=== PATIENT | male | born 1955 | race Caucasian/White ===

== ENCOUNTER 2024-04-25 13:27 | Outpatient (OUT) | payer MEDICARE, OTHER, SELFPAY ==
[2024-04-25 14:19] LABS: Alanine Aminotransferase 35 U/L (16-63); Albumin Globulin Ratio 1.5; Albumin Level 3.7 g/dL (3.4-5.0); Alkaline Phosphatase 93 U/L (46-116); Anion Gap 11.6; Aspartate Amino Transferase 20 U/L (15-37); BUN Creatinine Ratio 16.3; Bilirubin Total 0.8 mg/dL (0.2-1.0); Calcium 8.7 mg/dL (8.5-10.1); Carbon Dioxide 28.4 mmol/L (21.0-32.0); Chloride 103 mmol/L (98-107); Estimated GFR (African America >60 (>=60); Estimated GFR (Non-African Ame >60 (>=60); Globulin 2.5 g/dL; Glucose 131 mg/dL (74-106); Sodium 139 mmol/L (136-145); Total Protein 6.2 g/dL (6.4-8.2)
== END 2024-04-25 13:28 | disposition home or self-care (01) ==
LOC: LAB 13:33
PROVIDERS: PCP Internal Medicine; Visit Provider Internal Medicine
DX: R79.89 Other specified abnormal findings of blood chemistry (principal)
CPT/HCPCS: 36415; 80053

== ENCOUNTER 2025-01-06 14:21 | Outpatient (OUT) | payer MEDICARE, OTHER, SELFPAY ==
--- NOTE | 2025-01-06 14:31 | XR_ITS ---
The [address] [address] Patient Name: RHIANNON VALDIVIA MRN: [id number] date: 1955 Sex: M Assigned Patient Location: RAD Current Patient Location: [facility] Accession/Order Number: [id number] Exam Date: 01/06/2025 15:12 Report Date: 01/06/2025 15:14 At the request of: KEERTHI RODRIGUEZ Procedure: XR lumbar spine 2-3V LUMBAR SPINE - 2 views COMPARISON: None CLINICAL DATA: Chronic low back pain, without injury. AP and lateral views were obtained. There is osteopenia. No acute fractures or displacement are noted. There is disc space narrowing at L4-5. Small endplate spurs are visualized. There is lower lumbar facet disease. The SI joints are intact and show minor sclerosis. No paraspinal soft tissue abnormalities are present. XR/XR lumbar spine 2-3V IMPRESSION: DEGENERATIVE CHANGES, GREATEST AT L4-5. Impression dictated by: Gladys Hanna M.D. 01/06/2025 3:14 PM Dictation Location: [place] [address] Electronically authenticated by: [id number] Y Date: 01/06/2025 15:14
== END 2025-01-06 14:22 | disposition home or self-care (01) ==
LOC: RAD 14:25
PROVIDERS: PCP Internal Medicine; Visit Provider Internal Medicine
DX: M54.50 Low back pain, unspecified (principal); M51.369 Other intervertebral disc degeneration, lumbar region without mention of lumbar back pain or lower extremity pain
CPT/HCPCS: 72100

== ENCOUNTER 2025-01-23 10:48 | Outpatient (OUT) | payer MEDICARE, OTHER, SELFPAY ==
--- OUTSIDE RECORDS SUMMARY | 2025-01-23 11:02 | XMS_ITS | CCD ---
Author Organization [facility] Care Team Providers Care Molder Setter Name Role Phone AGUSTO Gutierrez Primary Care Provider MD Eduard Ramirez Attending Provider Suresh Cullen DO Unavailable Manfred Gutierrez II Primary Care Provider Suresh Cullen DO Unavailable Manfred Gutierrez II Primary Care Provider Suresh Cullen DO Unavailable Manfred Gutierrez II Primary Care Provider Suresh Cullen DO Unavailable Manfred Gutierrez II Primary Care Provider AGUSTO Gutierrez Primary Care Provider [phone] THOR Carrillo Attending Provider DR MANFRED GUTIERREZ Admitting Unavailable DR MANFRED GUTIERREZ Attending Unavailable DR MANFRED GUTIERREZ Primary Care Unavailable DR MANFRED GUTIERREZ Consulting Unavailable Everton Baker Consulting Unavailable Suresh Cullen DO Unavailable Manfred Gutierrez II Primary Care Provider [phone] Matt LIZ MD, Daniel B Primary Care Provider [phone] AGSUTO Gutierrez Primary Care Provider [phone] THOR Carrillo Attending Provider Matt LIZ MD, Daniel B Primary Care Provider DARLIN Carreon Attending Provider Manfred Gutierrez MD Unavailable Manfred Gutierrez MD Primary Care Provider [phone] Manfred Gutierrez II Primary Care Provider [phone] John Calvo MD Attending Provider UMESH, JOHN K Attending Unavailable CARREON, HARDIK L Referring Unavailable GUTIERREZ IIMANFRED Primary Care Unavailable UMESH, JOHN K Admitting Unavailable UMESH, JOHN K Attending Unavailable GUTIERREZ II, MANFRED B Primary Care Unavailable Manfred Gutierrez II Primary Care Provider [phone] John Calvo MD Attending Provider UMESH, JOHN K Attending Unavailable GUTIERREZ II, MANFRED B Primary Care Unavailable UMESH, JOHN K Attending Unavailable GUTIERREZ II, MANFRED B Primary Care Unavailable Carreon JIG BORE OPERATOR-C, Hardik Attending Provider [phone] Carreon, Hardik Admitting Unavailable Carreon, Hardik Attending Unavailable Matt, Manfred Primary Care Unavailable Umesh, John Admitting Unavailable Umesh, John Attending Unavailable Gutierrez, Manfred Primary Care Unavailable Umesh, John Admitting Unavailable Umesh, John Attending Unavailable Matt Manfred Primary Care Unavailable Carreon, Hardik Admitting Unavailable Carreon, Hardik Attending Unavailable Matt Manfred Primary Care Unavailable CARREON, HARDIK Attending Unavailable GUTIERREZ II, MANFRED B Primary Care Unavailable CARREON, HARDIK Attending Unavailable GUTIERREZ II, MANFRED B Primary Care Unavailable GLADYS TOTH Attending Unavailable AL AREVALO Attending Unavailable AL AREVALO Attending Unavailable MANFRED GUTIERREZ Attending Unavailable MANFRED GUTIERREZ Attending Unavailable AL AREVALO Attending Unavailable PETITTTEODORA Rossi Attending Unavailable PETITTITEODORA Attending Unavailable Kush PLASENCIA Attending Unavailable Kush PLASENCIA Attending Unavailable MATT MANFRED B Referring Unavailable MATT MANFRED B Primary Care Physician [phone] Allergies Allergy Classification Reported Allergen(s) Allergy Type Date of Onset Reaction(s) Facility Cephalosporins (antibiotic) (1 source) Cefaclor Drug Allergy 4 Unknown [facility] (20 sources) Cefaclor; Translations: [CEFACLOR] Drug Allergy 4 Unknown, Eruption of skin (disorder) [facility] (2 sources) Cefaclor; Translations: [Ceclor] Drug Allergy 0 [facility] (1 source) Unable to Assess Drug allergy (disorder) [facility] Rep[facility] Medications Current Medications Medication Drug Class(es) Dates Sig (Normalized) Sig (Original) cyproheptadine hydrochloride 4 mg oral tablet (8 sources) Start: 03-28-2022 End: 12-15-2022 take 1 tablet by mouth every twelve hours as needed cyproheptadine (PERIACTIN) 4 mg tablet Indications: Migraine without aura and without status migrainosus, not intractable , Chronic mixed headache syndrome Take 0.5-1 tablets by mouth every 12 hours as needed (for headache relief). 20 tablet 1 03/28/2022 12/15/2022 Discontinued (Discontinued by another Health Care Provider) Start: 03-28-2022 End: 03-28-2022 take 1 tablet by mouth every eight hours as needed cyproheptadine (PERIACTIN) 4 mg tablet Indications: Migraine without aura and without status migrainosus, not intractable , Chronic mixed headache syndrome Take 0.5-1 tablets by mouth every 8 hours as needed (for headache relief). 30 tablet 1 03/28/2022 03/28/2022 Discontinued Comment on above: Take 0.5-1 tablets b y mouth every 12 hours as needed (for headache relief). Take 0.5-1 tablets b y mouth every 8 hours as needed (for headache relief). diclofenac potassium 50 mg oral tablet (10 sources) Nonsteroidal Anti-inflammatory Drug Start: 01-01-20 24 End: 01-01-20 25 take 1 tablet by mouth in the morning diclofenac (Cataflam) 50 MG tablet Indications: Spondylosis of cervical region without myelopathy or radiculopathy Take 1 tablet (50 mg) by mouth in the morning and 1 tablet (50 mg) before bedtime. 60 tablet 11 01/01/2024 05/01/2024 Discontinued doxepin 3 mg oral tablet (2 sources) Tricyclic Antidepressant Start: 04-21-20 23 End: 10-18-19 24 take 1 tablet by mouth once daily at bedtime Doxepin 3 mg tab Indications: Migraine without aura and without status migrainosus, not intractable , Chronic daily headache Take 1 tablet by mouth daily at bedtime. 30 tablet 3 04/21/2023 04/21/2023 Discontinued Comment on above: Take 1 tablet by kathy th daily at bedtime. doxycycline hyclate 100 mg oral capsule (1 source) Tetracycline-class Drug Start: 01-21-20 take 1 capsule by mouth once daily doxycycline hyclate 100 mg Cap 100 mg = 1 cap(s), Oral, Daily, take one day before procedure and take one day after procedure, # 2 cap(s), Refills(s) 0, Pharmacy: [facility]/pharmacy #[id number], 178, cm, 01/20/25 14:09:00 EDT, Height/Length Dosing, 75, kg, 01/20/25 14:09:00 EDT, Weight Dosing Start Date: 01/20/25 Status: Ordered Quantity: 2.0 Unit: cap(s) Repeat number: 1 1 ml galcanezumab-gnlm 120 mg/ml auto-injector (18 sources) Start: 01-01-20 End: 12-16-19 galcanezumab-gnlm 120 mg/mL subcutaneous pen injector (EMGALITY) Inject 1 Pen subcutaneously once every month. Refrigerate. Do not shake. 3 Pen 1 12/31/2021 12/15/2022 Discontinued (Discontinued by another Health Care Provider) Start: 12-31-2021 End: 12-15-2022 galcanezumab-gnlm 120 mg/mL subcutaneous pen injector (EMGALITY) Inject 2 Pens subcutaneously one time only for 1 dose. For first month only. Refrigerate. Do not shake. 2 Pen 0 12/31/2021 12/15/2022 Discontinued (Discontinued by another Health Care Provider) Comment on above: Inject 1 Pen subcuta neously once every month. Refrigerate. Do not shake. Inject 2 Pens subcut aneously one time only for 1 dose. For first month only. Refrigerate. Do not shake. Ibuprofen (9 sources) Nonsteroidal Anti-inflammatory Drug IBUPROFEN ORAL Take by mouth as needed (take 2-3 tabs po prn for pain). Active IBUPROFEN ORAL T arlette by mouth as needed (take 2-3 tabs po prn for pain). 0 Active iv contrast (will be provided with radiology test) (6 sources) Start: 12-31-2024 End: 01-01-2025 inject 1 dose intravenously once iv contrast (will be provided with radiology test) MRI Brain Inject, intravenously, once for 1 dose.No IV access, insert saline lock prior to beginning of sedation, infusion, injection of imaging exam.Discontinue saline lock post exam. If Pt. has a central line or IVAD, may access for administration according to line specific nursing protocol.Once exam is complete flush line and de-access according to line specific nursing protocol in the MR contrast administration guidelines link 1 each 12/31/2024 01/01/2025 Active Start: 01-02-2024 End: 01-03-2024 iv contrast (will be provide d with radiology test) MRI CSP Inject, intravenously, once for 1 dose. No IV access, insert saline lock prior to the beginning of sedation, infusion, injection of imaging exam. Discontinue saline lock post exam. If Pt. has a central line or IVAD, may access for administration according to line specific nursing protocol. Once exam is complete flush line and de-access according to line specific nursing protocol in the MR contrast administration guidelines link. 1 Each 0 01/02/2024 01/03/2024 Active Start: 01-02-2024 End: 01-03-2024 inject 1 dose intravenously once iv contrast (will be provided with radiology test) MRI Brain Inject, intravenously, once for 1 dose.No IV access, insert saline lock prior to beginning of sedation, infusion, injection of imaging exam.Discontinue saline lock post exam. If Pt. has a central line or IVAD, may access for administration according to line specific nursing protocol.Once exam is complete flush line and de-access according to line specific nursing protocol in the MR contrast administration guidelines link 1 Each 0 01/02/2024 01/03/2024 Active Start: 12-14-2022 End: 12-15-2022 inject 1 dose intravenously once iv contrast (will be provided with radiology test) MRI Brain Inject, intravenously, once for 1 dose.No IV access, insert saline lock prior to beginning of sedation, infusion, injection of imaging exam.Discontinue saline lock post exam. If Pt. has a central line or IVAD, may access for administration according to line specific nursing protocol.Once exam is complete flush line and de-access according to line specific nursing protocol in the MR contrast administration guidelines link 1 Each 0 12/14/2022 12/15/2022 Active Start: 11-24-2021 End: 11-25-2021 inject 1 dose intravenously once iv contrast (will be provided with radiology test) MRI Brain Inject, intravenously, once for 1 dose.No IV access, insert saline lock prior to beginning of sedation, infusion, injection of imaging exam.Discontinue saline lock post exam. If Pt. has a central line or IVAD, may access for administration according to line specific nursing protocol.Once exam is complete flush line and de-access according to line specific nursing protocol in the MR contrast administration guidelines link 1 Each 0 11/24/2021 11/25/2021 Start: 11-24-2021 End: 11-25-2021 inject 1 dose intravenously once iv contrast (will be provided with radiology test) MRI Brain Inject, intravenously, once for 1 dose.No IV access, insert saline lock prior to beginning of sedation, infusion, injection of imaging exam.Discontinue saline lock post exam. If Pt. has a central line or IVAD, may access for administration according to line specific nursing protocol.Once exam is complete flush line and de-access according to line specific nursing protocol in the MR contrast administration guidelines link 1 Each 0 11/24/2021 11/25/2021 Active Comment on above: MRI Brain Inject, in travenously, once for 1 dose.No IV access, insert saline lock prior to beginning of sedation, infusion, injection of imaging exam.Discontinue saline lock post exam. If Pt. has a central line or IVAD, may access for administration according to line specific nursing protocol.Once exam is complete flush line and de-access according to line specific nursing protocol in the MR contrast administration guidelines link 24 hr metoprolol succinate 25 mg extended release oral tablet (20 sources) beta-Adrenergic Brooke Start: 2020 End: 2024 take 1 tablet by mouth once daily in the morning metoprolol succinate XL (Toprol-XL) 25 MG 24 hr tablet Indications: Pure hypercholesterolemia (CMS/HCC) TAKE 1 TABLET BY MOUTH EVERY DAY IN THE MORNING 100 tablet 3 05/02/2024 12/17/2024 Discontinued (Other) Comment on above: Take 25 mg by mouth once daily. MULTIVITAMIN ORAL (20 sources) MULTIVITAMIN ORA L Take by mouth. Active MULTIVITAMIN ORA L Take by mouth. 0 Active Comment on above: Take by mouth. tamsulosin hydrochloride 0.4 mg oral capsule (20 sources) alpha-Adrenergic Brooke Start: 01-20-2025 take 1 capsule by mouth once daily tamsulosin 0.4 mg Cap 0.4 mg = 1 cap(s), Oral, Daily, TAKE 1 CAPSULE BY MOUTH EVERY DAY Start Date: 01/20/25 Status: Ordered Repeat number: 1 Start: 02-15-2021 take 1 capsule by mo [facility] once daily tamsulosin (Flomax) 0.4 MG 24 hr capsule Indications: Benign prostatic hyperplasia with lower urinary tract symptoms, symptom details unspecified TAKE 1 CAPSULE BY MOUTH EVERY DAY 100 capsule 3 10/25/2024 Active Comment on above: Take 0.4 mg by mouth once daily. triamcinolone acetonide 1 mg/ml topical cream (2 sources) Corticosteroid Start: 01-16-2025 triamcinolone (Kenalog) 0.1 % cream Indications: Rash and other nonspecific skin eruption Apply topically 2 (two) times a day as needed for rash 240 g 11 01/16/2025 Active Start: 01-16-2025 triamcinolone (Kenalog) 0.1 % cream Indications: Rash and other nonspecific skin eruption Apply topically 2 (two) times a day as needed for rash 240 g 11 01/16/2025 Active Completed/Discontinued Medications Medication Drug Class(es) Dates Sig (Normalized) Sig (Original) amitriptyline hydrochloride 50 mg oral tablet (2 sources) Tricyclic Antidepressant End: 11-24-2021 take 1 tablet by mouth once daily at bedtime amitriptyline (ELAVIL) 50 mg tablet Take 50 mg by mouth daily at bedtime. 0 11/24/2021 Discontinued (Discontinued by another Health Care Provider) Comment on above: Take 50 mg by mouth daily at bedtime. atorvastatin 40 mg oral tablet (20 sources) HMG-CoA Reductase Inhibitor Start: 01-20-2025 take 1 tablet by mouth once daily atorvastatin 40 mg Tab 40 mg = 1 tab(s), Oral, Daily, TAKE 1 TABLET BY MOUTH EVERY DAY Start Date: 01/20/25 Status: Ordered Repeat number: 1 Start: 03-01-2021 take 1 tablet by kathy once daily atorvastatin (Lipitor) 40 MG tablet Indications: Pure hypercholesterolemia (CMS/HCC) TAKE 1 TABLET BY MOUTH EVERY DAY 100 tablet 3 10/28/2024 Active Comment on above: Take 40 mg by mouth once daily. 1 ml erenumab-aooe 70 mg/ml auto-injector (1 source) Start: inject 1 mL by subcutaneous injection every month erenumab-aooe (AIMOVIG AUTOINJECTOR) 70 mg/mL auto-injector Inject 1 mL subcutaneously once every month. 3 Pen 3 12/23/2021 Active Comment on above: Inject 1 mL subcutan eously once every month. 1.5 ml fremanezumab-vfrm 150 mg/ml auto-injector (1 source) Start: End: inject 1.5 mL by subcutaneous injection every month fremanezumab-vfrm subcutaneus auto-injector 225 mg/1.5 mL (AJOVY) Inject 1.5 mL subcutaneously once every month. Do not shake. 3 Pen 3 12/21/2021 12/23/2021 Discontinued Comment on above: Inject 1.5 mL subcut aneously once every month. Do not shake. gabapentin 300 mg oral capsule (20 sources) Anti-epileptic Agent Start: End: take 1 capsule by mouth once daily in the morning, then take 1 capsule by mouth once, then take 2 capsules by mouth once daily at bedtime gabapentin (NEURONTIN) 300 mg capsule Indications: Migraine without aura and without status migrainosus, not intractable , Chronic mixed headache syndrome Take 1 capsule by mouth every morning AND 1 capsule every afternoon AND 2 capsules daily at bedtime. Do all this for 180 days. 360 capsule 1 11/09/2023 07/09/2024 Discontinued (Course of therapy completed) Start: 10-20-2022 End: 01-18-2023 take 1 capsule by mouth once daily in the morning, then take 1 capsule by mouth once, then take 2 capsules by mouth once daily at bedtime gabapentin (NEURONTIN) 300 mg capsule Indications: Migraine without aura and without status migrainosus, not intractable , Chronic mixed headache syndrome Take 1 capsule by mouth every morning AND 1 capsule every afternoon AND 2 capsules daily at bedtime. Do all this for 90 days. 120 capsule 2 10/20/2022 01/18/2023 Active Start: 04-19-2021 End: 08-24-2022 gabapentin (NEURONTIN) 300 m g capsule Indications: Migraine without aura and without status migrainosus, not intractable , Chronic mixed headache syndrome TAKE 1 CAPSULE BY MOUTH IN THE MORNING, 1 CAPSULE IN THE AFTERNOON AND 2 CAPSULES AT NIGHT 120 capsule 2 05/24/2022 08/24/2022 Active End: 05-01-2024 take 2 capsules by mouth at bedtime gabapentin (Neurontin) 300 MG capsule Take 300 mg by mouth See administration instructions. 1 capsule every morning, 1 capsule every afternoon, and 2 capsules at bedtime 05/01/2024 Discontinued Comment on above: Take 300 mg by mouth once daily. Take 1 capsule by mo uth in the morning and 1 in the afternoon. Take 2 capsules by mouth at night. TAKE 1 CAPSULE BY MO UTH IN THE MORNING, 1 CAPSULE IN THE AFTERNOON AND 2 CAPSULES AT NIGHT Take 1 capsule by mo uth every morning AND 1 capsule every afternoon AND 2 capsules daily at bedtime. Do all this for 90 days. TAKE 1 CAPSULE BY MO UTH EVERY MORNING AND 1 CAPSULE EVERY AFTERNOON AND 2 CAPSULES DAILY AT BEDTIME Take 1 capsule by mo uth every morning AND 1 capsule every afternoon AND 2 capsules daily at bedtime. Do all this for 30 days. Take 1 capsule by mo uth every morning AND 1 capsule every afternoon AND 2 capsules daily at bedtime. Do all this for 180 days. minocycline 100 mg oral capsule (10 sources) Tetracycline-class Drug Start: take 1 capsule by mouth twice daily minocycline 100 mg Cap 100 mg = 1 cap(s), Oral, q12hr, TAKE 1 CAPSULE BY MOUTH TWICE A DAY FOR 14 DAYS Start Date: 01/20/25 Status: Ordered Repeat number: 1 Start: 01-02-2025 take 1 capsule by mo uth twice daily minocycline 100 MG capsule Indications: Bacterial folliculitis Take one pill po bid, 14 days. 28 capsule 01/02/2025 Active predniSONE 10 mg oral tablet (4 sources) Start: 12-17-2024 End: 01-06-2025 take 1 tablet by mouth three times daily, then take 1 tablet by mouth twice daily, then take 1 tablet by mouth once daily predniSONE (Deltasone) 10 MG tablet Indications: Dermatitis , Strain of lumbar region, initial encounter Take 1 tablet (10 mg) by mouth 3 (three) times a day for 3 days, THEN 1 tablet (10 mg) 2 (two) times a day for 3 days, THEN 1 tablet (10 mg) Daily for 3 days. 18 tablet 12/17/2024 01/06/2025 Discontinued (Therapy completed) tiZANidine 4 mg oral tablet (7 sources) Central alpha-2 Adrenergic Agonist Start: 01-06-2025 End: 01-21-2025 take 1 tablet by mouth every six hours for muscle spasms tiZANidine 4 mg Tab 4 mg = 1 tab(s), Oral, q6hr, TAKE 1 TABLET BY MOUTH EVERY 6 HOURS IF NEEDED FOR MUSCLE SPASMS FOR UP TO 15 DAYS Start Date: 01/20/25 Status: Ordered Repeat number: 1 Problems Active Problems Problem Classification Problem Date Documented Da te Episodic/Chronic Allergic reactions (2 sources) Inflammatory dermatosis; Translations: [Dermatitis, unspecified] 12-17-2024 Episodic Calculus of urinary tract (1 source) History of calculus of kidney 01-20-2025 Episodic Disorders of lipid metabolism (20 sources) Pure hypercholesterolemi a; Translations: [Pure hypercholesterolemi a, unspecified] Onset: 02-08-2023 02-08-2023 Chronic Headache; including migraine (20 sources) Migraine; Translations: [Migraine, unspecified, not intractable, without status migrainosus] Onset: 03-28-2024 08-18-2014 Chronic Hyperplasia of prostate (20 sources) Benign prostatic hyperplasia; Translations: [Benign prostatic hyperplasia with lower urinary tract symptoms] Onset: 02-08-2023 02-08-2023 Chronic Neoplasms of unspecified nature or uncertain behavior (20 sources) Astrocytoma of brain; Translations: [Neoplasm of uncertain behavior of brain, unspecified] Onset: 02-08-2023 Chronic Neoplasms of unspecified nature or uncertain behavior (4 sources) Neoplastic disease; Translations: [Neoplasm of unspecified behavior of bone, soft tissue, and skin] 04-18-2024 Episodic Other aftercare (3 sources) Patient encounter status; Translations: [Other group home (current) drug therapy] 04-14-2023 Episodic Other aftercare (1 source) Removal of sutures done; Translations: [Encounter for removal of sutures] 07-02-2024 Episodic Other and unspecified benign neoplasm (4 sources) Melanocytic nevus of trunk; Translations: [Melanocytic nevi of trunk] 04-18-2024 Episodic Other lower respiratory disease (1 source) Snoring; Translations: [Snoring] Episodic Other male genital disorders (1 source) Hydrocele of testis; Translations: [Hydrocele, unspecified] Onset: 01-20-2025 Episodic Other male genital disorders (1 source) Disorder of male genital organ 01-20-2025 Episodic Other nervous system disorders (2 sources) Lesion of ulnar nerve, left upper limb; Translations: [Lesion of ulnar nerve] Onset: 03-28-2024 03-28-2024 Chronic Other nervous system disorders (2 sources) Lesion of ulnar nerve, right upper limb; Translations: [Lesion of ulnar nerve] Onset: 03-28-2024 03-28-2024 Chronic Other nervous system disorders (20 sources) Chronic pain; Translations: [Other chronic pain] Onset: 02-08-2023 02-08-2023 Chronic Other nervous system disorders (3 sources) Lesion of brain; Translations: [Disorder of brain, unspecified] 12-25-2024 Chronic Other nervous system disorders (1 source) Disorder of brain, unspecified; Translations: [Brain lesion] Onset: 12-31-2024 Chronic Other non-epithelial cancer of skin (20 sources) Basal cell carcinoma of upper extremity; Translations: [Basal cell carcinoma of skin of left upper limb, including shoulder] Onset: 02-08-2023 06-19-2024 Episodic Other screening for suspected conditions (not mental disorders or infectious disease) (4 sources) Other specified abnormal findings of blood chemistry; Translations: [Other abnormal blood chemistry] Onset: 01-20-2025 05-01-2024 Episodic Other skin disorders (4 sources) Seborrheic keratosis; Translations: [Other seborrheic keratosis] 04-18-2024 Episodic Other skin disorders (2 sources) Bacterial folliculitis; Translations: [Other specified follicular disorders] 01-02-2025 Episodic Other skin disorders (2 sources) Lentiginosis; Translations: [Other melanin hyperpigmentation] 01-02-2025 Episodic Other skin disorders (2 sources) Eruption; Translations: [Rash and other nonspecific skin eruption] 01-16-2025 Episodic Other upper respiratory infections (20 sources) Chronic sinusitis; Translations: [Chronic sinusitis, unspecified] Onset: 02-08-2023 02-08-2023 Chronic Residual codes; unclassified (1 source) Insomnia; Translations: [Insomnia, unspecified] Episodic Residual codes; unclassified (1 source) Family history of cancer; Translations: [Family history of malignant neoplasm of prostate] Onset: 01-20-2025 Episodic Residual codes; unclassified (1 source) Family history of prostate cancer 01-20-2025 Episodic Spondylosis; intervertebral disc disorders; other back problems (20 sources) Cervical spondylosis without myelopathy; Translations: [Spondylosis without myelopathy or radiculopathy, cervical region] Onset: 02-08-2023 03-28-2024 Chronic Spondylosis; intervertebral disc disorders; other back problems (13 sources) Neck pain; Translations: [Cervicalgia] Onset: 01-10-2024 Episodic Sprains and strains (6 sources) Low back strain; Translations: [Strain of muscle, fascia and tendon of lower back, initial encounter] 12-17-2024 Episodic Unclassified (1 source) NO SHOW Past or Other Problems Problem Classification Problem Date Documented Date Episodic/Chronic Diabetes mellitus without complication (2 sources) Increased glucose level; Translations: [Other abnormal glucose] 05-01-2024 Episodic Headache; including migraine (20 sources) Chronic mixed headache syndrome; Translations: [Other headache syndrome] Onset: 02-08-2023 Episodic Nonspecific chest pain (20 sources) Atypical chest pain; Translations: [Other chest pain] Onset: 08-26-2014 08-26-2014 Episodic Other connective tissue disease (20 sources) Neuralgia of left upper limb; Translations: [Neuralgia and neuritis, unspecified] Onset: 02-08-2023 02-08-2023 Episodic Other diseases of kidney and ureters (20 sources) Disorder of urinary tract; Translations: [Other obstructive and reflux uropathy] Onset: 02-08-2023 02-08-2023 Episodic Other nervous system disorders (20 sources) Ataxia; Translations: [Ataxia, unspecified] Onset: 02-08-2023 02-08-2023 Episodic Other skin disorders (2 sources) Inflamed seborrheic keratosis; Translations: [Inflamed seborrheic keratosis] 04-18-2024 Episodic Other skin disorders (2 sources) Actinic keratosis; Translations: [Actinic keratosis] 04-18-2024 Episodic Syncope (20 sources) Syncope; Translations: [Syncope and collapse] Onset: 08-26-2014 08-26-2014 Episodic Unclassified (1 source) 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 Your Care Team Attending Physician - LUIS ANGEL MÉNDEZ, Kush Vides Primary Care Physician - MANFRED GUTIERREZ MD Referring Physician - MANFRED GUTIERREZ MD This Is Your Medications List doxycycline (doxycycline hyclate 100 mg Cap) Contact prescribing physician if questions or concerns atorvastatin (atorvastatin 40 mg Tab) minocycline (minocycline 100 mg Cap) tamsulosin (tamsulosin 0.4 mg Cap) tizanidine (tiZANidine 4 mg Tab) Procedures Performed Colonoscopy, Eye, Hernia repair, Nose, Tonsillectomy. Discharge Vitals Heart Rate (Peripheral) 72 Respiratory Rate 16 Blood Pressure 129/79 Height 178 cm Height 70 in Weight 75 kg Weight 165.347 lb BMI 23.67 What to do next You Need to Schedule the Following Appointments Follow Up with LUIS ANGEL MÉNDEZ, Kush Vides, URL When: Comments: sched cysto Where: [facility] [address] , [place] [address]- [phone] Medications What How Much When Instructions New doxycycline (doxycycline hyclate 100 mg Cap) 1 Capsules By Mouth Every day take one day before procedure and take one day after procedure Pickup at [facility]/pharmacy #[id number] Unchanged atorvastatin (atorvastatin 40 mg Tab) 1 Tablets By Mouth Every day TAKE 1 TABLET BY MOUTH EVERY DAY Contact prescribing physician if questions or concerns Unchanged minocycline (minocycline 100 mg Cap) 1 Capsules By Mouth Every 12 hours TAKE 1 CAPSULE BY MOUTH TWICE A DAY FOR 14 DAYS Contact prescribing physician if questions or concerns Unchanged tamsulosin (tamsulosin 0.4 mg Cap) 1 Capsules By Mouth Every day TAKE 1 CAPSULE BY MOUTH EVERY DAY Contact prescribing physician if questions or concerns Unchanged tizanidine (tiZANidine 4 mg Tab) 1 Tablets By Mouth Every 6 hours TAKE 1 TABLET BY MOUTH EVERY 6 HOURS IF NEEDED FOR MUSCLE SPASMS FOR UP TO 15 DAYS Contact prescribing physician if questions or concerns Pharmacy Information [facility]/pharmacy #[id number]: [address] [place], [place] [phone] Allergies Ceclor (Rash) Problems Ongoing - Any problem that you are currently receiving treatment for. Basal cell carcinoma Benign prostatic hyperplasia with incomplete bladder emptying BPH with obstruction/lower urinary tract symptoms Elevated PSA Family history of prostate cancer High cholesterol History of kidney stones Hydrocele Patient Survey You may receive a survey via text or e-mail asking about your office visit. Please share your experience with us by completing your survey. We appreciate your feedback and thank you for choosing us for your care. Education Materials Cystoscopy Cystoscopy is a procedure that is used to help diagnose and sometimes treat conditions that affect the lower urinary tract. The lower urinary tract includes the bladder and the urethra. The urethra is the tube that drains urine from the bladder. Cystoscopy is done using a thin, tube-shaped instrument with a light and camera at the end (cystoscope). The cystoscope may be hard or flexible, depending on the goal of the procedure. The cystoscope is inserted through the urethra, into the bladder. Cystoscopy may be recommended if you have: ??? Urinary tract infections that keep coming back. ??? Blood in the urine (hematuria). ??? An inability to control when you urinate (urinary incontinence) or an overactive bladder. ??? Unusual cells found in a urine sample. ??? A blockage in the urethra, such as a urinary stone. ??? Painful urination. ??? An abnormality in the bladder found during an intravenous pyelogram (IVP) or CT scan. Cystoscopy may also be done to remove a sample of tissue to be examined under a microscope (biopsy). Tell a health care provider about: ??? Any allergies you have. ??? All medicines you are taking, including vitamins, herbs, eye drops, creams, and djao-wxx-kcvifqh medicines. ??? Any problems you or family members have had with anesthetic medicines. ??? Any blood disorders you have. ??? Any surgeries you have had. ??? Any medical conditions you have. ??? Whether you are or may be . What are the risks? Generally, this is a safe procedure. However, problems may occur, including: ??? Infection. ??? Bleeding. ??? Allergic reactions to medicines. ??? Damage to other structures or organs. What happens before the procedure? Medicines Ask your health care provider about: ??? Changing or stopping your regular medicines. This is especially important if you are taking diabetes medicines or blood t (more content not included)... Normal [facility] Urology Office/Clinic Noteon 01-20-2025 Urology Office/Clinic Note Urology Office/Clinic Note Chief Complaint New patient BPH with incomplete bladder emptying HPI Staff 69 year old male new patient referred for BPH/incomplete bladder emptying x 3 years PSA 12/30/24: 3.34 IPSS: 19, JENNIFER: 18 Denies abdominal pain/flank pain Denies visible blood and denies dysuria. PVR: 74 ml History of Present Illness Tests reviewed: reviewed UA, PVR, referral records, PSA I have reviewed the previous health record information and history for this patient from external providers. I have reviewed and verified the staff HPI to be accurate for this encounter. Review of Systems PHQ Score Initial Depression Screen Score: 0 SCORE ROS - Provider Constitutional: denies weight loss, denies hot flashes. Eyes: denies eye problems. Gastrointestinal: denies nausea, denies vomiting. Cardiovascular: denies chest pain or angina. Integumentary: no dryness Musculoskeletal: denies musculoskeletal symptoms. ENMT: denies otolaryngeal symptoms. Respiratory: no shortness of breath. Heme/Lymph: denies easy bleeding tendency, denies easy bruising tendency. Psychiatric: no confusion, no anxiety. Genitourinary: See HPI. Physical Exam Vitals & Measurements HR: 72(Peripheral) RR: 16 BP: 129/79 HT: 70 in HT: 178 cm WT: 165.347 lb WT: 75 kg BMI: 23.67 General Appearance: alert, no distress, well nourished, well developed male. Genitourinary: R inguinal hernia. R hydrocele Prostate: normal prostate, estimated weight 35 gms, no hard nodule observed. Assessment/Plan Rhiannon is a 69 yo male new pt referred by Dr. Manfred Gutierrez for BPH with nocturia. Pt here with his today. Pt [place] in [place] and [place]. 1. BPH with obstruction/lower urinary tract symptoms (N40.1: Benign prostatic hyperplasia with lower urinary tract symptoms) IPSS 19. UA today negative for blood and infection. PVR 74 mL. Taking Flomax 0.4mg qd per PCP for a few years. Sxs have worsened in the last 6 mos. Denies hx of UTIs. Reports urge to void ~15min already going. Nocturia 3x. Discussed cystoscopy to evaluate bladder health and prostate obstruction. Advised pt this will help determine candidacy for tx options. -Cont Flomax wo changes -Will schedule cystoscopy. The risks and benefits for cystoscopy have been discussed. The risks include bleeding, infection, and irritation of the bladder and urinary channel, among others. The patient, after being informed of procedural details and after questions have been answered, wishes to proceed. Full informed consent has been obtained. Will order Local anesthesia. 2. Elevated PSA (R97.20: Elevated prostate specific antigen [PSA]) PSA 05/21/18 - 2.36 12/22/21 - 2.64 12/28/22 - 2.74 12/27/23 - 2.99 12/30/24 - 3.34 Fam hx of pros ca in brother, had prostatectomy. KARIN: 35g, benign PSA has been increasing. Asx for prostatitis. Advised pt an elevated PSA could indicate prostate cancer, prostate infection, prostate inflammation without infection, prostate manipulation, or benign prostate enlargement (BPH). Recommended close monitoring of the PSA. -PSA due 06/2025 (before they go to [place]) 3. Family history of prostate cancer (Z80.42: Family history of malignant neoplasm of prostate) Cont screening per above. 4. Hydrocele (N43.3: Hydrocele, unspecified) Found on right per PE today. Recommended imaging to further evaluate. R inguina hernia small. -Schedule scrotal US (pt prefers [facility]). Will review results at time of cysto. Follow-up With When Contact Information LUIS ANGEL MÉNDEZ, Kush Vides, URL [facility] [address], [place] [address]- [phone] Additional Instructions: sched cysto Patient Education Cystoscopy Benign Prostatic Hyperplasia Prostate Cancer Screening I, hPilly Gutierrez, personally scribed for Dr. Plasencia on 01/20/2025 14:35:36. . Documentation recorded by the Philly wagner, accurately reflects the services(s) I performed and decisions made by me. Authenticated by Dr. Plasencia on 01/20/2025 14:39:00. Problem List/Past Medical History Ongoing Basal cell carcinoma Benign prostatic hyperplasia with incomplete bladder emptying BPH with obstruction/lower urinary tract symptoms Elevated PSA Family history of prostate cancer High cholesterol History of kidney stones Hydrocele Historical No qualifying data Procedure/Surgical History Colonoscopy, Eye, Hernia repair, Nose, Tonsillectomy. Medications atorvastatin 40 mg Tab, 40 mg= 1 tab(s), Oral, Daily doxycycline hyclate 100 mg Cap, 100 mg= 1 cap(s), Oral, Daily minocycline 100 mg Cap, 100 mg= 1 cap(s), Oral, q12hr tamsulosin 0.4 mg Cap, 0.4 mg= 1 cap(s), Oral, Daily tiZANidine 4 mg Tab, 4 mg= 1 tab(s), Oral, q6hr Allergies Ceclor (Rash) Social History Alcohol Current, Beer, 1-2 times per week, 01/20/2025 Substance Abuse Never., 01/20/2025 Tobacco Never (less than 100 in lifetime) Tobacco Use:. Never Smokeless T (more content not included)... Normal [facility] Comment on above: Result Comment: Elec tronically Signed By: Kush PLASENCIA MD\.br\Date and Time Signed: 01/20/25 14:39 EDT\.br\Electronically Co-Signed By: Philly Gutierrez\.br\Date and Time Co-Signed: 01/20/25 14:36 EDT No Panel Informationon 01-16 Type of biopsy: punch [facility] XR LUMBAR SPINE 2 OR 3Von The [address] [address] XRay Report Signed Patient: RHIANNON VALDIVIA MR#: [id number] : 1955 Acct:[id number] Age/Sex: 69 / M ADM Date: 01/06/25 Loc: RAD Attending Dr: MANFRED GUTIERREZ Ordering Physician: MANFRED GUTIERREZ Date of Service: 01/06/25 Procedure(s): XR lumbar spine 2-3V Accession Number(s): [id number] cc: MANFRED GUTIERREZ [place] [address] Patient Name: RHIANNON VALDIVIA MRN: [facility]:[id number] date: 1955 Sex: M Assigned Patient Location: RAD Current Patient Location: RAD Accession/Order Number: [id number] Exam Date: 01/06/2025 15:12 Report Date: 01/06/2025 15:14 At the request of: MANFRED GUTIERREZ Procedure: XR lumbar spine 2-3V LUMBAR SPINE - 2 views COMPARISON: None CLINICAL DATA: Chronic low back pain, without injury. AP and lateral views were obtained. There is osteopenia. No acute fractures or displacement are noted. There is disc space narrowing at L4-5. Small endplate spurs are visualized. There is lower lumbar facet disease. The SI joints are intact and show minor sclerosis. No paraspinal soft tissue abnormalities are present. XR/XR lumbar spine 2-3V IMPRESSION: DEGENERATIVE CHANGES, GREATEST AT L4-5. Impression dictated by: Gladys Hanna M.D. 01/06/2025 3:14 PM Dictation Location: [place] [address] Electronically authenticated by: [id number] Date: 01/06/2025 15:14 Dictated By: Gladys Hanna M.D. Signed By: 01/06/25 1517 DD/ 1514 TD/TT: Reclamation Supervisor: [facility] Radiology, Radiologist, MD - 01/06/2025 [place] [address] XRay Report Signed Patient: RHIANNON VALDIVIA MR#: [id number] : 1955 Acct:[id number] Age/Sex: 69 / M ADM Date: 01/06/25 Loc: [facility] Attending Dr: MANFRED GUTIERREZ Ordering Physician: MANFRED GUTIERREZ Date of Service: 01/06/25 Procedure(s): XR lumbar spine 2-3V Accession Number(s): [id number] cc: MANFRED UGTIERREZ [place] [id number] Patient Name: RHIANNON VALDIVIA MRN: [id number] date: 1955 Sex: M Assigned Patient Location: RAD Current Patient Location: [facility] Accession/Order Number: [id number] Exam Date: 01/06/2025 15:12 Report Date: 01/06/2025 15:14 At the request of: MANFRED GUTIERREZ Procedure: XR lumbar spine 2-3V LUMBAR SPINE - 2 views COMPARISON: None CLINICAL DATA: Chronic low back pain, without injury. AP and lateral views were obtained. There is osteopenia. No acute fractures or displacement are noted. There is disc space narrowing at L4-5. Small endplate spurs are visualized. There is lower lumbar facet disease. The SI joints are intact and show minor sclerosis. No paraspinal soft tissue abnormalities are present. XR/XR lumbar spine 2-3V IMPRESSION: DEGENERATIVE CHANGES, GREATEST AT L4-5. Impression dictated by: Gladys Hanna M.D. 01/06/2025 3:14 PM Dictation Location: [place] [address] Electronically authenticated by: [id number] Y Date: 01/06/2025 15:14 Dictated By: Gladys Hanna M.D. Signed By: 01/06/25 1517 DD/ 1514 TD/TT: Reclamation Supervisor: [facility] Radiology Study observation (narrative) [facility] XR LUMBAR SPINE 2 OR 3VOrder ed By: Radiologist Radiology on 01-06-2025 [facility] Work Phone: No Panel Informationon 01-02 Type of biopsy: tangential Informed consent: discussed and consent obtained Informed consent comment: The risks and benefits of the biopsy were discussed. Risks include but are not limited to bleeding, infection, scarring, pain, and nerve damage. An opportunity to ask questions prior to the procedure was permitted and all questions were answered. Patient was prepped and draped in usual sterile fashion: area cleansed with alcohol. Anesthesia: the lesion was anesthetized in a standard fashion Anesthetic: 1% lidocaine w/ epinephrine 1-100,000 buffered w/ 8.4% NaHCO3 Instrument used: DermaBlade Hemostasis achieved with: electrodesiccation Outcome: patient tolerated procedure well Outcome comment: The specimen was placed in a prelabeled formalin container to be sent for pathology Post-procedure details: sterile dressing applied and wound care instructions given Post-procedure details comment: Emphasized need to contact clinic for any signs of infection, uncontrollable bleeding, or complications. Dressing type: bandage Additional details: Photo taken yes Amount of lidocaine used: 0.5 cc [facility] Type of biopsy: tangential Informed consent: discussed and consent obtained Informed consent comment: The risks and benefits of the biopsy were discussed. Risks include but are not limited to bleeding, infection, scarring, pain, and nerve damage. An opportunity to ask questions prior to the procedure was permitted and all questions were answered. Patient was prepped and draped in usual sterile fashion: area cleansed with alcohol. Anesthesia: the lesion was anesthetized in a standard fashion Anesthetic: 1% lidocaine w/ epinephrine 1-100,000 buffered w/ 8.4% NaHCO3 Instrument used: DermaBlade Hemostasis achieved with: electrodesiccation Outcome: patient tolerated procedure well Outcome comment: The specimen was placed in a prelabeled formalin container to be sent for pathology Post-procedure details: sterile dressing applied and wound care instructions given Post-procedure details comment: Emphasized need to contact clinic for any signs of infection, uncontrollable bleeding, or complications. Dressing type: bandage Additional details: Photo taken yes Amount of lidocaine used: 0.5 cc [facility] CBC (H/H, RBC, INDICES, WBC, PLT)on 12-31-2024 Erythrocyte distribution width (RBC) [Ratio] 14.2 % Normal 11.0-15.0 [facility] Comment on above: Performed By: #### 1 507, 01688, 7600, 5363 #### [facility] [address], [address] [place] [phone] Lozenge Maker: Tulio Walker MD Hematocrit (Bld) [Volume fraction] 52.3 % High 38.5-50.0 [facility] Comment on above: Performed By: #### 1 336, 28037, 5700, 5363 #### [facility] [address], [address] [place] [phone] Lozenge Maker: Tuloi Walker MD Hemoglobin (Bld) [Mass/Vol] 16.5 g/dL Normal 13.2-17.1 [facility] Comment on above: Performed By: #### 1 759, 97297, 7600, 5363 #### [facility] [place] [address] Lozenge Maker: Tulio Walker MD MCH (RBC) [Entitic mass] 29.8 pg Normal 27.0-33.0 [facility] Comment on above: Performed By: #### 1 759, 69754, 7600, 5363 #### [facility] [address], [address] [place] [address] Lozenge Maker: Tulio Walker MD MCHC (RBC) [Mass/Vol] 31.5 g/dL Low 32.0-36.[address] [facility] Comment on above: Result Comment: For adults, a slight decrease in the calculated MCHC value (in the range of 30 to 32 g/dL) is most likely not clinically significant; however, it should be interpreted with caution in correlation with other red cell parameters and the patient's clinical condition. Performed By: #### 1 759, 36147, 0, 5363 #### [facility] [place] [address] Lozenge Maker: Tulio Walker MD MCV (RBC) [Entitic vol] 94.6 fL Normal 80.0-100.0 [facility] Comment on above: Performed By: #### 1 759, 40111, 7600, 5363 #### [facility] [place] [address] Lozenge Maker: Tulio Walker MD Platelet mean volume (Bld) [Entitic vol] 11.8 fL Normal 7.5-12.5 [facility] Comment on above: Performed By: #### 1 759, 13025, 7600, 5363 #### [facility] [place] [address] Lozenge Maker: Tulio Walker MD Platelets (Bld) [#/Vol] 176 10*3/uL Normal 140-400 [facility] Comment on above: Performed By: #### 1 759, 64288, 7600, 5363 #### [facility] of [place] [address], [address] [place] [address] Lozenge Maker: Tulio Walker MD RBC ([facility]) [#/Vol] 5.53 10*6/uL Normal 4.20-5.80 [facility] Comment on above: Performed By: #### 1 759, 76621, 7600, 5363 #### [facility] of [place] [address], [address] [place] [address] Lozenge Maker: Tulio Walker MD WBC (d) [#/Vol] 13.2 10*3/uL High 3.8-10.8 [facility] Comment on above: Performed By: #### 1 759, 24143, 7600, 5363 #### [facility] of [address], [address] [place] [address] Lozenge Maker: Tulio Walker MD OVon 12-31-2024 CNOV Office Visit ([facility] ) RHIANNON VALDIVIA ([id number]) 1955 M Date Time Provider Department 12/31/24 8:45 AM HARDIK CARREON [facility] During your visit today, we recorded the following information about you: Pulse Blood pressure Weight 96/minute 124/77 77 kg Hardik Carreon, MANAGER MEAT.TRIAL CONSULTANT 12/31/2024 4:35 PM [facility] BRAIN TUMOR CENTER NEURO-ONCOLOGY OUTPATIENT CLINIC NOTE PURPOSE OF VISIT: Ongoing patient management CHIEF COMPLAINT : Fourth ventricular lesion Subjective HISTORY OF PRESENT ILLNESS: Rhiannon Valdivia is a 69 year old right-handed male who is here for a follow-up visit for fourth ventricular lesion. He is history of chronic daily headaches. Imaging was first done in 2020 due to progressively worsening headaches. Seen in evaluation by Dr. Ramirez who recommended observation given no papilledema or symptoms. Of note, he felt symptoms (headaches) were unrelated. INTERVAL HISTORY : 01/02/24 Presents today with his for follow-up with new MRI brain for review. He was last seen by Sonia Carrillo PA-C 12/14/22. Today he notes continued chronic daily headaches, worse in the morning, improving throughout the day. He notes the pain stems from his neck. He also reports numbness/tingling to bilateral hands/fingers. 12/31/24 Here today with his for follow up and new imaging to review. He reports increased neck and back pain, he tried injections to his neck with no relief. He is scheduled to see headache clinic for further management. SOCIAL HISTORY: Social History Tobacco Use Smoking status: Former Current packs/day: 0.00 Types: Cigarettes Start date: 08/19/1975 Quit date: 08/19/1976 Years since quittin.4 Smokeless tobacco: Never Substance Use Topics Alcohol use: Yes Comment: occassional Drug use: No PAST MEDICAL HISTORY Diagnosis Date Migraines FAMILY HISTORY Problem Relation Age of Onset Cancer Mother skin Cancer Father esophogeal other (grandparent [Other]) Other [place] heart disease Current Outpatient Medications Medication Sig IBUPROFEN ORAL Take by mouth as needed (take 2-3 tabs po prn for pain). MULTIVITAMIN ORAL Take by mouth. tamsulosin (FLOMAX) 0.4 mg Take 0.4 mg by mouth once daily. atorvastatin (LIPITOR) 40 mg tablet Take 40 mg by mouth once daily. No current facility-administered medications for this visit. REVIEW OF SYSTEMS: Neurological : No complaint of headache Denies tinnitus + Decreased hearing, chronic No complaint of diplopia No complaints of blurred vision + Numbness/tingling to bilateral hands/fingertips (positionally) No problem with limb coordination + History of syncope No complaints of seizures No complaints of memory changes or disorientation. General : + BPH + Back and neck pain Objective PHYSICAL EXAMINATION: BP 124/77 Pulse 96 Wt 77 kg (169 lb 12.1 oz) SpO2 96% BMI 24.36 kg/m? General appearance: Well appearing, alert, in no acute distress Skin: + Rash noted to back Oropharynx: Lips, mucosa, and tongue normal, teeth and gums normal, oropharynx normal Extremities: No deformities, edema, skin discoloration, clubbing or cyanosis. NEUROLOGICAL EXAM: Higher integrative functions: Oriented to person, place AND time. Attention Span and Concentration: Good. Language: Good comprehension. Speech clear and coherent Fund of Knowledge: Good. 2nd CN: Full visual ly. 3rd,4th,6th CN: Pupils (=), round, react to light, full extraocular movements. 5th CN: No decrease in facial sensation 7th CN: Facial muscles symmetric and strong. 8th CN: Hears finger rub well bilaterally. 9th CN: Gag reflex not tested 10th CN: Spontaneous palate movement, full and symmetric. 11th CN: Full strength in shoulder shrug. 12th CN: Tongue protrusion full and midline. Sensation: No decrease in sensation in upper or lower limbs to touch. Musculoskeletal: Gait is normal. Motor: 5/5, R=L, UE=LE. Normal muscle tone without atrophy in all limbs. Coordination: Rapid alternating movements fast and smooth all limbs. + Mild/subtle tremor noted to bilateral hands IMAGING STUDIES: MRI BRAIN WO/W IVCON Karnofsky performance status: 80 - Normal activity with effort, some signs or symptoms of disease. 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 - Images reviewed with him and his - Recommend follow up and new imaging in 1 year. - Continue to follow with spine health and headache clinic for back and neck pain. - Reviewed signs and symptoms that would prompt sooner evaluation - He has our contact information and was advised to call if new symptoms, questions or concerns arise prior to next scheduled visit. - All questions were answered. Hardik Carreon APRN.TRIAL CONSULTANT Certified Nurse Practitioner cc: Eduard Ramirez (more content not included)... Normal [facility] METABOLIC PANE Beau 12-31-2024 Albumin [Mass/Vol] 4.2 g/dL Normal 3.6-5.1 [facility] Comment on above: Performed By: #### 1 147, 18391, 3627, 7886 #### [facility] [address], [address] [place] [phone] Lozenge Maker: Tulio Walker MD Albumin/Globulin [Mass ratio] 2.6 {ratio} High 1.0-2.5 [facility] Comment on above: Performed By: #### 1 759, 03885, 7600, 5363 #### [facility] of [place] [address] Lozenge Maker: Tulio Walker MD ALP [Catalytic activity/Vol] 68 U/L Normal 35-144 [facility] Comment on above: Performed By: #### 1 759, 15810, 7600, 5363 #### [facility] of [address], [address] [place] [address] Lozenge Maker: Tulio Walker MD ALT [Catalytic activity/Vol] 24 U/L Normal 9-46 [facility] Comment on above: Performed By: #### 1 759, 95754, 7600, 5363 #### [facility] [place] [address] Lozenge Maker: Tulio Walker MD AST [Catalytic activity/Vol] 19 U/L Normal 10-35 [facility] Comment on above: Performed By: #### 1 759, 19993, 7600, 5363 #### [facility] [place] [address] Lozenge Maker: Tulio Walker MD Bilirubin [Mass/Vol] 0.9 mg/dL Normal 0.2-1.2 [facility] Comment on above: Performed By: #### 1 759, 53839, 7600, 5363 #### [facility] [place] [address] Lozenge Maker: Tulio Walker MD BUN/CREATININE RATIO SEE NOTE: Normal 6-22 [facility] Comment on above: Result Comment: Not Reported: BUN and Creatinine are within reference range. Performed By: #### 1 759, 34907, 7600, 5363 #### [facility] [place] [address] Lozenge Maker: Tulio Walker MD Calcium [Mass/Vol] 9.4 mg/dL Normal 8.6-10.3 [facility] Comment on above: Performed By: #### 1 759, 25243, 7600, 5363 #### [facility] of [address], [address] [place] [address] Lozenge Maker: Tulio Walker MD Chloride [Moles/Vol] 106 mmol/L Normal 98-110 [facility] Comment on above: Performed By: #### 1 759, 40605, 7600, 5363 #### [facility] of [address], [address] [place] [address] Lozenge Maker: Tulio Walker MD CO2 [Moles/Vol] 26 mmol/L Normal 20-32 [facility] Comment on above: Performed By: #### 1 759, 32565, 7600, 5363 #### [facility] [place] [address] Lozenge Maker: Tulio Walker MD Creatinine [Mass/Vol] 0.95 mg/dL Normal 0.70-1.[address] [facility] Comment on above: Performed By: #### 1 759, 79306, 7600, 5363 #### [facility] [place] [address] Lozenge Maker: Tulio Walker MD GFR/1.73 sq M.predicted among non-blacks MDRD (S/P/Bld) [Vol rate/Area] 87 mL/min/{1.73_m2} Normal > OR = 60 [facility] Comment on above: Performed By: #### 1 759, 37188, 7600, 5363 #### [facility] [place] [address] Lozenge Maker: Tulio Walker MD Globulin (S) [Mass/Vol] 1.6 g/dL Low 1.9-3.7 [facility] Comment on above: Performed By: #### 1 759, 40008, 7600, 5363 #### [facility] [place] [address] Lozenge Maker: Tulio Walker MD Glucose [Mass/Vol] 85 mg/dL Normal 65-99 [facility] Comment on above: Result Comment: Fasting reference interval Performed By: #### 1 759, 42048, 7600, 5363 #### [facility] of [address], [address] [place] [address] Lozenge Maker: Tulio Walker MD Potassium [Moles/Vol] 4.3 mmol/L Normal 3.5-5.[address] [facility] Comment on above: Performed By: #### 1 759, 55052, 7600, 5363 #### [facility] of [address], [address] [place] [address] Lozenge Maker: Tulio Walker MD Protein [Mass/Vol] 5.8 g/dL Low 6.1-8.1 [facility] Comment on above: Performed By: #### 1 759, 93837, 7600, 5363 #### [facility] of [address], [address] [place] [address] Lozenge Maker: Tulio Walker MD Sodium [Moles/Vol] 142 mmol/L Normal 135-146 [facility] Comment on above: Performed By: #### 1 759, 54071, 7600, 5363 #### [facility] [place] [address] Lozenge Maker: Tulio Walker MD Urea nitrogen [Mass/Vol] 15 mg/dL Normal 7-25 [facility] Comment on above: Performed By: #### 1 759, 71639, 7600, 5363 #### [facility] [place] [address] Lozenge Maker: Tulio Walker MD LIPID PANEL, [facility] 12-19 Cholesterol [Mass/Vol] 181 mg/dL Normal <200 [facility] Comment on above: Order Comment: FASTI NG:YES FASTING: YES Performed By: #### 1 759, 63430, 7600, 5363 #### [facility] of [address], [address] [place] [address] Lozenge Maker: Tulio Walker MD Cholesterol in HDL [Mass/Vol] 47 mg/dL Normal > OR = 40 [facility] Comment on above: Order Comment: FASTI NG:YES FASTING: YES Performed By: #### 1 759, 01402, 7600, 5363 #### [facility] [address], [address] [place] [address] Lozenge Maker: Tulio Walker MD Cholesterol in LDL [Mass/Vol] 104 mg/dL High [facility] Comment on above: Order Comment: FASTI NG:YES FASTING: YES Result Comment: Refe rence range: <100 Desirable range <100 mg/dL for primary prevention; <70 mg/dL for patients with CHD or diabetic patients with > or = 2 CHD risk factors. LDL-C is now calculated using the Silvia calculation, which is a validated novel method providing better accuracy than the Friedewald equation in the estimation of LDL-C. Monico GREER et al. DUDLEY. 2013;310(19): 3001-0464 (http://education.Sols.Platfora/faq/XVW206) Performed By: #### 1 759, 58555, 7600, 5363 #### [facility] [address], [address] [place] [address] Lozenge Maker: Tulio Walker MD Cholesterol.total/Chol esterol in HDL [Mass ratio] 3.9 {ratio} Normal <5.0 [facility] Comment on above: Order Comment: FASTI NG:YES FASTING: YES Performed By: #### 1 759, 01365, 7600, 5363 #### [facility] [address], [address] [place] [address] Lozenge Maker: Tulio Walker MD NON HDL CHOLESTEROL 134 mg/dL (calc) High <130 [facility] Comment on above: Order Comment: FASTI NG:YES FASTING: YES Result Comment: For patients with diabetes plus 1 major ASCVD risk factor, treating to a non-HDL-C goal of <100 mg/dL (LDL-C of <70 mg/dL) is considered a therapeutic option. Performed By: #### 1 759, 08377, 7600, 5363 #### [facility] [address], [address] [place] [address] Lozenge Maker: Tulio Walker MD Triglyceride [Mass/Vol] 188 mg/dL High <150 [facility] Comment on above: Order Comment: FASTI NG:YES FASTING: YES Performed By: #### 1 759, 57516, 7600, 5363 #### [facility] [address], [address] Lozenge Maker: Tulio Walker MD PSA, TOTALon 12-31-2024 PSA, TOTAL 3.34 ng/mL Normal < OR = 4.00 [facility] Comment on above: Result Comment: The total PSA value from this assay system is standardized against the WHO standard. The test result will be approximately 20% lower when compared to the equimolar-standardized total PSA (Alysa Vance). Comparison of serial PSA results should be interpreted with this fact in mind. This test was performed using the Siemens chemiluminescent method. Values obtained from different assay methods cannot be used interchangeably. PSA levels, regardless of value, should not be interpreted as absolute evidence of the presence or absence of disease. Performed By: #### 1 759, 98904, 7600, 5363 #### [facility] [address] [facility], [address] [place] [address] Lozenge Maker: Tulio Walker MD [facility] RHIANNON VALDIVIA ([id number]) 1955 M Date Time Provider Department 12/25/24 HARDIK CARREON [facility] During your visit today, we recorded the following information about you: Hardik Carreon APRN.[facility] 12/25/2024 11:51 AM Signed I called [facility], , to request MRI brain done 12/24/24. Images to be pushed through. Follow up appointment already scheduled with la 12/31/24. Hardik Carreon, MSN, MANAGER MEAT, TRIAL CONSULTANT Certified Nurse Practitioner Allergies As of Date: 12/25/2024 Noted Allergy Reaction CECLOR (CEFACLOR) 08/18/2014 16 - Unknown Date Reviewed: 10/29/2024 Reviewed by: Christen Bartlett MA - Fully Assessed Reason for Visit: Results [95] Primary Visit Diagnosis:Brain lesion [G93.9] [G93.9] Prescriptions as of 12/25/2024 - IBUPROFEN ORAL Take by mouth as needed (take 2-3 tabs po prn for pain). - MULTIVITAMIN ORAL Take by mouth. - tamsulosin (FLOMAX) 0.4 mg Take 0.4 mg by mouth once daily. - atorvastatin (LIPITOR) 40 mg tablet Take 40 mg by mouth once daily. Problem List As Of Date 12/25/2024 Noted Resolved Migraines [G43.909] Atypical chest pain [R07.89] 08/26/2014 Syncope [R55] 08/26/2014 Encounter Status:Closed by HARDIK CARREON on 12/25/24 Normal [facility] Creatinine (Bld) [Mass/Vol]O rdered By: Hardik Carreon on 12-24-2024 Creatinine [Mass/Vol] Whole blood creati nine measurement 0.6-1.3 [facility] Comment on above: ER/ESD physician is notified/shown all ISTAT results.Critical values may be confirmed by laboratory testing ifdeemed necessary by ER attending doctor. ISTAT XRay CREon 12-24-2024 Creatinine [Mass/Vol] 1.0 mg/dL Normal 0.6-1.3 [facility] Comment on above: Result Comment: ER/E SD physician is notified/shown all ISTAT results. Critical values may be confirmed by laboratory testing if deemed necessary by ER attending doctor. Performed By: #### I SCRE #### [address] ISTAT GFR >60.0 Normal [facility] Comment on above: Result Comment: PERF ORMED BY: [place] [address] PATHOLOGIST INSURANCE CLAIMS ASSISTANT MASSIMO DINERO M.D. Performed By: #### I SCRE #### [address] MR head/brain wo/w mello MR head/brain wo/w con [facility] Main [place] [address] [place] [address] MRI Report Signed Patient: Rhiannon Valdivia MR#: [id number] : 1955 Acct:[id number] Age/Sex: 69 / M ADM Date: 12/24/24 Loc: MR Room: Type: [facility] Attending Dr: Hardik Carreon JIG BORE OPERATOR-C Copies to: Hardik Carreon TRIAL CONSULTANT Ordering Provider: Hardik Carreon CNP Date of Service: 12/24/24 MR/MR head/brain wo/w con: D43.2 MRI BRAIN WITHOUT AND WITH INTRAVENOUS CONTRAST CLINICAL DATA: Subependymoma COMPARISON: 01/08/2024 and 12/18/2023 Multiecho, multiplanar imaging of the brain was performed before and after intravenous administration of 15 mL of ProHance. No restricted diffusion. Ventricles and sulci normal size and configuration for the patient's age. No shift midline structure. Basal cisterns are patent. Stable heterogeneous T2 signal and heterogeneous enhancement at the level of foramen Magendie 1 x 0.8 x 1.2 cm in size. There are no additional foci of abnormal enhancement posterior fossa are also within the brain. Stable GRE signal to the mass likely represent calcifications.. Otherwise no findings of hydrocephalus. No supratentorial or infratentorial white matter signal changes. Evidence of left-sided FESS MR/MR head/brain wo/w con IMPRESSION: Stable mass along the floor the fourth ventricle. No evidence of progression. No evidence of obstructive hydrocephalus. Impression dictated by: Lalito Acuna M.D. 12/24/2024 5:09 PM Dictation Location: [place] [address] Transcribed By: NURA 12/24/241708 Dictated By: Lalito Acuna MD 12/24/241657 Signed By: 12/24/241708 Normal [facility] Magnetic resonance imaging r eportOrdered By: Lalito Acuna on 12-24-2024 Study report [facility] [place] [address] MRI Report Signed Patient: Rhiannon Valdivia MR#: [id number] : 1955 Acct:[id number] Age/Sex: 69 / M ADM Date: 5 Loc: MR Room: Type: [facility] Attending Dr: Hradik Carreon JIG BORE OPERATOR-C Copies to: Hardik Carreon CNP~ Ordering Provider: Hardik Carreon CNP Date of Service: 12/24/24 MR/MR head/brain wo/w con: D43.2 MRI BRAIN WITHOUT AND WITH INTRAVENOUS CONTRAST CLINICAL DATA: Subependymoma COMPARISON: 01/08/2024 and 12/18/2023 Multiecho, multiplanar imaging of the brain was performed before and after intravenous administration of 15 mL of ProHance. No restricted diffusion. Ventricles and sulci normal size and configuration forthe patient's age. No shift midline structure. Basal cisterns are patent. Stable heterogeneous T2 signal and heterogeneous enhancement at the level of foramen Magendie 1 x 0.8 x 1.2 cm in size. There are no additional foci of abnormal enhancement posterior fossa are also within the brain. Stable GRE signal to the mass likely represent calcifications.. Otherwise no findings of hydrocephalus. No supratentorial or infratentorial white matter signal changes. Evidence of left-sided FESS MR/MR head/brain wo/w con IMPRESSION: Stable mass along the floor the fourth ventricle. No evidence of progression. No evidence of obstructive hydrocephalus. Impression dictated by: Lalito Acuna M.D. 12/24/2024 5:09 PM Dictation Location: [place] [address] Transcribed By: [facility] 12/24/241708 Dictated By: Lalito Acuna MD 12/24/241657 Signed By: 12/24/241708 [facility] Work Phone: No Panel InformationOrdered By: Hardik Carreon on 12-24-2024 Bedside Estimated GFR (eGFR) > 60.0 [facility] Nasrin 11-01-2024 CNPN Telephone ([facility]) RHIANNON VALDIVIA ([id number]) 1955 M Date Time Provider Department 11/01/24 SELF NSCAMN During your visit today, we recorded the following information about you: Roe Brady 11/01/2024 10:02 AM Signed Patient has been scheduled and confirmed , Mailed (order to patient ) and Fax order to [facility] @ [phone] Roe Brady November 01, 2024 10:02 AM Allergies As of Date: 11/01/2024 Noted Allergy Reaction CECLOR (CEFACLOR) 08/18/2014 16 - Unknown Date Reviewed: 10/29/2024 Reviewed by: Christen Bartlett MA - Fully Assessed Reason for Visit: Appointment [186] Prescriptions as of 11/01/2024 - IBUPROFEN ORAL Take by mouth as needed (take 2-3 tabs po prn for pain). - MULTIVITAMIN ORAL Take by mouth. - tamsulosin (FLOMAX) 0.4 mg Take 0.4 mg by mouth once daily. - atorvastatin (LIPITOR) 40 mg tablet Take 40 mg by mouth once daily. Problem List As Of Date 11/01/2024 Noted Resolved Migraines [G43.909] Atypical chest pain [R07.89] 08/26/2014 Syncope [R55] 08/26/2014 Encounter Status:Closed by ROE BRADY on 11/01/24 [facility] Samy 10-29-2024 CNOV Office Visit ([facility] ) RHIANNON VALDIVIA ([id number]) 1955 M Date Time Provider Department 10/29/24 10:20 AM JOHN CAVLO [facility] During your visit today, we recorded the following information about you: Pulse Blood pressure Weight Height 91/minute 121/76 76.2 kg 1.778 m John Calvo MD 10/29/2024 12:53 PM Signed Follow-up Visit [facility] October 29, 2024 CC: NECK PAIN HPI: Rhiannon Valdivia is a 68 year old male who initially presented with h/o cluster headaches, subependymoma, 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 Numbnness tingling with elbow flexion, improved when not flexed Pain:5/10; WORST: 9/10; on a scale of 0-10. Patient was Gabapentin, currently on gabapentin. The patient has previously been on the following pain medications -gabapentin. -tried chiropractor basal cell carcinoma removed from shoulder by Irina SHETTY- [facility] Treating Physicians: Hardik Carreon CNP in Neurology 2023. -Neurologist in [place] Prior Spinal Surgery: None. Notes daily headaches every day, Work status: -seen with Bettie Spouse See Follow-up visit from prior encounter dated 07/09/2024 . Since last visit: s/p Diagnostic bilaterally C3 and C4 medial branch block on 08/07/2024 with 50% relief for one week. Did not significantly improve headaches, less intense. Patient did bring pain diary Pain TODAY:4/10, 2/10 in headaches; WORST: 8/10; on a scale of 0-10. Patient is currently on date of last PT 2023 and NSAIDs. The patient has previously been on the following pain medications -Gabapentin weaned off. - PT Giancarlo in [place] 03/2024 to 10/23/2024 (20 session) and doing physician supervised home exercise program for last 2 months- 30% better, headaches and neck less pain in morning. Significant relief for bilateral arm arm and low back pain He continues to deny bowel/bladder incontinence, denies fever, denies night pain, denies unintentional weight loss, denies clumsiness of hands or dropping things, denies clumsiness of feet, tripping or falling. Denies any constitutional or myelopathic symptomatology. No interval change in PMHX, PSHX, Allergies, FamHx or ROS since 07/09/2024. OBJECTIVE: PHYSICAL EXAM Ht 172.7 cm (5' 8 ) Wt 75.5 kg (166 lb 7.2 oz) BMI 25.31 kg/m? GENERAL APPEARANCE: Well appearing, well-hydrated, well nourished and alert SKIN: Head, neck, trunk, and extremities dry, intact and without lesions HEART: Edema: No LUNGS: even and non-labored breathing, normal chest excursion NEURO/PSYCH: speech normal, mental status intact GAIT: normal, normal heel and toe walking, tandem gait normal POSTURE: Posture and spinal curves are normal PALPATION: no palpable masses, spasm, no palpable subluxation or step-off, bilateral trapezius tenderness MUSCULOSKELETAL: Cervical Range of Motion Flexion Full ROM Extension Full ROM with pain RIGHT LEFT Rotation Full ROM Full ROM with pain Lateral Bend Full ROM Full ROM with pain RIGHT LEFT Spurling Test negative negative Negative cervical compression test Manjinder's Exam: Superficial non-anatomic tenderness: No Overreaction: No Pain on simulated maneuvers: No Straight Leg Raise test discrepancy: No Give-way weakness: No Non-dermatomal sensory loss: No Upper Extremity Strength RIGHT LEFT Strength (MMT) Strength (MMT) Shoulder Abduction 5/5 5/5 Biceps 5/5 5/5 Triceps 5/5 5/5 Wrist Extension 5/5 5/5 Finger Abduction 5/5 5/5 Finger Flexion 5/5 5/5 Lower Extremities Strength Toe extension (EHL) 5/5 5/5 Ankle Dorsiflexion 5/5 5/5 Ankle Plantarflexion 5/5 5/5 Knee Flexion 5/5 5/5 Knee Extension 5/5 5/5 Hip Flexion (seated) 5/5 5/5 Upper Body Reflex Exam RIGHT LEFT Reflex Status Reflex Status Biceps 2+ Normal 2+ Normal Triceps 2+ Normal 2+ Normal Brachioradialis 2+ Normal 2+ Normal Friedman's Sign absent absent Lower Body Reflex Exam Right Left Knee 2+ Normal 2+ Normal Ankle 2+ Normal 2+ Normal Medial Hamstring 2+ Normal 2+ Normal Babinski normal normal Soft touch Within Normal Limits LONG TRACT SIGNS: No clonus. Shoulder Exam: Shoulder Range of Motion RIGHT LEFT Flexion Normal Normal Extension Normal Normal Abduction Normal Normal Adduction Normal Normal Internal Rotation Normal Normal External Rotation Normal Normal Shoulder Tests Neer Impingement Sign - Negative Empty Can Test - Negative Cross Over Test - Negative Hawkin's-Florentino Test - Negative Negative Tinel's over bilateral cubital tunnel which reproduce patient's symptoms, negative Tinel's over left carpal tunnel, negative Tinel's over right carpal tunnel FADIR:negative Stinchfield: negative Log-roll Hips: negative Resisted SLR: negative Scour: negative PSIS tenderness: negative Sprague's (modified):negative Thigh thrust: negative Hamstring tightness: negative Prone extension: negative DATA REVIEW: (more content not included)... Normal [facility] HISTORY PHYSICALon HISTORY PHYSICAL HNO ID: [id number] Author: JOHN CALVO MD Service: ? Author Type: Physician Type: H&P Filed: 08/07/2024 07:49 Note Text: PROCEDURAL SEDATION HISTORY AND PHYSICAL EXAM SERVICE DATE: 08/07/2024 SERVICE TIME: 7:49 AM Subjective HPI: This is a 68 year old male who presents with neck pain PAST ANESTHESIA HISTORY: No history of adverse event PAST MEDICAL HISTORY Diagnosis Date Migraines PAST SURGICAL HISTORY Procedure Laterality Date PAST SURGICAL HISTORY OF T AND A PAST SURGICAL HISTORY OF hernia repair PAST SURGICAL HISTORY OF sinus for polyp PAST SURGICAL HISTORY OF eye surgery Prior to Admission medications as of 08/07/24 0742 Medication Sig Last Dose Taking IBUPROFEN ORAL Take by mouth as needed (take 2-3 tabs po prn for pain). 08/06/2024 Yes MULTIVITAMIN ORAL Take by mouth. 08/06/2024 Yes tamsulosin (FLOMAX) 0.4 mg Take 0.4 mg by mouth once daily. 08/06/2024 Yes atorvastatin (LIPITOR) 40 mg tablet Take 40 mg by mouth once daily. 08/06/2024 Yes ALLERGIES Allergen Reactions Ceclor [Cefaclor] Unknown Objective PHYSICAL EXAM: The remainder of the physical exam is noncontributory. AIRWAY: Airway Visualization of Uvula: Yes Mouth opening greater than 2 fingerbreadths: Yes Neck Full Range of Motion: Yes LUNGS: Lungs clear to auscultation CARDIAC: Regular rhythm,Regular rate Assessment/Plan ASA Class: ASA Class: Patient with mild systemic disease Active Problems: * No active hospital problems. * Resolved Problems: * No resolved hospital problems. * Medication and Non-Pharmacologic VTE Prophylaxis/Anticoagul ants VTE Prophylaxis: VTE prophylaxis appropriate Provisional Diagnosis/Treatment Plan: Medial Branch Block Sedation Goal: Moderate SIGNATURE: John Calvo MD PATIENT NAME: Rhiannon Valdivia DATE: August 07, 2024 TIME: 7:49 AM Normal [facility] OPERATIVE NOon 08-07-2024 OPERATIVE NO HNO ID: [id number] Author: JOHN CALVO MD Service: ? Author Type: Physician Type: Operative Report Filed: 08/07/2024 17:38 Note Text: OPERATIVE/PROCEDURE REPORT LOG ID: [id number] Surgery/Procedure Date: 08/07/2024 Surgeon: John Calvo MD Insurance Healthcare Consultant: Florencio Juarez MD Procedure(s):Operation : Diagnostic bilaterally C3 and C4 medial branch block Pre-Op/Pre-Procedure Diagnosis: Cervical spondylosis without myelopathy Post-Op Diagnosis: same Anesthesia: Local 0mg of IV versed was used with 18 min of intraservice monitoring time. Fluoroscopy time: 44 sec Time In: 08:41 am Time out: 08:59 am Estimated Blood Loss: None Specimens: None Drains: None Complications: None INDICATIONS: The patient has been referred by my colleague Hardik Carreon CNPwith concordant subjective, objective, and radiologic findings of Cervical spondylosis, referred for diagnostic and therapeutic bilaterally C3 and C4 Medial branch blockade with failure of prior conservative care with physical therapy and medications alone. At this time, the patient wishes to avoid surgery. This is the patient's 1st injection under my care. PROCEDURE: After obtaining both verbal and written informed consent, the patient was placed in a prone position on the fluoroscopic table in [facility] procedure room, the patient's posterior cervical spine was prepped and draped in usual sterile fashion using iodine. The patient was connected to noninvasive blood pressure, EKG, pulse oximetry monitoring, and monitored by a registered interventional nurse throughout the procedure. Before initiating procedure, all relevant information was verified in a time-out. Four Skin wheal(s) were raised using 1% preservative-free lidocaine near the centroid of articular pillar of the bilaterally C3 and C4 vertebral body which was localized by counting from the dens (C2). Through the skin wheal a 25-gauge, 2.5-inch curved Quincke-tip spinal needle was inserted and advanced under direct fluoroscopic visualization in the AP and lateral planes, until the needle tip arrived until the needles arrived at the relevant positions centroid of articular pillar of the bilaterally C3 and C4 vertebral body. Proper needle placement was confirmed with 1 cc of Omnipaque-180M nonionic contrast confirming contrast near the lateral pillar without any intravascular uptake of contrast seen under live direct fluoroscopic visualization in the AP, and lateral planes. At this point 80mg DepoMedrol and 1 cc of 0.75% preservative- free bupivacaine were infused divided evenly. Adequate hemostasis was obtained at the needle puncture site. The patient's back was cleaned and a sterile dressing was applied. The patient was taken conscious and in stable condition to the recovery room. No complications as a result of this procedure. Post procedure precautions and instructions were reviewed with the patient who verbalized understanding. I/primary surgeon/proceduralist performed the procedure with assistance. Significant Findings: also did TON, done in AP plane . Pre-Op Pain: 4. Post-Op Pain: 0. Care Instructions: Discharge per protocol. Medications: See Epic medication section Appointment: Patient to return 12 weeks to clinic with pain diary. PT Giancarlo in [place] Discharge Condition: Good condition for discharge. Patient discharged home when all discharge criterion met. John Calvo MD Staff Physician [facility] SIGNATURE: John Calvo MD PATIENT NAME: Rhiannon Valdivia DATE: August 07, 2024 TIME: 9:06 AM PAGER/CONTACT #: [facility] 07-30-2024 [facility] Telephone ([facility]) RHIANNON VALDIVIA ([id number]) 1955 M Date Time Provider Department 07/30/24 JOHN CALVO During your visit today, we recorded the following information about you: Teodora Reeder RN 07/30/2024 4:04 PM Signed Phoned patient confirm appointment for Rhiannon Valdivia for spine procedure on 08/07/2024. Informed pt that pre-injection instructions have been sent via [employer]. Pt unable to talk right now. He will review the directions and call back if he has any questions or concerns. Teodora Reeder RN July 30, 2024 4:03 PM Allergies As of Date: 07/30/2024 Noted Allergy Reaction CECLOR (CEFACLOR) 08/18/2014 16 - Unknown Date Reviewed: 07/09/2024 Reviewed by: Onur Crespo MA - Fully Assessed Reason for Visit: Pre-injection instructions [Other] Prescriptions as of 07/30/2024 - IBUPROFEN ORAL Take by mouth as needed (take 2-3 tabs po prn for pain). - MULTIVITAMIN ORAL Take by mouth. - tamsulosin (FLOMAX) 0.4 mg Take 0.4 mg by mouth once daily. - atorvastatin (LIPITOR) 40 mg tablet Take 40 mg by mouth once daily. Problem List As Of Date 07/30/2024 Noted Resolved Migraines [G43.909] Atypical chest pain [R07.89] 08/26/2014 Syncope [R55] 08/26/2014 Encounter Status:Closed by TEODORA REEDER on 07/30/24 [facility] 07-09-2024 [facility] Office Visit ([facility] ) RHIANNON VALDIVIA ([id number]) 1955 M Date Time Provider Department 07/09/24 2:00 PM JOHN CALVO [facility] During your visit today, we recorded the following information about you: Pulse Blood pressure Weight Height 72/minute 126/71 74.7 kg 1.727 m Onur Crespo MA 07/09/2024 2:24 PM Signed 07/08/2024 PROMIS Global Health Physical Health Summary Physical health: Good Everyday physical activity, ability: Mostly Fatigue: Mild Pain level: 4 General health: Good Social activities/roles, ability: Very good Physical Health T-Score 44.9 (Good) Physical Health Percentile 31 PROMIS Global Health Mental Health Summary Quality of life: Very good Mental health (mood,thinking): Very good Social satisfaction: Very good Emotional problems (anxious,depressed): Sometimes Mental Health T-Score 50.8 (Very Good) Mental Health Percentile 53 PHQ-9 Score: 4(Minimal Depression) PHQ-9 Self-Harm: Not at all PROMIS Physical Function T-Score 47(Within Normal Limits) PROMIS Physical Function Percentile 38 PROMIS Pain Interference T-Score 65(Moderate) PROMIS Pain Interference Percentile 7 Percentiles provide an indication of how a patient's score ranks in relation to the [place] general population. > 31st percentile is within normal limits or better *< 31st percentile is at least ? 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 Numbnness tingling with elbow flexion, improved when not flexed Pain TODAY:5/10; WORST: 9/10; on a scale of 0-10. Patient is Gabapentin, currently on gabapentin. The patient has previously been on the following pain medications -gabapentin. -tried chiropractor Has not done PT Treating Physicians: Hardik Carreon CNP in Neurology. -Neurologist in [place] Prior Spinal Surgery: None. Work status: -seen with Catherine Alexandre See Follow-up visit from prior encounter dated 03/28/2024 . Since last visit: Pain TODAY:4/10; WORST: 8/10; on a scale of 0-10. Patient is currently on date of last PT 2023 and NSAIDs. The patient has previously been on the following pain medications -Gabapentin weaned off. - PT Giancarlo in [place] 03/2024 to 06/2024 (10-12 session) and doing physician supervised home exercise program for last 2 months 30% better, headaches and neck less pain in morning -had basal cell carcinoma removed from shoulder by Irina SHETTY- [facility] He continues to deny bowel/bladder incontinence, denies fever, denies night pain, denies unintentional weight loss, denies clumsiness of hands or dropping things, denies clumsiness of feet, tripping or falling. Denies any constitutional or myelopathic symptomatology. No interval change in PMHX, PSHX, Allergies, FamHx or ROS since 03/28/2024. OBJECTIVE: PHYSICAL EXAM Ht 172.7 cm (5' 8 ) Wt 75.5 kg (166 lb 7.2 oz) BMI 25.31 kg/m? GENERAL APPEARANCE: Well appearing, well-hydrated, well nourished and alert SKIN: Head, neck, trunk, and extremities dry, intact and without lesions HEART: Edema: No LUNGS: even and non-labored breathing, normal chest excursion NEURO/PSYCH: speech normal, mental status intact GAIT: normal, normal heel and toe walking, tandem gait normal POSTURE: Posture and spinal curves are normal PALPATION: no palpable masses, spasm, no palpable subluxation or step-off, bilateral trapezius tenderness MUSCULOSKELETAL: Cervical Range of Motion Flexion Full ROM Extension Full ROM RIGHT LEFT Rotation Full ROM Full ROM with pain Lateral Bend Full ROM Full ROM with pain RIGHT LEFT Spurling Test negative negative Negative cervical compression test Manjinder's Exam: Superficial non-anatomic tenderness: No Overreaction: No Pain on simulated maneuvers: No Straight Leg Raise test discrepancy: No Give-way weakness: No Non-dermatomal sensory loss: No Upper Extremity Strength RIGHT LEFT Strength (MMT) Strength (MMT) Shoulder Abduction 5/5 5/5 Biceps 5/5 5/5 Triceps 5/5 5/5 Wrist Extension 5/5 5/5 Finger Abduction 5/5 5/5 Finger Flexion 5/5 5/5 Lower Extremities Strength Toe extension (EHL) 5/5 5/5 Ankle Dorsiflexion 5/5 5/5 Ankle Plantarflexion 5/5 5/5 Knee Flexion 5/5 5/5 Knee Extension 5/5 5/5 Hip Flexion (seated) 5/5 5/5 Upper Body Reflex Exam RIGHT LEFT Reflex Status Reflex Status Biceps 2+ Normal 2+ Normal Triceps 2+ Normal 2+ Normal Brachioradialis 2+ Normal 2+ Normal Friedman's Sign absent absent Lower Body Reflex Exam Right Left Knee 2+ Normal 2+ Normal Ankle 2+ Normal 2 (more content not included)... Normal [facility] Destr of lesionon 07-02-2024 Complexity: simple Destruction method: electrodesiccation and curettage Informed consent: discussed and consent obtained Informed consent comment: The risks of the procedure were discussed, including, but not limited to risks of scarring, darker or docent coordinator pigmentary changes, recurrence, infection, and incomplete removal Timeout: patient name, date of , surgical site, and procedure verified Timeout comment: Patient and provider identified site. Site was marked. Photo was taken and shown to patient, patient verified this is the correct site. Procedure prep: Patient was prepped and draped in usual sterile fashion Prep type: Chlorhexidine Anesthesia: the lesion was anesthetized in a standard fashion Anesthetic: 1% lidocaine w/ epinephrine 1-100,000 buffered w/ 8.4% NaHCO3 Curettage performed in three different directions: Yes Electrodesiccation performed over the curetted area: Yes Curettage cycles: 3 Lesion length (cm): 1 Lesion width (cm): 1 Margin per side (cm): 0 Final wound size (cm): 1 Hemostasis achieved with: electrodesiccation Outcome: patient tolerated procedure well with no complications Post-procedure details: wound care instructions given Post-procedure details comment: Post-procedure instructions were given verbally and in writing. The office will be contacted if the lesion fails to resolve despite treatment, or if a side effect develops such as abnormal crusting, scabbing, reddness, discharge, or tenderness. Additional details: Amount of lidocaine used: 2 cc Previous accession number: [id number] [facility] No Panel Informationon 06-19 Lesion length (cm): 0.6 Lesion width (cm): 0.5 Margin per side (cm): 0.4 Total excision diameter (cm): 1.4 Informed consent: discussed and consent obtained Informed consent comment: Risks and possible complications were discussed as noted on the consent form. The consent form was signed prior to the procedure. Timeout: patient name, date of , surgical site, and procedure verified Timeout comment: Patient and provider identified site. Site was marked and excision was drawn out. Photo was taken and shown to patient, patient verified this is the correct site. Procedure prep: Patient was prepped and draped in usual sterile fashion (The planned incision lines were drawn along relaxed skin tension lines, if possible, to minimize scarring and deformity of surrounding structures.) Prep type: Chlorhexidine Anesthesia: the lesion was anesthetized in a standard fashion Anesthesia comment: The local anesthetic was injected to create a field block at the site of the procedure. Anesthetic: 1% lidocaine w/ epinephrine 1-100,000 buffered w/ 8.4% NaHCO3 Instrument used: #15 blade Instrument used comment: Incisions were made as drawn, and the surrounding tissue was undermined until the skin edges could be approximated without undue tension. Any tissue redundancies were removed. Hemostasis achieved with: electrodesiccation Additional details: Amount of lidocaine used: 7.0 ml Estimated blood loss: 1.0 ml [facility] Complexity: Intermediate Final length (cm): 3.7 Reason for type of repair: allow closure of the large defect Undermining: edges undermined Undermining comment: The surrounding tissue was undermined until the skin edges could be approximated without undue tension. Any tissue redundancies were removed. Subcutaneous layers (deep stitches): Suture size: 3-0 Suture type comment: Biosyn Stitches: Buried horizontal mattress (Closure was performed in a layered fashion with subcutaneous tissue closed first using tension-bearing absorbable sutures to the level of the superficial fascia.) Fine/surface layer approximation (top stitches): Suture size: 4-0 Suture type: Prolene (polypropylene) Stitches: simple running Stitches comment: Epicuticular skin sutures were then placed with minimal tension. Suture removal (days): 14 Outcome: patient tolerated procedure well with no complications Post-procedure details: sterile dressing applied and wound care instructions given Post-procedure details comment: It was emphasized to the patient to contact the office for any signs of infection, uncontrollable bleeding, or complications. Dressing type: bandage [facility] HbA1c (Bld) [Mass fraction]o n 05-01-2024 [facility] Laboratory - Hematology and Cell countson 05-01-2024 HbA1c (Bld) [Mass fraction] 5.3 % [facility] CCF CMP (CMP) (FOR REMOTE FH C USE)on 04-25-2024 Albumin [Mass/Vol] 3.7 g/dL 3.4 - 5.0 g/dL [facility] ALBUMIN GLOBULIN RATIO 1.5 [facility] ALP [Catalytic activity/Vol] 93 U/L 46 - 116 U/L [facility] ALT [Catalytic activity/Vol] 35 U/L 16 - 63 U/L [facility] Anion gap [Moles/Vol] 11.6 mmol/L [facility] AST [Catalytic activity/Vol] 20 U/L 15 - 37 U/L [facility] Bilirubin [Mass/Vol] 0.8 mg/dL 0.2 - 1 .0 mg/dL [facility] Calcium [Mass/Vol] 8.7 mg/dL 8.5 - 10. 1 mg/dL [facility] Chloride [Moles/Vol] 103 mmol/L 98 - 10 7 mmol/L [facility] CO2 [Moles/Vol] 28.4 mmol/L 21.0 - 32.0 mmol/L [facility] Creatinine [Mass/Vol] 1.04 mg/dL 0.70 - 1.30 mg/dL [facility] GFR/1.73 sq M.predicted CKD-EPI (S/P/Bld) [Vol rate/Area] >60 60 - PINF [facility] Globulin (S) [Mass/Vol] 2.5 g/dL [facility] Glucose [Mass/Vol] 131 mg/dL High 74 - 106 mg/dL [facility] Interpretation and review of laboratory results Abnormal [facility] Potassium [Moles/Vol] 4.0 mmol/L 3.5 - 5.1 mmol/L [facility] Protein [Mass/Vol] 6.2 g/dL Low 6.4 - 8.2 g/dL [facility] Sodium [Moles/Vol] 139 mmol/L 136 - 145 mmol/L [facility] TBH EGFR-NON AF CYPRIOT >60 60 - PINF [facility] Urea nitrogen [Mass/Vol] 17.0 mg/dL 7.0 - 18.0 mg/dL [facility] Urea nitrogen/Creatinine [Mass ratio] 16.3 mg/mg [facility] No Panel Informationon 04-18 Type of biopsy: tangential Informed consent: discussed and consent obtained Informed consent comment: The risks and benefits of the biopsy were discussed. Risks include but are not limited to bleeding, infection, scarring, pain, and nerve damage. An opportunity to ask questions prior to the procedure was permitted and all questions were answered. Patient was prepped and draped in usual sterile fashion: area cleansed with alcohol. Anesthesia: the lesion was anesthetized in a standard fashion Anesthetic: 1% lidocaine w/ epinephrine 1-100,000 buffered w/ 8.4% NaHCO3 Instrument used: DermaBlade Hemostasis achieved with: electrodesiccation Outcome: patient tolerated procedure well Outcome comment: The specimen was placed in a prelabeled formalin container to be sent for pathology Post-procedure details: sterile dressing applied and wound care instructions given Post-procedure details comment: Emphasized need to contact clinic for any signs of infection, uncontrollable bleeding, or complications. Dressing type: bandage Additional details: Photo taken yes Amount of lidocaine used: 1.0 cc [facility] Type of biopsy: tangential Informed consent: discussed and consent obtained Informed consent comment: The risks and benefits of the biopsy were discussed. Risks include but are not limited to bleeding, infection, scarring, pain, and nerve damage. An opportunity to ask questions prior to the procedure was permitted and all questions were answered. Patient was prepped and draped in usual sterile fashion: area cleansed with alcohol. Anesthesia: the lesion was anesthetized in a standard fashion Anesthetic: 1% lidocaine w/ epinephrine 1-100,000 buffered w/ 8.4% NaHCO3 Instrument used: DermaBlade Hemostasis achieved with: electrodesiccation Outcome: patient tolerated procedure well Outcome comment: The specimen was placed in a prelabeled formalin container to be sent for pathology Post-procedure details: sterile dressing applied and wound care instructions given Post-procedure details comment: Emphasized need to contact clinic for any signs of infection, uncontrollable bleeding, or complications. Dressing type: bandage Additional details: Photo taken yes [facility]: [facility] RHIANNON VALDIVIA ([id number]) 1955 M Date Time Provider Department 03/28/24 1:40 PM JOHN CALVO During your visit today, we recorded the following information about you: Weight Height 75.5 kg 1.727 m Santos Henning DO 03/29/2024 3:51 PM Signed Spine Care Path Neck Pain - Chronic (> 12 weeks) Initial Exam SUBJECTIVE HISTORY OF PRESENT ILLNESS: Rhiannon Valdivia is a 68 year old year old MALE who presents with a chief complaint of neck pain and is seen in consultation requested by Hardik Carreon APRN for an opinion regarding above. My final recommendations will be communicated back to the requesting physician by way of shared medical record or letter via US mail. Other Issues Addressed at the Visit Today: None. 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 Reports ongoing pain for 3-4 years. Notes pain bilateral sides of neck with radiation into bilateral trapezius. Rates pain as 5/10, worst 8-9/10, best 4/10. Describes pain as constant and sharp. Worsens with rotation and extension. Has been interfering with his sleep Wakes up with CRUMP until he moves and stretches his neck. Mild improvement with ibuprofen. No improvement from chiropractor. Has not done PT Gabapentin 300 mg in the morning and afternoon and 600 mg at night. Reports no improvement. Interested in weaning from it but has had difficult time getting ahold of the prescribing physician. Reports CRUMP are around bilateral eyes and feels like its in the back of his eyes. Reports the pain will alternate between eyes. Improves with heat. 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 Did not receive any medications for the CRUMP from neurology. Has recently started having pain in left armpit and tingling in bilateral hands that presents whenever he has his elbows in flexion and improves when placed in extension. Denies weakness in his extremities. Reports some dizziness whenever getting up from seated position. Is on metoprolol and tamsulosin. Takes tamsulosin in AM. Reports he does not have HTN. Denies balance issues or issues with hand dexterity. Interested in titrating off of gabapentin. PAIN EVALUATION 03/21/2024 1450 03/28/2024 1324 Pain Level: 7 5 Pain Location: Neck Neck Description: Aching;Cutting;Radiati ng;Sharp;Sore;Stabbing ;Stabbing/Not Incision;Stiffness;Tig htness Sore Duration Amount of Time: 24 4 Duration Units: Months Years Frequency: Continuous Continuous Intervention/Comfort measure: Medication;Relaxation; Emotional Support/Reassurance;Ex ercise;Heat;Imagery;Ma ssage;Pillow support;Rocking/holdin g Medication Comments: Worse in morning but have pain all day and headache gabapentin, ibuprofen The patient denies: inability to find a position of comfort, unexplained fever, significant spinal trauma, bowel or bladder dysfunction, gait or balance disturbance, and progressive weakness Litigation: No Workers' Compensation: No Patient Entered Questionnaires YELLOW AND BLUE FLAGS No-Neg Attitude; Back Pain is Disabling No-Avoiding Activity (for Fear of Pain) No-Depression or Anxiety Disorders No-Social Problems No-Substance Use Disorder No-Job Dissatisfaction No-Financial Disincentives Patient Entered Questionnaires 03/21/2024 Spine Questions Pain Location: Neck Pain Duration: 1 to 5 years Pain over last 6 months: Every day or nearly every day in the past 6 months Symptoms from neck/cervical spine: Yes Employment Status: Retired Involved in law suit/legal claim: No 03/21/2024 Spine Red Flags Any type of cancer: Yes Unexplained fever: No Bowel or bladder disfunction: No Unintentional weight loss: No Osteoporosis: No 03/21/2024 Neck Questionnaires Benzel Modified STEVEN Score Incomplete PROMIS Score Percentiles 03/21/2024 Physical Health Physical Function Percentile 38 Sleep Percentile 12 Fatigue Percentile 24* Pain Interference Percentile 14 03/21/2024 PROMIS SOCIAL ROLE SCORE Social Role Satisfaction Percentile 31 03/16/2022 04/17/2023 03/21/2024 PROMIS Global Health Scale Physical Health Percentile 41 31 15 Mental Health Percentile 34 53 34 Percentiles provide an indication of how the patient's score ranks in relation to the general population. Higher percentile rankings indicate better function/quality of life. 50th percentile is the average of the general population and indicates half of respondents had a worse score. Depression Screenin03/16/2022 04/17/2023 03/21/2024 PHQ-9 Score 4 5 3 03/21/2024 04/17/2023 03/16/2022 PHQ-9 Self Harm Question 9 Not at all Not at all Not at all ACTIVE PROBLEM LIST Migraines Atypical Chest Pain Syncope PAST MEDICAL HISTO (more content not included)... [facility] Nasrin 02-09-2024 [facility] Telephone ([facility]) RHIANNON VALDIVIA ([id number]) 1955 M Date Time Provider Department 02/09/24 HARDIK CARREON [facility] During your visit today, we recorded the following information about you: Hardik Carreon APRN.TRIAL CONSULTANT 02/09/2024 1:50 PM Signed Scheduling Request - Established Patient Time Frame: First available/RAVINDRA Orders: N/A Provider: Dr. Calvo/Spine medicine Visit type: In person Diagnosis: spinal stenosis MRI cervical spine completed. Haridk Johnson, MSN, MANAGER MEAT, TRIAL CONSULTANT Certified Nurse Practitioner Allergies As of Date: 02/09/2024 Noted Allergy Reaction CECLOR (CEFACLOR) 08/18/2014 16 - Unknown Date Reviewed: 01/02/2024 Reviewed by: Jude Guerrero LPN - Fully Assessed Reason for Visit: Consult [502] Prescriptions as of 02/09/2024 - diclofenac potassium (CATAFLAM) 50 mg tablet Take 50 mg by mouth. - gabapentin (NEURONTIN) 300 mg capsule Take 1 capsule by mouth every morning AND 1 capsule every afternoon AND 2 capsules daily at bedtime. Do all this for 180 days. - MULTIVITAMIN ORAL Take by mouth. - tamsulosin (FLOMAX) 0.4 mg Take 0.4 mg by mouth once daily. - metoprolol succinate ER (TOPROL XL) 25 mg 24 hr tablet Take 25 mg by mouth once daily. - atorvastatin (LIPITOR) 40 mg tablet Take 40 mg by mouth once daily. Problem List As Of Date 02/09/2024 Noted Resolved Migraines [G43.909] Atypical chest pain [R07.89] 08/26/2014 Syncope [R55] 08/26/2014 Encounter Status:Closed by HARDIK CARREON on 02/09/24 Normal [facility] XR pre/post mri xrayon 01-09 XR pre/post mri xray [facility] Main [address] [address] MRI Report Signed Patient: Rhiannon Valdivia MR#: [id number] : 1955 Acct:[id number] Age/Sex: 68 / M ADM Date: 01/10/24 Loc: Room: Type: [facility] Attending Dr: Hardik Carreon JIG BORE OPERATOR-C Copies to: Hardik Carreon CNP Ordering Provider: Hardik Carreon CNP Date of Service: 01/10/24 MR/MR cervical spine wo/w con: M48.02 ([id number]) XR/XR pre/post mri xray: M48.02 MR cervical spine wo/w con, XR pre/post mri xray 01/10/2024 7:49 AM SIGNS AND SYMPTOMS: Chronic neck pain, headaches, numbness and tingling in hands and arms PROTOCOL: Multiplanar multisequence MR images of the cervical spine were obtained with and without IV contrast. Lateral and bilateral oblique radiographs of the cervical spine. CONTRAST: 15 mL of intravenous ProHance COMPARISON: None. FINDINGS: Radiographs of the cervical spine: There is straightening and mild reversal of the normal cervical lordosis. There is mild/moderate narrowing of the intervertebral discs at C2-C3 and C3-C4. There is severe disc height loss at C4-C5, C5-C6, and C6-C7. There is facet hypertrophy with anterior osteophyte formation and uncovertebral joint spurring bilaterally contributing to neural foraminal stenosis. The prevertebral soft tissues are within normal limits. MRI cervical spine: Disc height loss and alignment is as noted above. There is Modic type I endplate edema at C3-C4 and C4-C5. The cord is normal in signal. No epidural or paraspinous fluid collection is appreciated. The visualized paraspinous soft tissues are within normal limits. The prevertebral soft tissues are within normal limits. There is partial visualization of an enhancing structure within the foramen again the measuring approximately 1.6 x 0.7 cm in greatest dimension on sagittal images. This is unchanged when compared to the previous MRI. No abnormal postcontrast enhancement is noted otherwise. At C2-C3: There is a normal disc, central canal, and neural foramen. At C3-C4: There is a normal disc, central canal, and neural foramen. At C4-C5: There is a broad-based disc bulge with uncovertebral joint spurring degenerative mild bilateral neural foraminal narrowing and mild spinal canal. At C5-C6: There is a left subarticular disc extrusion contributing to moderate left and mild right neural foraminal narrowing without significant spinal canal stenosis. At C6-C7: There is a broad-based disc bulge with facet and negative joint degenerative change contributing to moderate to severe bilateral neural foraminal narrowing and mild spinal canal narrowing. At C7-T1: There is a normal disc, central canal, and neural foramen. MR/MR cervical spine wo/w con IMPRESSION: No fracture or subluxation. No cord compression or cord signal abnormality. There is straightening and mild reversal of the normal cervical lordosis. At C4-C5: There is a broad-based disc bulge with uncovertebral joint spurring degenerative mild bilateral neural foraminal narrowing and mild spinal canal. At C5-C6: There is a left subarticular disc extrusion contributing to moderate left and mild right neural foraminal narrowing without significant spinal canal stenosis. At C6-C7: There is a broad-based disc bulge with facet and negative joint degenerative change contributing to moderate to severe bilateral neural foraminal narrowing and mild spinal canal narrowing. There is partial visualization of an enhancing structure within the foramen again the measuring approximately 1.6 x 0.7 cm in greatest dimension on sagittal images. This is unchanged when compared to the previous MRI. No abnormal postcontrast enhancement is noted otherwise. Impression dictated by: Everton Conway M.D.01/10/2024 1:08 PM Dictation Location: [place] [address] Transcribed By: NURA 01/10/24 1308 Dictated By: Everton Conway II, MD 01/10/24 1258 Signed By: 01/10/24 1308 Normal [facility] CNOVon 01-02-2024 CNOV Office Visit ([facility] ) RHIANNON VALDIVIA ([id number]) 1955 M Date Time Provider Department 01/02/24 8:00 AM HARDIK CARREON [facility] During your visit today, we recorded the following information about you: Pulse Blood pressure Weight 60/minute 107/65 77 kg Hardik Carreon APRN.TRIAL CONSULTANT 01/02/2024 9:22 AM Signed [facility] NEURO-ONCOLOGY OUTPATIENT CLINIC NOTE PURPOSE OF VISIT: Ongoing patient management CHIEF COMPLAINT : Fourth ventricular lesion Subjective HISTORY OF PRESENT ILLNESS: Rhiannon Valdivia is a 68 year old right-handed male who is here for a follow-up visit for fourth ventricular lesion. He is history of chronic daily headaches. Imaging was first done in 2020 due to progressively worsening headaches. Seen in evaluation by Dr. Ramirez who recommended observation given no papilledema or symptoms. Of note, he felt symptoms (headaches) were unrelated. INTERVAL HISTORY : 01/02/24 Presents today with his for follow-up with new MRI brain for review. He was last seen by Sonia Carrillo PA-C 12/14/22. Today he notes continued chronic daily headaches, worse in the morning, improving throughout the day. He notes the pain stems from his neck. He also reports numbness/tingling to bilateral hands/fingers. SOCIAL HISTORY: Social History Tobacco Use Smoking status: Former Types: Cigarettes Start date: 08/19/1975 Quit date: 08/19/1976 Years since quittin.4 Smokeless tobacco: Never Substance Use Topics Alcohol use: Yes Comment: occassional Drug use: No PAST MEDICAL HISTORY Diagnosis Date Migraines FAMILY HISTORY Problem Relation Age of Onset Cancer Mother skin Cancer Father esophogeal other (grandparent [Other]) Other [place] heart disease Current Outpatient Medications Medication Sig diclofenac potassium (CATAFLAM) 50 mg tablet Take 50 mg by mouth. gabapentin (NEURONTIN) 300 mg capsule Take 1 capsule by mouth every morning AND 1 capsule every afternoon AND 2 capsules daily at bedtime. Do all this for 180 days. MULTIVITAMIN ORAL Take by mouth. tamsulosin (FLOMAX) 0.4 mg Take 0.4 mg by mouth once daily. metoprolol succinate ER (TOPROL XL) 25 mg 24 hr tablet Take 25 mg by mouth once daily. atorvastatin (LIPITOR) 40 mg tablet Take 40 mg by mouth once daily. No current facility-administered medications for this visit. REVIEW OF SYSTEMS: Neurological : No complaint of headache + Decreased hearing, chronic No complaint of diplopia No complaints of blurred vision + Numbness/tingling to bilateral hands/fingertips No problem with limb coordination + History of syncope No complaints of seizures No complaints of memory changes or disorientation. General : Constitutional: No recent fever or weight loss. Eyes: No history of glaucoma or cataracts ENMT: No recent ear infection, nasal congestion, mouth sores or sore throat. CV: No chest pain, palpitations or leg swelling Respiratory: No SOB, wheezing or recent cough. Gastrointestinal: No nausea, vomiting, dysphagia or abdominal pain. Genitourinary: No history of hematuria or dysuria; + BPH Musculoskeletal: No complaint of unstable gait or arm/leg weakness Psychiatric: No history of hallucinations, depression, or anxiety Objective PHYSICAL EXAMINATION: BP 107/65 Pulse 60 Wt 77 kg (169 lb 12.1 oz) SpO2 96% BMI 25.32 kg/m? General appearance: Well appearing, alert, in no acute distress Skin: Skin color, texture, turgor normal, no suspicious rashes or lesions Oropharynx: Lips, mucosa, and tongue normal, teeth and gums normal, oropharynx normal Extremities: No deformities, edema, skin discoloration, clubbing or cyanosis. NEUROLOGICAL EXAM: Higher integrative functions: Oriented to person, place AND time. Attention Span and Concentration: Good. Language: Good comprehension. Speech clear and coherent Fund of Knowledge: Good. 2nd CN: Full visual ly. 3rd,4th,6th CN: Pupils (=), round, react to light, full extraocular movements. 5th CN: No decrease in facial sensation 7th CN: Facial muscles symmetric and strong. 8th CN: Hears finger rub well bilaterally. 9th CN: Gag reflex not tested 10th CN: Spontaneous palate movement, full and symmetric. 11th CN: Full strength in shoulder shrug. 12th CN: Tongue protrusion full and midline. Sensation: No decrease in sensation in upper or lower limbs to touch. Musculoskeletal: Gait is normal. Motor: 5/5, R=L, UE=LE. Normal muscle tone without atrophy in all limbs. Coordination: Rapid alternating movements fast and smooth all limbs. + Mild/subtle tremor noted to bilateral hands IMAGING STUDIES: MRI BRAIN WO/W IVCON Karnofsky performance status: 80 - Normal activity with effort, some signs or symptoms of disease. MEDICAL DECISION MAKING Assessment AND Plan 1. Fourth Ventricle Lesion - No images to review today; OSH rep (more content not included)... Normal [facility] Creatinine (Bld) [Mass/Vol]O rdered By: Sonia Carrillo on 12-18-2023 Creatinine [Mass/Vol] 1.0 mg/dL 0.6-1.3 [facility] Comment on above: ER/ESD physician is notified/shown all ISTAT results.Critical values may be confirmed by laboratory testing ifdeemed necessary by ER attending doctor. No Panel InformationOrdered By: Sonai Carrillo on 12-18-2023 Bedside Estimated GFR (eGFR) > 60.0 [facility] XR SINUSES 3 VIEWS OR GREATE Gregorio 12-05-2022 XR SINUSES 3 VIEWS OR GREATER EXAMINATION: XR SINUSES 3 VIEWS OR GREATER HISTORY: Chronic sinusitis COMPARISON: No relevant comparison available. FINDINGS: MAXILLARY: Suspect mild mucosal thickening. No fluid levels. ETHMOID: No appreciable mucosal thickening or fluid level. FRONTAL: Suspect mild mucosal thickening. No fluid levels. SPHENOID: No appreciable mucosal thickening or fluid level. OTHER: Negative. IMPRESSION: 1. No fluid levels to suggest acute sinusitis. 2. Suspect mild chronic sinusitis. Electronically authenticated by: NITHIN ALCAZAR Date: 2022-12-05 05:41 Normal [facility] Creatinine (Bld) [Mass/Vol]O rdered By: Sonia Carrillo on 12-02-2022 Creatinine [Mass/Vol] 1.0 mg/dL 0.6-1.3 [facility] Comment on above: ER/ESD physician is notified/shown all ISTAT results.Critical values may be confirmed by laboratory testing ifdeemed necessary by ER attending doctor. XR CHEST 2 Von 12-01-2022 XR CHEST 2 V EXAM: XR CHEST 2 V HISTORY: Chronic sinusitis COMPARISON: None. TECHNIQUE: PA and lateral views of the chest. FINDINGS: The cardiomediastinal silhouette is normal. No focal consolidation is identified. There is no pneumothorax. No pleural effusion is noted. The osseous structures are intact. IMPRESSION: No acute cardiopulmonary process. Electronically authenticated by: EVERTON BAKER Date: 2022-12-01 10:01 Normal [facility] Comprehensive Metabolic Pane beau 12-22-2021 Albumin [Mass/Vol] 4.8 g/dL Normal 3.6-5.1 [facility] Comment on above: Performed By: #### C KIMBERLY, LIPD #### [facility] [address] [place], [place] [id number] Albumin/Globulin [Mass ratio] 3.2 {ratio} High 1.0-2.5 [facility] Comment on above: Performed By: #### C KIMBERLY, LIPD #### [facility] [address] [place], [place] [id number] ALP [Catalytic activity/Vol] 91 U/L Normal 40-129 [facility] Comment on above: Performed By: #### C KIMBERLY LIPD #### [facility] [address] [place], [place] [id number] ALT [Catalytic activity/Vol] 25 U/L Normal 9-46 [facility] Comment on above: Result Comment: 07/21 Female reference range changed. Performed By: #### C KIMBERLY LIPD #### [facility] [address] [place], [place] [id number] Anion gap [Moles/Vol] 16 mmol/L Normal 12-20 [facility] Comment on above: Result Comment: Effe ctive 08/26/2019 reference range changed. Performed By: #### C KIMBERLY LIPD #### [facility] [address] [place], [place] [id number] AST [Catalytic activity/Vol] 22 U/L Normal 10-40 [facility] Comment on above: Performed By: #### C KIMBERLY LIPD #### [facility] [address] [place], [place] [id number] Bilirubin [Mass/Vol] 1.08 mg/dL Normal 0.30-1.20 [facility] Comment on above: Performed By: #### C KIMBERLY LIPD #### [facility] [address] [place], [place] [id number] BUN/CREA 21 Ratio Normal 6-22 [facility] Comment on above: Performed By: #### C KIMBERLY LIPD #### [facility] [address] [place], [place] [id number] Calcium [Mass/Vol] 9.7 mg/dL Normal 8.6-10.2 [facility] Comment on above: Performed By: #### C MP, LIPD #### [facility] [address] [place], [place] [id number] Chloride [Moles/Vol] 107 mmol/L Normal 98-107 [facility] Comment on above: Performed By: #### C MP, LIPD #### [facility] [address] [place], [place] [id number] CO2 [Moles/Vol] 24 mmol/L Normal 20-31 [facility] Comment on above: Performed By: #### C MP, LIPD #### [facility] [address] [place], [place] [id number] Creatinine [Mass/Vol] 0.8 mg/dL Normal 0.7-1.4 [facility] Comment on above: Performed By: #### C MP, LIPD #### [facility] [address] [place], [place] [id number] eGFRAA 114 mL/min/1.73m2 Normal >60 [facility] Comment on above: Performed By: #### C MP, LIPD #### [facility] [address] [place], [place] [id number] eGFRNAA 94 mL/min/1.73m2 Normal >60 [facility] Comment on above: Performed By: #### C MP, LIPD #### [facility] [address] [place], [place] [id number] Globulin (S) [Mass/Vol] 1.5 g/dL Low 1.9-3.7 [facility] Comment on above: Performed By: #### C MP, LIPD #### [facility] [address] [place], [place] [id number] Glucose [Mass/Vol] 91 mg/dL Normal 65-99 [facility] [place] [facility] Comment on above: Result Comment: For FASTING Glucose --- ADA reference ranges: Normal 65-99 mg/dl Prediabetes 100-125 Diabetes >/= 126 Performed By: #### C MP, LIPD #### [facility] [address] [place], [place] [id number] Potassium [Moles/Vol] 4.5 mmol/L Normal 3.5-5.5 [facility] Comment on above: Performed By: #### C MP, LIPD #### [facility] [address] [place], [place] [id number] Protein [Mass/Vol] 6.3 g/dL Normal 6.1-8.1 [facility] Data Collection Associate Comment on above: Performed By: #### C MP, LIPD #### [facility] [address] [place], [place] [id number] Sodium [Moles/Vol] 142 mmol/L Normal 135-146 [facility] Associate Comment on above: Performed By: #### C MP, LIPD #### [facility] [address] [place], [place] [id number] Urea nitrogen [Mass/Vol] 18 mg/dL Normal 7-25 [facility] Comment on above: Performed By: #### C MP, LIPD #### [facility] [address] [place], [place] [id number] Lipid Panelon 12-22-2021 Cholesterol [Mass/Vol] 155 mg/dL Normal 125-200 [facility] Comment on above: Result Comment: Low risk < 200mg/dL Borderline risk 201-239 mg/dl High risk > or equal to 240 Performed By: #### C MP, LIPD #### [facility] [address] [place], [place] [id number] Cholesterol in HDL [Mass/Vol] 41 mg/dL Normal >40 [facility] Comment on above: Result Comment: High Cardiovascular Risk HDL <40 mg/dL Low Cardiovascular Risk HDL > or equal to 60 mg/dl Performed By: #### C MP, LIPD #### [facility] [address] [place], [place] [id number] Cholesterol in LDL [Mass/Vol] 96 mg/dL Normal [facility] Comment on above: Result Comment: LDL ATP III CLASSIFICATION LDL less than 100 mg/dl Optimal LDL 100-129 mg/dl Near or above optimal LDL 130-159 Borderline high LDL 160-189 High LDL greater than 189 mg/dl Very High Performed By: #### C MP, LIPD #### [facility] [address] [place], [place] [id number] Cholesterol in VLDL [Mass/Vol] 18 mg/dL Normal [facility] Data Collection Associate Comment on above: Performed By: #### C KIMBERLY, LIPD #### [facility] [address] [place], [place] [id number] Cholesterol.total/Chol esterol in HDL [Mass ratio] 4 {ratio} Normal [facility] Comment on above: Performed By: #### C KIMBERLY, LIPD #### [facility] [address] [place], [place] [id number] Triglyceride [Mass/Vol] 89 mg/dL Normal 30-150 [facility] Comment on above: Result Comment: TRIG ATPIII CLASSIFICATIONS TRIG less than 150 mg/dl Normal TRIG 150-199 mg/dl Borderline High TRIG 200-500 mg/dl High TRIG greather than 500 mg/dl Very High Performed By: #### C KIMBERLY, LIPD #### [facility] [address] [place], [place] [id number] Prostatic Specific Antigen, Totalon 12-22-2021 TPSA 2.640 ng/mL Normal <4.000 [facility] Comment on above: Result Comment: PSA Test Method: ECLIA/Sonal e 601 Performed By: #### P SA #### [facility] [address] [place], [place] [id number] Q - CBC DIFF SMEAR REVIEWon 12-22-2021 Erythrocyte distribution width (RBC) [Ratio] 13.3 % Normal 11.0-15.0 [facility] Comment on above: Order Comment: [facility] performed at: [facility], [address] [place] [address], [address] [place] [address], [phone], Casing Tier: Tulio Walker MD [facility] Date/Time: [facility] Results Received Date/Time: [facility] Reported Date/Time: Performed By: #### % [id number], #### [facility] [address] [place] [address] Hematocrit (Bld) [Volume fraction] 48.1 % Normal 38.5-50.0 [facility] Associate Comment on above: Order Comment: [facility] performed at: [facility], [facility], [address] [facility], [address] [place] [address], [phone], Casing Tier: Tulio Walker MD [facility] Date/Time: [facility] Results Received Date/Time: [facility] Reported Date/Time: Performed By: #### % [id number], #### [facility] [address] [place] [address] Hemoglobin (Bld) [Mass/Vol] 16.2 g/dL Normal 13.2-17.1 [facility] Data Collection Associate Comment on above: Order Comment: [facility] performed at: [email or web address], [facility], [address] [place] [address], [address] [place] [address], [address] [place] [address], Casing Tier: Tulio Walker MD [facility] Date/Time: [facility] Results Received Date/Time: [facility] Reported Date/Time: Performed By: #### % [id number], #### [facility] [address] [place] [address] MCH (RBC) [Entitic mass] 29.8 pg Normal 27.0-33.0 [facility] Collection Associate Comment on above: Order Comment: [facility] performed at: [email or web address], [facility], [address] [facility], [address] [place] [address], [address] [place] [address], Casing Tier: Tulio Walker MD [facility] Date/Time: [facility] Results Received Date/Time: [facility] Reported Date/Time: Performed By: #### % 85227, [id number] #### [facility] [address] [place] [address] MCHC (RBC) [Mass/Vol] 33.7 g/dL Normal 32.0-36.0 [facility] Comment on above: Order Comment: [facility] performed at: [email or web address], [facility], [address] [facility], [address] [place] [address], [address] [place] [address], Casing Tier: Tulio Walker MD [facility] Date/Time: [facility] Results Received Date/Time: [facility] Reported Date/Time: Performed By: #### % 36605, #### [facility] [address] [place] [address] MCV (RBC) [Entitic vol] 88.4 fL Normal 80.0-100.0 [facility] Data Collection Associate Comment on above: Order Comment: [facility] performed at: [email or web address], [facility], [address] [place] [address], [address] [place] [address], [phone], Casing Tier: Tulio Walker MD [facility] Date/Time: [facility] Results Received Date/Time: [facility] Reported Date/Time: Performed By: #### % 30752, #### [facility] [address] [place] [address] Platelet mean volume (Bld) [Entitic vol] 12.1 fL Normal 7.5-12.5 [facility] Data Collection Associate Comment on above: Order Comment: [facility] performed at: [facility], [address] [place] [address], [address] [place] [address], [address] [place] [address], Casing Tier: Tulio Walker MD [facility] Date/Time: [facility] Results Received Date/Time: [facility] Reported Date/Time: Performed By: #### % [id number], #### [facility] [address] [place] [address] Platelets (Bld) [#/Vol] 196 10*3/uL Normal 140-400 [facility] Data Collection Associate Comment on above: Order Comment: [facility] performed at: [facility], [address] [place] [address], [address] [place] [address], [phone], Casing Tier: Tulio Walker MD [facility] Date/Time: [facility] Results Received Date/Time: [facility] Reported Date/Time: Performed By: #### % [id number], #### [facility] [address] [place] [address] RBC (Bld) [#/Vol] 5.44 10*6/uL Normal 4.20-5.80 [facility]ist Comment on above: Order Comment: [facility] performed at: [email or web address], [facility], [address] [place] , [address] [place] [address], [address] [place] [address], Casing Tier: Tulio Walker MD [facility] Date/Time: [facility] Results Received Date/Time: [facility] Reported Date/Time: Performed By: #### % [id number], #### [facility] [address] [place] [address] WBC (Bld) [#/Vol] 8.8 10*3/uL Normal 3.8-10.8 [facility] Comment on above: Order Comment: [facility] performed at: [email or web address], [facility], [address] [place] , [address] [place] [address], [address] [place] [address], Casing Tier: Tulio Walker MD [facility] Date/Time: [facility] Results Received Date/Time: [facility] Reported Date/Time: Performed By: #### % [id number], #### [facility] [address] [place] [address] Q - DIFF MANUALon 12-22-2021 ABSOLUTE LYMPHOCYTES 5192 cells/uL High 850-3900 N [facility] Data Collection Associate Comment on above: Order Comment: [facility] performed at: [email or web address], [facility], [address] [place] , [address] [place] [address], [address] [place] [address], Casing Tier: Tulio Walker MD [facility] Date/Time: [facility] Results Received Date/Time: [facility] Reported Date/Time: Performed By: #### % [id number], [id number] #### [facility] [address] [place] [address] BASO% 1.0 % Normal [facility] Data Collection Associate Comment on above: Order Comment: [facility] performed at: [facility], [facility], [address] [place] , [address] [place] [address], [address] [place] [address], Casing Tier: Tulio Walker MD [facility] Date/Time: [facility] Results Received Date/Time: [facility] Reported Date/Time: Performed By: #### % [id number], 49986 #### [facility] [address] [place] [address] BASOABS 88 cells/uL Normal 0-200 [facility] Data Collection Associate Comment on above: Order Comment: [facility] performed at: [facility], [facility], [address] , [address] [place] [address], [address] [place] [address], Casing Tier: Tulio Walker MD [facility] Date/Time: [facility] Results Received Date/Time: [facility] Reported Date/Time: Performed By: #### % 51970, [id number] #### [facility] [address] [place] [address] EOS% 1.0 % Normal [facility] Data Collection Associate Comment on above: Order Comment: [facility] performed at: [facility], [facility], [address] [place] , [address] [place] [address], [address] [place] [address], Casing Tier: Tulio Walker MD [facility] Date/Time: [facility] Results Received Date/Time: [facility] Reported Date/Time: Performed By: #### % 13688, 22923 #### [facility] [address] [place] [address] EOSABS 88 cells/uL Normal 15-500 [facility] Data Collection Associate Comment on above: Order Comment: [facility] performed at: [facility], [facility], [address], [address] [place] [address], [address] [place] [address], Casing Tier: Tulio Walker MD [facility] Date/Time: [facility] Results Received Date/Time: [facility] Reported Date/Time: Performed By: #### % 90100, #### [facility] [address] [place] [address] LYMPH% 59.0 % Normal [facility] Comment on above: Order Comment: [facility] performed at: [email or web address], [facility], [address] [place] , [address] [place] [address], [address] [place] [address], Casing Tier: Tulio Walker MD [facility] Date/Time: [facility] Results Received Date/Time: [facility] Reported Date/Time: Performed By: #### % [id number], #### [facility] [address] [place] [address] MONO% 10.0 % Normal [facility] Specialist Comment on above: Order Comment: [facility] performed at: [email or web address], [facility], [address] , [address] [place] [address], [address] [place] [address], Casing Tier: Tulio Walker MD [facility] Date/Time: [facility] Results Received Date/Time: [facility] Reported Date/Time: Performed By: #### % 74854, [id number] #### [facility] [address] [place] [address] MONOABS 880 cells/uL Normal 200-950 [facility] Data Collection Associate Comment on above: Order Comment: [facility] performed at: [email or web address], [facility], [address] , [address] [place] [address], [address] [place] [address], Casing Tier: Tulio Walker MD [facility] Date/Time: [facility] Results Received Date/Time: [facility] Reported Date/Time: Performed By: #### % 61259, [id number] #### [facility] [address] [place] [address] NEUT# 2552 cells/uL Normal 4736-7615 [facility] Data Collection Associate Comment on above: Order Comment: [facility] performed at: [email or web address], [facility], [address], [address] [place], [place], [address] [place] [address], Casing Tier: Tulio Walker MD [facility] Date/Time: [facility] Results Received Date/Time: [facility] Reported Date/Time: Performed By: #### % [id number], #### [facility] [address] [place] [address] NEUT% 29.0 % Normal [facility] Data Collection Associate Comment on above: Order Comment: [facility] performed at: [employer], [facility], [address], [address] [place], [place], [address] [place] [address], Casing Tier: Tulio Walker MD [facility] Date/Time: [facility] Results Received Date/Time: [facility] Reported Date/Time: Performed By: #### % , #### [facility] [address] [place] [address] Creatinine (Bld) [Mass/Vol]O rdered By: Eduard Ramirez on 11-23-2021 Creatinine [Mass/Vol] 1.0 mg/dL 0.6-1.3 [facility] Comment on above: ER/ESD physician is notified/shown all ISTAT results.Critical values may be confirmed by laboratory testing ifdeemed necessary by ER attending doctor. No Panel InformationOrdered By: Eduard Ramirez on 11-23-2021 POC Estimated GFR > 60 [facility] Comment on above: GFR estimated refere nce range: According to KDOQI guidelines, <60 ml/min/1.73m2 is sufficient to diagnose a patient with chronic kidney disease. POC Estimated GFR Non- Amer > 60 [facility] Vital Signs Date Time Vital Sign Value Performing Clinician Facility 01-06-2025 13:22-0400 Body height 177.8 cm Manfred Gutierrez MD Work Phone: [facility] 01-06-2025 13:22-0400 Body mass index (BMI) [Ratio] 23.53 kg/m2 Manfred Gutierrez MD Work Phone: [facility] 01-06-2025 13:22-0400 Body weight 74.39 kg Manfred Gutierrez MD Work Phone: [facility] 01-06-2025 13:22-0400 Diastolic blood pressure 78 mm[Hg] Manfred Gutierrez MD Work Phone: [facility] 01-06-2025 13:22-0400 Heart rate 88 /min Manfred Gutierrez MD Work Phone: [facility] 01-06-2025 13:22-0400 SaO2% (BldA) [Mass fraction] 96 % Manfred Gutierrez MD Work Phone: [facility] 01-06-2025 13:22-0400 Systolic blood pressure 126 mm[Hg] Manfred Gutierrez MD Work Phone: [facility] 12-31-2024 08:31-0400 Body mass index (BMI) [Ratio] 24.36 kg/m2 Hardik Carreon APRN.TRIAL CONSULTANT Work Phone: [facility] 12-31-2024 08:31-0400 Body weight 77 kg Hardik Carreon MANAGER MEAT.TRIAL CONSULTANT Work Phone: [facility] 12-31-2024 08:31-0400 Diastolic blood pressure 77 mm[Hg] Hardik Carreon MANAGER MEAT.TRIAL CONSULTANT Work Phone: [facility] 12-31-2024 08:31-0400 Heart rate 96 /min Hardik Carreon MANAGER MEAT.TRIAL CONSULTANT Work Phone: [facility] 12-31-2024 08:31-0400 SaO2% (BldA) [Mass fraction] 96 % Hardik Carreon MANAGER MEAT.TRIAL CONSULTANT Work Phone: [facility] 12-31-2024 08:31-0400 Systolic blood pressure 124 mm[Hg] Hardik Carreon MANAGER MEAT.TRIAL CONSULTANT Work Phone: [facility] 12-24-2024 06:59-0400 Body height 177.8 cm Manfred Gutierrez II Work Phone: [facility] 12-24-2024 06:59-0400 Body weight 74.84 kg Manfred Gutierrez II Work Phone: [facility] 12-17-2024 11:36-0400 Body height 177.8 cm Gladys Hemmer PA Work Phone: [facility] 12-17-2024 11:36-0400 Body mass index (BMI) [Ratio] 23.36 kg/m2 Gladys Hemmer PA Work Phone: [facility] 12-17-2024 11:36-0400 Body weight 73.85 kg Gladys Hemmer PA Work Phone: [facility] 12-17-2024 11:36-0400 Diastolic blood pressure 82 mm[Hg] Gladys Hemmer PA Work Phone: [facility] 12-17-2024 11:36-0400 Heart rate 87 /min Gladys Hemmer PA Work Phone: [facility] 12-17-2024 11:36-0400 Respiratory rate 16 /min Gladys Hemmer PA Work Phone: [facility] 12-17-2024 11:36-0400 SaO2% (BldA) [Mass fraction] 95 % Gladys Hemmer PA Work Phone: [facility] 12-17-2024 11:36-0400 Systolic blood pressure 116 mm[Hg] Gladys Hemmer PA Work Phone: [facility] 10-29-2024 10:11-0400 Body height 177.8 cm John Calvo MD Work Phone: [facility] 10-29-2024 10:11-0400 Body mass index (BMI) [Ratio] 24.1 kg/m2 John Calvo MD Work Phone: [facility] 10-29-2024 10:11-0400 Body weight 76.2 kg John Calvo MD Work Phone: [facility] 10-29-2024 10:11-0400 Diastolic blood pressure 76 mm[Hg] John Calvo MD Work Phone: [facility] 10-29-2024 10:11-0400 Heart rate 91 /min John Calvo MD Work Phone: [facility] 10-29-2024 10:11-0400 Systolic blood pressure 121 mm[Hg] John Calvo MD Work Phone: [facility] 07-09-2024 13:33-0500 Body height 172.7 cm John Calvo MD Work Phone: [facility] 07-09-2024 13:33-0500 Body mass index (BMI) [Ratio] 25.04 kg/m2 John Calvo MD Work Phone: [facility] 07-09-2024 13:33-0500 Body weight 74.7 kg John Calvo MD Work Phone: [facility] 07-09-2024 13:33-0500 Diastolic blood pressure 71 mm[Hg] John Calvo MD Work Phone: [facility] 07-09-2024 13:33-0500 Heart rate 72 /min John Calvo MD Work Phone: [facility] 07-09-2024 13:33-0500 SaO2% (BldA) [Mass fraction] 97 % John Calvo MD Work Phone: [facility] 07-09-2024 13:33-0500 Systolic blood pressure 126 mm[Hg] John Calvo MD Work Phone: [facility] 05-01-2024 10:27-0400 Body height 177.8 cm Manfred Gutierrez MD Work Phone: [facility] 05-01-2024 10:27-0400 Body mass index (BMI) [Ratio] 23.68 kg/m2 Manfred Gutierrez MD Work Phone: [facility] 05-01-2024 10:27-0400 Body weight 74.84 kg Manfred Gutierrez MD Work Phone: [facility] 05-01-2024 10:27-0400 Diastolic blood pressure 62 mm[Hg] Manfred Gutierrez MD Work Phone: [facility] 05-01-2024 10:27-0400 Heart rate 78 /min Manfred Gutierrez MD Work Phone: [facility] 05-01-2024 10:27-0400 SaO2% (BldA) [Mass fraction] 96 % Manfred Gutierrez MD Work Phone: [facility] 05-01-2024 10:27-0400 Systolic blood pressure 106 mm[Hg] Manfred Gutierrez MD Work Phone: [facility] 03-28-2024 13:26-0400 Body height 172.7 cm John Calvo MD Work Phone: [facility] 03-28-2024 13:26-0400 Body mass index (BMI) [Ratio] 25.31 kg/m2 John Calvo MD Work Phone: [facility] 03-28-2024 13:26-0400 Body weight 75.5 kg John Calvo MD Work Phone: [facility] 01-10-2024 07:51-0400 Body height 177.8 cm II Manfred Gutierrez Work Phone: [facility] 01-10-2024 07:51-0400 Body weight 76.2 kg II Manfred Gutierrez Work Phone: [facility] 01-02-2024 08:00-0400 Body mass index (BMI) [Ratio] 25.32 kg/m2 Hardik Carreon APRN.TRIAL CONSULTANT Work Phone: [facility] 01-02-2024 08:00-0400 Body weight 77 kg Hardik Carreon APRN.TRIAL CONSULTANT Work Phone: [facility] 01-02-2024 08:00-0400 Diastolic blood pressure 65 mm[Hg] Hardik Carreon MANAGER MEAT.TRIAL CONSULTANT Work Phone: [facility] 01-02-2024 08:00-0400 Heart rate 60 /min Hardik Carreon MANAGER MEAT.TRIAL CONSULTANT Work Phone: [facility] 01-02-2024 08:00-0400 SaO2% (BldA) [Mass fraction] 96 % Hardik Carreon MANAGER MEAT.TRIAL CONSULTANT Work Phone: [facility] 01-02-2024 08:00-0400 Systolic blood pressure 107 mm[Hg] Hardik Carreon MANAGER MEAT.TRIAL CONSULTANT Work Phone: [facility] 12-02-2022 14:31-0400 Body height 177.8 cm II Manfred Gutierrez Work Phone: [facility] 12-02-2022 14:31-0400 Body weight 74.38 kg II Manfred Gutierrez Work Phone: [facility] 11-23-2021 10:25-0400 Body height 177.8 cm II Manfred Gutierrez Work Phone: [facility] 11-23-2021 10:25-0400 Body weight 73.48 kg II Manfred Gutierrez Work Phone: [facility] Encounters Encounter Date Encounter Type Care Provider Facility Start: 02-11-2025 ambulatory Kush PLASENCIA Facili ty:[facility] Start: 01-20-2025 End: 01-20-2025 ambulatory Kush PLASENCIA Facility:[facility] Start: 01-20-2025 End: 01-20-2025 Patient encounter procedure Kush PLASENCIA [facility] Start: 01-16-2025 End: 01-16-2025 Bamboo flowsheet Al Arevalo MANAGER MEAT-TRIAL CONSULTANT Work Phone: [facility] Start: 01-16-2025 End: 01-16-2025 Bamboo flowsheet Al Arevalo MANAGER MEAT-TRIAL CONSULTANT Work Phone: [facility] Start: 01-16-2025 End: 01-16-2025 Patient encounter procedure Al A Felter MANAGER MEAT-TRIAL CONSULTANT Work Phone: [facility] Comment on above: Rash and other nonsp ecific skin eruption Start: 01-16-2025 End: 01-16-2025 ambulatory AL A FELTER Not Available Start: 01-07-2025 ambulatory Kush PLASENCIA Facility :[facility] Start: 01-06-2025 End: 01-06-2025 Bamboo flowsheet Manfred Gutierrez MD Work Phone: [facility] Start: 01-06-2025 End: 01-06-2025 Bamboo flowsheet Manfred Gutierrez MD Work Phone: [facility] Start: 01-06-2025 End: 01-06-2025 Clinisync Result Encounter Manfred Gutierrez MD Work Phone: [facility] Unsolicited Start: 01-06-2025 End: 01-06-2025 Assay of hemosiderin, quant Manfred Gutierrez MD Work Phone: [facility] Start: 01-06-2025 End: 01-06-2025 Patient encounter procedure Manfred Gutierrez MD Work Phone: [facility] Comment on above: Routine general medi jose examination at health care facility (Primary Dx); ACP (advance care planning); Subependymoma (CMS/HCC); Benign prostatic hyperplasia with incomplete bladder emptying; Spondylosis of cervical region without myelopathy or radiculopathy; Pure hypercholesterolemia (CMS/HCC); Strain of lumbar region, initial encounter; Lumbar pain Start: 01-06-2025 End: 01-06-2025 ambulatory MANFRED GUTIERREZ Not Available Start: 01-02-2025 End: 01-02-2025 Bamboo flowsheet Al A Felter MANAGER MEAT-TRIAL CONSULTANT Work Phone: [facility] Start: 01-02-2025 End: 01-02-2025 Bamboo flowsheet Al A Felter MANAGER MEAT-TRIAL CONSULTANT Work Phone: [facility] Start: 01-02-2025 End: 01-02-2025 Office outpatient visit 15 minutes Al Arevalo MANAGER MEAT-TRIAL CONSULTANT Work Phone: [facility] Comment on above: Seborrheic keratosis (Primary Dx); Bacterial folliculitis; Neoplasm of unspecified behavior of bone, soft tissue, and skin; Melanocytic nevus of trunk; Lentigines Start: 01-02-2025 End: 01-02-2025 ambulatory AL AREVALO Not Available Start: 12-31-2024 End: 12-31-2024 Patient encounter procedure Hardik Carreon MANAGER MEAT.TRIAL CONSULTANT Work Phone: Neurosurgery Comment on above: Subependymoma (HCC) (Primary Dx); Brain lesion Start: 12-31-2024 End: 12-31-2024 ambulatory HARDIK CARREON Facility:[facility] Start: 12-25-2024 End: 12-25-2024 Telephone encounter Hardik Carreon MANAGER MEAT.TRIAL CONSULTANT Work Phone: [facility] Comment on above: Results Start: 12-24-2024 End: 12-24-2024 Patient encounter procedure Manfred Gutierrez II Work Phone: [facility] [place] Work Phone: Start: 12-24-2024 End: 12-24-2024 ambulatory Manfred Gutierrez II Work Phone: [facility] Work Phone: Start: 12-17-2024 End: 12-17-2024 Office outpatient visit 15 minutes Gladys OVIEDO Work Phone: [facility] Comment on above: Dermatitis (Primary Dx); Strain of lumbar region, initial encounter; Subependymoma (CMS/HCC) Start: 12-17-2024 End: 12-17-2024 ambulatory GLADYS TOTH Not Available Start: 11-01-2024 End: 11-01-2024 Telephone encounter Self [facility] Comment on above: Appointment Start: 10-29-2024 End: 10-29-2024 Patient encounter procedure John Calvo MD Work Phone: [facility] Comment on above: Cervical spondylosis without myelopathy (Primary Dx) Start: 10-29-2024 End: 10-29-2024 ambulatory JOHN CALVO Facility:[facility] Start: 10-23-2024 End: 10-23-2024 ambulatory Manfred Gutierrez II Work Phone: [facility] Work Phone: Start: 10-23-2024 End: 10-23-2024 Discharged Recurring Manfred Gutierrez II Work Phone: [facility] [facility] Start: 08-07-2024 End: 08-07-2024 ambulatory JOHN CALVO Facility:[facility] Start: 07-30-2024 End: 07-30-2024 Telephone encounter John Calvo MD Work Phone: [facility] [place] Comment on above: Pre-injection instru ctions Start: 07-26-2024 End: 07-26-2024 ambulatory John Calvo MD Work Phone: [facility] Comment on above: Pre-injection instru ctions Start: 07-26-2024 End: 07-26-2024 E-mail encounter from caregiver John Calvo MD Work Phone: [facility] Start: 07-09-2024 End: 07-09-2024 Patient encounter procedure John Calvo MD Work Phone: [facility] Comment on above: Cervical spondylosis without myelopathy (Primary Dx); Cervicogenic headache Cervical spondylosis without myelopathy (Primary Dx) Start: 07-09-2024 End: 07-09-2024 ambulatory JOHN CALVO Facility:[facility] Start: 07-02-2024 End: 07-02-2024 Patient encounter procedure Teodora Melara MD Work Phone: [facility] Comment on above: Basal cell carcinoma (BCC) of skin of right upper extremity including shoulder (Primary Dx); Encounter for removal of sutures Start: 07-02-2024 End: 07-02-2024 ambulatory TEODORA MELARA Not Available Start: 06-19-2024 End: 06-19-2024 Patient encounter procedure Teodora Melara MD Work Phone: [facility] Comment on above: Basal cell carcinoma (BCC) of skin of left upper extremity including shoulder (Primary Dx) Start: 06-19-2024 End: 06-19-2024 ambulatory TEODORA MELARA Not Available Start: 06-18-2024 End: 06-18-2024 ambulatory Manfred Gutierrez II Work Phone: [facility] Work Phone: Start: 06-18-2024 End: 06-18-2024 Discharged Recurring Manfred Matt LIZ Work Phone: [facility] Start: 05-01-2024 End: 07-02-2024 Telephone encounter Manfred Gutierrez MD Work Phone: [facility] Start: 05-01-2024 End: 05-01-2024 Office outpatient visit 15 minutes Manfred Gutierrez MD Work Phone: [facility] Comment on above: LFT elevation (Prima ry Dx); Elevated glucose Start: 05-01-2024 End: 05-01-2024 ambulatory MANFRED GUTIERREZ Not Available Start: 04-25-2024 End: 04-25-2024 Clinisync Result Encounter Manfred Gutierrez MD Work Phone: [facility] Unsolicited Start: 04-25-2024 End: 04-25-2024 Clinisync Result Encounter Manfred Gutierrez MD Work Phone: [facility] Unsolicited Start: 04-18-2024 End: 04-18-2024 Bamboo flowsheet Al A Felter MANAGER MEAT-TRIAL CONSULTANT Work Phone: [facility] Start: 04-18-2024 End: 04-18-2024 Bamboo flowsheet Al A Felter MANAGER MEAT-TRIAL CONSULTANT Work Phone: [facility] Start: 04-18-2024 End: 04-18-2024 Office outpatient visit 15 minutes Al Estes Felter MANAGER MEAT-TRIAL CONSULTANT Work Phone: [facility] Comment on above: Melanocytic nevus of trunk (Primary Dx); Hx of basal cell carcinoma; Inflamed seborrheic keratosis; Actinic keratosis; Seborrheic keratosis; Neoplasm of unspecified behavior of bone, soft tissue, and skin Start: 04-18-2024 End: 04-18-2024 ambulatory AL AREVALO Not Available Start: 03-28-2024 End: 03-28-2024 Patient encounter procedure John Calvo MD Work Phone: [facility] [place] Comment on above: Neck pain (Primary D x); Spinal stenosis in cervical region; Ulnar neuropathy at elbow of left upper extremity; Ulnar neuropathy at elbow of right upper extremity; Cervical spondylosis without myelopathy; Cervicogenic headache; Cluster headache, not intractable, unspecified chronicity pattern Start: 03-28-2024 End: 03-28-2024 ambulatory JOHN CALVO Facility:[facility] Start: 02-09-2024 Telephone encounter Hardik vides APRN.TRIAL CONSULTANT Work Phone: [facility] Comment on above: Consult Start: 02-06-2024 ambulatory Hardik Carreon APRN.TRIAL CONSULTANT Work Phone: Neurosurgery Start: 02-06-2024 Follow-up encounter Hardik vides APRN.TRIAL CONSULTANT Work Phone: Neurosurgery Comment on above: Follow up ? Start: 01-10-2024 End: 01-10-2024 Patient encounter procedure II Manfred Gutierrez Work Phone: [facility] [place] Work Phone: Start: 01-10-2024 End: 01-10-2024 ambulatory II Manfred Gutierrez Work Phone: [facility] Work Phone: Start: 01-02-2024 End: 01-02-2024 ambulatory HARDIK CARREON Facility:[facility] Start: 01-02-2024 End: 01-02-2024 Patient encounter procedure Hardik Carreon APRN.TRIAL CONSULTANT Work Phone: Neurosurgery Comment on above: Subependymoma (HCC) (Primary Dx); Spinal stenosis of cervical region Start: 12-18-2023 End: 12-18-2023 ambulatory II Manfred Gutierrez Work Phone: [facility] Work Phone: Start: 12-18-2023 End: 12-18-2023 Patient encounter procedure II Manfred Gutierrez Work Phone: [facility] [place] Work Phone: Start: 11-09-2023 Refill Ailyn Biddl ecom MANAGER MEAT.TRIAL CONSULTANT Work Phone: Neurology Comment on above: Refill Request Prescription renewal Start: 04-21-2023 End: 04-21-2023 ambulatory Ailyn Biddlecom MANAGER MEAT.TRIAL CONSULTANT Work Phone: Neurology Comment on above: Migraine without aur a and without status migrainosus, not intractable (Primary Dx); Medication management; Chronic mixed headache syndrome; Morning headache; Chronic daily headache; Cervicalgia Start: 04-21-2023 End: 04-21-2023 Telemedicine consultation with patient Ailyn Biddlecom MANAGER MEAT.TRIAL CONSULTANT Work Phone: [facility] Start: 03-10-2023 Refill Ailyn Biddl ecom MANAGER MEAT.TRIAL CONSULTANT Work Phone: Neurology Comment on above: Refill Request Start: 01-21-2023 Refill Ailyn Biddl ecom MANAGER MEAT.TRIAL CONSULTANT Work Phone: Neurology Comment on above: Refill Request Start: 12-14-2022 End: 12-14-2022 ambulatory Sonia OVIEDO-C Work Phone: [facility] Comment on above: Subependymoma (HCC) (Primary Dx) Start: 12-14-2022 End: 12-14-2022 Telemedicine consultation with patient Sonia Carrillo PA-C Work Phone: [facility] Start: 12-02-2022 End: 12-02-2022 ambulatory II Manfred Gutierrez Work Phone: [facility] Work Phone: Start: 12-02-2022 End: 12-02-2022 Patient encounter procedure II Manfred Gutierrez Work Phone: [facility] [place] Work Phone: Start: 12-01-2022 End: 12-02-[address] MANFRED GUTIERREZ Facility: Start: 11-14-2022 Telephone encounter Telesales Manager IMANI [facility] Comment on above: Orders (MRI order ) Start: 09-22-2022 E-mail encounter fro m caregiver [facility] Start: 09-22-2022 Patient encounter procedure [facility] Prov ider [facility] Comment on above: Upcoming Video Visit Appointments Start: 09-17-2022 Refill Ailyn Biddl ecom MANAGER MEAT.TRIAL CONSULTANT Work Phone: Neurology Comment on above: Refill Request Start: 06-14-2022 ambulatory Ailyn Biddl ecom MANAGER MEAT.TRIAL CONSULTANT Work Phone: [facility] Start: 06-14-2022 Follow-up encounter Ailyn Krishnamurthy iddlecom MANAGER MEAT.TRIAL CONSULTANT Work Phone: Neurology Comment on above: Medication follow-up Start: 05-23-2022 Refill Ailyn Biddl ecom MANAGER MEAT.TRIAL CONSULTANT Work Phone: Neurology Comment on above: Refill Request Start: 03-28-2022 End: 03-28-2022 ambulatory Ailyn Biddlecom MANAGER MEAT.TRIAL CONSULTANT Work Phone: Neurology Comment on above: Migraine without aur a and without status migrainosus, not intractable (Primary Dx); Chronic mixed headache syndrome; Cervicalgia; Morning headache; Snoring; Insomnia, unspecified type Start: 03-28-2022 End: 03-28-2022 Telemedicine consultation with patient Ailyn Biddlecom MANAGER MEAT.TRIAL CONSULTANT Work Phone: [facility] Start: 03-23-2022 End: 03-23-2022 ambulatory Ailyn Biddlecom MANAGER MEAT.TRIAL CONSULTANT Work Phone: Neurology Comment on above: NO SHOW (Primary Dx) Start: 03-23-2022 End: 03-23-2022 Telemedicine consultation with patient Ailyn Santana TRIAL CONSULTANT Work Phone: [facility] Start: 01-09-2022 Telephone encounter Jessica grover RN Work Phone: [facility] Comment on above: Insurance Authorizat ion (Emgality 120MG/ML auto-injectors (migraine)) Start: 12-23-2021 Telephone encounter Teodora Mcgraw [facility] Comment on above: Medication Problem ( Ajovy) Start: 11-24-2021 Telephone encounter Eduard lopez MD Work Phone: [facility] Comment on above: Received Outside [facility] Records (Scan report) Start: 11-24-2021 End: 11-24-2021 ambulatory Sonia Gerardo MCRAE Work Phone: [facility] Comment on above: Subependymoma (HCC) (Primary Dx); Intractable episodic cluster headache Subependymoma (HCC) (Primary Dx) Start: 11-24-2021 End: 11-24-2021 Telemedicine consultation with patient Sonia Napierjohnathan MCRAE Work Phone: [facility] Start: 11-23-2021 End: 11-23-2021 Patient encounter procedure II Manfred Gutierrez Work Phone: [facility] [place] Procedures Date Procedure Procedure Detail Performing Clinician Start: 01-16-2025 SKIN / NAIL BIOPSY Zoey Arevalo MANAGER MEAT-TRIAL CONSULTANT Work Phone: Start: 01-06-2025 XR LUMBAR SPINE 2 OR 3V Manfred Gutierrez MD Work Phone: Start: 01-02-2025 End: 01-02-2025 SKIN / NAIL BIOPSY Al Arevalo MANAGER MEAT-TRIAL CONSULTANT Work Phone: Start: 12-24-2024 MRI of head Manfred chisholm II Work Phone: Start: 07-02-2024 DESTRUCTION OF LESION E vaughn Melara MD Work Phone: Start: 06-19-2024 SKIN EXCISION Teodora head MD Work Phone: Start: 06-19-2024 SKIN REPAIR Teodora guardado MD Work Phone: Start: 05-01-2024 Hemoglobin glycosylated a1c Manfred Gutierrez MD Work Phone: Start: 04-25-2024 [facility] CMP (CMP) (FOR [facility] USE) Manfred Gutierrez MD Work Phone: Start: 04-18-2024 End: 04-18-2024 SKIN / NAIL BIOPSY Al Arevalo MANAGER MEAT-TRIAL CONSULTANT Work Phone: Start: 04-18-2024 End: 04-18-2024 CRYOTHERAPY SKIN LESION Al Arevalo MANAGER MEAT-TRIAL CONSULTANT Work Phone: Start: 01-10-2024 MRI of cervical spin e with contrast II Manfred Gutierrez Work Phone: Start: 01-10-2024 XR pre/post mri xray II Manfred Gutierrez Work Phone: Start: 12-27-2023 Lipid 1996 panel - S sarah or Plasma Hardik Carreon MANAGER MEAT.TRIAL CONSULTANT Work Phone: Start: 12-18-2023 MRI of head II Manfred Gutierrez Work Phone: Start: 12-02-2022 MRI of head II Manfred Gutierrez Work Phone: Start: 03-16-2022 Adult depression scr eening assessment Ailyn Santana MANAGER MEAT.TRIAL CONSULTANT Work Phone: Start: 12-18-2021 Adult depression scr eening assessment Teodora Mcgraw [facility] Start: 11-23-2021 MRI of head II Manfred Gutierrez Work Phone: Start: 02-05-2021 Colonoscopy Al duran MANAGER MEAT-TRIAL CONSULTANT Work Phone: Colonoscopy Kush PLASENCIA Hernia repair Kush PLASENCIA Nasal structure (bod y structure) [facility] Comment on above: growth taken out Structure of eye pro per (body structure) Kush PLASENCIA Tonsillectomy Kush PLASENCIA Plan of Treatment Date Care Activity Detail Author Start: 12-31-2033 Urine microalbumin profile DTaP,Tdap,Td Vaccine (2 - Td or Tdap) [facility] Start: 02-05-2031 Screening for malignant neoplasm of colon [facility] Start: 2030 RSV Vaccine (1 - 1-dose 75+ series) RSV Vaccine (1 - 1-dose 75+ series) [facility] Start: 12-26-2028 Lipid panel Lipid Screening [facility] Start: 12-26-2028 Prostate specific antigen measurement Prostate Cancer Screening Discussion [facility] Start: 05-01-2027 Diabetes Screening Diabetes Screening [facility] Start: 07-09-2025 End: 07-09-2025 Patient encounter procedure 07/09/2025 8:30 AM EST Office Visit [facility] [address] [facility] [address] [place] [address] Manfred Gutierrez MD [address] [facility] [address] [place] [address] [facility] Start: 07-07-2025 End: 07-07-2025 Patient encounter procedure 07/07/2025 1:05 PM EST Office Visit [facility] [address] [place] [address] Al Arevalo, MANAGER MEAT-TRIAL CONSULTANT [address] [place] [address] [facility] Start: 05-20-2025 End: 05-20-2025 Patient encounter procedure 05/20/2025 9:00 AM EDT [facility] [address] [place] [address] John Calvo MD [address] [address] Return in about 6 months (around 05/01/2025). [facility] Comment on above: Return in about 6 months (around 05/01/20). Start: 05-06-2025 End: 05-06-2025 Patient encounter procedure 05/06/2025 1:00 PM EDT Office [facility] [address] [place] [address] John Calvo MD [address] [address] Return in about 6 months (around 05/01/2025)rescheduled from 05/20 [facility] Comment on above: Return in about 6 months (around 05/01/20)rescheduled from 05/20 Start: 04-21-2025 Influenza vaccination Influenza Vaccine (Season Ended) [facility] Start: 04-17-2025 End: 04-17-2025 Patient encounter procedure 04/17/2025 9:10 AM EDT Office Visit [facility] [address] [place] [phone] Al Arevalo APRN-DIOGENES [address] [place] [address] [facility] Start: 02-19-2025 End: 02-19-2025 Patient encounter procedure 02/19/2025 1:15 PM EDT Office Visit [facility] [address] [place] [phone] Teodora Melara MD [address] [place] [address] [facility] Start: 02-05-2025 End: 02-05-2025 Patient encounter procedure 02/05/2025 10:30 AM EDT Office Visit [facility] [address] [place] [address] Teodora Melara MD [address] [place] [address] [facility] Start: 02-03-2025 End: 02-03-2025 Patient encounter procedure 02/03/2025 9:00 AM EDT Office Visit Neurology [address] [place] [address] [place] [address] [place] [address] Cluster headache, not intractable, unspecified chronicity pattern [G44.009] Neurology Comment on above: Cluster headache, not intractable, unspe cified chronicity pattern [G44.009] Start: 01-24-2025 End: 01-24-2025 Patient encounter procedure 01/24/2025 12:45 PM EDT Office Visit [facility] [address] [place] [phone] Teodora [place] MD [address] [place] [address] [facility] Start: 01-16-2025 End: 01-16-2025 Patient encounter procedure [facility] Comment on above: Arrived Start: 01-06-2025 End: 01-06-2026 XR Lumbar spine 2 or 3 Views XR lumbar spine 2 or 3 views Imaging Routine Lumbar pain Expected: 01/06/2025, Expires: 01/06/2026 [facility] Work Phone: Comment on above: Expected: 01/06/2025, Expires: Start: 01-06-2025 End: 01-06-2025 Patient encounter procedure [facility] Comment on above: Arrived Start: 01-02-2025 End: 01-02-2025 Patient encounter procedure [facility] Comment on above: Arrived Start: 01-02-2025 End: 01-02-2025 Patient encounter procedure 01/02/2025 8:30 AM EDT Office Visit [facility] [address] [facility] [address] [place] [address] Manfred Gutierrez MD [address] [facility] [address] [place] [address] [facility] Start: 12-31-2024 End: 12-31-2024 Patient encounter procedure [facility] Comment on above: Time frame: November 2024 Start: 10-29-2024 End: 10-29-2024 Patient encounter procedure 10/29/2024 10:20 AM EDT [facility] [address] [place] [id number] John Calvo MD [address] [place] [address] follow up in about 4 mos [facility] Comment on above: follow up in about 4 mos Start: 08-21-2024 Advance Directive Discussion Advance Directive Discussion [facility] Start: 08-07-2024 End: 08-07-2024 Admission to same day surgery center 08/07/2024 9:05 AM EST - 08/07/2024 9:30 AM [facility] [address] [address] John Calvo MD [address] [place] [address] BLOCK MEDIAL BRANCH CERVICAL WITH C-ARM [facility] Comment on above: BLOCK MEDIAL BRANCH CERVICAL WITH C-ARM BILAT Start: 08-07-2024 End: 08-07-2024 Njx dx/ther agt pvrt facet jt crv/thrc 1 level BLOCK MEDIAL BRANCH CERVICAL WITH C-ARM BILAT Cervical spondylosis without myelopathy 08/07/2024 9:05 AM EST [facility] Start: 08-07-2024 End: 08-07-2024 Njx dx/ther agt pvrt facet jt crv/thrc 2nd level BLOCK MEDIAL BRANCH CERVIAL EACH ADDITIONAL VERTEBRA 2 BILAT W/IMAGE GUIDANCE FLUORO OR CT Cervical spondylosis without myelopathy 08/07/2024 9:05 AM EST [facility] Start: 08-07-2024 Subsequent hospital visit by [facility] Comment on above: Cervical spondylosis without myelopathy [M47.812] Start: 07-09-2024 End: 07-09-2024 Patient encounter procedure 07/09/2024 2:00 PM EST Office [facility] [address] [place] [address] John Calvo MD [address] [place] [address] 4 month follow up [facility] Comment on above: 4 month follow up Start: 07-02-2024 End: 07-02-2024 Patient encounter procedure 07/02/2024 2:00 PM EST Procedure Visit [facility] [address] [place] [phone] Teodora Mel[place] MD [address] [place] [address] [facility] Start: 06-19-2024 End: 06-19-2024 Patient encounter procedure 06/19/2024 10:30 AM EDT Office Visit [facility] [address] [place] [phone] Teodora [place] MD [address] [place] [address] [facility] Start: 05-01-2024 End: 05-01-2024 Patient encounter procedure 05/01/2024 10:30 AM EDT Office Visit [facility] [address] [facility] [address] [place] [phone] Manfred Gutierrez MD [address] [place] [address] [facility] Start: 04-21-2024 Covid-19 Vaccine () Covid-19 Vaccine () [facility] Start: 04-21-2024 Influenza vaccination Influenza Vaccine (#1) [facility] Start: 04-18-2024 End: 04-18-2024 Patient encounter procedure 04/18/2024 10:10 AM EDT Office Visit [facility] [address] [place] [phone] Al Arevalo APRN-TRIAL CONSULTANT [address] [place] [address] Arrived [facility] Comment on above: Arrived Start: 03-28-2024 End: 03-28-2024 Patient encounter procedure 03/28/2024 1:40 PM EDT Office Visit [facility] [address] [place] [phone] John Calvo MD [address] [address] Neck pain [M54.2] [facility] Comment on above: Neck pain [M54.2] Start: 02-26-2024 Shingrix Vaccine (2 of 2) Shingrix Vaccine (2 of 2) [facility] Start: 02-13-2024 End: 02-13-2024 Patient encounter procedure 02/13/2024 8:00 AM EDT Office Visit Neurosurgery [address] [place] [address] Hardik Carreon APRN.TRIAL CONSULTANT [address] [place] [address] Review MRI Neurosurgery Comment on above: Review MRI Start: 08-21-2023 Advance Directive Discussion Advance Directive Discussion [facility] Start: 08-21-2023 Behavioral Health Screening Behavioral Health Screening [facility] Start: 08-21-2023 Depression Assessment Depression Assessment [facility] Start: 04-21-2023 Covid-19 Vaccine ( season) Covid-19 Vaccine ( season) [facility] Start: 04-21-2023 Influenza vaccination [facility] Start: 03-16-2023 Adult depression screening assessment DEPRESSION SCREENING [facility] Start: 12-18-2022 Adult depression screening assessment DEPRESSION SCREENING [facility] Start: 08-21-2022 ADVANCE DIRECTIVE DISCUSSION ADVANCE DIRECTIVE DISCUSSION [facility] Start: 08-21-2022 DEPRESSION ASSESSMENT DEPRESSION ASSESSMENT [facility] Start: 04-21-2022 Influenza vaccination [facility] Start: 08-21-2021 ADVANCE DIRECTIVE DISCUSSION ADVANCE DIRECTIVE DISCUSSION [facility] Start: 08-21-2021 DEPRESSION ASSESSMENT DEPRESSION ASSESSMENT [facility] Start: 05-18-2021 COVID-19 VACCINE (3 - Booster for Pfizer series) COVID-19 VACCINE (3 - Booster for Pfizer series) [facility] Start: 02-10-2021 COVID-19 VACCINE (3 - Booster for Pfizer series) COVID-19 VACCINE (3 - Booster for Pfizer series) [facility] Start: 02-10-2021 COVID-19 VACCINE (3 - Pfizer series) COVID-19 VACCINE (3 - Pfizer series) [facility] Start: 2020 PNEUMOCOCCAL: 65+ (1 - PCV) PNEUMOCOCCAL: 65+ (1 - PCV) [facility] Start: 2020 PNEUMOVAX AGE 65 AND OVER WITH 5YR LOOKBACK (#1) PNEUMOVAX AGE 65 AND OVER WITH 5YR LOOKBACK (#1) [facility] Start: 2015 RSV Vaccine (1 - 1-dose 60+ series) RSV Vaccine (1 - 1-dose 60+ series) [facility] Start: 2010 PROSTATE CANCER SCREENING DISCUSSION PROSTATE CANCER SCREENING DISCUSSION [facility] Start: 2010 Prostate specific antigen measurement Prostate Cancer Screening Discussion [facility] Start: 2005 SHINGRIX VACCINE (1 of 2) SHINGRIX VACCINE (1 of 2) [facility] Start: 2000 COLOGUARD (FIT-DNA) COLOGUARD (FIT-DNA) [facility] Start: 2000 Colonoscopy COLONOSCOPY [facility] Start: 2000 COLORECTAL CANCER SCREENING COLORECTAL CANCER SCREENING [facility] Start: [address] COLONOGRAPHY [facility] Start: 2000 DIABETES SCREEN DIABETES SCREEN [facility] Start: 2000 Diabetes Screening Diabetes Screening [facility] Start: 2000 FECAL OCCULT BLOOD FECAL OCCULT BLOOD [facility] Start: 2000 Screening for malignant neoplasm of colon [facility] Start: 2000 SIGMOIDOSCOPY SIGMOIDOSCOPY [facility] Start: 1990 Lipid panel Lipid Screening [facility] Start: 1990 LIPID SCREEN LIPID SCREEN [facility] Start: 1974 Urine microalbumin profile [facility] Start: 1973 Anxiety Screening Anxiety Screening [facility] Start: 1973 Depression Screening Depression Screening [facility] Start: 1973 HEPATITIS C SCREENING HEPATITIS C SCREENING [facility] Start: 1973 Hepatitis C screening Hepatitis C Screening [facility] Start: 1967 Adult depression screening assessment DEPRESSION SCREENING [facility] Start: 1955 ABDOMINAL AORTIC ANEURYSM SCREENING ABDOMINAL AORTIC ANEURYSM SCREENING [facility] Start: 1955 Abdominal aortic aneurysm screening Abdominal Aortic Aneurysm Screening [facility] Start: 1955 Screening for malignant neoplasm of colon [facility] [employer] Dermatopathology exam Dermatopat hology exam Pathology and Cytology Timed Basal cell carcinoma (BCC) of skin of left upper extremity including shoulder Release Upon Ordering for 1 Occurrences starting 06/19/2024 [employer] Work Phone: Comment on above: Release Upon Ordering for 1 Occurrences starting 06/19/2024 Dermatopathology exam Dermatopat hology exam Pathology and Cytology Timed Neoplasm of unspecified behavior of bone, soft tissue, and skin Release Upon Ordering for 1 Occurrences starting 04/18/2024 [employer] Phone: Comment on above: Release Upon Ordering for 1 Occurrences starting 04/18/2024 Dermatopathology exam Dermatopat hology exam Pathology and Cytology Timed Neoplasm of unspecified behavior of bone, soft tissue, and skin Release Upon Ordering for 1 Occurrences starting 01/02/2025 [employer] Work Phone: Comment on above: Release Upon Ordering for 1 Occurrences starting 01/02/2025 Dermatopathology exam Dermatopat hology exam Pathology and Cytology Timed Rash and other nonspecific skin eruption Release Upon Ordering for 1 Occurrences starting 01/16/2025 [employer] Work Phone: Comment on above: Release Upon Ordering for 1 Occurrences starting 01/16/2025 End: 01-31-2025 MR Brain WO and W contrast IV MRI BRAIN WO/W IVCON Radiology Routine Subependymoma (HCC) 1 Occurrences starting 01/02/2024 until 01/31/2025 [facility] Comment on above: 1 Occurrences starting 01/02/2024 until 01/31/2025 End: 01-30-2026 MR Brain WO and W contrast IV MRI BRAIN WO/W IVCON Radiology Routine Subependymoma (HCC) Brain lesion 1 Occurrences starting 12/31/2024 until 01/30/2026 [facility] Work Phone: Comment on above: 1 Occurrences starting 12/31/2024 until 01/30/2026 End: 01-31-2025 MR Cervical spine WO and W contrast IV MRI CERVICAL SPINE WO/W IVCON Radiology Routine Spinal stenosis of cervical region 1 Occurrences starting 01/02/2024 until 01/31/2025 [facility] Work Phone: Comment on above: 1 Occurrences starting 01/02/2024 until 01/31/2025 End: 12-24-2022 Mri brain brain stem w/o w/contrast material MRI BRAIN WO/W IVCON Radiology Routine Subependymoma (HCC) 1 Occurrences starting 11/24/2021 until 12/24/2022 [facility] Work Phone: Comment on above: 1 Occurrences starting 11/24/2021 until 12/24/2022 End: 01-13-2024 Mri brain brain stem w/o w/contrast material MRI BRAIN WO/W IVCON Radiology Routine Subependymoma (HCC) 1 Occurrences starting 12/14/2022 until 01/13/2024 [facility] Work Phone: Comment on above: 1 Occurrences starting 12/14/2022 until 01/13/2024 Njx dx/ther agt pvrt facet jt crv/thrc 1 level BLOCK MEDIAL BRANCH CERVICAL WITH C-ARM BILAT Cervical spondylosis without myelopathy [facility] Njx dx/ther agt pvrt facet jt crv/thrc 2nd level BLOCK MEDIAL BRANCH CERVIAL EACH ADDITIONAL VERTEBRA 2 BILAT W/IMAGE GUIDANCE FLUORO OR CT Cervical spondylosis without myelopathy [facility] SPINE INTERVENTION PROCEDURE SPINE INTERVENTION PROCEDURE Procedures Routine Cervical spondylosis without myelopathy Ordered: 07/09/2024 [facility] Work Phone: Comment on above: Ordered: 07/09/20[facility] Immunizations Immunization Date Immunization Notes Care Provider Sherlyn gilman 03-07-2024 zoster vaccine recombinant Manfred Gutierrez MD Work Phone: [facility] 01-01-2024 tetanus toxoid, redu sunny diphtheria toxoid, and acellular pertussis vaccine, adsorbed Manfred Gutierrez MD Work Phone: [facility] 01-01-2024 zoster vaccine recombinant Manfred Gutierrez MD Work Phone: [facility] 05-13-2023 Influenza, Seasonal, Quadrivalent, Adjuvanted Al Arevalo MANAGER MEAT-TRIAL CONSULTANT Work Phone: [facility] 05-13-2023 influenza virus vacc ine, unspecified formulation John Calvo MD Work Phone: [facility] 12-21-2021 Pneumococcal Conjuga te PCV 20 Al Arevalo MANAGER MEAT-TRIAL CONSULTANT Work Phone: [facility] Payers Date Payer Category Payer Self-pay [id number] 2020 Medicare MEDICARE MEDICAR E A AND B [id number] 2020-Present [phone] [address] [address] [place] [address] Medicare [id number] 2020 Medicare [id number] 2020 Private Health Insurance [id number] 2020 Unknown MMO MMO MEDICARE SUPPLEMENT [id number] 2020-Present [phone] [address] [place] [address] Indemnity [id number] 2013 Unknown [id number]. [id number] 1959 Medicare [id number] 1959 Unknown [id number] 1955 Unknown [id number] 2.16.840.1.546115.3.579.2. 593 1955 Unknown [id number] 2.16.840.1.563668.3.579.2. 1259 1955 Unknown [id number] 2.16.840.1.510338.3.579.2. 1259 1955 Unknown [id number] 2.16.840.1.141337.3.579.2. 1259 1955 Unknown [id number] 2.16.840.1.060067.3.579.2. 1259 1955 Unknown [id number] 2.16.840.1.519203.3.579.2. 1259 1955 Unknown [id number] 2.16.840.1.115111.3.579.2. 1259 1955 Unknown [id number] 2.16.840.1.891665.3.579.2. 1259 1955 Unknown [id number] 2.16.840.1.485622.3.579.2. 1259 1955 Unknown [id number] 2.16.840.1.134395.3.579.2. 727 1955 Unknown [id number] 2.16.840.1.575171.3.579.2. 727 Unknown [id number] 2.16.840.1.690849.3.579.2. 531 Unknown [id number] 2..840.1.516483.3.579.2. 531 Unknown [id number] 2.16.840.1.702540.3.579.2. 531 Unknown [id number] [id number]. 531 Social History Date Type Detail Facility [facility] Work Phone: Start: 1955 Sex Assigned At Male [facility] Start: 08-19-2014 End: 07-09-2024 Tobacco smoking status NHIS Ex-smoker [facility] Start: 08-19-1975 End: 08-19-1976 History of tobacco use Current smoker [facility] Start: 08-19-1975 End: 08-19-1976 History of tobacco use Cigarette Smoker [facility] Start: 08-19-2014 End: 04-18-2023 Tobacco use and exposure Smokeless tobacco non-user [facility] Start: 05-07-2021 End: 01-16-2025 Alcohol intake Current drinker of alcohol (finding) [facility] Start: 08-19-2014 History SDOH Alcohol Comment occassional [facility] Start: 1955 Sex Assigned At Not on file [facility] Start: 11-14-2021 End: 11-25-2021 Exposure to SARS-CoV-2 (event) Unable to assess [facility] Work Phone: Start: 03-28-2022 End: 01-06-2025 History of Social function [facility] Start: 03-28-2022 End: 01-06-2025 Tobacco use panel [facility] Adult Depression Screening Assessment 1 [facility] Start: 12-18-2021 Sexual orientation Heterosexual (finding) [facility] Start: 04-18-2023 End: 01-20-2025 Tobacco smoking status NHIS Never smoked tobacco [facility] Start: 04-11-2023 Alcohol Comment monthly or less [facility] Tobacco smoking stat [facility] Unknown if ever smoked [facility] Work Phone: Start: 07-10-2024 End: 12-25-2024 Sex Male (finding) [facility] Sexual Orientation [facility] Functional Status Date Assessment Result Facility 01-06-2025 Patient Health Quest ionnaire 2 item (PHQ-2) [Reported] [facility] 12-17-2024 Patient Health Quest ionnaire 2 item (PHQ-2) [Reported] [facility] 08-26-2014 Are you deaf, or do you have serious difficulty hearing No 08/26/2014 7:00 AM Jessica Rock LPN [facility] 08-26-2014 Are you blind, or do you have serious difficulty seeing, even when wearing glasses No 08/26/2014 7:00 AM Jessica Rock LPN [facility] 08-26-2014 Do you have serious difficulty walking or climbing stairs No 08/26/2014 7:00 AM Jessica Rock LPN [facility] 08-26-2014 Do you have difficul ty dressing or bathing No 08/26/2014 7:00 AM Jessica Rock LPN [facility] 08-26-2014 Because of a physica l, mental, or emotional condition, do you have difficulty doing errands alone such as visiting a physician's office or shopping No 08/26/2014 7:00 AM Jessica Rock LPN [facility] Mental Status Date Assessment Result Facility 08-26-2014 Because of a physica l, mental, or emotional condition, do you have serious difficulty concentrating, remembering, or making decisions No 08/26/2014 7:00 AM Jessica Rock LPN [facility] Clinical Notes 11-24-2021 to 01-20-2025 [facility] - 01/16/2025 10:10 AM Lesley Gutierrez MD - 01/06/2025 1:30 PM [facility] - 01/02/2025 9:50 AM Hardik Bhatti APRN.CNP - 12/31/2024 8:31 AM EDT Note Date & Type Note Facility 01-20-2025 Hospital Discharge instructions Patient Education 01/20/2025 14:26:48 Cystoscopy Cystoscopy Cystoscopy is a procedure that is used to help diagnose and sometimes treat conditions that affect the lower urinary tract. The lower urinary tract includes the bladder and the urethra. The urethra is the tube that drains urine from the bladder. Cystoscopy is done using a thin, tube-shaped instrument with a light and camera at the end (cystoscope). The cystoscope may be hard or flexible, depending on the goal of the procedure. The cystoscope is inserted through the urethra, into the bladder. Cystoscopy may be recommended if you have: Urinary tract infections that keep coming back. Blood in the urine (hematuria). An inability to control when you urinate (urinary incontinence) or an overactive bladder. Unusual cells found in a urine sample. A blockage in the urethra, such as a urinary stone. Painful urination. An abnormality in the bladder found during an intravenous pyelogram (IVP) or CT scan. Cystoscopy may also be done to remove a sample of tissue to be examined under a microscope (biopsy). Tell a health care provider about: Any allergies you have. All medicines you are taking, including vitamins, herbs, eye drops, creams, and maqp-whj-bxafosn medicines. Any problems you or family members have had with anesthetic medicines. Any blood disorders you have. Any surgeries you have had. Any medical conditions you have. Whether you are or may be . What are the risks? Generally, this is a safe procedure. However, problems may occur, including: Infection. Bleeding. Allergic reactions to medicines. Damage to other structures or organs. What happens before the procedure? Medicines Ask your health care provider about: Changing or stopping your regular medicines. This is especially important if you are taking diabetes medicines or blood thinners. Taking medicines such as aspirin and ibuprofen. These medicines can thin your blood. Do not take these medicines unless your health care provider tells you to take them. Taking fzfh-run-gjijcpv medicines, vitamins, herbs, and supplements. Tests You may have an exam or testing, such as: X-rays of the bladder, urethra, or kidneys. CT scan of the abdomen or pelvis. Urine tests to check for signs of infection. General instructions Follow instructions from your health care provider about eating or drinking restrictions. Ask your health care provider what steps will be taken to help prevent infection. These steps may include: ?Washing skin with a germ-killing soap. ?Taking antibiotic medicine. Plan to have a responsible adult take you home from the hospital or clinic. What happens during the procedure? You will be given one or more of the following: ?A medicine to help you relax (sedative). ?A medicine to numb the area (local anesthetic). The area around the opening of your urethra will be cleaned. The cystoscope will be passed through your urethra into your bladder. Germ-free (sterile) fluid will flow through the cystoscope to fill your bladder. The fluid will stretch your bladder so that your health care provider can clearly examine your bladder parson. Your doctor will look at the urethra and bladder. Your doctor may take a biopsy or remove stones. The cystoscope will be removed, and your bladder will be emptied. The procedure may vary among health care providers and hospitals. What can I expect after the procedure? After the procedure, it is common to have: Some soreness or pain in your abdomen and urethra. Urinary symptoms. These include: ?Mild pain or burning when you urinate. Pain should stop within a few minutes after you urinate. This may last for up to 1 week. ?A small amount of blood in your urine for several days. ?Feeling like you need to urinate but producing only a small amount of urine. Follow these instructions at home: Medicines Take qret-cjw-nmzxymk and prescription medicines only as told by your health care provider. If you were prescribed an antibiotic medicine, take it as told by your health care provider. Do not stop taking the antibiotic even if you start to feel better. General instructions Return to your normal activities as told by your health care provider. Ask your health care provider what activities are safe for you. If you were given a sedative during the procedure, it can affect you for several hours. Do not drive or operate machinery until your health care provider says that it is safe. Watch for any blood in your urine. If the amount of blood in your urine increases, call your health care provider. Follow instructions from your health care provider about eating or drinking restrictions. If a tissue sample was removed for testing (biopsy) during your procedure, it is up to you to get your test results. Ask your health care provider, or the department that is doing the test, when your results will be ready. Drink enough fluid to keep your urine pale yellow. Keep all follow-up visits. This is important. Contact a health care provider if: You have pain that gets worse or does not get better with medicine, especially pain when you urinate. You have trouble urinating. You have more blood in your urine. Get help right away if: You have blood clots in your urine. You have abdominal pain. You have a fever or chills. You are unable to urinate. Summary Cystoscopy is a procedure that is used to help diagnose and sometimes treat conditions that affect the lower urinary tract. Cystoscopy is done using a thin, tube-shaped instrument with a light and camera at the end. After the procedure, it is common to have some soreness or pain in your abdomen and urethra. Watch for any blood in your urine. If the amount of blood in your urine increases, call your health care provider. If you were prescribed an antibiotic medicine, take it as told by your health care provider. Do not stop taking the antibiotic even if you start to feel better. This information is not intended to replace advice given to you by your health care provider. Make sure you discuss any questions you have with your health care provider. Document Revised: 04/20/2022 Document Reviewed: 03/19/2021 [employer] Patient Education 2023 [place]. 01/20/2025 14:26:44 Benign Prostatic Hyperplasia Benign Prostatic Hyperplasia Benign prostatic hyperplasia (BPH) is an enlarged prostate gland that is caused by the normal aging process. The prostate may get bigger as a man gets older. The condition is not caused by cancer. The prostate is a walnut-sized gland that is involved in the production of semen. It is located in front of the rectum and below the bladder. The bladder stores urine. The urethra carries stored urine out of the body. An enlarged prostate can press on the urethra. This can make it harder to pass urine. The buildup of urine in the bladder can cause infection. Back pressure and infection may progress to bladder damage and kidney (renal) failure. What are the causes? This condition is part of the normal aging process. However, not all men develop problems from this condition. If the prostate enlarges away from the urethra, urine flow will not be blocked. If it enlarges toward the urethra and compresses it, there will be problems passing urine. What increases the risk? This condition is more likely to develop in men older than 50 years. What are the signs or symptoms? Symptoms of this condition include: Getting up often during the night to urinate. Needing to urinate frequently during the day. Difficulty starting urine flow. Decrease in size and strength of your urine stream. Leaking (dribbling) after urinating. Inability to pass urine. This needs immediate treatment. Inability to completely empty your bladder. Pain when you pass urine. This is more common if there is also an infection. Urinary tract infection (UTI). How is this diagnosed? This condition is diagnosed based on your medical history, a physical exam, and your symptoms. Tests will also be done, such as: A post-void bladder scan. This measures any amount of urine that may remain in your bladder after you finish urinating. A digital rectal exam. In a rectal exam, your health care provider checks your prostate by putting a lubricated, gloved finger into your rectum to feel the back of your prostate gland. This exam detects the size of your gland and any abnormal lumps or growths. An exam of your urine (urinalysis). A prostate specific antigen (PSA) screening. This is a blood test used to screen for prostate cancer. An ultrasound. This test uses sound waves to electronically produce a picture of your prostate gland. Your health care provider may refer you to a specialist in kidney and prostate diseases (urologist). How is this treated? Once symptoms begin, your health care provider will monitor your condition (active surveillance or watchful waiting). Treatment for this condition will depend on the severity of your condition. Treatment may include: Observation and yearly exams. This may be the only treatment needed if your condition and symptoms are mild. Medicines to relieve your symptoms, including: ?Medicines to shrink the prostate. ?Medicines to relax the muscle of the prostate. Surgery in severe cases. Surgery may include: ?Prostatectomy. In this procedure, the prostate tissue is removed completely through an open incision or with a laparoscope or robotics. ?Transurethral resection of the prostate (TURP). In this procedure, a tool is inserted through the opening at the tip of the penis (urethra). It is used to cut away tissue of the inner core of the prostate. The pieces are removed through the same opening of the penis. This removes the blockage. ?Transurethral incision (TUIP). In this procedure, small cuts are made in the prostate. This lessens the prostate's pressure on the urethra. ?Transurethral microwave thermotherapy (TUMT). This procedure uses microwaves to create heat. The heat destroys and removes a small amount of prostate tissue. ?Transurethral needle ablation (TUNA). This procedure uses radio frequencies to destroy and remove a small amount of prostate tissue. ?Interstitial laser coagulation (ILC). This procedure uses a laser to destroy and remove a small amount of prostate tissue. ?Transurethral electrovaporization (TUVP). This procedure uses electrodes to destroy and remove a small amount of prostate tissue. ?Prostatic urethral lift. This procedure inserts an implant to push the lobes of the prostate away from the urethra. Follow these instructions at home: Take [id number] and prescription medicines only as told by your health care provider. Monitor your symptoms for any changes. Contact your health care provider with any changes. Avoid drinking large amounts of liquid before going to bed or out in public. Avoid or reduce how much caffeine or alcohol you drink. Give yourself time when you urinate. Keep all follow-up visits. This is important. Contact a health care provider if: You have unexplained back pain. Your symptoms do not get better with treatment. You develop side effects from the medicine you are taking. Your urine becomes very dark or has a bad smell. Your lower abdomen becomes distended and you have trouble passing urine. Get help right away if: You have a fever or chills. You suddenly cannot urinate. You feel light-headed or very dizzy, or you faint. There are large amounts of blood or clots in your urine. Your urinary problems become hard to manage. You develop moderate to severe low back or flank pain. The flank is the side of your body between the ribs and the hip. These symptoms may be an emergency. Get help right away. Call 911. Do not wait to see if the symptoms will go away. Do not drive yourself to the hospital. Summary Benign prostatic hyperplasia (BPH) is an enlarged prostate that is caused by the normal aging process. It is not caused by cancer. An enlarged prostate can press on the urethra. This can make it hard to pass urine. This condition is more likely to develop in men older than 50 years. Get help right away if you suddenly cannot urinate. This information is not intended to replace advice given to you by your health care provider. Make sure you discuss any questions you have with your health care provider. Document Revised: 02/23/2022 Document Reviewed: 02/23/2022 [employer] Patient Education 2023 [place]. 01/20/2025 14:26:42 Prostate Cancer Screening Prostate Cancer Screening Prostate cancer screening is testing that is done to check for the presence of prostate cancer in men. The prostate gland is a walnut-sized gland that is located below the bladder and in front of the rectum in males. The function of the prostate is to add fluid to semen during ejaculation. Prostate cancer is one of the most common types of cancer in men. Who should have prostate cancer screening? Screening recommendations vary based on age and other risk factors, as well as between the professional organizations who make the recommendations. In general, screening is recommended if: You are age 50 to 70 and have an average risk for prostate cancer. You should talk with your health care provider about your need for screening and how often screening should be done. Because most prostate cancers are slow growing and will not cause , screening in this age group is generally reserved for men who have a 10- to 15-year life expectancy. You are younger than age 50, and you have these risk factors: ?Having a father, brother, or uncle who has been diagnosed with prostate cancer. The risk is higher if your family member's cancer occurred at an early age or if you have multiple family members with prostate cancer at an early age. ?Being a male who is Black or is of [place] or sub-Saharan descent. In general, screening is not recommended if: You are younger than age 40. You are between the ages of 40 and 49 and you have no risk factors. You are 70 years of age or older. At this age, the risks that screening can cause are greater than the benefits that it may provide. If you are at high risk for prostate cancer, your health care provider may recommend that you have screenings more often or that you start screening at a younger age. How is screening for prostate cancer done? The recommended prostate cancer screening test is a blood test called the prostate-specific antigen (PSA) test. PSA is a protein that is made in the prostate. As you age, your prostate naturally produces more PSA. Abnormally high PSA levels may be caused by: Prostate cancer. An enlarged prostate that is not caused by cancer (benign prostatic hyperplasia, or BPH). This condition is very common in older men. A prostate gland infection (prostatitis) or urinary tract infection. Certain medicines such as male hormones (like testosterone) or other medicines that raise testosterone levels. A rectal exam may be done as part of prostate cancer screening to help provide information about the size of your prostate gland. When a rectal exam is performed, it should be done after the PSA level is drawn to avoid any effect on the results. Depending on the PSA results, you may need more tests, such as: A physical exam to check the size of your prostate gland, if not done as part of screening. Blood and imaging tests. A procedure to remove tissue samples from your prostate gland for testing (biopsy). This is the only way to know for certain if you have prostate cancer. What are the benefits of prostate cancer screening? Screening can help to identify cancer at an early stage, before symptoms start and when the cancer can be treated more easily. There is a small chance that screening may lower your risk of dying from prostate cancer. The chance is small because prostate cancer is a slow-growing cancer, and most men with prostate cancer from a different cause. What are the risks of prostate cancer screening? The main risk of prostate cancer screening is diagnosing and treating prostate cancer that would never have caused any symptoms or problems. This is called overdiagnosisand overtreatment. PSA screening cannot tell you if your PSA is high due to cancer or a different cause. A prostate biopsy is the only procedure to diagnose prostate cancer. Even the results of a biopsy may not tell you if your cancer needs to be treated. Slow-growing prostate cancer may not need any treatment other than monitoring, so diagnosing and treating it may cause unnecessary stress or other side effects. Questions to ask your health care provider When should I start prostate cancer screening? What is my risk for prostate cancer? How often do I need screening? What type of screening tests do I need? How do I get my test results? What do my results mean? Do I need treatment? Where to find more information The [place] [employer]: www.cancer.org [place] [employer]: www.auanet.org Contact a health care provider if: You have difficulty urinating. You have pain when you urinate or ejaculate. You have blood in your urine or semen. You have pain in your back or in the area of your prostate. Summary Prostate cancer is a common type of cancer in men. The prostate gland is located below the bladder and in front of the rectum. This gland adds fluid to semen during ejaculation. Prostate cancer screening may identify cancer at an early stage, when the cancer can be treated more easily and is less likely to have spread to other areas of the body. The prostate-specific antigen (PSA) test is the recommended screening test for prostate cancer, but it has associated risks. Discuss the risks and benefits of prostate cancer screening with your health care provider. If you are age 70 or older, the risks that screening can cause are greater than the benefits that it may provide. This information is not intended to replace advice given to you by your health care provider. Make sure you discuss any questions you have with your health care provider. Document Revised: 01/31/2022 Document Reviewed: 01/31/2022 [employer] Patient Education 2023 [place]. Follow Up Care 01/07/2025 09:56:15 With:LUIS ANGEL MÉNDEZ, Kush Vides, URL Address: [facility] [address] , [place] [id number]- [phone] When: Unknown Comments:sched cysto [facility] 01-20-2025 Note Patient Education Oncology Prostate Cancer Screening Prostate cancer screening is testing that is done to check for the presence of prostate cancer in men. The prostate gland is a walnut-sized gland that is located below the bladder and in front of the rectum in males. The function of the prostate is to add fluid to semen during ejaculation. Prostate cancer is one of the most common types of cancer in men. Who should have prostate cancer screening? Screening recommendations vary based on age and other risk factors, as well as between the professional organizations who make the recommendations. In general, screening is recommended if: ??? You are age 50 to 70 and have an average risk for prostate cancer. You should talk with your health care provider about your need for screening and how often screening should be done. Because most prostate cancers are slow growing and will not cause , screening in this age group is generally reserved for men who have a 10- to 15-year life expectancy. ??? You are younger than age 50, and you have these risk factors: ? Having a father, brother, or uncle who has been diagnosed with prostate cancer. The risk is higher if your family member's cancer occurred at an early age or if you have multiple family members with prostate cancer at an early age. ? Being a male who is Black or is of [place] or sub-Saharan descent. In general, screening is not recommended if: ??? You are younger than age 40. ??? You are between the ages of 40 and 49 and you have no risk factors. ??? You are 70 years of age or older. At this age, the risks that screening can cause are greater than the benefits that it may provide. If you are at high risk for prostate cancer, your health care provider may recommend that you have screenings more often or that you start screening at a younger age. How is screening for prostate cancer done? The recommended prostate cancer screening test is a blood test called the prostate-specific antigen (PSA) test. PSA is a protein that is made in the prostate. As you age, your prostate naturally produces more PSA. Abnormally high PSA levels may be caused by: ??? Prostate cancer. ??? An enlarged prostate that is not caused by cancer (benign prostatic hyperplasia, or BPH). This condition is very common in older men. ??? A prostate gland infection (prostatitis) or urinary tract infection. ??? Certain medicines such as male hormones (like testosterone) or other medicines that raise testosterone levels. A rectal exam may be done as part of prostate cancer screening to help provide information about the size of your prostate gland. When a rectal exam is performed, it should be done after the PSA level is drawn to avoid any effect on the results. Depending on the PSA results, you may need more tests, such as: ??? A physical exam to check the size of your prostate gland, if not done as part of screening. ??? Blood and imaging tests. ??? A procedure to remove tissue samples from your prostate gland for testing (biopsy). This is the only way to know for certain if you have prostate cancer. What are the benefits of prostate cancer screening? Screening can help to identify cancer at an early stage, before symptoms start and when the cancer can be treated more easily. ??? There is a small chance that screening may lower your risk of dying from prostate cancer. The chance is small because prostate cancer is a slow-growing cancer, and most men with prostate cancer from a different cause. What are the risks of prostate cancer screening? The main risk of prostate cancer screening is diagnosing and treating prostate cancer that would never have caused any symptoms or problems. This is called overdiagnosisand overtreatment. PSA screening cannot tell you if your PSA is high due to cancer or a different cause. A prostate biopsy is the only procedure to diagnose prostate cancer. Even the results of a biopsy may not tell you if your cancer needs to be treated. Slow-growing prostate cancer may not need any treatment other than monitoring, so diagnosing and treating it may cause unnecessary stress or other side effects. Questions to ask your health care provider ??? When should I start prostate cancer screening? What is my risk for prostate cancer? How often do I need screening? What type of screening tests do I need? How do I get my test results? What do my results mean? Do I need treatment? Where to find more information ??? The [place] [employer]: www.cancer.org ??? [place] [employer]: www.auanet.org Contact a health care provider if: ??? You have difficulty urinating. ??? You have pain when you urinate or ejaculate. ??? You have blood in your urine or semen. ??? You have pain in your back or in the area of your prostate. Summary ??? Prostate cancer is a common type of cancer in men. The prostate gland (more content not included)... [facility] 01-16-2025 History of Present illness Narrative Images from the original note were not included. Follow up Diagnosis: Folliculitis Location: Back Last visit: 2 weeks ago Symptoms: less itchy Status: little better, not completely clear Current treatment: Minocycline 100 mg bid x 14 days All pertinent medical history, medications, and allergies were reviewed. General Exam: alert, oriented to person, place, and time, normal affect, well appearing Accompanied by spouse A focused exam completed based on patient reported problems, see below: Skin Exam 1. RASH AND OTHER NONSPECIFIC SKIN ERUPTION Left Lower Back [place] patches and plaques Biopsy today, see procedure note. Start TAC cream bid when flared, hold when clear on itchy areas and irritated areas from bandaids. Lesion biopsy - Left Lower Back Type of biopsy: punch Specimen A - Dermatopathology exam Differential Diagnosis: [place] disease vs. Atopic dermatitis vs. Drug eruption vs. other Check Margins: No Related Medications triamcinolone (Kenalog) 0.1 % cream Apply topically 2 (two) times a day as needed for rash Next Visit: 10 days s/r documented in this encounter [facility] 01-06-2025 History of Present illness Narrative Images from the original note were not included. HPI Results Additional comments: Lab results Last edited by Jayde Lee LPN on 01/06/2025 1:22 PM. Subjective : Chief Complaint: Rhiannon Valdivia is an 69 y.o. male here for an annual wellness visit. I have reviewed and reconciled the history and medication list with the patient today. Current Outpatient Medications Medication Sig Dispense Refill atorvastatin (Lipitor) 40 MG tablet TAKE 1 TABLET BY MOUTH EVERY DAY 100 tablet 3 minocycline 100 MG capsule Take one pill po bid, 14 days. 28 capsule 0 tamsulosin (Flomax) 0.4 MG 24 hr capsule TAKE 1 CAPSULE BY MOUTH EVERY DAY 100 capsule 3 tiZANidine (Zanaflex) 4 MG tablet Take 1 tablet (4 mg) by mouth every 6 (six) hours if needed for muscle spasms for up to 15 days 30 tablet 1 No current facility-administered medications for this visit. Review of Systems List of current healthcare providers: Patient Care Team: Manfred Gutierrez MD as PCP - General (Internal Medicine) Medicare Annual Visit Over the past 2 weeks, how often have you been bothered by any of the following problems? Little interest or pleasure in doing things: Not at all Feeling down, depressed, or hopeless: Not at all Patient Health Questionnaire-2 Score: 0 Bravo Fall Risk History of Falling, Immediate or Within 3 Months: No Secondary Diagnosis: No Ambulatory Aid: Walks without aid/bedrest/nurse assist Health Risk Assessment Form Do you need help eating, bathing, using the toilet, dressing, or getting around your home?: No Can you prepare your own meals?: Yes Can you do your own housework without help?: Yes Can you shop for groceries or clothes without help?: Yes Do you exercise for about 20 minutes 3 or more days a week?: Yes How confident are you that you can control and manage most of your health problems?: Very confident Can you mange your money, credit cards and accounts, pay bills and taxes?: Yes Cognitive Screening Three Word Registration: Apple, Watch, Paty Clock Drawing: Normal Clock - 2 Three Word Recall: All 3 words correct - 3 Total Score (0-5 Points): 5 Pain Assessment Pain Score: 5 - Moderate pain Advance Care Planning Do you have a living will?: No Do you have a medical power of corporate associate attorney?: No Objective : BP 126/78 Pulse 88 Ht 5' 10 Wt 164 lb SpO2 96% BMI 23.53 kg/m No results found. Physical Exam Constitutional: General: He is not in acute distress. Appearance: He is normal weight. He is not ill-appearing. HENT: Head: Normocephalic. Cardiovascular: Rate and Rhythm: Normal rate and regular rhythm. Heart sounds: Normal heart sounds. No murmur heard. Pulmonary: Effort: Pulmonary effort is normal. Breath sounds: Normal breath sounds. Musculoskeletal: General: No swelling. Lumbar back: Spasms and tenderness present. No deformity. Normal range of motion. Right lower leg: No edema. Left lower leg: No edema. Neurological: Mental Status: He is alert. Psychiatric: Mood and Affect: Mood normal. Thought Content: Thought content normal. Judgment: Judgment normal. Telephone on 12/17/2024 Component Date Value Ref Range Status PSA, TOTAL 12/30/2024 3.34 < OR = 4.00 ng/mL Final Comment: The total PSA value from this assay system is standardized against the WHO standard. The test result will be approximately 20% lower when compared to the equimolar-standardized total PSA (Alysa Vance). Comparison of serial PSA results should be interpreted with this fact in mind. This test was performed using the Siemens chemiluminescent method. Values obtained from different assay methods cannot be used interchangeably. PSA levels, regardless of value, should not be interpreted as absolute evidence of the presence or absence of disease. CHOLESTEROL, TOTAL 12/30/2024 181 <200 mg/dL Final HDL CHOLESTEROL 12/30/2024 47 > OR = 40 mg/dL Final TRIGLYCERIDES 12/30/2024 188 (H) <150 mg/dL Final LDL-CHOLESTEROL 12/30/2024 104 (H) mg/dL (calc) Final Comment: Reference range: <100 Desirable range <100 mg/dL for primary prevention; <70 mg/dL for patients with CHD or diabetic patients with > or = 2 CHD risk factors. LDL-C is now calculated using the Silvia calculation, which is a validated novel method providing better accuracy than the Friedewald equation in the estimation of LDL-C. Monico GREER et al. DUDLEY. 2013;310(19): 6926-6616 (http://education.[employer]/faq/UTW726) CHOL/HDLC RATIO 12/30/2024 3.9 <5.0 (calc) Final NON HDL CHOLESTEROL 12/30/2024 134 (H) <130 mg/dL (calc) Final Comment: For patients with diabetes plus 1 major ASCVD risk factor, treating to a non-HDL-C goal of <100 mg/dL (LDL-C of <70 mg/dL) is considered a therapeutic option. WHITE BLOOD CELL COUNT 12/30/2024 13.2 (H) 3.8 - 10.8 Thousand/uL Final RED BLOOD CELL COUNT 12/30/2024 5.53 4.20 - 5.80 Million/uL Final HEMOGLOBIN 12/30/2024 16.5 13.2 - 17.1 g/dL Final HEMATOCRIT 12/30/2024 52.3 (H) 38.5 - 50.0 % Final MCV 12/30/2024 94.6 80.0 - 100.0 fL Final MCH 12/30/2024 29.8 27.0 - 33.0 pg Final MCHC 12/30/2024 31.5 (L) 32.0 - 36.0 g/dL Final Comment: For adults, a slight decrease in the calculated MCHC value (in the range of 30 to 32 g/dL) is most likely not clinically significant; however, it should be interpreted with caution in correlation with other red cell parameters and the patient's clinical condition. RDW 12/30/2024 14.2 11.0 - 15.0 % Final PLATELET COUNT 12/30/2024 176 140 - 400 Thousand/uL Final MPV 12/30/2024 11.8 7.5 - 12.5 fL Final Glucose 12/30/2024 85 65 - 99 mg/dL Final Comment: Fasting reference interval BUN 12/30/2024 15 7 - 25 mg/dL Final Creatinine 12/30/2024 0.95 0.70 - 1.35 mg/dL Final EGFR 12/30/2024 87 > OR = 60 mL/min/1.73m2 Final BUN/CREATININE RATIO 12/30/2024 SEE NOTE: 6 - 22 (calc) Final Comment: Not Reported: BUN and Creatinine are within reference range. Sodium 12/30/2024 142 135 - 146 mmol/L Final Potassium, Bld 12/30/2024 4.3 3.5 - 5.3 mmol/L Final Chloride 12/30/2024 106 98 - 110 mmol/L Final Carbon Dioxide 12/30/2024 26 20 - 32 mmol/L Final Calcium 12/30/2024 9.4 8.6 - 10.3 mg/dL Final PROTEIN, TOTAL 12/30/2024 5.8 (L) 6.1 - 8.1 g/dL Final ALBUMIN 12/30/2024 4.2 3.6 - 5.1 g/dL Final GLOBULIN 12/30/2024 1.6 (L) 1.9 - 3.7 g/dL (calc) Final ALBUMIN/GLOBULIN RATIO 12/30/2024 2.6 (H) 1.0 - 2.5 (calc) Final BILIRUBIN, TOTAL 12/30/2024 0.9 0.2 - 1.2 mg/dL Final ALKALINE PHOSPHATASE 12/30/2024 68 35 - 144 U/L Final AST 12/30/2024 19 10 - 35 U/L Final ALT 12/30/2024 24 9 - 46 U/L Final Assessment/Plan : The following health maintenance schedule was reviewed with the patient and provided in printed form in the after visit summary: Health Maintenance Topic Date Due Influenza Vaccine (Season Ended) 2025 Colorectal Cancer Screening 02/05/2031 Pneumococcal Vaccine: 65+ Years Completed Advance Care Planning Assessment/Plan Orders Placed This Encounter Procedures XR lumbar spine 2 or 3 views Standing Status: Future Expected Date: 01/06/2025 Expiration Date: 01/06/2026 Reason for exam:: see dx Ambulatory referral to Physical Therapy Patient requests Abraham Luna Standing Status: Future Expected Date: 01/06/2025 Expiration Date: 07/09/2025 Referral Priority: Routine Referral Type: Rehabilitation - Outpatient Referral Reason: Specialty Services Required Referral Location: [facility] [place] Central Scheduling Requested Specialty: Physical Therapy Number of Visits Requested: 1 Ambulatory referral to Urology Standing Status: Future Expected Date: 01/06/2025 Expiration Date: 07/09/2025 Referral Priority: Routine Referral Type: Consultation Referral Reason: Specialty Services Required Referred to Provider: Alonso Kan MD Requested Specialty: Urology Number of Visits Requested: 1 Electronically signed by Manfred Gutierrez MD on January 06, 2025 documented in this encounter [facility] 01-02-2025 History of Present illness Narrative Images from the original note were not included. Skin Check Location: Patient requests a skin examination from the waist up Dermatologic history: history of Actinic Keratosis, history of Basal Cell Carcinoma Last visit: 6 months ago Established patient Rash Location: back Duration: 1 month Quality: itchy, lennon Modifying Factors: denies coming in contact with poison sammi Associated symptoms: red, itchy Treatments tried: prednisone taper x 9 days, HC otc, lotions All pertinent medical history, medications, and allergies were reviewed. General Exam: alert, oriented to person, place, and time, normal affect, well appearing Unaccompanied A complete skin exam was offered, pt declined. Areas not examined despite medical recommendation: From the waist down Scalp, Examined Head, Face Examined Neck Examined Chest Examined Back Examined Abdomen Examined Right arm Examined Left arm Examined Hands Examined Digits,nails: Examined Lymphatics: Not examined Skin Exam 1. SEBORRHEIC KERATOSIS Head - Anterior (Face) Stuck on verrucous, variably pigmented papules and plaques. Patient was counseled regarding these benign growths. Removal is normally not necessary, but they may be removed if they are symptomatic or for cosmetic reasons. 2. BACTERIAL FOLLICULITIS Torso - Posterior (Back) Follicularly-based erythematous papules and pustules. Discussed that folliculitis is a common condition in which the hair follicles become infected and can be symptomatic. Start minocycline 100 mg bid x 14 days. Related Medications minocycline 100 MG capsule Take one pill po bid, 14 days. 3. NEOPLASM OF UNSPECIFIED BEHAVIOR OF BONE, SOFT TISSUE, AND SKIN (2) Mid Back [place] scaly plaque Lesion biopsy Type of biopsy: tangential Informed consent: discussed and consent obtained Informed consent comment: The risks and benefits of the biopsy were discussed. Risks include but are not limited to bleeding, infection, scarring, pain, and nerve damage. An opportunity to ask questions prior to the procedure was permitted and all questions were answered. Patient was prepped and draped in usual sterile fashion: area cleansed with alcohol. Anesthesia: the lesion was anesthetized in a standard fashion Anesthetic: 1% lidocaine w/ epinephrine 1-100,000 buffered w/ 8.4% NaHCO3 Instrument used: DermaBlade Hemostasis achieved with: electrodesiccation Outcome: patient tolerated procedure well Outcome comment: The specimen was placed in a prelabeled formalin container to be sent for pathology Post-procedure details: sterile dressing applied and wound care instructions given Post-procedure details comment: Emphasized need to contact clinic for any signs of infection, uncontrollable bleeding, or complications. Dressing type: bandage Additional details: Photo taken yes Amount of lidocaine used: 0.5 cc Specimen A - Dermatopathology exam Differential Diagnosis: BCC Check Margins: No Size of lesion: 2.0 x 0.5 cm Left Upper Back [place] scaly plaque Lesion biopsy Type of biopsy: tangential Informed consent: discussed and consent obtained Informed consent comment: The risks and benefits of the biopsy were discussed. Risks include but are not limited to bleeding, infection, scarring, pain, and nerve damage. An opportunity to ask questions prior to the procedure was permitted and all questions were answered. Patient was prepped and draped in usual sterile fashion: area cleansed with alcohol. Anesthesia: the lesion was anesthetized in a standard fashion Anesthetic: 1% lidocaine w/ epinephrine 1-100,000 buffered w/ 8.4% NaHCO3 Instrument used: DermaBlade Hemostasis achieved with: electrodesiccation Outcome: patient tolerated procedure well Outcome comment: The specimen was placed in a prelabeled formalin container to be sent for pathology Post-procedure details: sterile dressing applied and wound care instructions given Post-procedure details comment: Emphasized need to contact clinic for any signs of infection, uncontrollable bleeding, or complications. Dressing type: bandage Additional details: Photo taken yes Amount of lidocaine used: 0.5 cc Specimen B - Dermatopathology exam Differential Diagnosis: BCC Check Margins: No Size of lesion: 1.2 x 1.1 cm 4. MELANOCYTIC NEVUS OF TRUNK Trunk Scattered benign appearing, regular brown to light brown melanocytic papules and macules with similar morphology Counseled regarding these benign growths. Rarely, a nevus can develop into malignant melanoma, so any changing nevi should be promptly re-evaluated. 5. LENTIGINES (3) Arms, Head - Anterior (Face), Trunk Scattered baca macules in sun-exposed areas. The patient was informed that lentigines are benign pigmented lesions that occur on sun-exposed and sun-damaged skin. No treatment is necessary. Recommended regular use of broad spectrum sunscreen SPF 30 or higher Next Visit: 2 weeks (rash) 1 year FBSE documented in this encounter [facility] 12-31-2024 Note HNO ID: [id number] Author: HARDIK CARREON APRN.CNP Service: ? Author Type: Nurse Practitioner Type: Progress Notes Filed: 12/31/2024 16:35 Note Text: [facility] BRAIN TUMOR CENTER NEURO-ONCOLOGY OUTPATIENT CLINIC NOTE PURPOSE OF VISIT: Ongoing patient management CHIEF COMPLAINT : Fourth ventricular lesion Subjective HISTORY OF PRESENT ILLNESS: Rhiannon Valdivia is a 69 year old right-handed male who is here for a follow-up visit for fourth ventricular lesion. He is history of chronic daily headaches. Imaging was first done in 2020 due to progressively worsening headaches. Seen in evaluation by Dr. Ramirez who recommended observation given no papilledema or symptoms. Of note, he felt symptoms (headaches) were unrelated. INTERVAL HISTORY : 01/02/24 Presents today with his for follow-up with new MRI brain for review. He was last seen by Sonia Carrillo PA-C 12/14/22. Today he notes continued chronic daily headaches, worse in the morning, improving throughout the day. He notes the pain stems from his neck. He also reports numbness/tingling to bilateral hands/fingers. 12/31/24 Here today with his for follow up and new imaging to review. He reports increased neck and back pain, he tried injections to his neck with no relief. He is scheduled to see headache clinic for further management. SOCIAL HISTORY: Social History Tobacco Use Smoking status: Former Current packs/day: 0.00 Types: Cigarettes Start date: 08/19/1975 Quit date: 08/19/1976 Years since quittin.4 Smokeless tobacco: Never Substance Use Topics Alcohol use: Yes Comment: occassional Drug use: No PAST MEDICAL HISTORY Diagnosis Date Migraines FAMILY HISTORY Problem Relation Age of Onset Cancer Mother skin Cancer Father esophogeal other (grandparent [Other]) Other [place] heart disease Current Outpatient Medications Medication Sig IBUPROFEN ORAL Take by mouth as needed (take 2-3 tabs po prn for pain). MULTIVITAMIN ORAL Take by mouth. tamsulosin (FLOMAX) 0.4 mg Take 0.4 mg by mouth once daily. atorvastatin (LIPITOR) 40 mg tablet Take 40 mg by mouth once daily. No current facility-administered medications for this visit. REVIEW OF SYSTEMS: Neurological : No complaint of headache Denies tinnitus + Decreased hearing, chronic No complaint of diplopia No complaints of blurred vision + Numbness/tingling to bilateral hands/fingertips (positionally) No problem with limb coordination + History of syncope No complaints of seizures No complaints of memory changes or disorientation. General : + BPH + Back and neck pain Objective PHYSICAL EXAMINATION: BP 124/77 Pulse 96 Wt 77 kg (169 lb 12.1 oz) SpO2 96% BMI 24.36 kg/m? General appearance: Well appearing, alert, in no acute distress Skin: + Rash noted to back Oropharynx: Lips, mucosa, and tongue normal, teeth and gums normal, oropharynx normal Extremities: No deformities, edema, skin discoloration, clubbing or cyanosis. NEUROLOGICAL EXAM: Higher integrative functions: Oriented to person, place AND time. Attention Span and Concentration: Good. Language: Good comprehension. Speech clear and coherent Fund of Knowledge: Good. 2nd CN: Full visual ly. 3rd,4th,6th CN: Pupils (=), round, react to light, full extraocular movements. 5th CN: No decrease in facial sensation 7th CN: Facial muscles symmetric and strong. 8th CN: Hears finger rub well bilaterally. 9th CN: Gag reflex not tested 10th CN: Spontaneous palate movement, full and symmetric. 11th CN: Full strength in shoulder shrug. 12th CN: Tongue protrusion full and midline. Sensation: No decrease in sensation in upper or lower limbs to touch. Musculoskeletal: Gait is normal. Motor: 5/5, R=L, UE=LE. Normal muscle tone without atrophy in all limbs. Coordination: Rapid alternating movements fast and smooth all limbs. + Mild/subtle tremor noted to bilateral hands IMAGING STUDIES: MRI BRAIN WO/W IVCON Karnofsky performance status: 80 - Normal activity with effort, some signs or symptoms of disease. 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 - Images reviewed with him and his - Recommend follow up and new imaging in 1 year. - Continue to follow with spine health and headache clinic for back and neck pain. - Reviewed signs and symptoms that would prompt sooner evaluation - He has our contact information and was advised to call if new symptoms, questions or concerns arise prior to next scheduled visit. - All questions were answered. Hardik Carreon APRN.TRIAL CONSULTANT Certified Nurse Practitioner cc: Eduard Ramirez MD - [facility] 12-31-2024 History of Present illness Narrative Images from the original note were not included. Neurological [place] [facility]RAIN TUMOR CENTER NEURO-ONCOLOGY OUTPATIENT CLINIC NOTE PURPOSE OF VISIT: Ongoing patient management CHIEF COMPLAINT : Fourth ventricular lesion Subjective HISTORY OF PRESENT ILLNESS: Rhiannon Valdivia is a 69 year old right-handed male who is here for a follow-up visit for fourth ventricular lesion. He is history of chronic daily headaches. Imaging was first done in 2020 due to progressively worsening headaches. Seen in evaluation by Dr. Ramirez who recommended observation given no papilledema or symptoms. Of note, he felt symptoms (headaches) were unrelated. INTERVAL HISTORY : 01/02/24 Presents today with his for follow-up with new MRI brain for review. He was last seen by Sonia Carrillo PA-C 12/14/22. Today he notes continued chronic daily headaches, worse in the morning, improving throughout the day. He notes the pain stems from his neck. He also reports numbness/tingling to bilateral hands/fingers. 12/31/24 Here today with his for follow up and new imaging to review. He reports increased neck and back pain, he tried injections to his neck with no relief. He is scheduled to see headache clinic for further management. SOCIAL HISTORY: Social History Tobacco Use Smoking status: Former Current packs/day: 0.00 Types: Cigarettes Start date: 08/19/1975 Quit date: 08/19/1976 Years since quittin.4 Smokeless tobacco: Never Substance Use Topics Alcohol use: Yes Comment: occassional Drug use: No PAST MEDICAL HISTORY Diagnosis Date Migraines FAMILY HISTORY Problem Relation Age of Onset Cancer Mother skin Cancer Father esophogeal other (grandparent [Other]) Other [place] heart disease Current Outpatient Medications Medication Sig IBUPROFEN ORAL Take by mouth as needed (take 2-3 tabs po prn for pain). MULTIVITAMIN ORAL Take by mouth. tamsulosin (FLOMAX) 0.4 mg Take 0.4 mg by mouth once daily. atorvastatin (LIPITOR) 40 mg tablet Take 40 mg by mouth once daily. No current facility-administered medications for this visit. REVIEW OF SYSTEMS: Neurological : No complaint of headache Denies tinnitus + Decreased hearing, chronic No complaint of diplopia No complaints of blurred vision + Numbness/tingling to bilateral hands/fingertips (positionally) No problem with limb coordination + History of syncope No complaints of seizures No complaints of memory changes or disorientation. General : + BPH + Back and neck pain Objective PHYSICAL EXAMINATION: BP 124/77 Pulse 96 Wt 77 kg (169 lb 12.1 oz) SpO2 96% BMI 24.36 kg/m General appearance: Well appearing, alert, in no acute distress Skin: + Rash noted to back Oropharynx: Lips, mucosa, and tongue normal, teeth and gums normal, oropharynx normal Extremities: No deformities, edema, skin discoloration, clubbing or cyanosis. NEUROLOGICAL EXAM: Higher integrative functions: Oriented to person, place & time. Attention Span and Concentration: Good. Language: Good comprehension. Speech clear and coherent Fund of Knowledge: Good. 2nd CN: Full visual ly. 3rd,4th,6th CN: Pupils (=), round, react to light, full extraocular movements. 5th CN: No decrease in facial sensation 7th CN: Facial muscles symmetric and strong. 8th CN: Hears finger rub well bilaterally. 9th CN: Gag reflex not tested 10th CN: Spontaneous palate movement, full and symmetric. 11th CN: Full strength in shoulder shrug. 12th CN: Tongue protrusion full and midline. Sensation: No decrease in sensation in upper or lower limbs to touch. Musculoskeletal: Gait is normal. Motor: 5/5, R=L, UE=LE. Normal muscle tone without atrophy in all limbs. Coordination: Rapid alternating movements fast and smooth all limbs. + Mild/subtle tremor noted to bilateral hands IMAGING STUDIES: MRI BRAIN WO/W IVCON Karnofsky performance status: 80 - Normal activity with effort, some signs or symptoms of disease. 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 - Images reviewed with him and his - Recommend follow up and new imaging in 1 year. - Continue to follow with spine health and headache clinic for back and neck pain. - Reviewed signs and symptoms that would prompt sooner evaluation - He has our contact information and was advised to call if new symptoms, questions or concerns arise prior to next scheduled visit. - All questions were answered. Hardik Carreon APRN.TRIAL CONSULTANT Certified Nurse Practitioner cc: Eduard Ramirez MD - Epic documented in this encounter [facility] 12-25-2024 Telephone encounter Note I called [facility], , to request MRI brain done 12/24/24. Images to be pushed through. Follow up appointment already scheduled with la 12/31/24. Hardik Carreon MSN, MANAGER MEAT, TRIAL CONSULTANT Certified Nurse Practitioner [facility] 12-25-2024 Miscellaneous Notes I called [facility], , to request MRI brain done 12/24/24. Images to be pushed through. Follow up appointment already scheduled with la 12/31/24. Hardik Carreon, MSN, MANAGER MEAT, TRIAL CONSULTANT Certified Nurse Practitioner documented in this encounter [facility] 12-17-2024 History of Present illness Narrative Images from the original note were not included. HPI Rash Additional comments: He has had the rash for about 1 month, it is all over his back and is spreading to his neck and chest. It is red and it itches and lennon a little. He has tried Hydrocortisone cream and Clobetasol cream on it and it is not helping. He does have an appt with Derm 01/02 for yearly skin check. Initially it did get better, but after using a heating pad it started to flare back up again. Started flaring up again about 2 weeks ago. Last edited by PREET Real on 12/17/2024 11:46 AM. Subjective Patient ID: Rhiannon Valdivia is a 69 y.o. male who presents for back pain. Rhiannon is present today for evaluation of back pain. Admits low back pain for years, but worse over the last 2 weeks and does not remember hurting it. The pain goes all the way across his lower back. Describes pain as piercing. Rates pain 6/10. If he is sitting it does not hurt too bad but if he is moving around or trying to get up from sitting position. He has tried heat and that helps while the heat is on it, Ibuprofen, tylenol extra strength. 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 Denies any new soaps, detergents, clothing, foods etc. Is seeing a specialist for his neck. Will be seeing a headache clinic. Will be getting an MRI of his brain soon. Current Outpatient Medications on File Prior to Visit Medication Sig Dispense Refill atorvastatin (Lipitor) 40 MG tablet TAKE 1 TABLET BY MOUTH EVERY DAY 100 tablet 3 tamsulosin (Flomax) 0.4 MG 24 hr capsule TAKE 1 CAPSULE BY MOUTH EVERY DAY 100 capsule 3 [DISCONTINUED] metoprolol succinate XL (Toprol-XL) 25 MG 24 hr tablet TAKE 1 TABLET BY MOUTH EVERY DAY IN THE MORNING (Patient not taking: Reported on 06/19/2024) 100 tablet 3 No current facility-administered medications on file prior to visit. I have reviewed and reconciled the history and medication list with the patient today. Allergies Allergen Reactions Cefaclor Other Reaction(s): Unknown Social History Tobacco Use Smoking status: Never Smokeless tobacco: Never Vaping Use Vaping status: Never Used Substance Use Topics Alcohol use: Yes Comment: monthly or less Family History Problem Relation Name Age of Onset Cancer Father Mental illness Paternal Grandmother Past Medical History: Diagnosis Date Basal cell carcinoma BCC (basal cell carcinoma), back Colon polyp 2020 tubular adenoma Headache Hyperlipidemia (CMS/HCC) Past Surgical History: Procedure Laterality Date COLONOSCOPY 01/2009 Dr Alcazar COLONOSCOPY W/ POLYPECTOMY 01/2021 [facility] HERNIA REPAIR OTHER SURGICAL HISTORY growth removed from nose TONSILLECTOMY Visit Vitals BP 116/82 Pulse 87 Resp 16 Ht 5' 10 Wt 162 lb 12.8 oz SpO2 95% BMI 23.36 kg/m Smoking Status Never BSA 1.91 m Review of Systems Constitutional: Negative for chills, fatigue and fever. Respiratory: Negative for cough, shortness of breath and wheezing. Cardiovascular: Negative for chest pain, palpitations and leg swelling. Gastrointestinal: Negative for abdominal pain, constipation, diarrhea, nausea and vomiting. Musculoskeletal: Positive for back pain, myalgias and neck pain. Skin: Positive for rash. Neurological: Positive for headaches. Objective Physical Exam Constitutional: General: He is not in acute distress. Appearance: Normal appearance. HENT: Head: Normocephalic and atraumatic. Eyes: General: No scleral icterus. Cardiovascular: Rate and Rhythm: Normal rate and regular rhythm. Heart sounds: No murmur heard. Pulmonary: Effort: Pulmonary effort is normal. No respiratory distress. Breath sounds: Normal breath sounds. No wheezing, rhonchi or rales. Musculoskeletal: General: No swelling. Lumbar back: Spasms (Left) present. No tenderness or bony tenderness. Decreased range of motion. Positive right straight leg raise test and positive left straight leg raise test. Comments: SLR positive for back pain only bilat. Pain going from seated to standing position. Pain with any ROM. Skin: General: Skin is warm and dry. Findings: Erythema and rash present. Rash is papular. Comments: Diffuse erythematous papules, varying mildly in size across entire back, and scattered across lateral torso and chest wall. Papules extend up back of neck. Pruritic. See photo. Neurological: General: No focal deficit present. Mental Status: He is alert and oriented to person, place, and time. Sensory: Sensation is intact. Psychiatric: Mood and Affect: Mood normal. Behavior: Behavior normal. Assessment/Plan Diagnoses and all orders for this visit: Dermatitis - predniSONE (Deltasone) 10 MG tablet; Take 1 tablet (10 mg) by mouth 3 (three) times a day for 3 days, THEN 1 tablet (10 mg) 2 (two) times a day for 3 days, THEN 1 tablet (10 mg) Daily for 3 days. Can continue with steroid creams or quality moisturizer as needed for symptomatic relief. Follow up with Dermatology as scheduled. Strain of lumbar region, initial encounter - predniSONE (Deltasone) 10 MG tablet; Take 1 tablet (10 mg) by mouth 3 (three) times a day for 3 days, THEN 1 tablet (10 mg) 2 (two) times a day for 3 days, THEN 1 tablet (10 mg) Daily for 3 days. Start the above medications as directed. Advised of potential side effects of the steroid. Patient is to take the steroid with food. Do not take any NSAIDs while on Prednisone, Tylenol ok prn. Encouraged gentle stretches. Advised patient that if symptoms do not improve imaging may be required for further evaluation, PT referral may also be appropriate. 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 Correspondence from that specialist and any available testing were reviewed during today's visit. Follow up for Appointment As Scheduled. documented in this encounter [facility] 11-01-2024 Telephone encounter Note Images from the original note were not included. Patient has been scheduled and confirmed , Mailed (order to patient ) and Fax order to [facility] @ [phone] [facility] November 01, 2024 10:02 AM [facility] 11-01-2024 Miscellaneous Notes Images from the original note were not included. Patient has been scheduled and confirmed , Mailed (order to patient ) and Fax order to [facility] @ [phone] [facility] November 01, 2024 10:02 AM documented [facility] this [facility] [facility] 10-29-2024 Instructions John Calvo MD - 10/29/2024 11:[address] Alex documented in this encounter [facility] 10-29-2024 Note HNO ID: [id number] Author: JOHN CALVO MD Service: ? Author Type: Physician Type: Progress Notes Filed: 10/29/2024 12:53 Note Text: [facility] Visit [facility] October 29, 2024 CC: NECK PAIN HPI: Rhiannon Valdivia is a 68 year old male who initially presented with h/o cluster headaches, subependymoma, 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 Numbnness tingling with elbow flexion, improved when not flexed Pain:5/10; WORST: 9/10; on a scale of 0-10. Patient was Gabapentin, currently on gabapentin. The patient has previously been on the following pain medications -gabapentin. -tried chiropractor basal cell carcinoma removed from shoulder by Irina SHETTY- [facility] Treating Physicians: Hardik Carreon CNP in Neurology 2023. -Neurologist in [place] Prior Spinal Surgery: None. Notes daily headaches every day, Work status: -seen with Bettie, Spouse See Follow-up visit from prior encounter dated 07/09/2024 . Since last visit: s/p Diagnostic bilaterally C3 and C4 medial branch block on 08/07/2024 with 50% relief for one week. Did not significantly improve headaches, less intense. Patient did bring pain diary Pain TODAY:4/10, 2/10 in headaches; WORST: 8/10; on a scale of 0-10. Patient is currently on date of last PT 2023 and NSAIDs. The patient has previously been on the following pain medications -Gabapentin weaned off. - PT [facility] in [place] 03/2024 to 10/23/2024 (20 session) and doing physician supervised home exercise program for last 2 months- 30% better, headaches and neck less pain in morning. Significant relief for bilateral arm arm and low back pain He continues to deny bowel/bladder incontinence, denies fever, denies night pain, denies unintentional weight loss, denies clumsiness of hands or dropping things, denies clumsiness of feet, tripping or falling. Denies any constitutional or myelopathic symptomatology. No interval change in PMHX, PSHX, Allergies, FamHx or ROS since 07/09/2024. OBJECTIVE: PHYSICAL EXAM Ht 172.7 cm (5' 8 ) Wt 75.5 kg (166 lb 7.2 oz) BMI 25.31 kg/m? GENERAL APPEARANCE: Well appearing, well-hydrated, well nourished and alert SKIN: Head, neck, trunk, and extremities dry, intact and without lesions HEART: Edema: No LUNGS: even and non-labored breathing, normal chest excursion NEURO/PSYCH: speech normal, mental status intact GAIT: normal, normal heel and toe walking, tandem gait normal POSTURE: Posture and spinal curves are normal PALPATION: no palpable masses, spasm, no palpable subluxation or step-off, bilateral trapezius tenderness MUSCULOSKELETAL: Cervical Range of Motion Flexion Full ROM Extension Full ROM with pain RIGHT LEFT Rotation Full ROM Full ROM with pain Lateral Bend Full ROM Full ROM with pain RIGHT LEFT Spurling Test negative negative Negative cervical compression test Manjinder's Exam: Superficial non-anatomic tenderness: No Overreaction: No Pain on simulated maneuvers: No Straight Leg Raise test discrepancy: No Give-way weakness: No Non-dermatomal sensory loss: No Upper Extremity Strength RIGHT LEFT Strength (MMT) Strength (MMT) Shoulder Abduction 5/5 5/5 Biceps 5/5 5/5 Triceps 5/5 5/5 Wrist Extension 5/5 5/5 Finger Abduction 5/5 5/5 Finger Flexion 5/5 5/5 Lower Extremities Strength Toe extension (EHL) 5/5 5/5 Ankle Dorsiflexion 5/5 5/5 Ankle Plantarflexion 5/5 5/5 Knee Flexion 5/5 5/5 Knee Extension 5/5 5/5 Hip Flexion (seated) 5/5 5/5 Upper Body Reflex Exam RIGHT LEFT Reflex Status Reflex Status Biceps 2+ Normal 2+ Normal Triceps 2+ Normal 2+ Normal Brachioradialis 2+ Normal 2+ Normal Friedman's Sign absent absent Lower Body Reflex Exam Right Left Knee 2+ Normal 2+ Normal Ankle 2+ Normal 2+ Normal Medial Hamstring 2+ Normal 2+ Normal Babinski normal normal Soft touch Within Normal Limits LONG TRACT SIGNS: No clonus. Shoulder Exam: Shoulder Range of Motion RIGHT LEFT Flexion Normal Normal Extension Normal Normal Abduction Normal Normal Adduction Normal Normal Internal Rotation Normal Normal External Rotation Normal Normal Shoulder Tests Neer Impingement Sign - Negative Empty Can Test - Negative Cross Over Test - Negative Hawkin's-Florentino Test - Negative Negative Tinel's over bilateral cubital tunnel which reproduce patient's symptoms, negative Tinel's over left carpal tunnel, negative Tinel's over right carpal tunnel FADIR:negative Stinchfield: negative Log-roll Hips: negative Resisted SLR: negative Scour: negative PSIS tenderness: negative Sprague's (modified):negative Thigh thrust: negative Hamstring tightness: negative Prone extension: negative DATA REVIEW: PDMP website checked and validated. All prescriptions have been APPROPRIATELY filled. No suspicious activity was identified. October 29, 2024 by John Calvo MD Personally Reviewed MRI cervical spine on 01/10/2024 iwht left C4-5 facet arthropathy lack of (more content not included)... [facility] 10-29-2024 History of Present illness Narrative [facility] October 29, 2024 CC: NECK PAIN HPI: Rhiannon Valdivia is a 68 year old male who initially presented with h/o cluster headaches, subependymoma, 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 Numbnness tingling with elbow flexion, improved when not flexed Pain:5/10; WORST: 9/10; on a scale of 0-10. Patient was Gabapentin, currently on gabapentin. The patient has previously been on the following pain medications -gabapentin. -tried chiropractor basal cell carcinoma removed from shoulder by Irina SHETTY- [facility] Treating Physicians: Hardik Carreon CNP in Neurology 2023. -Neurologist in [place] Prior Spinal Surgery: None. Notes daily headaches every day, Work status: -seen with Catherine Alexandre See Follow-up visit from prior encounter dated 07/09/2024 . Since last visit: s/p Diagnostic bilaterally C3 and C4 medial branch block on 08/07/2024 with 50% relief for one week. Did not significantly improve headaches, less intense. Patient did bring pain diary Pain TODAY:4/10, 2/10 in headaches; WORST: 8/10; on a scale of 0-10. Patient is currently on date of last PT 2023 and NSAIDs. The patient has previously been on the following pain medications -Gabapentin weaned off. - PT [facility] in [place] 03/2024 to 10/23/2024 (20 session) and doing physician supervised home exercise program for last 2 months- 30% better, headaches and neck less pain in morning. Significant relief for bilateral arm arm and low back pain He continues to deny bowel/bladder incontinence, denies fever, denies night pain, denies unintentional weight loss, denies clumsiness of hands or dropping things, denies clumsiness of feet, tripping or falling. Denies any constitutional or myelopathic symptomatology. No interval change in PMHX, PSHX, Allergies, FamHx or ROS since 07/09/2024. OBJECTIVE: PHYSICAL EXAM Ht 172.7 cm (5' 8 ) Wt 75.5 kg (166 lb 7.2 oz) BMI 25.31 kg/m GENERAL APPEARANCE: Well appearing, well-hydrated, well nourished and alert SKIN: Head, neck, trunk, and extremities dry, intact and without lesions HEART: Edema: No LUNGS: even and non-labored breathing, normal chest excursion NEURO/PSYCH: speech normal, mental status intact GAIT: normal, normal heel and toe walking, tandem gait normal POSTURE: Posture and spinal curves are normal PALPATION: no palpable masses, spasm, no palpable subluxation or step-off, bilateral trapezius tenderness MUSCULOSKELETAL: Cervical Range of Motion Flexion Full ROM Extension Full ROM with pain RIGHT LEFT Rotation Full ROM Full ROM with pain Lateral Bend Full ROM Full ROM with pain RIGHT LEFT Spurling Test negative negative Negative cervical compression test Manjinder's Exam: Superficial non-anatomic tenderness: No Overreaction: No Pain on simulated maneuvers: No Straight Leg Raise test discrepancy: No Give-way weakness: No Non-dermatomal sensory loss: No Upper Extremity Strength RIGHT LEFT Strength (MMT) Strength (MMT) Shoulder Abduction 5/5 5/5 Biceps 5/5 5/5 Triceps 5/5 5/5 Wrist Extension 5/5 5/5 Finger Abduction 5/5 5/5 Finger Flexion 5/5 5/5 Lower Extremities Strength Toe extension (EHL) 5/5 5/5 Ankle Dorsiflexion 5/5 5/5 Ankle Plantarflexion 5/5 5/5 Knee Flexion 5/5 5/5 Knee Extension 5/5 5/5 Hip Flexion (seated) 5/5 5/5 Upper Body Reflex Exam RIGHT LEFT Reflex Status Reflex Status Biceps 2+ Normal 2+ Normal Triceps 2+ Normal 2+ Normal Brachioradialis 2+ Normal 2+ Normal Friedman's Sign absent absent Lower Body Reflex Exam Right Left Knee 2+ Normal 2+ Normal Ankle 2+ Normal 2+ Normal Medial Hamstring 2+ Normal 2+ Normal Babinski normal normal Soft touch Within Normal Limits LONG TRACT SIGNS: No clonus. Shoulder Exam: Shoulder Range of Motion RIGHT LEFT Flexion Normal Normal Extension Normal Normal Abduction Normal Normal Adduction Normal Normal Internal Rotation Normal Normal External Rotation Normal Normal Shoulder Tests Neer Impingement Sign - Negative Empty Can Test - Negative Cross Over Test - Negative Hawkin's-Florentino Test - Negative Negative Tinel's over bilateral cubital tunnel which reproduce patient's symptoms, negative Tinel's over left carpal tunnel, negative Tinel's over right carpal tunnel FADIR:negative Stinchfield: negative Log-roll Hips: negative Resisted SLR: negative Scour: negative PSIS tenderness: negative Sprague's (modified):negative Thigh thrust: negative Hamstring tightness: negative Prone extension: negative DATA REVIEW: [facility] website checked and validated. All prescriptions have been APPROPRIATELY filled. No suspicious activity was identified. October 29, 2024 by John Calvo MD Personally Reviewed MRI cervical spine on 01/10/2024 iwht left C4-5 facet arthropathy lack of lordosis Personally Reviewed Plain films cervical on 01/10/2024 with lack of lordosis MRI brain 12/18/2023, 12/02/2022, 11/23/2021, 02/18/2021 The above imaging studies were personally reviewed with the patient. DIAGNOSIS: No diagnosis found. ASSESSMENT: Rhiannon Valdivia is a 68 year old male with history of subependymoma with neck pain, less likely cervicogenic headaches based on lack of benefit from cervical MBB Normal cervical ROM PLAN: 1) Imaging Studies: none 2) Therapy/Rehabilitation: Continue home exercise program PT Giancarlo in [place] 3) Pharmacological Management: continue current regimen- 4) Spine/Surgical Interventions: hold on repeat Bilateral C3, C4 Medial Branch Block, possible TON 5) Follow -up: 4-5 month(s) at [place] 6) Future treatment considerations: CT cervical spine. Cervical [place] MISAEL 7) Neurology Headache- Dr Isai Calvo MD Staff Physician [facility] Medical Decision Making: Problems: Moderate: 2+ stable chronic illnesses Data: Unique source(s) for external note(s) reviewed: 2 Unique test result(s) reviewed: 2 Independent interpretation of test from other physician/QHCP Discussed management or test w/ external physician/QHCP/source Risk: Moderate: Drug management and Moderate risk from testing/treatment Medical Decision Making Level: 4 - Moderate Imaging Ordered: None 07/08/2024 PROMIS Global Health Physical Health Summary Physical health: Good Everyday physical activity, ability: Mostly Fatigue: Mild Pain level: 4 General health: Good Social activities/roles, ability: Very good Physical Health T-Score 44.9 (Good) Physical Health Percentile 31 PROMIS Global Health Mental Health Summary Quality of life: Very good Mental health (mood,thinking): Very good Social satisfaction: Very good Emotional problems (anxious,depressed): Sometimes Mental Health T-Score 50.8 (Very Good) Mental Health Percentile 53 PHQ-9 Score: 4(Minimal Depression) PHQ-9 Self-Harm: Not at all PROMIS Physical Function T-Score 47(Within Normal Limits) PROMIS Physical Function Percentile 38 PROMIS Pain Interference T-Score 65(Moderate) PROMIS Pain Interference Percentile 7 Percentiles provide an indication of how a patient's score ranks in relation to the [place] general population. > 31st percentile is within normal limits or better *< 31st percentile is at least SD worse than population, which may be clinically relevant < 16th percentile is at least 1 SD worse than population and warrants attention Medical Indications: Facet joint interventions are considered medically reasonable and necessary for the diagnosis and treatment of chronic pain in this patient because they meet ALL of the following criteria: (all MUST be present) Moderate to severe chronic neck or low back pain, predominantly axial, that causes functional deficit measured on a pain OR a disability scale Pain has been present for > 3 months with documented failure to respond to noninvasive conservative treatments (as tolerated) Absence of untreated radiculopathy or neurogenic claudication (except if caused by synovial cyst) There is no non-facet pathology by clinical assessment or radiology study that could explain the source of pain such as fracture, tumor, infection, or deformity Disability Assessment: A disability scale was completed by the patient at baseline. Scale used: PROMIS Profile Date completed: 07/08/2024 Scanned into Epic: Yes Intervention: This is the first diagnostic facet joint procedure and: The primary purpose is to confirm a clinical suspicion of facet syndrome. The intent is that if this is successful, radiofrequency ablation procedure would be the primary treatment goal at the diagnosed levels. There have been no more than 4 diagnostic joint sessions per rolling 12 months per spinal region. documented in this encounter [facility] 07-30-2024 Telephone encounter Note Phoned patient confirm appointment for Rhiannon Valdivia for spine procedure on 08/07/2024. Informed pt that pre-injection instructions have been sent via [employer]. Pt unable to talk right now. He will review the directions and call back if he has any questions or concerns. Teodora Reeder RN July 30, 2024 4:03 PM [facility] 07-30-2024 Miscellaneous Notes Phoned patient confirm appointment for Rhiannon Valdivia for spine procedure on 08/07/2024. Informed pt that pre-injection instructions have been sent via [employer]. Pt unable to talk right now. He will review the directions and call back if he has any questions or concerns. Teodora Reeder RN July 30, 2024 4:03 PM documented in this encounter [facility] 07-26-2024 Telephone encounter Note Pre-injection instruction for BLOCK MEDIAL BRANCH CERVICAL WITH C-ARM BILAT on 08/07/2024 at [facility] with Dr Calvo sent to pt via [employer]. Pt instructed to call the office at [phone] with any questions or concerns. Teodora Reeder RN July 26, 2024 9:28 AM [facility] 07-26-2024 Miscellaneous Notes Pre-injection instruction for BLOCK MEDIAL BRANCH CERVICAL WITH C-ARM BILAT on 08/07/2024 at [facility] with Dr Calvo sent to pt via [employer]. Pt instructed to call the office at [phone] with any questions or concerns. Teodora Reeder RN July 26, 2024 9:28 AM documented in this encounter [facility] 07-09-2024 Instructions John Calvo MD - 07/09/2024 2:02 PM EST Images from the original note were not included. documented in this encounter [facility] 07-09-2024 Note HNO ID: [id number] Author: JOHN CALVO MD Service: ? 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 Numbnness tingling with elbow flexion, improved when not flexed Pain TODAY:5/10; WORST: 9/10; on a scale of 0-10. Patient is Gabapentin, currently on gabapentin. The patient has previously been on the following pain medications -gabapentin. -tried chiropractor Has not done PT Treating Physicians: Hardik Carreon CNP in Neurology. -Neurologist in [place] Prior Spinal Surgery: None. Work status: -seen with Catherine Alexandre See Follow-up visit from prior encounter dated 03/28/2024 . Since last visit: Pain TODAY:4/10; WORST: 8/10; on a scale of 0-10. Patient is currently on date of last PT 2023 and NSAIDs. The patient has previously been on the following pain medications -Gabapentin weaned off. - PT [facility] in [place] 03/2024 to 06/2024 (10-12 session) and doing physician supervised home exercise program for last 2 months 30% better, headaches and neck less pain in morning -had basal cell carcinoma removed from shoulder by Irina SHETTY- [facility] He continues to deny bowel/bladder incontinence, denies fever, denies night pain, denies unintentional weight loss, denies clumsiness of hands or dropping things, denies clumsiness of feet, tripping or falling. Denies any constitutional or myelopathic symptomatology. No interval change in PMHX, PSHX, Allergies, FamHx or ROS since 03/28/2024. OBJECTIVE: PHYSICAL EXAM Ht 172.7 cm (5' 8 ) Wt 75.5 kg (166 lb 7.2 oz) BMI 25.31 kg/m? GENERAL APPEARANCE: Well appearing, well-hydrated, well nourished and alert SKIN: Head, neck, trunk, and extremities dry, intact and without lesions HEART: Edema: No LUNGS: even and non-labored breathing, normal chest excursion NEURO/PSYCH: speech normal, mental status intact GAIT: normal, normal heel and toe walking, tandem gait normal POSTURE: Posture and spinal curves are normal PALPATION: no palpable masses, spasm, no palpable subluxation or step-off, bilateral trapezius tenderness MUSCULOSKELETAL: Cervical Range of Motion Flexion Full ROM Extension Full ROM RIGHT LEFT Rotation Full ROM Full ROM with pain Lateral Bend Full ROM Full ROM with pain RIGHT LEFT Spurling Test negative negative Negative cervical compression test Manjinder's Exam: Superficial non-anatomic tenderness: No Overreaction: No Pain on simulated maneuvers: No Straight Leg Raise test discrepancy: No Give-way weakness: No Non-dermatomal sensory loss: No Upper Extremity Strength RIGHT LEFT Strength (MMT) Strength (MMT) Shoulder Abduction 5/5 5/5 Biceps 5/5 5/5 Triceps 5/5 5/5 Wrist Extension 5/5 5/5 Finger Abduction 5/5 5/5 Finger Flexion 5/5 5/5 Lower Extremities Strength Toe extension (EHL) 5/5 5/5 Ankle Dorsiflexion 5/5 5/5 Ankle Plantarflexion 5/5 5/5 Knee Flexion 5/5 5/5 Knee Extension 5/5 5/5 Hip Flexion (seated) 5/5 5/5 Upper Body Reflex Exam RIGHT LEFT Reflex Status Reflex Status Biceps 2+ Normal 2+ Normal Triceps 2+ Normal 2+ Normal Brachioradialis 2+ Normal 2+ Normal Friedman's Sign absent absent Lower Body Reflex Exam Right Left Knee 2+ Normal 2+ Normal Ankle 2+ Normal 2+ Normal Medial Hamstring 2+ Normal 2+ Normal Babinski normal normal Soft touch Within Normal Limits LONG TRACT SIGNS: No clonus. Shoulder Exam: Shoulder Range of Motion RIGHT LEFT Flexion Normal Normal Extension Normal Normal Abduction Normal Normal Adduction Normal Normal Internal Rotation Normal Normal External Rotation Normal Normal Shoulder Tests Neer Impingement Sign - Negative Empty Can Test - Negative Cross Over Test - Negative Hawkin's-Florentino Test - Negative Negative Tinel's over bilateral cubital tunnel which reproduce patient's symptoms, negative Tinel's over left carpal tunnel, negative Tinel's over right carpal tunnel FADIR:negative Stinchfield: negative Log-roll Hips: negative Resisted SLR: negative Scour: negative PSIS tenderness: negative Sprague's (modified):negative Thigh thrust: negative Hamstring tightness: negative Prone extension: negative DATA REVIEW: [facility] website checked and validated. All prescriptions have been APPROPRIATELY filled. No suspicious activity was identified. 03/28/2024 by John Calvo MD Personally Reviewed MRI cervical spine on 01/10/2024 iwht left C4-5 facet arthropathy lack of lordosis Personally Reviewed Plain films cervical on 01/10/2024 with lack of lordosis MRI brain 12/18/2023, 12/02/2022, 11/23/2021, 02/18/2021 The above imaging studies were personally reviewed with the patient. DIAGNOSIS: M47.812 Cervical spondylosis without myelopathy (primary (more content not included)... 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 Numbnness tingling with elbow flexion, improved when not flexed Pain TODAY:5/10; WORST: 9/10; on a scale of 0-10. Patient is Gabapentin, currently on gabapentin. The patient has previously been on the following pain medications -gabapentin. -tried chiropractor Has not done PT Treating Physicians: Hardik Carreon TRIAL CONSULTANT in Neurology. -Neurologist in [place] Prior Spinal Surgery: None. Work status: -seen with Catherine Alexandre See Follow-up visit from prior encounter dated 03/28/2024 . Since last visit: Pain TODAY:4/10; WORST: 8/10; on a scale of 0-10. Patient is currently on date of last PT 2023 and NSAIDs. The patient has previously been on the following pain medications -Gabapentin weaned off. - PT [facility] in [place] 03/2024 to 06/2024 (10-12 session) and doing physician supervised home exercise program for last 2 months 30% better, headaches and neck less pain in morning -had basal cell carcinoma removed from shoulder by Irina TRIAL CONSULTANT- [facility] He continues to deny bowel/bladder incontinence, denies fever, denies night pain, denies unintentional weight loss, denies clumsiness of hands or dropping things, denies clumsiness of feet, tripping or falling. Denies any constitutional or myelopathic symptomatology. No interval change in PMHX, PSHX, Allergies, FamHx or ROS since 03/28/2024. OBJECTIVE: PHYSICAL EXAM Ht 172.7 cm (5' 8 ) Wt 75.5 kg (166 lb 7.2 oz) BMI 25.31 kg/m GENERAL APPEARANCE: Well appearing, well-hydrated, well nourished and alert SKIN: Head, neck, trunk, and extremities dry, intact and without lesions HEART: Edema: No LUNGS: even and non-labored breathing, normal chest excursion NEURO/PSYCH: speech normal, mental status intact GAIT: normal, normal heel and toe walking, tandem gait normal POSTURE: Posture and spinal curves are normal PALPATION: no palpable masses, spasm, no palpable subluxation or step-off, bilateral trapezius tenderness MUSCULOSKELETAL: Cervical Range of Motion Flexion Full ROM Extension Full ROM RIGHT LEFT Rotation Full ROM Full ROM with pain Lateral Bend Full ROM Full ROM with pain RIGHT LEFT Spurling Test negative negative Negative cervical compression test Manjinder's Exam: Superficial non-anatomic tenderness: No Overreaction: No Pain on simulated maneuvers: No Straight Leg Raise test discrepancy: No Give-way weakness: No Non-dermatomal sensory loss: No Upper Extremity Strength RIGHT LEFT Strength (MMT) Strength (MMT) Shoulder Abduction 5/5 5/5 Biceps 5/5 5/5 Triceps 5/5 5/5 Wrist Extension 5/5 5/5 Finger Abduction 5/5 5/5 Finger Flexion 5/5 5/5 Lower Extremities Strength Toe extension (EHL) 5/5 5/5 Ankle Dorsiflexion 5/5 5/5 Ankle Plantarflexion 5/5 5/5 Knee Flexion 5/5 5/5 Knee Extension 5/5 5/5 Hip Flexion (seated) 5/5 5/5 Upper Body Reflex Exam RIGHT LEFT Reflex Status Reflex Status Biceps 2+ Normal 2+ Normal Triceps 2+ Normal 2+ Normal Brachioradialis 2+ Normal 2+ Normal Friedman's Sign absent absent Lower Body Reflex Exam Right Left Knee 2+ Normal 2+ Normal Ankle 2+ Normal 2+ Normal Medial Hamstring 2+ Normal 2+ Normal Babinski normal normal Soft touch Within Normal Limits LONG TRACT SIGNS: No clonus. Shoulder Exam: Shoulder Range of Motion RIGHT LEFT Flexion Normal Normal Extension Normal Normal Abduction Normal Normal Adduction Normal Normal Internal Rotation Normal Normal External Rotation Normal Normal Shoulder Tests Neer Impingement Sign - Negative Empty Can Test - Negative Cross Over Test - Negative Hawkin's-Florentino Test - Negative Negative Tinel's over bilateral cubital tunnel which reproduce patient's symptoms, negative Tinel's over left carpal tunnel, negative Tinel's over right carpal tunnel FADIR:negative Stinchfield: negative Log-roll Hips: negative Resisted SLR: negative Scour: negative PSIS tenderness: negative Sprague's (modified):negative Thigh thrust: negative Hamstring tightness: negative Prone extension: negative DATA REVIEW: PDMP website checked and validated. All prescriptions have been APPROPRIATELY filled. No suspicious activity was identified. 03/28/2024 by John Calvo MD Personally Reviewed MRI cervical spine on 01/10/2024 iwht left C4-5 facet arthropathy lack of lordosis Personally Reviewed Plain films cervical on 01/10/2024 with lack of lordosis MRI brain 12/18/2023, 12/02/2022, 11/23/2021, 02/18/2021 The above imaging studies were personally reviewed with the patient. DIAGNOSIS: M47.812 Cervical spondylosis without myelopathy (primary encounter diagnosis) G44.86 Cervicogenic headache ASSESSMENT: Rhiannon Valdivia is a 68 year old male with history of subependymoma with neck pain, possible cervicogenic headaches PLAN: 1) Imaging Studies: none 2) Therapy/Rehabilitation: Continue home exercise program PT [facility] in [place] 3) Pharmacological Management: none 4) Spine/Surgical Interventions: consented for Bilateral C3, C4 Medial Branch Block, possible TON 5) Follow -up: 3-4 month(s) at [facility] 6) Future treatment considerations: 7) Neurology Headache- Dr Isai Calvo MD Staff Physician [facility] Imaging Ordered: None Medical Decision Making: Problems: Moderate: 2+ stable chronic illnesses Data: Unique source(s) for external note(s) reviewed: 2 Unique test result(s) reviewed: 2 Independent interpretation of test from other physician/QHCP Discussed management or test w/ external physician/QHCP/source Risk: Moderate: Drug management and Moderate risk from testing/treatment Medical Decision Making Level: 4 - Moderate Imaging Ordered: None 07/08/2024 PROMIS Global Health Physical Health Summary Physical health: Good Everyday physical activity, ability: Mostly Fatigue: Mild Pain level: 4 General health: Good Social activities/roles, ability: Very good Physical Health T-Score 44.9 (Good) Physical Health Percentile 31 PROMIS Global Health Mental Health Summary Quality of life: Very good Mental health (mood,thinking): Very good Social satisfaction: Very good Emotional problems (anxious,depressed): Sometimes Mental Health T-Score 50.8 (Very Good) Mental Health Percentile 53 PHQ-9 Score: 4(Minimal Depression) PHQ-9 Self-Harm: Not at all PROMIS Physical Function T-Score 47(Within Normal Limits) PROMIS Physical Function Percentile 38 PROMIS Pain Interference T-Score 65(Moderate) PROMIS Pain Interference Percentile 7 Percentiles provide an indication of how a patient's score ranks in relation to the [place] general population. > 31st percentile is within normal limits or better *< 31st percentile is at least SD worse than population, which may be clinically relevant < 16th percentile is at least 1 SD worse than population and warrants attention 07/08/2024 PROMIS Global Health Physical Health Summary Physical health: Good Everyday physical activity, ability: Mostly Fatigue: Mild Pain level: 4 General health: Good Social activities/roles, ability: Very good Physical Health T-Score 44.9 (Good) Physical Health Percentile 31 PROMIS Global Health Mental Health Summary Quality of life: Very good Mental health (mood,thinking): Very good Social satisfaction: Very good Emotional problems (anxious,depressed): Sometimes Mental Health T-Score 50.8 (Very Good) Mental Health Percentile 53 PHQ-9 Score: 4(Minimal Depression) PHQ-9 Self-Harm: Not at all PROMIS Physical Function T-Score 47(Within Normal Limits) PROMIS Physical Function Percentile 38 PROMIS Pain Interference T-Score 65(Moderate) PROMIS Pain Interference Percentile 7 Percentiles provide an indication of how a patient's score ranks in relation to the [place] general population. > 31st percentile is within normal limits or better *< 31st percentile is at least SD worse than population, which may be clinically relevant < 16th percentile is at least 1 SD worse than population and warrants attention documented in this encounter [facility] 07-09-2024 Note HNO ID: [id number] Author: ONUR CRESPO MA Service: ? Author Type: [employer] Dean Type: Progress Notes Filed: 07/09/2024 14:24 Note Text: 07/08/2024 PROMIS Global Health Physical Health Summary Physical health: Good Everyday physical activity, ability: Mostly Fatigue: Mild Pain level: 4 General health: Good Social activities/roles, ability: Very good Physical Health T-Score 44.9 (Good) Physical Health Percentile 31 PROMIS Global Health Mental Health Summary Quality of life: Very good Mental health (mood,thinking): Very good Social satisfaction: Very good Emotional problems (anxious,depressed): Sometimes Mental Health T-Score 50.8 (Very Good) Mental Health Percentile 53 PHQ-9 Score: 4(Minimal Depression) PHQ-9 Self-Harm: Not at all PROMIS Physical Function T-Score 47(Within Normal Limits) PROMIS Physical Function Percentile 38 PROMIS Pain Interference T-Score 65(Moderate) PROMIS Pain Interference Percentile 7 Percentiles provide an indication of how a patient's score ranks in relation to the [place] general population. > 31st percentile is within normal limits or better *< 31st percentile is at least ? SD worse than population, which may be clinically relevant < 16th percentile is at least 1 SD worse than population and warrants attention [facility] 07-02-2024 History of Present illness Narrative Images from the original note were not included. Suture Removal Patient here for suture removal: No complaints of redness, drainage or swelling at site, compliant with wound care. Location: Left posterior upper arm Procedure Performed: Excision Date of Procedure: 06/19/2024 Medications: none Follow up Diagnosis: Basal Cell Carcinoma Location: right shoulder posterior Last visit: 3 months ago Symptoms: red Procedure performed: Shave biopsy Date of procedure: 04/18/2024 Current treatment: Here for ED&C All pertinent medical history, medications, and allergies were reviewed. General Exam: alert, oriented to person, place, and time, normal affect, well appearing Unaccompanied A focused exam completed based on patient reported problems, see below: 1. Basal cell carcinoma (BCC) of skin of right upper extremity including shoulder Right Shoulder - Posterior [place] macule at biopsy site Destr of lesion Complexity: simple Destruction method: electrodesiccation and curettage Informed consent: discussed and consent obtained Informed consent comment: The risks of the procedure were discussed, including, but not limited to risks of scarring, darker or docent coordinator pigmentary changes, recurrence, infection, and incomplete removal Timeout: patient name, date of , surgical site, and procedure verified Timeout comment: Patient and provider identified site. Site was marked. Photo was taken and shown to patient, patient verified this is the correct site. Procedure prep: Patient was prepped and draped in usual sterile fashion Prep type: Chlorhexidine Anesthesia: the lesion was anesthetized in a standard fashion Anesthetic: 1% lidocaine w/ epinephrine 1-100,000 buffered w/ 8.4% NaHCO3 Curettage performed in three different directions: Yes Electrodesiccation performed over the curetted area: Yes Curettage cycles: 3 Lesion length (cm): 1 Lesion width (cm): 1 Margin per side (cm): 0 Final wound size (cm): 1 Hemostasis achieved with: electrodesiccation Outcome: patient tolerated procedure well with no complications Post-procedure details: wound care instructions given Post-procedure details comment: Post-procedure instructions were given verbally and in writing. The office will be contacted if the lesion fails to resolve despite treatment, or if a side effect develops such as abnormal crusting, scabbing, reddness, discharge, or tenderness. Additional details: Amount of lidocaine used: 2 cc Previous accession number: [id number] Emphasized to return to clinic for any signs of recurrence prior to next visit. 2. Encounter for removal of sutures Left Upper Arm - Posterior Sutures are intact, Skin edges are well-approximated, Mild erythema along incision line, No drainage or edema noted Suture removal today, see procedure note: Suture Removal Procedure: Sutures were removed without difficulty. Tincture of Benzoin was applied around site in preparation of steri-strips. Steri-strips were applied Post-Procedure instructions: Instructed to discontinue wound care., Instructed to keep steri strips on for at least 5-7 days., Pathology results discussed. Next Visit: 6 months skin check documented in this encounter [facility] 07-02-2024 Telephone encounter Note No notes for encounter [facility] Work Phone: 07-02-2024 Miscellaneous Notes No notes for encounter documented in this encounter [facility] 06-19-2024 History of Present illness Narrative Images from the original note were not included. Subjective Rhiannon Valdivia is a 68 y.o. male who presents for the following: Excision. Location: left posterior upper arm Date of biopsy: 04/18/2024 Diagnosis: Nodular basal cell carcinoma Pre-Op Checklist: History of pacemaker/defibrillator: No History of joint replacement in the past 2 years: No History of HIV/Hepatitis B/Hepatitis C: No Latex allergy: No Is the patient currently on a blood thinner? No. All pertinent medical history, medications, and allergies were reviewed. Surgical assistants: Mindy Gross CMA and Leon Kelley LPN Objective Well appearing patient in no apparent distress; mood and affect are within normal limits. 1. Basal cell carcinoma (BCC) of skin of left upper extremity including shoulder Left posterior upper arm [place] macule at biopsy site Skin excision Lesion length (cm): 0.6 Lesion width (cm): 0.5 Margin per side (cm): 0.4 Total excision diameter (cm): 1.4 Informed consent: discussed and consent obtained Informed consent comment: Risks and possible complications were discussed as noted on the consent form. The consent form was signed prior to the procedure. Timeout: patient name, date of , surgical site, and procedure verified Timeout comment: Patient and provider identified site. Site was marked and excision was drawn out. Photo was taken and shown to patient, patient verified this is the correct site. Procedure prep: Patient was prepped and draped in usual sterile fashion (The planned incision lines were drawn along relaxed skin tension lines, if possible, to minimize scarring and deformity of surrounding structures.) Prep type: Chlorhexidine Anesthesia: the lesion was anesthetized in a standard fashion Anesthesia comment: The local anesthetic was injected to create a field block at the site of the procedure. Anesthetic: 1% lidocaine w/ epinephrine 1-100,000 buffered w/ 8.4% NaHCO3 Instrument used: #15 blade Instrument used comment: Incisions were made as drawn, and the surrounding tissue was undermined until the skin edges could be approximated without undue tension. Any tissue redundancies were removed. Hemostasis achieved with: electrodesiccation Additional details: Amount of lidocaine used: 7.0 ml Estimated blood loss: 1.0 ml Skin repair Complexity: Intermediate Final length (cm): 3.7 Reason for type of repair: allow closure of the large defect Undermining: edges undermined Undermining comment: The surrounding tissue was undermined until the skin edges could be approximated without undue tension. Any tissue redundancies were removed. Subcutaneous layers (deep stitches): Suture size: 3-0 Suture type comment: Biosyn Stitches: Buried horizontal mattress (Closure was performed in a layered fashion with subcutaneous tissue closed first using tension-bearing absorbable sutures to the level of the superficial fascia.) Fine/surface layer approximation (top stitches): Suture size: 4-0 Suture type: Prolene (polypropylene) Stitches: simple running Stitches comment: Epicuticular skin sutures were then placed with minimal tension. Suture removal (days): 14 Outcome: patient tolerated procedure well with no complications Post-procedure details: sterile dressing applied and wound care instructions given Post-procedure details comment: It was emphasized to the patient to contact the office for any signs of infection, uncontrollable bleeding, or complications. Dressing type: bandage Specimen A - Dermatopathology exam Diagnosis: BCC Check Margins: Yes Previous accession number: [id number] Excision completed today, see procedure note. Return to clinic prior to next scheduled visit for any signs or symptoms of recurrence, reviewed the signs and symptoms. Follow up: 14 days for s/r documented in this encounter [facility] 05-01-2024 History of Present illness Narrative Images from the original note were not included. HPI Follow-up Additional comments: Per telephone call advised to stop metoprolol due to low b/p Results Additional comments: lab Last edited by Jayde Lee LPN on 05/01/2024 10:27 AM. Subjective Patient ID: Rhiannon Valdivia is a 68 y.o. male who presents for Follow-up (Per telephone call advised to stop metoprolol due to low b/p ) and Results (lab). Pt stopped metoprolol as directed has continued to monitor b/p at home and brought readings Pt states since stopping metoprolol he has not felt lightheaded and dizzy like he had been Completed labs as ordered to recheck LFT Current Outpatient Medications on File Prior to Visit Medication Sig Dispense Refill atorvastatin (Lipitor) 40 MG tablet Take 1 tablet (40 mg) by mouth Daily 100 tablet 2 tamsulosin (Flomax) 0.4 MG 24 hr capsule TAKE 1 CAPSULE BY MOUTH EVERY DAY 100 capsule 3 [DISCONTINUED] diclofenac (Cataflam) 50 MG tablet Take 1 tablet (50 mg) by mouth in the morning and 1 tablet (50 mg) before bedtime. 60 tablet 11 [DISCONTINUED] gabapentin (Neurontin) 300 MG capsule Take 300 mg by mouth See administration instructions. 1 capsule every morning, 1 capsule every afternoon, and 2 capsules at bedtime No current facility-administered medications on file prior to visit. I have reviewed and reconciled the history and medication list with the patient today. Allergies Allergen Reactions Cefaclor Other Reaction(s): Unknown Social History Tobacco Use Smoking status: Never Smokeless tobacco: Never Substance Use Topics Alcohol use: Yes Comment: monthly or less Family History Problem Relation Name Age of Onset Cancer Father Mental illness Paternal Grandmother Past Medical History: Diagnosis Date Basal cell carcinoma BCC (basal cell carcinoma), back Colon polyp 2020 tubular adenoma Headache Hyperlipidemia (CMS/HCC) Past Surgical History: Procedure Laterality Date COLONOSCOPY 01/2009 Dr Alcazar COLONOSCOPY W/ POLYPECTOMY 01/2021 [facility] HERNIA REPAIR OTHER SURGICAL HISTORY growth removed from nose TONSILLECTOMY Visit Vitals BP 106/62 Pulse 78 Ht 5' 10 Wt 165 lb SpO2 96% BMI 23.68 kg/m Smoking Status Never BSA 1.92 m Review of Systems Objective Physical Exam Cardiovascular: Rate and Rhythm: Normal rate and regular rhythm. Office Visit on 05/01/2024 Component Date Value Ref Range Status HEMOGLOBIN A1C 05/01/2024 5.3 Final Clinisync Result Encounter on 04/25/2024 Component Date Value Ref Range Status SODIUM 04/25/2024 139 136 - 145 mmol/L Final POTASSIUM 04/25/2024 4.0 3.5 - 5.1 mmol/L Final CHLORIDE 04/25/2024 103 98 - 107 mmol/L Final CARBON DIOXIDE 04/25/2024 28.4 21.0 - 32.0 mmol/L Final ANION GAP 04/25/2024 11.6 Final GLUCOSE 04/25/2024 131 (H) 74 - 106 mg/dL Final BLOOD UREA NITROGEN 04/25/2024 17.0 7.0 - 18.0 mg/dL Final CREATININE 04/25/2024 1.04 0.70 - 1.30 mg/dL Final [facility] EGFR-AF CYPRIOT 04/25/2024 >60 >=60 Final [facility] EGFR-NON AF CYPRIOT 04/25/2024 >60 >=60 Final BUN CREATININE RATIO 04/25/2024 16.3 Final CALCIUM 04/25/2024 8.7 8.5 - 10.1 mg/dL Final BILIRUBIN TOTAL 04/25/2024 0.8 0.2 - 1.0 mg/dL Final ASPARTATE AMINO TRANSFERASE 04/25/2024 20 15 - 37 U/L Final ALANINE AMINOTRANSFERASE 04/25/2024 35 16 - 63 U/L Final ALKALINE PHOSPHATASE 04/25/2024 93 46 - 116 U/L Final TOTAL PROTEIN 04/25/2024 6.2 (L) 6.4 - 8.2 g/dL Final ALBUMIN LEVEL 04/25/2024 3.7 3.4 - 5.0 g/dL Final GLOBULIN 04/25/2024 2.5 g/dL Final ALBUMIN GLOBULIN RATIO 04/25/2024 1.5 Final Office Visit on 04/18/2024 Component Date Value Ref Range Status SPECIMEN TYPE 04/18/2024 SPECIMEN: RIGHT SHOULDER- POSTERIOR Final ICD10 Code 04/18/2024 C44.611 Final PROTOCOL 04/18/2024 F - FLAT Final Final Diagnosis 04/18/2024 Final Value:SUPERFICIAL MULTICENTRIC BASAL CELL CARCINOMA (SEE COMMENT). COMMENT: The tumor is transected at an edge. Microscopic Description 04/18/2024 Microscopic examination performed. Final SPECIMEN TYPE 04/18/2024 SPECIMEN: LEFT POSTERIOR UPPER ARM Final ICD10 Code 04/18/2024 C44.611 Final PROTOCOL 04/18/2024 F - FLAT Final Final Diagnosis 04/18/2024 Final Value:NODULAR BASAL CELL CARCINOMA (SEE COMMENT). COMMENT: The tumor is transected across the base. Microscopic Description 04/18/2024 Microscopic examination performed. Final CPT 04/18/2024 [id number] Final Assessment/Plan Diagnoses and all orders for this visit: LFT elevation - resolved. Elevated glucose - On recent CMP. It was non-fasting. We did check an A1C it was near normal at 5.2%. Follow up in about 6 months (around 10/29/2024) for Wellness. documented in this encounter [facility] 04-18-2024 History of Present illness Narrative Images from the original note were not included. Skin Check Location: Patient requests a skin examination from the waist up Dermatologic history: history of Actinic Keratosis, history of Basal Cell Carcinoma Last visit: 1 year ago Established patient of DARLIN Felder Lesions: Location: left cheek Duration: months Quality: painful Modifying factors: aggravated by picking, shaving Associated symptoms: rough Treatments: none All pertinent medical history, medications, and allergies were reviewed. General Exam: alert , oriented to person, place, and time , normal affect, well appearing Unaccompanied A complete skin exam was offered, pt declined. Areas not examined despite medical recommendation: From the waist down Scalp, Examined Head, Face Examined Neck Examined Chest Examined Back Examined Abdomen Examined Right arm Examined Left arm Examined Hands Examined Digits,nails: Examined Lymphatics: 1. Melanocytic nevus of trunk Trunk Scattered benign appearing, regular brown to light brown melanocytic papules and macules with similar morphology Counseled regarding these benign growths. Rarely, a nevus can develop into malignant melanoma, so any changing nevi should be promptly re-evaluated. 2. Hx of basal cell carcinoma 3. Inflamed seborrheic keratosis Left Zygomatic Area Inflamed seborrheic keratoses: pink and brown stuck on verrucous scaly papule with surrounding erythema and bloody crust. The patient was informed that symptomatic seborrheic keratoses are benign growths that become inflamed, itchy, tender, traumatized, caught on clothing, or bleed. Symptomatic lesions can be treated with cryotherapy or curretage. Thicker lesions treated with cryotherapy may require more than one treatment. The patient was instructed to notify the office if abnormal redness or tenderness develops at the treatment site. Cryotherapy today, see procedure note. Diagnosis: Inflamed seborrheic keratosis Indication: Inflamed Consent: Verbal consent was obtained and risks were discussed, including, but not limited to risks of scarring, darker or docent coordinator pigmentary changes, recurrence, incomplete removal and infection. Method: Liquid nitrogen was used to treat the lesion(s) with two 5-10 second freeze-thaw cycles Number of lesions treated: 1 Post-procedure instructions: Instructions were given orally and in writing. The office will be contacted if the lesion fails to resolve despite treatment, or if a side effect develops such as abnormal crusting, scabbing, redness or tenderness Cryotherapy, skin lesion - Left Zygomatic Area 4. Actinic keratosis (8) Dorsum of Nose, Left Forehead (3), Left Hinduism, Right Buccal Cheek, Right Forehead, Right Parotid Area Erythematous scaly papules Patient was counseled regarding these sun-induced growths that can develop into squamous cell carcinoma if left untreated. Discussed treatment with cryotherapy. It was emphasized that any treated lesions that fail to resolve should be re-evaluated. Cryotherapy performed today; see procedure note Diagnosis: Actinic keratosis Indication: Precancerous Location: see skin exam Consent: Verbal consent was obtained and risks were discussed, including, but not limited to risks of scarring, darker or docent coordinator pigmentary changes, recurrence, incomplete removal and infection. Method: Liquid nitrogen was used to treat the lesion(s) with two 5-10 second freeze-thaw cycles. Number of lesions treated: 8 Post-procedure instructions: Instructions were given orally and in writing. The office will be contacted if the lesion fails to resolve despite treatment, or if a side effect develops such as abnormal crusting, scabbing, redness or tenderness Cryotherapy, skin lesion - Dorsum of Nose, Left Forehead (3), Left Hinduism, Right Buccal Cheek, Right Forehead, Right Parotid Area 5. Seborrheic keratosis Head - Anterior (Face) Stuck on verrucous, variably pigmented papules and plaques. Patient was counseled regarding these benign growths. Removal is normally not necessary, but they may be removed if they are symptomatic or for cosmetic reasons. 6. Neoplasm of unspecified behavior of bone, soft tissue, and skin (2) Right Shoulder - Posterior Erythematous patch Lesion biopsy Type of biopsy: tangential Informed consent: discussed and consent obtained Informed consent comment: The risks and benefits of the biopsy were discussed. Risks include but are not limited to bleeding, infection, scarring, pain, and nerve damage. An opportunity to ask questions prior to the procedure was permitted and all questions were answered. Patient was prepped and draped in usual sterile fashion: area cleansed with alcohol. Anesthesia: the lesion was anesthetized in a standard fashion Anesthetic: 1% lidocaine w/ epinephrine 1-100,000 buffered w/ 8.4% NaHCO3 Instrument used: DermaBlade Hemostasis achieved with: electrodesiccation Outcome: patient tolerated procedure well Outcome comment: The specimen was placed in a prelabeled formalin container to be sent for pathology Post-procedure details: sterile dressing applied and wound care instructions given Post-procedure details comment: Emphasized need to contact clinic for any signs of infection, uncontrollable bleeding, or complications. Dressing type: bandage Additional details: Photo taken yes Amount of lidocaine used: 1.0 cc Specimen A - Dermatopathology exam Differential Diagnosis: BCC Check Margins: No Size of lesion: 1.0 x 1.0 cm left posterior upper arm [place] pearly papule Lesion biopsy Type of biopsy: tangential Informed consent: discussed and consent obtained Informed consent comment: The risks and benefits of the biopsy were discussed. Risks include but are not limited to bleeding, infection, scarring, pain, and nerve damage. An opportunity to ask questions prior to the procedure was permitted and all questions were answered. Patient was prepped and draped in usual sterile fashion: area cleansed with alcohol. Anesthesia: the lesion was anesthetized in a standard fashion Anesthetic: 1% lidocaine w/ epinephrine 1-100,000 buffered w/ 8.4% NaHCO3 Instrument used: DermaBlade Hemostasis achieved with: electrodesiccation Outcome: patient tolerated procedure well Outcome comment: The specimen was placed in a prelabeled formalin container to be sent for pathology Post-procedure details: sterile dressing applied and wound care instructions given Post-procedure details comment: Emphasized need to contact clinic for any signs of infection, uncontrollable bleeding, or complications. Dressing type: bandage Additional details: Photo taken yes Amount of lidocaine used: 1.0 cc Specimen B - Dermatopathology exam Differential Diagnosis: BCC Check Margins: No Size of lesion: 0.6 x 0.5 cm Next Visit: 1 year documented in this encounter [facility] 03-28-2024 Instructions John Calvo MD - 03/28/2024 2:48 PM EDT Images from the original note were not included. documented in this encounter [facility] 03-28-2024 Note HNO ID: [id number] Author: JOHN CALVO MD Service: ? 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 Numbnness tingling with elbow flexion, improved when not flexed Pain TODAY:5/10; WORST: 9/10; on a scale of 0-10. Patient is Gabapentin, currently on gabapentin. The patient has previously been on the following pain medications -gabapentin. -tried chiropractor Has not done PT Treating Physicians: Hardik Carreon TRIAL CONSULTANT in Neurology. -Neurologist in [place] Prior Spinal Surgery: None. Work status: -seen with Catherine Alexandre DATA REVIEW: PDMP website checked and validated. All prescriptions have been APPROPRIATELY filled. No suspicious activity was identified. 03/28/2024 by John Calvo MD Personally Reviewed MRI cervical on 01/10/2024 iwht left C4-5 facet arthropathy lack of lordosis Personally Reviewed Plain films cervical on 01/10/2024 with lack of lordosis MRI brain 12/18/2023, 12/02/2022, 11/23/2021, 02/18/2021 The above imaging studies were personally reviewed with the patient. DIAGNOSIS: M54.2 Neck pain M48.02 Spinal stenosis in cervical region ASSESSMENT: Rhiannon Valdivia is a 68 year old male with history of subependymoma with neck pain, possible cervicogenic headaches PLAN: 1) Imaging Studies: none 2) Therapy/Rehabilitation: Trial of PT Giancarlo in [place] 3) Pharmacological Management: OK to do Gabapentin weaning per reverse titration scale 4) Spine/Surgical Interventions: consider Bilateral LC3, C4 Medial Branch Block, possible TON 5) Follow -up: 3-4 month(s) at [place] 6) Future treatment considerations: 7) Neurology Headache- Dr Alex Teaching Statement I have interviewed and examined the patient and confirm the pertinent findings. I have discussed the case with Medical Spine Fellow, Santos Henning DO, and agree with the findings and plan as documented. John Calvo MD Staff Physician [facility] The patient was seen at the request of Dr. Hardik Carreon for consultation regarding problem and diagnosis delineated above. Additionally, the findings AND recommendations will be communicated back to the referring physician via US Postal Service and/or shared electronic medical record when possible. CC: Hardik Carreon Imaging Ordered: None Medical Decision Making: Problems: Moderate: 2+ stable chronic illnesses Data: Unique source(s) for external note(s) reviewed: 2 Unique test result(s) reviewed: 2 Independent interpretation of test from other physician/QHCP Discussed management or test w/ external physician/QHCP/source Risk: Moderate: Drug management and Moderate risk from testing/treatment Medical Decision Making Level: 4 - Moderate [facility] 03-28-2024 History of Present illness Narrative Outpatient Consult Hardik Carreon [address] [facility] [id number] Today's Date: 03/28/2024 CC: NECK PAIN and BILATERAL Equal ARM PAIN HPI: Rhiannon Vadlivia is a 68 year old male who presents with h/o cluster headaches, subependymoma, pain in the cervical spine. Numbnness tingling with elbow flexion, improved when not flexed Pain TODAY:5/10; WORST: 9/10; on a scale of 0-10. Patient is Gabapentin, currently on gabapentin. The patient has previously been on the following pain medications -gabapentin. -tried chiropractor Has not done PT Treating Physicians: Hardik Carreon TRIAL CONSULTANT in Neurology. -Neurologist in [place] Prior Spinal Surgery: None. Work status: -seen with Bettie, Spouse DATA REVIEW: [facility] website checked and validated. All prescriptions have been APPROPRIATELY filled. No suspicious activity was identified. 03/28/2024 by John Calvo MD Personally Reviewed MRI cervical on 01/10/2024 iwht left C4-5 facet arthropathy lack of lordosis Personally Reviewed Plain films cervical on 01/10/2024 with lack of lordosis MRI brain 12/18/2023, 12/02/2022, 11/23/2021, 02/18/2021 The above imaging studies were personally reviewed with the patient. DIAGNOSIS: M54.2 Neck pain M48.02 Spinal stenosis in cervical region ASSESSMENT: Rhiannon Valdivia is a 68 year old male with history of subependymoma with neck pain, possible cervicogenic headaches PLAN: 1) Imaging Studies: none 2) Therapy/Rehabilitation: Trial of PT Giancarlo in [place] 3) Pharmacological Management: OK to do Gabapentin weaning per reverse titration scale 4) Spine/Surgical Interventions: consider Bilateral LC3, C4 Medial Branch Block, possible TON 5) Follow -up: 3-4 month(s) at [place] 6) Future treatment considerations: 7) Neurology Headache- Dr Alex Teaching Statement I have interviewed and examined the patient and confirm the pertinent findings. I have discussed the case with Medical Spine Fellow, Santos Henning DO, and agree with the findings and plan as documented. John Calvo MD Staff Physician [facility] The patient was seen at the request of Dr. Hardik Carreon for consultation regarding problem and diagnosis delineated above. Additionally, the findings & recommendations will be communicated back to the referring physician via [place] Postal Service and/or shared electronic medical record when possible. CC: Hardik Carreon Imaging Ordered: None Medical Decision Making: Problems: Moderate: 2+ stable chronic illnesses Data: Unique source(s) for external note(s) reviewed: 2 Unique test result(s) reviewed: 2 Independent interpretation of test from other physician/QHCP Discussed management or test w/ external physician/QHCP/source Risk: Moderate: Drug management and Moderate risk from testing/treatment Medical Decision Making Level: 4 - Moderate Images from the original note were not included. Spine Care Path Neck Pain - Chronic (> 12 weeks) Initial Exam SUBJECTIVE HISTORY OF PRESENT ILLNESS: Rhiannon Valdivia is a 68 year old year old MALE who presents with a chief complaint of neck pain and is seen in consultation requested by Hardik Carreon APRN for an opinion regarding above. My final recommendations will be communicated back to the requesting physician by way of shared medical record or letter via [place] mail. Other Issues Addressed at the Visit Today: None. 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 Reports ongoing pain for 3-4 years. Notes pain bilateral sides of neck with radiation into bilateral trapezius. Rates pain as 5/10, worst 8-9/10, best 4/10. Describes pain as constant and sharp. Worsens with rotation and extension. Has been interfering with his sleep Wakes up with CRUMP until he moves and stretches his neck. Mild improvement with ibuprofen. No improvement from chiropractor. Has not done PT Gabapentin 300 mg in the morning and afternoon and 600 mg at night. Reports no improvement. Interested in weaning from it but has had difficult time getting ahold of the prescribing physician. Reports CRUMP are around bilateral eyes and feels like its in the back of his eyes. Reports the pain will alternate between eyes. Improves with heat. 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 Did not receive any medications for the CRUMP from neurology. Has recently started having pain in left armpit and tingling in bilateral hands that presents whenever he has his elbows in flexion and improves when placed in extension. Denies weakness in his extremities. Reports some dizziness whenever getting up from seated position. Is on metoprolol and tamsulosin. Takes tamsulosin in AM. Reports he does not have HTN. Denies balance issues or issues with hand dexterity. Interested in titrating off of gabapentin. PAIN EVALUATION 03/21/2024 1450 03/28/2024 1324 Pain Level: 7 5 Pain Location: Neck Neck Description: Aching;Cutting;Radiating;Sharp;So re;Stabbing;Stabbing/Not Incision;Stiffness;Tightness Sore Duration Amount of Time: 24 4 Duration Units: Months Years Frequency: Continuous Continuous Intervention/Comfort measure: Medication;Relaxation;Emotional Support/Reassurance;Exercise;Heat ;Imagery;Massage;Pillow support;Rocking/holding Medication Comments: Worse in morning but have pain all day and headache gabapentin, ibuprofen The patient denies: inability to find a position of comfort, unexplained fever, significant spinal trauma, bowel or bladder dysfunction, gait or balance disturbance, and progressive weakness Litigation: No Workers' Compensation: No Patient Entered Questionnaires YELLOW & BLUE FLAGS No-Neg Attitude; Back Pain is Disabling No-Avoiding Activity (for Fear of Pain) No-Depression or Anxiety Disorders No-Social Problems No-Substance Use Disorder No-Job Dissatisfaction No-Financial Disincentives Patient Entered Questionnaires 03/21/2024 Spine Questions Pain Location: Neck Pain Duration: 1 to 5 years Pain over last 6 months: Every day or nearly every day in the past 6 months Symptoms from neck/cervical spine: Yes Employment Status: Retired Involved in law suit/legal claim: No 03/21/2024 Spine Red Flags Any type of cancer: Yes Unexplained fever: No Bowel or bladder disfunction: No Unintentional weight loss: No Osteoporosis: No 03/21/2024 Neck Questionnaires Benzel Modified STEVEN Score Incomplete PROMIS Score Percentiles 03/21/2024 Physical Health Physical Function Percentile 38 Sleep Percentile 12 Fatigue Percentile 24* Pain Interference Percentile 14 03/21/2024 PROMIS SOCIAL ROLE SCORE Social Role Satisfaction Percentile 31 03/16/2022 04/17/2023 03/21/2024 PROMIS Global Health Scale Physical Health Percentile 41 31 15 Mental Health Percentile 34 53 34 Percentiles provide an indication of how the patient's score ranks in relation to the general population. Higher percentile rankings indicate better function/quality of life. 50th percentile is the average of the general population and indicates half of respondents had a worse score. Depression Screenin03/16/2022 04/17/2023 03/21/2024 PHQ-9 Score 4 5 3 03/21/2024 04/17/2023 03/16/2022 PHQ-9 Self Harm Question 9 Not at all Not at all Not at all ACTIVE PROBLEM LIST Migraines Atypical Chest Pain Syncope PAST MEDICAL HISTORY No date: Migraines PAST SURGICAL HISTORY No date: PAST SURGICAL HISTORY OF Comment: T & A No date: PAST SURGICAL HISTORY OF Comment: hernia repair No date: PAST SURGICAL HISTORY OF Comment: sinus for polyp No date: PAST SURGICAL HISTORY OF Comment: eye surgery Social History Tobacco Use Smoking status: Former Types: Cigarettes Start date: 08/19/1975 Quit date: 08/19/1976 Years since quittin.6 Smokeless tobacco: Never Substance Use Topics Alcohol use: Yes Comment: occassional Drug use: No FAMILY HISTORY Problem Relation Age of Onset Cancer Mother skin Cancer Father esophogeal other (grandparent [Other]) Other [place] heart disease ALLERGIES Allergen Reactions Ceclor [Cefaclor] Unknown IBUPROFEN ORAL Take by mouth as needed (take 2-3 tabs po prn for pain). gabapentin (NEURONTIN) 300 mg capsule Take 1 capsule by mouth every morning AND 1 capsule every afternoon AND 2 capsules daily at bedtime. Do all this for 180 days. MULTIVITAMIN ORAL Take by mouth. tamsulosin (FLOMAX) 0.4 mg Take 0.4 mg by mouth once daily. metoprolol succinate ER (TOPROL XL) 25 mg 24 hr tablet Take 25 mg by mouth once daily. atorvastatin (LIPITOR) 40 mg tablet Take 40 mg by mouth once daily. REVIEW OF SYSTEMS: PAIN ASSESSMENT: See HPI. GENERAL: Denies fever, chills malaise and weight loss. HEENT: No recent change in vision or hearing. CARDIOVASCULAR: Denies chest pain, history of A-fib, valvular disease, or pacemaker/ICD. RESPIRATORY: Denies SOB, sputum production, and hemoptysis. GI: Denies GI ulcers, inflammatory disease, or liver disease. : Denies change in frequency or urgency, kidney disease, and burning with urination. MUSCULOSKELETAL: See HPI Negative for joint pain or swelling, back pain or muscle pain. SKIN: Denies rash or itching. PSYCHOLOGICAL: Denies uncontrolled depression or anxiety. NEURO: Denies CVA, seizures, headaches. ENDOCRINE: Denies diabetes, thyroid disease. HEMATOLOGY/LYMPHOLOGY: Denies cancer, bleeding or clotting disorders, anemia,and DVT's. ALLERGIC/IMMUNOLOGICAL: Denies risks for infection, or recent MRSA infections. OBJECTIVE: PHYSICAL EXAM Ht 172.7 cm (5' 8 ) Wt 75.5 kg (166 lb 7.2 oz) BMI 25.31 kg/m GENERAL APPEARANCE: Well appearing, well-hydrated, well nourished and alert SKIN: Head, neck, trunk, and extremities dry, intact and without lesions HEART: Edema: No LUNGS: even and non-labored breathing, normal chest excursion NEURO/PSYCH: speech normal, mental status intact GAIT: normal, normal heel and toe walking, tandem gait normal POSTURE: Posture and spinal curves are normal PALPATION: no palpable masses, spasm, no palpable subluxation or step-off, bilateral trapezius tenderness MUSCULOSKELETAL: Cervical Range of Motion Flexion Restricted Extension Restricted RIGHT LEFT Rotation Restricted Restricted Lateral Bend Restricted Restricted RIGHT LEFT Spurling Test negative negative Negative cervical compression test Majninder's Exam: Superficial non-anatomic tenderness: No Overreaction: No Pain on simulated maneuvers: No Straight Leg Raise test discrepancy: No Give-way weakness: No Non-dermatomal sensory loss: No Upper Extremity Strength RIGHT LEFT Strength (MMT) Strength (MMT) Shoulder Abduction 5/5 5/5 Biceps 5/5 5/5 Triceps 5/5 5/5 Wrist Extension 5/5 5/5 Finger Abduction 5/5 5/5 Finger Flexion 5/5 5/5 Lower Extremities Strength Toe extension (EHL) 5/5 5/5 Ankle Dorsiflexion 5/5 5/5 Ankle Plantarflexion 5/5 5/5 Knee Flexion 5/5 5/5 Knee Extension 5/5 5/5 Hip Flexion (seated) 5/5 5/5 Upper Body Reflex Exam RIGHT LEFT Reflex Status Reflex Status Biceps 2+ Normal 2+ Normal Triceps 2+ Normal 2+ Normal Brachioradialis 2+ Normal 2+ Normal Friedman's Sign absent absent Lower Body Reflex Exam Right Left Knee 2+ Normal 2+ Normal Ankle 2+ Normal 2+ Normal Medial Hamstring 2+ Normal 2+ Normal Babinski normal normal Soft touch Within Normal Limits LONG TRACT SIGNS: No clonus. Shoulder Exam: Shoulder Range of Motion RIGHT LEFT Flexion Normal Normal Extension Normal Normal Abduction Normal Normal Adduction Normal Normal Internal Rotation Normal Normal External Rotation Normal Normal Shoulder Tests Neer Impingement Sign - Negative Empty Can Test - Negative Cross Over Test - Negative Hawkin's-Florentino Test - Negative Positive Tinel's over bilateral cubital tunnel which reproduce patient's symptoms, mildly positive Tinel's over left carpal tunnel, negative Tinel's over right carpal tunnel Data Review: Images independently reviewed with the patient 01/10/2024 MRI CERVICAL SPINE broad-based disc bulge C4-C5 with mild bilateral neuroforaminal narrowing and mild spinal stenosis. At C5-C6 there is a left subarticular disc extrusion causing moderate left and mild right neuroforaminal narrowing without spinal canal stenosis. At C6-7 there is broad-based disc bulge with facet negative joint degenerative change causing moderate to severe bilateral neuroforaminal narrowing and mild spinal stenosis. 01/10/2024 X-RAY CERVICAL SPINE diffuse degenerative disc disease seen within the cervical spine most prominent most prominent at C4-C5, C5-C6, and C6-C7. 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 Calvo, who agrees with plan. Please see attestation for complete plan. Santos Henning DO PGY-5 Interventional Spine and Musculoskeletal Medicine Fellow Physical Medicine and Rehabilitation documented in this encounter [facility] 03-28-2024 Note HNO ID: [id number] Author: SANTOS HENNING DO Service: ? Author Type: Resident Type: Progress Notes Filed: 03/29/2024 15:51 Note Text: Spine Care Path Neck Pain - Chronic (> 12 weeks) Initial Exam SUBJECTIVE HISTORY OF PRESENT ILLNESS: Rhiannon Valdivia is a 68 year old year old MALE who presents with a chief complaint of neck pain and is seen in consultation requested by Hardik Carreon APRN for an opinion regarding above. My final recommendations will be communicated back to the requesting physician by way of shared medical record or letter via [place] mail. Other Issues Addressed at the Visit Today: None. 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 Reports ongoing pain for 3-4 years. Notes pain bilateral sides of neck with radiation into bilateral trapezius. Rates pain as 5/10, worst 8-9/10, best 4/10. Describes pain as constant and sharp. Worsens with rotation and extension. Has been interfering with his sleep Wakes up with CRUMP until he moves and stretches his neck. Mild improvement with ibuprofen. No improvement from chiropractor. Has not done PT Gabapentin 300 mg in the morning and afternoon and 600 mg at night. Reports no improvement. Interested in weaning from it but has had difficult time getting ahold of the prescribing physician. Reports CRUMP are around bilateral eyes and feels like its in the back of his eyes. Reports the pain will alternate between eyes. Improves with heat. 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 Did not receive any medications for the CRUMP from neurology. Has recently started having pain in left armpit and tingling in bilateral hands that presents whenever he has his elbows in flexion and improves when placed in extension. Denies weakness in his extremities. Reports some dizziness whenever getting up from seated position. Is on metoprolol and tamsulosin. Takes tamsulosin in AM. Reports he does not have HTN. Denies balance issues or issues with hand dexterity. Interested in titrating off of gabapentin. PAIN EVALUATION 03/21/2024 1450 03/28/2024 1324 Pain Level: 7 5 Pain Location: Neck Neck Description: Aching;Cutting;Radiating;Sharp;So re;Stabbing;Stabbing/Not Incision;Stiffness;Tightness Sore Duration Amount of Time: 24 4 Duration Units: Months Years Frequency: Continuous Continuous Intervention/Comfort measure: Medication;Relaxation;Emotional Support/Reassurance;Exercise;Heat ;Imagery;Massage;Pillow support;Rocking/holding Medication Comments: Worse in morning but have pain all day and headache gabapentin, ibuprofen The patient denies: inability to find a position of comfort, unexplained fever, significant spinal trauma, bowel or bladder dysfunction, gait or balance disturbance, and progressive weakness Litigation: No Workers' Compensation: No Patient Entered Questionnaires YELLOW AND BLUE FLAGS No-Neg Attitude; Back Pain is Disabling No-Avoiding Activity (for Fear of Pain) No-Depression or Anxiety Disorders No-Social Problems No-Substance Use Disorder No-Job Dissatisfaction No-Financial Disincentives Patient Entered Questionnaires 03/21/2024 Spine Questions Pain Location: Neck Pain Duration: 1 to 5 years Pain over last 6 months: Every day or nearly every day in the past 6 months Symptoms from neck/cervical spine: Yes Employment Status: Retired Involved in law suit/legal claim: No 03/21/2024 Spine Red Flags Any type of cancer: Yes Unexplained fever: No Bowel or bladder disfunction: No Unintentional weight loss: No Osteoporosis: No 03/21/2024 Neck Questionnaires Benzel Modified STEVEN Score Incomplete PROMIS Score Percentiles 03/21/2024 Physical Health Physical Function Percentile 38 Sleep Percentile 12 Fatigue Percentile 24* Pain Interference Percentile 14 03/21/2024 PROMIS SOCIAL ROLE SCORE Social Role Satisfaction Percentile 31 03/16/2022 04/17/2023 03/21/2024 PROMIS Global Health Scale Physical Health Percentile 41 31 15 Mental Health Percentile 34 53 34 Percentiles provide an indication of how the patient's score ranks in relation to the general population. Higher percentile rankings indicate better function/quality of life. 50th percentile is the average of the general population and indicates half of respondents had a worse score. Depression Screenin03/16/2022 04/17/2023 03/21/2024 PHQ-9 Score 4 5 3 03/21/2024 04/17/2023 03/16/2022 PHQ-9 Self Harm Question 9 Not at all Not at all Not at all ACTIVE PROBLEM LIST Migraines Atypical Chest Pain Syncope PAST MEDICAL HISTORY No date: Migraines PAST SURGICAL HISTORY No date: PAST SURGICAL HISTORY OF Comment: T AND A No date: PAST SURGICAL HISTORY OF Comment: hernia repair No date: PAST SURGICAL HISTORY OF Comment: sinus f (more content not included)... [facility] 02-09-2024 Telephone encounter Note Scheduling Request - Established Patient Time Frame: First available/RAVINDRA Orders: N/A Provider: Dr. Calvo/Spine medicine Visit type: In person Diagnosis: spinal stenosis MRI cervical spine completed. Hardik Johnson MSN, MANAGER MEAT, TRIAL CONSULTANT Certified Nurse Practitioner [facility] Work Phone: 02-09-2024 Miscellaneous Notes Scheduling Request - Established Patient Time Frame: First available/RAVINDRA Orders: N/A Provider: Dr. Calvo/Spine medicine Visit type: In person Diagnosis: spinal stenosis MRI cervical spine completed. Hardik Johnson MSN, MANAGER MEAT, TRIAL CONSULTANT Certified Nurse Practitioner documented in this encounter [facility] 02-08-2024 Telephone encounter Note I called and spoke with Mr Valdivia. I reviewed MRI cervical spine images and report. I spoke with a colleague in medical spine who recommended the patient be seen by Dr. Calvo. Referral placed, and all questions addressed at this time. Hardik Carreon MSN, MANAGER MEAT, TRIAL CONSULTANT Certified Nurse Practitioner [facility] 02-08-2024 Miscellaneous Notes I called and spoke with Mr Valdivia. I reviewed MRI cervical spine images and report. I spoke with a colleague in medical spine who recommended the patient be seen by Dr. Calvo. Referral placed, and all questions addressed at this time. GRACIE Wheat, MANAGER MEAT, TRIAL CONSULTANT Certified Nurse Practitioner documented in this encounter [facility] 01-02-2024 Instructions Hardik Carreon APRN.CNP - 01/02/2024 8:32 AM EDT GRACIE Wheat, MANAGER MEAT, TRIAL CONSULTANT Certified Nurse Practitioner [phone] documented in this encounter [facility] 01-02-2024 Note HNO ID: [id number] Author: HARDIK CARREON APRN.CNP Service: ? Author Type: Nurse Practitioner Type: Progress Notes Filed: 01/02/2024 09:22 Note Text: [facility] BRAIN TUMOR CENTER NEURO-ONCOLOGY OUTPATIENT CLINIC NOTE PURPOSE OF VISIT: Ongoing patient management CHIEF COMPLAINT : Fourth ventricular lesion Subjective HISTORY OF PRESENT ILLNESS: Rhiannon Valdivia is a 68 year old right-handed male who is here for a follow-up visit for fourth ventricular lesion. He is history of chronic daily headaches. Imaging was first done in 2020 due to progressively worsening headaches. Seen in evaluation by Dr. Ramirez who recommended observation given no papilledema or symptoms. Of note, he felt symptoms (headaches) were unrelated. INTERVAL HISTORY : 01/02/24 Presents today with his for follow-up with new MRI brain for review. He was last seen by Sonia Carrillo PA-C 12/14/22. Today he notes continued chronic daily headaches, worse in the morning, improving throughout the day. He notes the pain stems from his neck. He also reports numbness/tingling to bilateral hands/fingers. SOCIAL HISTORY: Social History Tobacco Use Smoking status: Former Types: Cigarettes Start date: 08/19/1975 Quit date: 08/19/1976 Years since quittin.4 Smokeless tobacco: Never Substance Use Topics Alcohol use: Yes Comment: occassional Drug use: No PAST MEDICAL HISTORY Diagnosis Date Migraines FAMILY HISTORY Problem Relation Age of Onset Cancer Mother skin Cancer Father esophogeal other (grandparent [Other]) Other [place] heart disease Current Outpatient Medications Medication Sig diclofenac potassium (CATAFLAM) 50 mg tablet Take 50 mg by mouth. gabapentin (NEURONTIN) 300 mg capsule Take 1 capsule by mouth every morning AND 1 capsule every afternoon AND 2 capsules daily at bedtime. Do all this for 180 days. MULTIVITAMIN ORAL Take by mouth. tamsulosin (FLOMAX) 0.4 mg Take 0.4 mg by mouth once daily. metoprolol succinate ER (TOPROL XL) 25 mg 24 hr tablet Take 25 mg by mouth once daily. atorvastatin (LIPITOR) 40 mg tablet Take 40 mg by mouth once daily. No current facility-administered medications for this visit. REVIEW OF SYSTEMS: Neurological : No complaint of headache + Decreased hearing, chronic No complaint of diplopia No complaints of blurred vision + Numbness/tingling to bilateral hands/fingertips No problem with limb coordination + History of syncope No complaints of seizures No complaints of memory changes or disorientation. General : Constitutional: No recent fever or weight loss. Eyes: No history of glaucoma or cataracts ENMT: No recent ear infection, nasal congestion, mouth sores or sore throat. CV: No chest pain, palpitations or leg swelling Respiratory: No SOB, wheezing or recent cough. Gastrointestinal: No nausea, vomiting, dysphagia or abdominal pain. Genitourinary: No history of hematuria or dysuria; + BPH Musculoskeletal: No complaint of unstable gait or arm/leg weakness Psychiatric: No history of hallucinations, depression, or anxiety Objective PHYSICAL EXAMINATION: BP 107/65 Pulse 60 Wt 77 kg (169 lb 12.1 oz) SpO2 96% BMI 25.32 kg/m? General appearance: Well appearing, alert, in no acute distress Skin: Skin color, texture, turgor normal, no suspicious rashes or lesions Oropharynx: Lips, mucosa, and tongue normal, teeth and gums normal, oropharynx normal Extremities: No deformities, edema, skin discoloration, clubbing or cyanosis. NEUROLOGICAL EXAM: Higher integrative functions: Oriented to person, place AND time. Attention Span and Concentration: Good. Language: Good comprehension. Speech clear and coherent Fund of Knowledge: Good. 2nd CN: Full visual ly. 3rd,4th,6th CN: Pupils (=), round, react to light, full extraocular movements. 5th CN: No decrease in facial sensation 7th CN: Facial muscles symmetric and strong. 8th CN: Hears finger rub well bilaterally. 9th CN: Gag reflex not tested 10th CN: Spontaneous palate movement, full and symmetric. 11th CN: Full strength in shoulder shrug. 12th CN: Tongue protrusion full and midline. Sensation: No decrease in sensation in upper or lower limbs to touch. Musculoskeletal: Gait is normal. Motor: 5/5, R=L, UE=LE. Normal muscle tone without atrophy in all limbs. Coordination: Rapid alternating movements fast and smooth all limbs. + Mild/subtle tremor noted to bilateral hands IMAGING STUDIES: MRI BRAIN WO/W IVCON Karnofsky performance status: 80 - Normal activity with effort, some signs or symptoms of disease. MEDICAL DECISION MAKING Assessment AND Plan 1. Fourth Ventricle Lesion - No images to review today; OSH report notes stable exam. We will have [employer] ([phone]) send us a disc with images to review for stability - Recommend follow up appointment and new MRI brain in 1 year pending stability; orders faxed to [employer] sched (more content not included)... [facility] 01-02-2024 History of Present illness Narrative Images from the original note were not included. [facility] NOTE PURPOSE OF VISIT: Ongoing patient management CHIEF COMPLAINT : Fourth ventricular lesion Subjective HISTORY OF PRESENT ILLNESS: Rhiannon Valdivia is a 68 year old right-handed male who is here for a follow-up visit for fourth ventricular lesion. He is history of chronic daily headaches. Imaging was first done in 2020 due to progressively worsening headaches. Seen in evaluation by Dr. Ramirez who recommended observation given no papilledema or symptoms. Of note, he felt symptoms (headaches) were unrelated. INTERVAL HISTORY : 01/02/24 Presents today with his for follow-up with new MRI brain for review. He was last seen by Sonia Carrillo PA-C 12/14/22. Today he notes continued chronic daily headaches, worse in the morning, improving throughout the day. He notes the pain stems from his neck. He also reports numbness/tingling to bilateral hands/fingers. SOCIAL HISTORY: Social History Tobacco Use Smoking status: Former Types: Cigarettes Start date: 08/19/1975 Quit date: 08/19/1976 Years since quittin.4 Smokeless tobacco: Never Substance Use Topics Alcohol use: Yes Comment: occassional Drug use: No PAST MEDICAL HISTORY Diagnosis Date Migraines FAMILY HISTORY Problem Relation Age of Onset Cancer Mother skin Cancer Father esophogeal other (grandparent [Other]) Other [place] heart disease Current Outpatient Medications Medication Sig diclofenac potassium (CATAFLAM) 50 mg tablet Take 50 mg by mouth. gabapentin (NEURONTIN) 300 mg capsule Take 1 capsule by mouth every morning AND 1 capsule every afternoon AND 2 capsules daily at bedtime. Do all this for 180 days. MULTIVITAMIN ORAL Take by mouth. tamsulosin (FLOMAX) 0.4 mg Take 0.4 mg by mouth once daily. metoprolol succinate ER (TOPROL XL) 25 mg 24 hr tablet Take 25 mg by mouth once daily. atorvastatin (LIPITOR) 40 mg tablet Take 40 mg by mouth once daily. No current facility-administered medications for this visit. REVIEW OF SYSTEMS: Neurological : No complaint of headache + Decreased hearing, chronic No complaint of diplopia No complaints of blurred vision + Numbness/tingling to bilateral hands/fingertips No problem with limb coordination + History of syncope No complaints of seizures No complaints of memory changes or disorientation. General : Constitutional: No recent fever or weight loss. Eyes: No history of glaucoma or cataracts ENMT: No recent ear infection, nasal congestion, mouth sores or sore throat. CV: No chest pain, palpitations or leg swelling Respiratory: No SOB, wheezing or recent cough. Gastrointestinal: No nausea, vomiting, dysphagia or abdominal pain. Genitourinary: No history of hematuria or dysuria; + BPH Musculoskeletal: No complaint of unstable gait or arm/leg weakness Psychiatric: No history of hallucinations, depression, or anxiety Objective PHYSICAL EXAMINATION: BP 107/65 Pulse 60 Wt 77 kg (169 lb 12.1 oz) SpO2 96% BMI 25.32 kg/m General appearance: Well appearing, alert, in no acute distress Skin: Skin color, texture, turgor normal, no suspicious rashes or lesions Oropharynx: Lips, mucosa, and tongue normal, teeth and gums normal, oropharynx normal Extremities: No deformities, edema, skin discoloration, clubbing or cyanosis. NEUROLOGICAL EXAM: Higher integrative functions: Oriented to person, place & time. Attention Span and Concentration: Good. Language: Good comprehension. Speech clear and coherent Fund of Knowledge: Good. 2nd CN: Full visual ly. 3rd,4th,6th CN: Pupils (=), round, react to light, full extraocular movements. 5th CN: No decrease in facial sensation 7th CN: Facial muscles symmetric and strong. 8th CN: Hears finger rub well bilaterally. 9th CN: Gag reflex not tested 10th CN: Spontaneous palate movement, full and symmetric. 11th CN: Full strength in shoulder shrug. 12th CN: Tongue protrusion full and midline. Sensation: No decrease in sensation in upper or lower limbs to touch. Musculoskeletal: Gait is normal. Motor: 5/5, R=L, UE=LE. Normal muscle tone without atrophy in all limbs. Coordination: Rapid alternating movements fast and smooth all limbs. + Mild/subtle tremor noted to bilateral hands IMAGING STUDIES: MRI BRAIN WO/W IVCON Karnofsky performance status: 80 - Normal activity with effort, some signs or symptoms of disease. MEDICAL DECISION MAKING Assessment & Plan 1. Fourth Ventricle Lesion - No images to review today; OSH report notes stable exam. We will have [facility] ([phone]) send us a disc with images to review for stability - Recommend follow up appointment and new MRI brain in 1 year pending stability; orders faxed to [facility] [phone] - Reviewed signs and symptoms that would prompt sooner evaluation - He has our contact information and was advised to call if new symptoms, questions or concerns arise prior to next scheduled visit. - All questions were answered. 2. Neck/Head pain with new numbness/tingling to BUE - MRI cervical spine orders placed. Discussed possibility of completing PT or following up with headache clinic for further medication options pending results. Hardik Carreon APRN.TRIAL CONSULTANT Certified Nurse Practitioner cc: Eduard Ramirez MD - [facility] documented in this encounter [facility] 11-09-2023 Miscellaneous Notes I spoke with the office of [facility]. Mr. Valdivia's previous provider has left the [facility] and they apologized that they missed the message regarding the request for the refill on Gabapentin. They will send it to the provider who is taking over his care and will get it refilled for the patient. This information was relayed to Mr. Valdivia and Mr. Valdivia is in agreement with this plan. I reminded Mr. Valdivia that he has a virtual appointment with Hardik Carreon NP in December and moving forward she could take care of some of the refills for him. I gave Mr. Valdiiva the phone number to the scheduling office of the [facility] so that he could call to determine if the new provider wanted to see him sooner than his previous provider. Mr. Valdivia had no further questions or concerns at this time and thanked me for getting his refill taken care of. documented in this encounter [facility] 11-09-2023 Miscellaneous Notes Physician: Torrie Call from other provider office requesting refill. Please E-Scribe Last OV: 04/21/2023 with Torrie Future OV: Not Scheduled. Requested Prescriptions Pending Prescriptions Disp Refills gabapentin (NEURONTIN) 300 mg capsule 360 capsule 1 Sig: Take 1 capsule by mouth every morning AND 1 capsule every afternoon AND 2 capsules daily at bedtime. Do all this for 180 days. [facility]acy Name: [facility] documented in this encounter [facility] 04-21-2023 Instructions Ailyn Santana APRN.TRIAL CONSULTANT - 04/21/2023 8:31 AM EDT PLAN: Continue working on lifestyle factors that can impact headaches/migraines: getting 7-9 hours restful sleep every night, staying hydrated with water, limiting caffeine to 200 mg/day, exercise (walking is great exercise), reducing stress levels, eating a healthy/balanced diet, etc. Prevention: Continue Gabapentin Start doxepin. If tolerating well and no difference in CRUMP, then call or message and we can increase it in about 2-3 weeks Rescue: Ibuprofen as needed. Limit pain meds and triptans to no more than 2 days per week to avoid medication overuse headache. This includes limiting OTC pain meds such as tylenol, ibuprofen, Excedrin, aleve, etc. Doxepin Doxepin is a tricyclic antidepressant (TCA) medication which is useful for pain management because it can: increase the production of endogenous endorphin, your own natural pain relieving hormone. block the re-uptake of serotonin, the neurotransmitter (chemical) necessary for descending or inhibitory pain pathways (the stop hurting pathways), thereby allowing enhanced pain relief. have opiate effects. are sedating and make it possible to get a restful night's sleep. aid in management of the depression which often accompanies chronic pain. Side effects include excessive sleepiness, dry mouth, constipation, weight gain. documented in this encounter [facility] 04-21-2023 History of Present illness Narrative Images from the original note were not included. [facility] - Follow up Virtual Visit Zoom- in [place] Rhiannon Valdivia was identified by name and and consented to the video evaluation and its limitations. Based on this evaluation it may be necessary for them to schedule a follow up evaluation with me or other neurologists for formal physical examination and, if necessary, other studies. I have communicated my name and active licensure. The patient's identity and physical location were verified at the time of this visit. Either the patient or their legal claims service representative has been informed of the risks and benefits of -- and alternatives to -- treatment through a remote evaluation and consents to proceed with the evaluation remotely. Accompanied by: Self, Spouse Primary Problem List: ACTIVE PROBLEM LIST Migraines Atypical Chest Pain Syncope Chief Complaint: headaches Impression and Plan from last visit: 03/28/22 w/ me IMPRESSION: Rhiannon Valdivia is a 66 year old year old male, with a history of migraines, kidney stones, syncope. His neurological examination is essentially normal at this visit. Mr. Valdivia still has an almost daily headache. He was unable to start emgality due to the high copay. We discussed options for prevention including doxepin (to help with sleep and CRUMP) vs. Increasing gabapentin. Since he has responded well to the gabapentin, he would like to increase gabapentin. He will also trial periactin prn for CRUMP he believes are related to allergies/sinuses. Diagnosis: Chronic mixed headache syndrome (primary encounter diagnosis) Migraine without aura and without status migrainosus, not intractable Cervicalgia Morning headache Snoring Red Flags: none PLAN: Limit pain meds and triptans to no more than 2 days per week to avoid medication overuse headache. This includes limiting OTC pain meds such as tylenol, ibuprofen, Excedrin, aleve, etc. Increase gabapentin every two weeks to 300 mg in morning and 300 mg in afternoon and 600 mg at night (1,200 mg daily) See AVS for instructions. Start periactin as needed for headaches that you believe are related to sinuses/allergies. See Sleep medicine to discuss difficulty falling asleep, morning headaches, and snoring and to rule out sleep apnea (DIANA). Future considerations: doxepin, PT for neck pain, GONBs, emgality- talk to financial resource team; vyepti Interval Headache History: Rhiannon Valdivia is a 67 year old year old male, with a history of migraines, kidney stones, syncope, following up today virtually for headache. Since the last visit, the patient states that his headaches have not changed. Still have daily CRUMP upon awakening, once I'm up and moving and have my cup of coffee it goes away after about an hour. Has not noticed any improvement in CRUMP since increasing the gabapentin. Preventative: gabapentin 300/300/600 mg; metoprolol 25 mg Abortive: ibuprofen Medication SEs: none Medications effective? somewhat # of doses of abortive medications per month: 1 day per week or less History of MT/CAD/Stroke: No Concerns today: f/u Headache 1 Onset: 1972 Location: bilateral, retro-orbital, frontal and temporal (R and/or L sided) Quality/Description: constant. Associated Symptoms: Photophobia: yes Phonophobia: yes Nausea: no Other symptoms: neck pain Worse with activity: yes Number of migraine headache days/month: 30 Migraine Severity: 7/10 upon awakening; 3/10 after morning coffee. Number of NON-migraine headache days/month: 0 Total Number of headache days/month: 30 Number of headache free days/month: 0 Triggers: alcohol and sleep- too little Relieving factors: meds, caffeine Most common time of day for headache to begin: upon awakening Prodrome: none Aura: none Days missed from work or school in the last month: 0 days Headache status since the last visit: same Prior Therapies Duration of Use Dose Reason for Discontinuation Anti-Convulsant Gabapentin (Neurontin) Topiramate (Topamax, Trokendi XL, Qudexy) nerver tried- contraindicated d/t kidney stones Anti-Depressant and Antipsychotic Amitriptyline (Elavil) helped, then lost efficacy Anti-Migraine Sumatriptan (Imitrex, Sumavel) wakes up with CRUMP, so cannot take at onset Blood Pressure Metoprolol (Lopressor,Toprol XL) Over the Counter Medications Ibuprofen (Advil, Motrin) PAST MEDICAL HISTORY Diagnosis Date Migraines PAST SURGICAL HISTORY Procedure Laterality Date PAST SURGICAL HISTORY OF T & A PAST SURGICAL HISTORY OF hernia repair PAST SURGICAL HISTORY OF sinus for polyp PAST SURGICAL HISTORY OF eye surgery ALLERGIES Allergen Reactions Ceclor [Cefaclor] Unknown Current Medications: gabapentin (NEURONTIN) 300 mg capsule Take 1 capsule by mouth every morning AND 1 capsule every afternoon AND 2 capsules daily at bedtime. Do all this for 30 days. MULTIVITAMIN ORAL Take by mouth. tamsulosin (FLOMAX) 0.4 mg Take 0.4 mg by mouth once daily. metoprolol succinate ER (TOPROL XL) 25 mg 24 hr tablet Take 25 mg by mouth once daily. atorvastatin (LIPITOR) 40 mg tablet Take 40 mg by mouth once daily. I have reviewed the Roger Status Assessment responses and discussed these with the patient: yes Ailyn Santana APRN.TRIAL CONSULTANT HEADACHE SCORES: Headache Questions 03/16/2022 03/26/2022 04/17/2023 ID Migraine Screener: - - - ER visits in the last year: - - - ER visits since last office visit: 0 - 0 Hospital stays in the last year: - - - Hospital stays since last office visit 0 - 0 Limited ADLs in the last month: - 10 0 Days missed from work or school in the last month: - 0 0 Days headache pain free in the last month: 10 - 0 Days per month with ALL of the following symptoms - decreased productivity, light sensitivity and nausea: - 0 0 Initial improvement of headache after botox injection at last visit: - Not applicable, I did not have a botox injection at my last visit - PRN medication usage in the last month: - 12 3 Patient impression of improvement since last visit: No change No change - HIT-6 12/18/2021 03/16/2022 HIT-6 59 (Substantial impact) 62 (Severe impact) DEANNE - 2/7 SCORES 12/18/2021 12/18/2021 03/16/2022 DEANNE-2 Score 2 2 2 Migraine Specific QOL - Higher scores indicate better HRQL 12/18/2021 03/16/2022 Role Function-Restrictive Transformed Score (range: 0-100) 60 74.29 Role Function-Preventive Transformed Score (range: 0-100) 65 80 Emotional Function Transformed Score (range: 0-100) 53.33 66.67 PHQ-9 12/18/2021 12/18/2021 03/16/2022 Score 3 3 4 MRI Head/Brain - Last 2 Impressions No resulted procedures found. MRA Head and/or Neck - Last 2 Impressions No resulted procedures found. Labs to Review: Yes, stable CMP CE 12/28/22 New Health Issues: No Review of Systems: Review of system: unchanged from the previous visit (sleep patterns, mood, energy, appetite, stress, exercising). Physical Examination: Vital Signs: No vital signs taken due to virtual visit. General: well appearing, in no acute distress, alert Pain Behaviors: rubbing affected body part Neurological: Mental Status: Alert and oriented to person, place and time. Affect is normal and appropriate. Speech is spontaneous and fluent without dysarthria, normal in rate, volume and articulation, and clear, coherent, and relevant. Short and exterminator memory, cognition and general fund of knowledge are good. Attention span and concentration are good. HEENT: Head is normocephalic and features were symmetric. Musculoskeletal: Patient able to sit upright for visit. Cranial Nerves: III, IV, -EOMI: full. VII-face is symmetric without evidence of weakness. VIII-hearing intact. Physical exam limited due to virtual visit. IMPRESSION: Rhiannon Valdivia is a 67 year old year old male, with a history of migraines, kidney stones, syncope. His neurological examination is essentially normal at this visit. Mr. Valdivia's headaches are about the same. He is interested in trying something different for prevention. He responded well to amitriptyline but it lost efficacy over time. We discussed doxepin vs. Emgality. He previously considered emgality but the cost was prohibitive. ICHD-3 Diagnosis: Chronic Migraine Headache (CM) Red Flags: none PLAN: Continue working on lifestyle factors that can impact headaches/migraines: getting 7-9 hours restful sleep every night, staying hydrated with water, limiting caffeine to 200 mg/day, exercise (walking is great exercise), reducing stress levels, eating a healthy/balanced diet, etc. Prevention: Continue Gabapentin Start doxepin. If tolerating well and no difference in CRUMP, then call or message and we can increase it in about 2-3 weeks Rescue: Ibuprofen as needed. Limit pain meds and triptans to no more than 2 days per week to avoid medication overuse headache. This includes limiting OTC pain meds such as tylenol, ibuprofen, Excedrin, aleve, etc. Future Considerations: PT, emgality, GONB Patient verbalized understanding and agreed to the treatment plan. Many labs have been done looking for underlying reasons of headache and are not necessary at this time. HEADACHE MANAGEMENT: (You are the primary guardian of your health and headache. Keep track of all medications: This includes the reason for use, side effects and benefits.) MEDICATION TREATMENT: Medications to Start Taking gabapentin (NEURONTIN) 300 mg capsule Take 1 capsule by mouth every morning AND 1 capsule every afternoon AND 2 capsules daily at bedtime. Do all this for 180 days. Doxepin 3 mg tab Take 1 tablet by mouth daily at bedtime. Discussed testing. Written educational materials given. Headache education was done. Discussed triggers and lifestyle modification including increased oral hydration, decreased caffeine, exercise and stress management. Discussed treatment options including preventive and acute medications, natural supplements, and infusion therapy. Discussed medication overuse headache and to limit use of acute treatments to no more than 2 days/week or 10 days/month. Discussed medication side effects, adverse reactions and drug interactions. Written educational materials and patient instructions provided. Prior Authorization: none RESEARCH: None at this time Follow-up: 6 months, PRN Level of service: Est level 5 (40-54 min). Time spent 40 min on the day of service, which included preparing to see the patient, [id number] patient care, completing clinical documentation, obtaining and/or reviewing separately obtained history, performing a medically appropriate examination, counseling and educating the patient/family/caregiver, and ordering medications, tests, or procedures. Ailyn Santana APRN.CNP Headache Section [facility] April 21, 2023 documented in this encounter [facility] 03-13-2023 Miscellaneous Notes The following approved medication requests have been transmitted electronically. Requested Prescriptions Signed Prescriptions Disp Refills gabapentin (NEURONTIN) 300 mg capsule 120 capsule 0 Sig: Take 1 capsule by mouth every morning AND 1 capsule every afternoon AND 2 capsules daily at bedtime. Do all this for 30 days. Authorizing Provider: AILYN SANTANA APRN.CNP Appt needed for additional refills. Ailyn Santana APRN.CNP Physician: Torrie Call from pharmacy requesting refill. Please E-Scribe Last office visit 03/28/22 with Torrie virtual Next office visit None Scheduled NA Requested Prescriptions Pending Prescriptions Disp Refills gabapentin (NEURONTIN) 300 mg capsule 120 capsule 1 [facility] Name: [facility] documented in this encounter [facility] 01-23-2023 Miscellaneous Notes PDMP website checked and validated. All prescriptions have been APPROPRIATELY filled. No suspicious activity was identified. 01/23/2023 by Anna Izquierdo APRN.CNP The following approved medication requests have been transmitted electronically. Requested Prescriptions Signed Prescriptions Disp Refills gabapentin (NEURONTIN) 300 mg capsule 120 capsule 1 Sig: TAKE 1 CAPSULE BY MOUTH EVERY MORNING AND 1 CAPSULE EVERY AFTERNOON AND 2 CAPSULES DAILY AT BEDTIME Authorizing Provider: ANNA IZQUIERDO APRN.CNP Physician: Torrie Call from pharmacy requesting refill. Please E-Scribe Last office visit 03/28/22 with [employer] virtual Next office visit None Scheduled NA Requested Prescriptions Pending Prescriptions Disp Refills gabapentin (NEURONTIN) 300 mg capsule [Pharmacy Med Name: GABAPENTIN 300 MG CAPSULE] 120 capsule 1 Sig: TAKE 1 CAPSULE BY MOUTH EVERY MORNING AND 1 CAPSULE EVERY AFTERNOON AND 2 CAPSULES DAILY AT BEDTIME Pharmacy Name: [facility]l documented in this encounter [facility] 12-14-2022 History of Present illness Narrative Images from the original note were not included. [facility] [place] [facility] NEURO-ONCOLOGY VIRTUAL VISIT NOTE (via [employer]) I have communicated my name and active licensure. The patient's identity and physical location were verified at the time of this visit. Either the patient or their legal claims service representative has been informed of the risks and benefits of -- and alternatives to -- treatment through a remote evaluation and consents to proceed with the evaluation remotely. VIRTUAL VISIT PROGRESS NOTE This is a virtual visit using Alternative video platform. It required patient-provider interaction for the medical decision making as documented below. Portions of this note are carried forward from note 11/24/21. This note is appropriately updated. 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 Headaches - continued under the care of headache clinic - Patient has our contact information and was advised to call if new symptoms, questions or concerns arise prior to next scheduled visit. - All questions were answered. I spent more than 30 minutes [id number]-[id number] with the patient and over half the time was devoted to counseling and/or coordination of care. Sonia Carrillo PA-C cc: Dr. 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 He completed opthalmology exam that was negative for papilledema. The patient completed MRI for headache workup. He has had headache for years that have slowly become worse and are not positional. He completed papilledema evaluation which was negative. Interval History: 11/24/21 The patient presents today with MRI completed locally. He reports daily bifrontal headaches for years. He also reports neck pain and completed x-ray showing DDD. He rates the pain a 6/10 and denies any other associated symptoms. He rarely takes Ibuprofen because he reports that it does not help. He is taking Gabapentin. He denies any other Neurological symptoms. 12/14/22 The patient presents today with MRI completed locally. He started under the care of headache clinic but was last seen in March 2022. He reports improved headaches. He reports he wakes up with a headache about 4 days per week. He is taking Gabapentin. He reports the headaches improve later in the day. He denies any other Neurological symptoms including lethary, gait imbalance, or blurry vision. SOCIAL HISTORY: Social History Tobacco Use Smoking status: Former Types: Cigarettes Start date: 08/19/1975 Quit date: 08/19/1976 Years since quittin.3 Smokeless tobacco: Never Substance Use Topics Alcohol use: Yes Comment: occassional Drug use: No PAST MEDICAL HISTORY Diagnosis Date Migraines FAMILY HISTORY Problem Relation Age of Onset Cancer Mother skin Cancer Father esophogeal other (grandparent [Other]) Other MT heart disease Current Outpatient Medications Medication Sig gabapentin (NEURONTIN) 300 mg capsule Take 1 capsule by mouth every morning AND 1 capsule every afternoon AND 2 capsules daily at bedtime. Do all this for 90 days. MULTIVITAMIN ORAL Take by mouth. cyproheptadine (PERIACTIN) 4 mg tablet Take 0.5-1 tablets by mouth every 12 hours as needed (for headache relief). galcanezumab-gnlm 120 mg/mL subcutaneous pen injector (EMGALITY) Inject 1 Pen subcutaneously once every month. Refrigerate. Do not shake. galcanezumab-gnlm 120 mg/mL subcutaneous pen injector (EMGALITY) Inject 2 Pens subcutaneously one time only for 1 dose. For first month only. Refrigerate. Do not shake. tamsulosin (FLOMAX) 0.4 mg Take 0.4 mg by mouth once daily. metoprolol succinate ER (TOPROL XL) 25 mg 24 hr tablet Take 25 mg by mouth once daily. atorvastatin (LIPITOR) 40 mg tablet Take 40 mg by mouth once daily. No current facility-administered medications for this visit. REVIEW OF SYSTEMS : Neurological : + headaches No complaint of tinnitus No complaint of decreased hearing No complaint of diplopia No complaints of blurred vision. No complaint of arm/leg numbness No problem with limb coordination No complaint of syncope No complaints of seizures. No complaints of memory changes or disorientation. General : Constitutional: No recent fever or weight loss. Eyes: No history of glaucoma or cataracts ENMT: No recent ear infection, nasal congestion, mouth sores or sore throat. CV: No history of chest pain, palpitations or leg swelling + HLD Respiratory: No history of SOB, wheezing or recent cough. Gastrointestinal: No history of nausea, vomiting, dysphagia or abdominal pain. Genitourinary: No history of hematuria or dysuria. +kidney stones. +BPH Musculoskeletal: No complaint of , unstable gait or arm/leg weakness + cervical DDD Psychiatric: No history of hallucinations, depression, or anxiety Objective VIDEO EXAM : ( If completed, performed via video enable technology) Virtual Physical Exam: Patient is in no acute distress. Mental status: Clear Speech: Fluent. NEUROLOGICAL EXAM: Higher integrative functions: Oriented to person, place & time. Attention Span and Concentration: Good. Language: Good comprehension. Fund of Knowledge: Good. 3rd,4th,6th CN:full extraocular movements. 5th CN: No decrease in facial sensation 7th CN: Facial muscles symmetric and strong. 12th CN: Tongue protrusion full and midline. .Coordination: Rapid alternating movements fast and smooth all limbs. No dysmetria No shuffling gait IMAGING STUDIES: MRI Brain WO/W IVCON 12/02/22 KPS SCORE: 90 documented in this encounter [facility] 11-14-2022 Miscellaneous Notes Images from the original note were not included. MRI order faxed to [facility] [phone], confirmation received. Thank you, Allison documented in this encounter [facility] 10-24-2022 Miscellaneous Notes Good Morning Mr. Valdivia, I spke w 1 off the secretaries again today. Once she get confirmation she'll give me back a call. I will call you personally , that way you can call and get the MRI scheduled. thanks, Sylvia documented in this encounter [facility] 09-19-2022 Miscellaneous Notes Pt needs an [place] pharmacy for gabapentin refills. Also, f/u appt needed. Please contact pt for [place] pharmacy and resend refill request and help him schedule f/u appt. The following approved medication requests have been transmitted electronically. Requested Prescriptions Refused Prescriptions Disp Refills gabapentin (NEURONTIN) 300 mg capsule [Pharmacy Med Name: GABAPENTIN 300 MG CAPSULE] 120 capsule 0 Sig: TAKE 1 CAPSULE BY MOUTH IN THE MORNING, 1 CAPSULE IN THE AFTERNOON, AND 2 CAPSULES AT NIGHT Refused By: AILYN SANTANA Reason for Refusal: A Refill not appropriate Ailyn Santana APRN.TRIAL CONSULTANT Physician: Torrie Call from pharmacy requesting refill. Please E-Scribe Last office visit 03/28/22 with Torrie virtual Next office visit None Scheduled NA Requested Prescriptions Pending Prescriptions Disp Refills gabapentin (NEURONTIN) 300 mg capsule [Pharmacy Med Name: GABAPENTIN 300 MG CAPSULE] 120 capsule 1 Sig: TAKE 1 CAPSULE BY MOUTH IN THE MORNING, 1 CAPSULE IN THE AFTERNOON, AND 2 CAPSULES AT NIGHT Pharmacy Name: YVONNE Morel documented in this encounter [facility] 06-15-2022 Miscellaneous Notes Patient last seen on 03/28/2022. documented in this encounter [facility] 05-24-2022 Miscellaneous Notes The following approved medication requests have been transmitted electronically. Requested Prescriptions Signed Prescriptions Disp Refills gabapentin (NEURONTIN) 300 mg capsule 120 capsule 2 Sig: TAKE 1 CAPSULE BY MOUTH IN THE MORNING, 1 CAPSULE IN THE AFTERNOON AND 2 CAPSULES AT NIGHT Authorizing Provider: AILYN SANTANA APRN.TRIAL CONSULTANT Physician: Torrie Call from patient requesting refill. Please E-Scribe Last office visit 03/28/2022 with Torrie virtual Next office visit not scheduled. Requested Prescriptions Pending Prescriptions Disp Refills gabapentin (NEURONTIN) 300 mg capsule [Pharmacy Med Name: GABAPENTIN 300 MG CAPSULE] 120 capsule 1 Sig: TAKE 1 CAPSULE BY MOUTH IN THE MORNING, 1 CAPSULE IN THE AFTERNOON AND 2 CAPSULES AT NIGHT Pharmacy Name: YVONNE Cui documented in this encounter [facility] 03-28-2022 History of Present illness Narrative Headache Center - Follow up Virtual Visit During this COVID-19 pandemic, patient's headache clinic evaluation was scheduled as a virtual visit using the following platform Zoom Rhiannon Valdivia was identified by name and and consented to the video evaluation and its limitations. Based on this evaluation it may be necessary for them to schedule a follow up evaluation with me or other neurologists for formal physical examination and, if necessary, other studies. Accompanied by: Spouse Primary Problem List: ACTIVE PROBLEM LIST Migraines Atypical Chest Pain Syncope Chief Complaint: headache Impression and Plan from last visit: Dr. Molina 12/21/21 IMPRESSION: Rhiannon Valdivia is a 66 year old year old male, with a history of chronic migraine, often upon wakening. ICHD-3 Diagnosis: Chronic Migraine Headache (CM) PLAN: Mateo Galindo was denied by insurance, so he was started on emgality Interval Headache History: Rhiannon Valdivia is a 66 year old year old male, with a history of migraines, kidney stones, syncope, following up today virtually for migraine. Since the last visit, the patient states that his headaches have not changed. He was unable to start emgality b/c the copay was hundreds of dollars with medicare. Preventative: metoprolol (outside) 25 mg, gabapentin 300 mg (outside) Abortive: advil sinus Denies SEs of gabapentin Medications effective? sometimes # of doses of abortive medications per month: 10-12 days per month History of MT/CAD/Stroke: No Concerns today: never started emgality d/t cost Headache 1 Onset: 1972 Location: bilateral, retro-orbital, frontal and temporal (R and/or L sided) Quality/Description: throbbing Associated Symptoms: Photophobia: yes Phonophobia: yes Nausea: no Other symptoms: dizziness and neck pain (imbalance at times) Worse with activity: yes Number of migraine headache days/month: 10 Migraine headache severity: 6 (6/10 when he wakes up then a 4/10 after a cup of coffee)/10 Number of NON-migraine headache days/month: 20 Non-migraine headache severity: 5 Number of headache free days/month: 0 Duration of headaches with treatment: 4 hours Current abortive treatment: Advil sinus Triggers: alcohol and sleep- too little Relieving factors: caffeine Most common time of day for headache to begin: upon awakening Prodrome: none Aura: none Days missed from work or school in the last month: 0 days Headache status since the last visit: same Lifestyle: Sleep: sometimes has a hard time falling asleep- normally gets about 6 hours sleep; snores sometimes Diet: varied, balanced Exercise: walking daily Retired from factory work Prior Therapies Duration of Use Dose Reason for Discontinuation Anti-Convulsant Gabapentin (Neurontin) Topiramate (Topamax, Trokendi XL, Qudexy) nerver tried- contraindicated d/t kidney stones Anti-Depressant and Antipsychotic Amitriptyline (Elavil) helped, then lost efficacy Anti-Migraine Sumatriptan (Imitrex, Sumavel) wakes up with CRUMP, so cannot take at onset Blood Pressure Metoprolol (Lopressor,Toprol XL) Over the Counter Medications Ibuprofen (Advil, Motrin) PAST MEDICAL HISTORY Diagnosis Date Migraines PAST SURGICAL HISTORY Procedure Laterality Date PAST SURGICAL HISTORY OF T & A PAST SURGICAL HISTORY OF hernia repair PAST SURGICAL HISTORY OF sinus for polyp PAST SURGICAL HISTORY OF eye surgery ALLERGIES Allergen Reactions Ceclor [Cefaclor] Unknown Current Medications: galcanezumab-gnlm 120 mg/mL subcutaneous pen injector (EMGALITY) Inject 1 Pen subcutaneously once every month. Refrigerate. Do not shake. galcanezumab-gnlm 120 mg/mL subcutaneous pen injector (EMGALITY) Inject 2 Pens subcutaneously one time only for 1 dose. For first month only. Refrigerate. Do not shake. tamsulosin (FLOMAX) 0.4 mg Take 0.4 mg by mouth once daily. metoprolol succinate ER (TOPROL XL) 25 mg 24 hr tablet Take 25 mg by mouth once daily. gabapentin (NEURONTIN) 300 mg capsule Take 300 mg by mouth once daily. atorvastatin (LIPITOR) 40 mg tablet Take 40 mg by mouth once daily. I have reviewed the Roger Status Assessment responses and discussed these with the patient: yes Ailyn Santana APRN.TRIAL CONSULTANT HEADACHE SCORES: Headache Questions 12/18/2021 03/16/2022 ID Migraine Screener: 2 (Positive) - ER visits in the last year: 0 - ER visits since last office visit: - 0 Hospital stays in the last year: 0 - Hospital stays since last office visit - 0 Limited ADLs in the last month: 0 - Days missed from work or school in the last month: 0 - Days headache pain free in the last month: 5 10 Days per month with ALL of the following symptoms - decreased productivity, light sensitivity and nausea: 0 - PRN medication usage in the last month: 0 - Patient impression of improvement since last visit: - No change HIT-6 12/18/2021 03/16/2022 HIT-6 59 (Substantial impact) 62 (Severe impact) DEANNE - 2/7 SCORES 12/18/2021 12/18/2021 03/16/2022 DEANNE-2 Score 2 2 2 Migraine Specific QOL - Higher scores indicate better HRQL 12/18/2021 03/16/2022 Role Function-Restrictive Transformed Score (range: 0-100) 60 74.29 Role Function-Preventive Transformed Score (range: 0-100) 65 80 Emotional Function Transformed Score (range: 0-100) 53.33 66.67 PHQ-9 12/18/2021 12/18/2021 03/16/2022 Score 3 3 4 Labs to Review: Yes, stable CMP & CBC in care everywhere December 2021 New Health Issues: No Review of Systems: See HPI Physical Examination: Vital Signs: No vital signs taken due to virtual visit. General: well appearing, in no acute distress, alert Pain Behaviors: no pain behaviors observed Neurological: Mental Status: Alert and oriented to person, place and time. Affect is normal and appropriate. Speech is spontaneous and fluent without dysarthria, normal in rate, volume and articulation, and clear, coherent, and relevant. Short and exterminator memory, cognition and general fund of knowledge are good. Attention span and concentration are good. HEENT: Head is normocephalic and features were symmetric. Musculoskeletal: Patient able to sit up right in chair for entirety of visit. Cranial Nerves: III, IV, -EOMI: full. VII-face is symmetric without evidence of weakness. VIII-hearing intact. Physical exam limited due to virtual visit. IMPRESSION: Rhiannon Valdivia is a 66 year old year old male, with a history of migraines, kidney stones, syncope. His neurological examination is essentially normal at this visit. Mr. Valdivia still has an almost daily headache. He was unable to start emgality due to the high copay. We discussed options for prevention including doxepin (to help with sleep and CRUMP) vs. Increasing gabapentin. Since he has responded well to the gabapentin, he would like to increase gabapentin. He will also trial periactin prn for CRUMP he believes are related to allergies/sinuses. Diagnosis: Chronic mixed headache syndrome (primary encounter diagnosis) Migraine without aura and without status migrainosus, not intractable Cervicalgia Morning headache Snoring Red Flags: none PLAN: Limit pain meds and triptans to no more than 2 days per week to avoid medication overuse headache. This includes limiting OTC pain meds such as tylenol, ibuprofen, Excedrin, aleve, etc. Increase gabapentin every two weeks to 300 mg in morning and 300 mg in afternoon and 600 mg at night (1,200 mg daily) See AVS for instructions. Start periactin as needed for headaches that you believe are related to sinuses/allergies. See Sleep medicine to discuss difficulty falling asleep, morning headaches, and snoring and to rule out sleep apnea (DIANA). Future considerations: doxepin, PT for neck pain, GONBs, emgality- talk to financial resource team; kameron Patient verbalized understanding and agreed to the treatment plan. HEADACHE MANAGEMENT: (You are the primary guardian of your health and headache. Keep track of all medications: This includes the reason for use, side effects and benefits.) MEDICATION TREATMENT: Medications to Start Taking gabapentin (NEURONTIN) 300 mg capsule Take 1 capsule by mouth in the morning and 1 in the afternoon. Take 2 capsules by mouth at night. cyproheptadine (PERIACTIN) 4 mg tablet Take 0.5-1 tablets by mouth every 12 hours as needed (for headache relief). Written educational materials given. Headache education was done. Discussed triggers and lifestyle modification including increased oral hydration, decreased caffeine, exercise and stress management. Discussed treatment options including preventive and acute medications, natural supplements, and infusion therapy. Discussed medication overuse headache and to limit use of acute treatments to no more than 2 days/week or 10 days/month. Discussed medication side effects, adverse reactions and drug interactions. Written educational materials and patient instructions provided. RESEARCH: None at this time Follow-up: 2 months Level of Service: Virtual Visit 45 minutes Ailyn Santana APRN.DIOGENES Headache Section [facility] March 28, 2022 documented in this encounter [facility] 03-28-2022 Instructions Ailyn Santana APRN.DIOGENES - 03/28/2022 10:00 AM EDT It was nice to meet you today and a pleasure to care for you! PLAN: Limit pain meds and triptans to no more than 2 days per week to avoid medication overuse headache. This includes limiting OTC pain meds such as tylenol, ibuprofen, Excedrin, aleve, etc. Increase gabapentin to 300 mg in morning and 300 mg afternoon and 600 mg at night. See below for instructions. Start periactin as needed for headaches that you believe are related to sinuses/allergies. Take a half to 1 tab as needed to help with headaches. See Sleep medicine to discuss difficulty falling asleep, morning headaches, and snoring and to rule out sleep apnea (DIANA). Referral placed. You have been prescribed Periactin (Cyproheptadine) to help break with your headaches. Side effects may include: dry mouth, drowsiness, nausea, dizziness, fatigue. Hydrate and drink plenty of water while taking this medication. If this medication causes too many side effects for you, please let me know and we can discuss a different option. Neurontin (Gabapentin) Neurontin (Gabapentin) is an anti-seizure medication which is also useful for the management of headache or migraine, chronic pain, nerve irritation, certain types of dizziness and restless leg syndrome. Side effects include fatigue, drowsiness, blurred vision, tremor, and stomach upset.. Due to possible drowsiness or dizziness, use caution when operating machinery, driving, or engaging in activities, which require alertness. Take Neurontin at least 2 (two) hours after taking any antacids as these interfere with the absorption of medication by the body. Limit your alcohol intake while taking this medication. Neurontin should not be stopped abruptly. Gabapentin 300 mg: Increase dose every 14 days Week 1-2: Two capsules at night only Week 3-4: One capsule in morning and two capsules at night Week 5-6: One capsule in the morning, one capsule at midday and two capsules at night for a total of 1,200 mg per day. Remain at this dose until our follow up appointment. Stop increasing the dose whenever you feel it relieves symptoms. Please advise, it may take 3 to 6 weeks to show benefit for your pain. Avoiding Medication Overuse Headache (Rebound Headache): Based on current research, the medications listed below and their frequency of use may convert an episodic headache (particularly migraine) into a chronic daily headache (any headache occurring 15 or more days per month for at least 4 hours per day): ---> Over the counter medications, NSAIDS and combination analgesics: -If taken more than 2 days per week, or more than 10 days per month these can lead to rebound headache. -These include medications such as Acetaminophen (Tylenol), Naproxen (Aleve), Ibuprofen (Advil, Motrin), Acetaminophen/Caffeine (Excedrin), Indocin (Indomethacin), Acetaminophen/Dichloralphenazone/ Isometheptene (Midrin), Aspirin (ok to continue if taking for medical reasons), cold remedies and sleep-promoting agents, among others. ---> Triptans: -If taken more than 2 days per week, or more than 10 days per month these can lead to rebound headache. -These include Sumatriptan (Imitrex), Sumatriptan/Naproxen (Treximet), Rizatriptan (Maxalt), Almotriptan (Axert), Zolmitriptan (Zomig), Eletriptan (Relpax), Naratriptan (Amerge), Frovatriptan (Frova). ---> Opiates/Opioids (Narcotics): -If taken 8 days or more per month these can lead to rebound headache. Some research suggests that even infrequent use of these medications makes migraine specific medications such as triptans and NSAIDs less effective. -These include any narcotics such as Acetaminophen/Hydrocodone (Vicodin), Acetaminophen/Oxycodone (Percocet), Acetaminophen/Propoxyhene (Darvocet), Acetaminophen/Codeine (Tylenol #3, #4), Tramadol (Ultram), Acetaminophen/Tramadol (Ultracet), Oxycodone (OxyContin), Hydromorphone (Dilaudid), Fentanyl, Butorphanol (Stadol), Morphine or any form of a Morphine derivative. ---> Butalbital containing medications: -If taken 5 or more days per month these can lead to rebound headache. These are the worst offenders. -These include Acetaminophen/Butalbital/Caffeine (Fioricet, Esgic) Acetaminophen/Butalbital/Caffeine /Codeine (Fioricet with Codeine), Aspirin/Butalbital/Caffeine (Fiorinal), Aspirin/Butalbital/Caffeine/Codei ne (Fiorinal with Codeine). Limit use of acute treatments (including opioids, butalbital, triptans, and wuzd-ivz-hlwgexf medications such as tylenol, ibuprofen, naproxen, excedrin, etc.) to no more than 2 days per week or less than 10 days per month to prevent medication overuse headache (rebound headache). Using these medications more than 9 days per month can worsen headaches and cause a rebound headache. Limit use of all acute treatments combined to less than 10 days per month. General Headache Education and Headache Prevention Strategies: 1. Maintain a headache diary; learn to identify and avoid triggers. Common triggers include: Emotional triggers: Emotional/Upset family or friends Emotional/Upset occupation Business reversal/success Anticipation anxiety Crisis-serious Post-crisis periodNew job/position Physical triggers: Vacation Day Weekend Strenuous Exercise High Altitude Location New Move Menstrual Day Physical Illness Oversleep/Not enough sleep Weather changes Light: Photophobia or light sesnitivity treatment involves a balance between desensitization and reduction in overly strong input. Use dark polarized glasses outside, but not inside. Avoid bright or fluorescent light, but do not dim environment to the point that going into a normally lit room hurts. Consider FL-41 tint lenses, which reduce the most irritating wavelengths without blocking too much light. These can be obtained at [employer] or ebooxter.com Foods: see list below. 2. Limit use of acute treatments (dmnm-qxd-jjtydle medications, triptans, etc.) to no more than 2 days per week or 10 days per month to prevent medication overuse headache (rebound headache). 3. Follow a regular schedule (including weekends and holidays): Don't skip meals. Eat a balanced diet. 8 hours of sleep nightly. Minimize stress. Exercise 30 minutes per day. Walking is great exercise. Being overweight is associated with a 5 times increased risk of chronic migraine. Keep well hydrated and drink 6-8 glasses of water per day. 4. Initiate non-pharmacologic measures at the earliest onset of your headache. Rest and quiet environment. Relax and reduce stress. Ccoupze8Lelqi is a free zain that can instruct you on some simple relaxtion and breathing techniques. Http://[employer] is a free website that provides teaching videos on relaxation. Also, there are many apps that can be downloaded for mindful relaxation. An zain called YOGA NIDRA will help walk you through mindfulness. Cold compresses. 5. Don't wait!! Take the maximum allowable dosage of prescribed medication at the first sign of migraine. 6. Compliance: Take prescribed medication regularly as directed and at the first sign of a migraine. 7. Communicate: Call your physician when problems arise, especially if your headaches change, increase in frequency/severity, or become associated with neurological symptoms (weakness, numbness, slurred speech, etc.). 8. Headache/pain management therapies: Consider various complementary methods, including medication, behavioral therapy, psychological counselling, biofeedback, massage therapy, acupuncture, dry needling, and other modalities. Such measures may reduce the need for medications. Counseling for pain management, where patients learn to function and ignore/minimize their pain, seems to work very well. 9. Recommend changing family's attention and focus away from patient's headaches. Instead, emphasize daily activities. If first question of day is 'How are your headaches/Do you have a headache today?', then patient will constantly think about headaches, thus making them worse. Goal is to re-direct attention away from headaches, toward daily activities and other distractions. 10. Helpful Websites: www.AmericanHeadacheSociety.org www.migrainetrust.org www.headaches.org www.migraine.org.uk www.achenet.org 11. HEADACHE EXPECTATIONS: There are many types of headaches, and only a rare few in which complete relief can be expected. In general, there is no cure for headache, especially migraine based headaches. There is nothing available that completely prevents headaches from occurring, breaking through, or having periodic flare-ups and fluctuations. Regardless of what you are using on a daily basis for prevention, episodic headaches should still be expected, and periods where frequency may escalate and fluctuate are unavoidable. There is no quick fix for most headaches. Furthermore, the longer you have had high frequency headaches (such as chronic daily headache), the longer it will likely take to expect any improvement. In fact, some people will never improve, regardless of how many medications or other treatments we try. Our treatment strategy is to evaluate for possible causes of your headache, although testing is usually always normal, even in cases of daily continuous headaches for years. Most types of headache such as migraine are electrical brain disorders (similar to how epilepsy is an electrical brain disorders). Therefore, there is no testing that will reveal this dysfunctional electrical circuitry such on MRI, or other testing. We try to find a medication that may help lessen the frequency and/or severity of your headaches. The goal is not to completely stop them from happening, although if that happens, great! Different people respond to different medications, and some people just don't respond to anything, so it's usually a matter of trying different options. We can not predict if or when exactly you will respond to a treatment that we provide. Preventive headache medications take 4-6 weeks to start working, and 2-3 months to see full effect, assuming you reach an effective dose. Therefore, calling or messaging frequently because you have a headache flare prior to the 3 month everton is unlikely to change anything, and unfortunately there is nothing available that will expedite this, so please try to avoid this. Our recommendation will generally be to give it adequate time first. If you are unable to wait it out for medications to work, we can also try IV infusions for some temporary relief. In general, the best that preventive medications or other treatments (including Botox) are able to offer in migraine management (variable in other headache types) is a 50% improvement in frequency and/or severity of headache. That is our goal, and any additional benefit is considered a bonus. Some people do significantly better than this, others do not get close to this. Therefore, if your headaches are not improving by at least 3 months on your preventive strategy, contact us and we can discuss further adjustments. Keep in mind that complete headache cure is not a realistic expectation. Our Team: The nursing staff, and medical assistants are a major part of YOUR TREATMENT TEAM and will be handling your phone calls and inquiries, if any. Unless explicitly told otherwise at the time of your office visit, your study results and ensuing treatment plans will be released via [employer] and discussed during your follow-up appointment. Follow-up appointments are primarily provided by the Nurse Practitioners and Physician s Assistants in order to provide timely, accessible care. [employer]: Please ask the schedulers to give you an activation code. The main way of communication is by [employer] rather than phone lines, so if you have not signed up, please do so. [employer] is also the way that you can review your labs and testing. We are not able to contact everyone to tell them results are normal. If you do not hear back from us regarding testing you have had, it should be considered normal or within normal range. If you have any questions about the results, you are free to message us. [employer] is meant for simple questions regarding medications, possible side effects, or other simple straight forward questions in limited sentences, rather than multiple paragraphs of discussion. [employer] is not meant for, or efficient for these complex questions, extensive questions, extensive medication adjustments, complex new symptoms or concerns. These issues beyond simple questions require a follow up visit with myself, one of our physician assistants, nurse practitioners, or a Virtual Visit via computer or smart phone, as detailed further down. Please contact [employer] if you are having issues with [employer] or logging in to your virtual visit appointment. You can reach them at [phone] Refills: Please pay attention to when your refills will need to be renewed. Due to the volume of phone calls daily, this could potentially take a few days, although we certainly try to honor your refill requests as soon as we can. You should call at least 1 week in advance of needing a refill to ensure you do not run out of medication. Keep in mind that refill requests on Fridays may not be filled until the following week. The Headache and Facial Pain Section does not complete disability or any other insurance-related forms/documention. We will complete FMLA forms. All of the office notes, study results, and other pertinent documentation generated as part of your evaluation will be available to you and to your Primary Care Physician (PCP). Use of this material to complete such forms will be at the discretion of your PCP/referring physician. HEADACHE DIET: Foods and beverages which may trigger migraine Note that only 20% of headache patients are food sensitive. You will know if you are food sensitive if you get a headache consistently 20 minutes to 2 hours after eating a certain food. Only cut out a food if it causes headaches, otherwise you might remove foods you enjoy! What matters most for diet is to eat a well balanced healthy diet full of vegetables and low fat protein, and to not miss meals. Chocolate, other sweets ALL cheeses except cottage and cream cheese Dairy products, yogurt, sour cream, ice cream Liver Meat extracts (Bovril, Marmite, meat tenderizers) Meats or fish which have undergone aging, fermenting, pickling or smoking. These include: Hotdogs,salami,Lox,sausage, mortadellas,smoked salmon, pepperoni, Pickled oconnell Pods of broad denny (Greenlandic beans, Gabonese pea pods, Bahraini (steffanie) beans, aguilera and navy beans Ripe avocado, ripe banana Yeast extracts or active yeast preparations such as Hay's or Ok's (commercial bakes goods are permitted) Tomato based foods, pizza (lasagna, etc.) MSG (monosodium glutamate) is disguised as many things; look for these common aliases: Monopotassium glutamate Autolysed yeast Hydrolysed protein Sodium caseinate flavorings all natural preservatives Nutrasweet Avoid all other foods that convincingly provoke headaches. documented in this encounter [facility] 03-23-2022 History of Present illness Narrative NO SHOW Primary Problem List: ACTIVE PROBLEM LIST Migraines Atypical Chest Pain Syncope Impression and Plan from last visit: Dr. Molina 12/21/21 IMPRESSION: Rhiannon Valdivia is a 66 year old year old male, with a history of chronic migraine, often upon wakening. ICHD-3 Diagnosis: Chronic Migraine Headache (CM) PLAN: Mateo Galindo was denied by insurance, so he was started on emgality Interval Headache History: Rhiannon Valdivia is a 66 year old year old male, with a history of migraines, syncope, following up today virtually for Preventative: emgality, metoprolol (outside) 25 mg, gabapentin 300 mg (outside) Abortive: Considerations: aimovig, topamax, labs Prior Therapies Duration of Use Dose Reason for Discontinuation Anti-Convulsant Gabapentin (Neurontin) Anti-Depressant and Antipsychotic Amitriptyline (Elavil) Anti-Migraine Sumatriptan (Imitrex, Sumavel) Blood Pressure Metoprolol (Lopressor,Toprol XL) PAST MEDICAL HISTORY Diagnosis Date Migraines PAST SURGICAL HISTORY Procedure Laterality Date PAST SURGICAL HISTORY OF T & A PAST SURGICAL HISTORY OF hernia repair PAST SURGICAL HISTORY OF sinus for polyp PAST SURGICAL HISTORY OF eye surgery ALLERGIES Allergen Reactions Ceclor [Cefaclor] Unknown Current Medications: galcanezumab-gnlm 120 mg/mL subcutaneous pen injector (EMGALITY) Inject 1 Pen subcutaneously once every month. Refrigerate. Do not shake. galcanezumab-gnlm 120 mg/mL subcutaneous pen injector (EMGALITY) Inject 2 Pens subcutaneously one time only for 1 dose. For first month only. Refrigerate. Do not shake. tamsulosin (FLOMAX) 0.4 mg Take 0.4 mg by mouth once daily. metoprolol succinate ER (TOPROL XL) 25 mg 24 hr tablet Take 25 mg by mouth once daily. gabapentin (NEURONTIN) 300 mg capsule Take 300 mg by mouth once daily. atorvastatin (LIPITOR) 40 mg tablet Take 40 mg by mouth once daily. HEADACHE SCORES: Headache Questions 12/18/2021 03/16/2022 ID Migraine Screener: 2 (Positive) - ER visits in the last year: 0 - ER visits since last office visit: - 0 Hospital stays in the last year: 0 - Hospital stays since last office visit - 0 Limited ADLs in the last month: 0 - Days missed from work or school in the last month: 0 - Days headache pain free in the last month: 5 10 Days per month with ALL of the following symptoms - decreased productivity, light sensitivity and nausea: 0 - PRN medication usage in the last month: 0 - Patient impression of improvement since last visit: - No change HIT-6 12/18/2021 03/16/2022 HIT-6 59 (Substantial impact) 62 (Severe impact) DEANNE - 2/7 SCORES 12/18/2021 12/18/2021 03/16/2022 DEANNE-2 Score 2 2 2 Migraine Specific QOL - Higher scores indicate better HRQL 12/18/2021 03/16/2022 Role Function-Restrictive Transformed Score (range: 0-100) 60 74.29 Role Function-Preventive Transformed Score (range: 0-100) 65 80 Emotional Function Transformed Score (range: 0-100) 53.33 66.67 PHQ-9 12/18/2021 12/18/2021 03/16/2022 Score 3 3 4 Labs to review: NO Answers for HPI/ROS submitted by the patient on 03/16/2022 How many days have you been completely free of headache pain in the last month? : 10 documented in this encounter [facility] 01-10-2022 Miscellaneous Notes Ambulatory Pharmacy Prior Authorization Note Provider Intervention Required?: No- Pharmacy completed on your behalf. Drug: Emgality 120MG/ML auto-injectors (migraine) Cover My Meds Salazar: [id number] Determination: Approved Prior Authorization/Case #: [id number] Prior Authorization Expiration: 04/09/22 Time to PA Submission in CMM: 15 min Time to PA Determination in CMM: Same day Additional Information: PLEASE NOTE: Pt will need follow up office visit to review/document efficacy and tolerability of treatment before prior auth expiration. Please ensure a future follow up appt is scheduled with your patient. This will ensure no interruption in patient's ability to obtain medication refills. Prescriptions will now be processed through [facility] for determination of next steps. For questions relating to this submission, please contact [facility] [phone] [facility] received prescription(s) for Emgality 120MG/ML auto-injectors (migraine) . Benefits investigation was conducted, indicating that a prior authorization is required. PA was initiated and pending review through [employer]. All pertinent clinical information was submitted to insurance. CMM Salazar: [id number] Ordering Provider: MD Erasmo Calderon Alisha, RN [facility] P: , F: documented in this encounter [facility] 12-23-2021 Miscellaneous Notes Prescription for Ajovy is not covered by patient's insurance and rejects as a non-formulary product. Patient's insurance prefers Aimovig or Emgality. Can [facility] receive a new E-Script for a preferred insurance product, if appropriate? Thank you! Teodora Mcgraw sriram [facility] [phone] documented in this encounter [facility] 11-24-2021 History of Present illness Narrative Images from the original note were not included. [facility] NEURO-ONCOLOGY VIRTUAL VISIT NOTE (via [employer]) This is a virtual visit using HIPAA compliant video platform. It required patient-provider interaction for the medical decision making as documented below. PURPOSE OF VISIT: Consultation requested by Dr. Ramirez for an opinion regarding subependymoma and my final recommendations will be communicated to the referring physician by way of shared medical record or letter to requesting physician via US mail. 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 Headaches - Referral to headache clinic - Patient has our contact information and was advised to call if new symptoms, questions or concerns arise prior to next scheduled visit. - All questions were answered. I spent more than 30 minutes [id number] with the patient and over half the time was devoted to counseling and/or coordination of care. Sonia Carrillo PA-C cc: Dr. 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 He completed opthalmology exam that was negative for papilledema. The patient completed MRI for headache workup. He has had headache for years that have slowly become worse and are not positional. He completed papilledema evaluation which was negative. Interval History: 11/24/21 The patient presents today with MRI completed locally. He reports daily bifrontal headaches for years. He also reports neck pain and completed x-ray showing DDD. He rates the pain a 6/10 and denies any other associated symptoms. He rarely takes Ibuprofen because he reports that it does not help. He is taking Gabapentin. He denies any other Neurological symptoms. SOCIAL HISTORY: Social History Tobacco Use Smoking status: Former Smoker Types: Cigarettes Start date: 08/19/1975 Quit date: 08/19/1976 Years since quittin.2 Smokeless tobacco: Never Used Substance Use Topics Alcohol use: Yes Comment: occassional Drug use: No PAST MEDICAL HISTORY Diagnosis Date Migraines FAMILY HISTORY Problem Relation Age of Onset Cancer Mother skin Cancer Father esophogeal other (grandparent [Other]) Unknown MT heart disease Current Outpatient Medications Medication Sig tamsulosin (FLOMAX) 0.4 mg Take 0.4 mg by mouth once daily. metoprolol succinate ER (TOPROL XL) 25 mg 24 hr tablet Take 25 mg by mouth once daily. gabapentin (NEURONTIN) 300 mg capsule Take 300 mg by mouth once daily. atorvastatin (LIPITOR) 40 mg tablet Take 40 mg by mouth once daily. amitriptyline (ELAVIL) 50 mg tablet Take 50 mg by mouth daily at bedtime. (Patient not taking: Reported on 05/07/2021 ) No current facility-administered medications for this visit. REVIEW OF SYSTEMS : Neurological : + headaches No complaint of tinnitus No complaint of decreased hearing No complaint of diplopia No complaints of blurred vision. No complaint of arm/leg numbness No problem with limb coordination No complaint of syncope No complaints of seizures. No complaints of memory changes or disorientation. General : Constitutional: No recent fever or weight loss. Eyes: No history of glaucoma or cataracts ENMT: No recent ear infection, nasal congestion, mouth sores or sore throat. CV: No history of chest pain, palpitations or leg swelling + HLD Respiratory: No history of SOB, wheezing or recent cough. Gastrointestinal: No history of nausea, vomiting, dysphagia or abdominal pain. Genitourinary: No history of hematuria or dysuria. +kidney stones. +BPH Musculoskeletal: No complaint of , unstable gait or arm/leg weakness + cervical DDD Psychiatric: No history of hallucinations, depression, or anxiety Objective VIDEO EXAM : ( If completed, performed via video enable technology) Virtual Physical Exam: Patient is in no acute distress. Mental status: Clear Speech: Fluent. NEUROLOGICAL EXAM: Higher integrative functions: Oriented to person, place & time. Attention Span and Concentration: Good. Language: Good comprehension. Fund of Knowledge: Good. 3rd,4th,6th CN:full extraocular movements. 5th CN: No decrease in facial sensation 7th CN: Facial muscles symmetric and strong. 8th CN: Hears finger rub well bilaterally. 12th CN: Tongue protrusion full and midline. .Coordination: Rapid alternating movements fast and smooth all limbs. No dysmetria IMAGING STUDIES: MRI Brain WO/W IVCON 11/23/21 KPS SCORE: 90 documented in this encounter [facility] 11-24-2021 History of Present illness Narrative Appointment rescheduled to later in the day since images were not available in Epic. 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 Episodic cluster 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 [facility] Diagnosis NO SHOW- Primary [facility] Diagnosis Migraine without aura and without status migrainosus, not intractable- Primary Migraine without aura, without mention of intractable migraine without mention of status migrainosus Chronic mixed headache syndrome Other headache syndromes Cervicalgia Morning headache Headache Snoring Other dyspnea and respiratory abnormality Insomnia, unspecified type [facility] Diagnosis Migraine without aura and without status migrainosus, not intractable Migraine without aura, without mention of intractable migraine without mention of status migrainosus Chronic mixed headache syndrome Other headache syndromes [facility] Diagnosis Migraine without aura and without status migrainosus, not intractable Migraine without aura, without mention of intractable migraine without mention of status migrainosus Chronic mixed headache syndrome Other headache syndromes [facility] 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 [facility] Diagnosis Migraine without aura and without status migrainosus, not intractable Migraine without aura, without mention of intractable migraine without mention of status migrainosus Chronic mixed headache syndrome Other headache syndromes [facility] Diagnosis Migraine without aura and without status migrainosus, not intractable Migraine without aura, without mention of intractable migraine without mention of status migrainosus Chronic mixed headache syndrome Other headache syndromes [facility] Diagnosis Migraine without aura and without status migrainosus, not intractable- Primary Migraine without aura, without mention of intractable migraine without mention of status migrainosus Medication management Encounter for long-term (current) use of other medications Chronic mixed headache syndrome Other headache syndromes Morning headache Headache Chronic daily headache Headache Cervicalgia [facility] Migraine without aura and without status migrainosus, not intractable Migraine without aura, without mention of intractable migraine without mention of status migrainosus Chronic mixed headache syndrome Other headache syndromes [facility] 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 Spinal stenosis of cervical region Spinal stenosis in cervical region [facility] Neck pain- Primary Cervicalgia Spinal stenosis in cervical region [facility] Diagnosis Neck pain- Primary Cervicalgia Spinal stenosis in cervical region 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 at elbow of right upper extremity Cervical spondylosis without myelopathy Cervicogenic headache Headache Cluster headache, not intractable, unspecified chronicity pattern [facility] Diagnosis Basal cell carcinoma (BCC) of skin of left upper extremity including shoulder- Primary documented in this encounter [facility]* Diagnosis Cervical spondylosis without myelopathy- Primary Cervicogenic headache Headache [facility] Cervical spondylosis without myelopathy- [facility] Basal cell carcinoma (BCC) of skin of right upper extremity including shoulder- Primary Encounter for removal of sutures documented in this encounter [facility]* Diagnosis Melanocytic nevus of trunk- Primary Benign neoplasm of skin of trunk, except scrotum Hx of basal cell carcinoma Personal history of other malignant neoplasm of skin Inflamed seborrheic keratosis Actinic keratosis Seborrheic keratosis Neoplasm of unspecified behavior of bone, soft tissue, and skin documented in this encounter [facility] HealthcareEvaluation note* Diagnosis LFT elevation- Primary Elevated glucose Other abnormal glucose documented in this encounter [facility]* Diagnosis Cervical spondylosis without myelopathy- Primary [facility] Diagnosis Dermatitis- Primary Contact dermatitis and other eczema, due to unspecified cause Strain of lumbar region, initial encounter Subependymoma (CMS/HCC) Neoplasm of uncertain behavior of brain and spinal cord documented in this encounter [facility]* Diagnosis Brain lesion [G93.9]- Primary Other conditions of brain [facility] 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 Brain lesion Other conditions of brain [facility] Diagnosis Seborrheic keratosis- Primary Bacterial folliculitis Other specified disease of hair and hair follicles Neoplasm of unspecified behavior of bone, soft tissue, and skin Melanocytic nevus of trunk Benign neoplasm of skin of trunk, except scrotum Lentigines documented in this encounter [facility]* Diagnosis Routine general medical examination at health care facility- Primary Routine general medical examination at a health care facility ACP (advance care planning) Other specified counseling Subependymoma (CMS/HCC) Neoplasm of uncertain behavior of brain and spinal cord Benign prostatic hyperplasia with incomplete bladder emptying Spondylosis of cervical region without myelopathy or radiculopathy Pure hypercholesterolemia (CMS/HCC) Pure hypercholesterolemia Strain of lumbar region, initial encounter Lumbar pain Lumbago documented in this encounter [facility] Healthcare[facility]* Diagnosis Rash and other nonspecific skin eruption [facility] N[facility] No data available for this section [facility] progress note No data available for this section [facility] Chief Complaint and Reason for Visit Chief Complaint d32.9 Chief Complaint d43.2 Chief Complaint d43.2 m48.02 Chief Complaint Admit Date B/V, neck pain June 18, 2024 8 :30am Chief Complaint Admit Date Bobby only; Giancarlo, Neck & back October 5t h2024 2:00pm Chief Complaint Admit Date Bobby only; Giancarlo, Neck & back October 5t h2024 2:00pm d43.2 December 24, 2024 10:11a m Advance Directives Advance Directive Response Recorded Date/ Time Advance Directives No February 15 4:12pm Advance Directive Response Recorded Date/ Time Advance Directives No February 15 3:12pm Reason for Referral Specialty Diagnoses / Procedures Referred By Jasen vergara Referred To Contact Diagnoses Intractable episodic cluster headache Procedures CONSULT TO HEADACHE CLINIC OFFICE/OUTPATIENT [facility] MDM 60-74 MINUTES Sonia Carrillo PA-C [address] [place] [address] Referral ID Status Reason Start Date Expiration Date Visits Requested Visits Authorized [id number] Pending Review PCP Requested Referral 11/24/2021 11/24/2022 1 1 Specialty Diagnoses / Procedures Referred By Contac t Referred To Contact MR IMAGING Diagnoses Subependymoma (HCC) Procedures MRI BRAIN WO/W IVCON MRI BRAIN BRAIN STEM W/O W/CONTRAST MATERIAL Sonia Carrillo PA-C [address] [place] [address] Mr Imaging Referral ID Status Reason Start Date Expiration Date Visits Requested Visits Authorized [id number] Pending Review Auto-Generat ed Referral 11/24/2021 12/24/2022 1 1 Specialty Diagnoses / Procedures Referred By Contac t Referred To Contact Diagnoses Cervicalgia Migraine without aura and without status migrainosus, not intractable Chronic mixed headache syndrome Procedures PROVIDER ORDERED FOLLOW UP OFFICE/OUTPATIENT [facility] 60-74 MINUTES Ailyn Santana APRN.TRIAL CONSULTANT [address] [place] [address] Referral ID Status Reason Start Date Expiration Date Visits Requested Visits Authorized [id number] Pending Review PCP Requested Referral 05/28/2022 03/28/2023 1 1 Specialty Diagnoses / Procedures Referred By Contac t Referred To Contact Diagnoses Morning headache Snoring Insomnia, unspecified type Procedures CONSULT TO SLEEP MEDICINE - ADULT OFFICE/OUTPATIENT [facility] 60-74 MINUTES Ailyn Santana APRN.TRIAL CONSULTANT [address] [place] [address] Referral ID Status Reason Start Date Expiration Date Visits Requested Visits Authorized [id number] Pending Review PCP Requested Referral 03/28/2022 03/28/2023 1 1 Referral ID Status Reason Start Date Expiration Date Visits Requested Visits Authorized [id number] Pending Review Auto-Generat ed Referral 12/14/2022 01/13/2024 1 1 Specialty Diagnoses / Procedures Referred By Contac t Referred To Contact Diagnoses Migraine without aura and without status migrainosus, not intractable Morning headache Chronic daily headache Cervicalgia Procedures PROVIDER ORDERED FOLLOW UP OFFICE/OUTPATIENT [facility] 60-74 MINUTES Ailyn Santana APRN.TRIAL CONSULTANT [address] [place] [id number] Referral ID Status Reason Start Date Expiration Date Visits Requested Visits Authorized [id number] Pending Review PCP Requested Referral 10/20/2023 04/20/2024 1 1 Specialty Diagnoses / Procedures Referred By Contac t Referred To Contact MR IMAGING Diagnoses Subependymoma (HCC) Procedures MRI BRAIN WO/W IVCON MRI BRAIN BRAIN STEM W/O W/CONTRAST MATERIAL Hardik Carreon APRN.TRIAL CONSULTANT [address] [place] [phone] [facility] [place] [address] Referral ID Status Reason Start Date Expiration Date Visits Requested Visits Authorized [id number] Pending Review Auto-Generat ed Referral 01/02/2024 01/31/2025 1 1 Specialty Diagnoses / Procedures Referred By Contac t Referred To Contact MR IMAGING Diagnoses Spinal stenosis of cervical region Procedures MRI CERVICAL SPINE WO/W IVCON MRI SPINAL CANAL CERVICAL W/O & W/CONTR MATRL Hardik Carreon APRN.TRIAL CONSULTANT [address] [place] [address] [facility] [place] [address] Referral ID Status Reason Start Date Expiration Date Visits Requested Visits Authorized [id number] Pending Review Auto-Generat ed Referral 01/02/2024 01/31/2025 1 1 Specialty Diagnoses / Procedures Referred By Contac t Referred To Contact [facility] Diagnoses Neck pain Spinal stenosis in cervical region Procedures CONSULT TO [facility] OFFICE/OUTPATIENT [facility] 60 MINUTES Hardik Carreon APRN.TRIAL CONSULTANT [address] [place] [phone] Referral ID Status Reason Start Date Expiration Date Visits Requested Visits Authorized [id number] Authorized PCP Requested Referral 02/08/2024 02/07/2025 1 1 Specialty Diagnoses / Procedures Referred By Contac t Referred To Contact Diagnoses Cluster headache, not intractable, unspecified chronicity pattern Procedures CONSULT TO HEADACHE CLINIC OFFICE/OUTPATIENT [facility] MDM 60 MINUTES John Calvo MD [address] [address] Referral ID Status Reason Start Date Expiration Date Visits Requested Visits Authorized [id number] Authorized PCP Requested Referral 03/28/2024 03/28/2025 1 1 Specialty Diagnoses / Procedures Referred By Contac t Referred To Contact [facility] Diagnoses Cervical spondylosis without myelopathy Cervicogenic headache Procedures CONSULT TO PHYSICAL THERAPY PHYSICAL THERAPY EVALUATION HIGH COMPLEX 45 MINS John Calvo MD [address] [address] [facility] [address] [place] [address] Referral ID Status Reason Start Date Expiration Date Visits Requested Visits Authorized [id number] Authorized PCP Requested Referral Auto-Generate d Referral 03/28/2024 03/28/2025 99 99 Summary Purpose Family History No Family History Records FoundNo Family History Records FoundNo Family History Records FoundNo Family History Records FoundNo Family History Records FoundNo Family History Records FoundNo Family History Records FoundNo Family History Records FoundNo Family History Records Found No data available for this section Additional Source Comments Care Teams (unrecognized sec tion and content) Personnel Name: MANFRED GUTIERREZ MD Address: [address] [place] [address] Telecom: Team Status: Active Member Role Status Dates Manfred Gutierrez II MD Primary Care Provider Active Team Status: Inactive Member Role Status Dates Manfred Gutierrez II MD Primary Care Provider Active Sonia Carrillo PA-C Attending Provider Active Team Status: Inactive Member Role Status Dates Manfred Gutierrez II MD Primary Care Provider Active Eduard Ramirez MD Attending Provider Active Molder Setter Relationship Specialty Start Date End Date Manfred Gutierrez II [address] [place] [address] PCP - General Internal Medicine 05/07/21 Suresh Cullen, DO [address] [place] [phone] Referring Neurology 03/31/21 Molder Setter Relationship Specialty Start Date End Date Manfred Gutierrez II [address] [place] [address] PCP - General Internal Medicine 05/07/21 Suresh Cullen, DO [address] [place] [address] Referring Neurology 03/31/21 Molder Setter Relationship Specialty Start Date End Date Manfred Gutierrez II [address] [place] [address] PCP - General Internal Medicine 05/07/21 Suresh Cullen, DO [address] [place] [address] Referring Neurology 03/31/21 Molder Setter Relationship Specialty Start Date End Date Manfred Gutierrez II [address] [place] [address] PCP - General Internal Medicine 05/07/21 Suresh Cullen, DO [address] [place] [address] Referring Neurology 03/31/21 Molder Setter Relationship Specialty Start Date End Date Manfred Gutierrez II [address] [place] [address] PCP - General Internal Medicine 05/07/21 Suresh Cullen, DO [address] [place] [address] Referring Neurology 03/31/21 Molder Setter Relationship Specialty Start Date End Date aMnfred Gutierrez II [address] [place] [address] PCP - General Internal Medicine 05/07/21 Suresh Cullen, DO [address] [place] [address] Referring Neurology 03/31/21 Molder Setter Relationship Specialty Start Date End Date Manfred Gutierrez II [address] [place] [address] PCP - General Internal Medicine 05/07/21 Suresh Cullen, DO [address] [place] [address] Referring Neurology 03/31/21 Molder Setter Relationship Specialty Start Date End Date Manfred Gutierrez II [address] [place] [address] PCP - General Internal Medicine 05/07/21 Suresh Cullen, DO [address] [place] [address] Referring Neurology 03/31/21 Molder Setter Relationship Specialty Start Date End Date Manfred Gutierrez II [address] [place] [address] PCP - General Internal Medicine 05/07/21 Sruesh Cullen, DO [address] [place] [address] Referring Neurology 03/31/21 Molder Setter Relationship Specialty Start Date End Date Manfred Gutierrez II [address] [place] [address] PCP - General Internal Medicine 05/07/21 Suresh Cullen, DO [address] [place] [address] Referring Neurology 03/31/21 Molder Setter Relationship Specialty Start Date End Date Manfred Gutierrez II, MD [address] [place] [address] PCP - General Internal Medicine 05/07/21 Suresh Cullen DO [address] [phone] Referring Neurology 03/31/21 Molder Setter Relationship Specialty Start Date End Date Manfred Gutierrez II, MD [address] [place] [address] PCP - General Internal Medicine 05/07/21 Suresh Cullen DO [address] [address] Referring Neurology 03/31/21 Molder Setter Relationship Specialty Start Date End Date Manfred Gutierrez II, MD [address] [facility] [address] [place], [place] [id number] PCP - General Internal Medicine 05/07/21 Suresh Cullen DO [address] [address] Referring Neurology 03/31/21 Team Status: Inactive Member Role Status Dates Manfred Gutierrez II MD Primary Care Provider Active Start: December 18, 2023 End: December 18, 2023 Sonia Carrillo PA-C Attending Provider Active Start: December 18, 2023 End: December 18, 2023 Molder Setter Relationship Specialty Start Date End Date Manfred Gutierrez II, MD [address] [facility] [address] [place] [address] PCP - General Internal Medicine 05/07/21 Suresh Cullen DO [address] [address] Referring Neurology 03/31/21 Team Status: Inactive Member Role Status Dates Manfred Gutierrez II MD Primary Care Provider Active Start: January 10, 2024 End: January 10, 2024 JULITA WheatC Attending Provider Active Sta rt: January 10, 2024 End: January 10, 2024 Molder Setter Relationship Specialty Start Date End Date Manfred Gutierrez II, MD [address] [place] [address] PCP - General Internal Medicine 05/07/21 Suresh Cullen DO [address] [place] [address] Referring Neurology 03/31/21 Molder Setter Relationship Specialty Start Date End Date Manfred Gutierrez II, MD [address] [facility] [address] [place] [address] PCP - General Internal Medicine 05/07/21 Suresh Cullen DO [address] [place] [phone] Referring Neurology 03/31/21 Molder Setter Relationship Specialty Start Date End Date Manfred Gutierrez MD [address] [place] [address] PCP - ACO Reach 01/12/23 Manfred Gutierrez MD [address] [place] [address] PCP - General Internal Medicine 12/27/22 Molder Setter Relationship Specialty Start Date End Date Manfred Gutierrez II, MD [address] [place] [address] PCP - General Internal Medicine 05/07/21 Suresh Cullen DO [address] [place] [phone] Referring Neurology 03/31/21 Molder Setter Relationship Specialty Start Date End Date Manfred Gutierrez II, MD [address] [place] [address] PCP - General Internal Medicine 05/07/21 Suresh Cullen DO [address] [place] [phone] Referring Neurology 03/31/21 Team Status: Inactive Member Role Status Dates Manfred Gutierrez II MD Primary Care Provider Active Start: June 18, 2024 End: June 18, 2024 John Calvo MD Attending Provider Active Start: June 18, 2024 End: June 18, 2024 Molder Setter Relationship Specialty Start Date End Date Manfred Gutierrez MD [address] [facility] [address] [place] [address] PCP - ACO Reach 01/12/23 Manfred Gutierrez MD [address] [place] [address] PCP - General Internal Medicine 12/27/22 Molder Setter Relationship Specialty Start Date End Date Manfred Gutierrez MD [address] [place] [address] PCP - ACO Reach 01/12/23 Manfred Gutierrez MD [address] [place] [address] PCP - General Internal Medicine 12/27/22 Molder Setter Relationship Specialty Start Date End Date Manfred Gutierrez II, MD [address] [place] [address] PCP - General Internal Medicine 05/07/21 Suresh Cullen DO [address] [place] [address] Referring Neurology 03/31/21 Molder Setter Relationship Specialty Start Date End Date Manfred Gutierrez MD [address] [place] [address] PCP - ACO Reach 01/12/23 Manfred Gutierrez MD [address] [place] [address] PCP - General Internal Medicine 12/27/22 Molder Setter Relationship Specialty Start Date End Date Manfred Gutierrez MD [address] [place] [address] PCP - ACO Reach 01/12/23 Manfred Gutierrez MD [address] [place] [address] PCP - General Internal Medicine 12/27/22 Molder Setter Relationship Specialty Start Date End Date Manfred Gutierrez MD [address] [place] [address] PCP - ACO Reach 01/12/23 Manfred Gutierrez MD [address] [place] [address] PCP - General Internal Medicine 12/27/22 Molder Setter Relationship Specialty Start Date End Date Manfred Gutierrez MD [address] [place] [address] PCP - ACO Reach 01/12/23 Manfred Gutierrez MD [address] [place] [address] PCP - General Internal Medicine 12/27/22 Molder Setter Relationship Specialty Start Date End Date Manfred Gutierrez II, MD [address] [place] [address] PCP - General Internal Medicine 05/07/21 Suresh Cullen DO [address] [place] [phone] Referring Neurology 03/31/21 Team Status: Inactive Member Role Status Dates Manfred Gutierrez II MD Primary Care Provider Active Start: October 23, 2024 End: October 23, 2024 John Calvo MD Attending Provider Active Start: October 23, 2024 End: October 23, 2024 Molder Setter Relationship Specialty Start Date End Date Manfred Gutierrez MD [address] [facility] [address] [place] [address] PCP - General Internal Medicine 12/27/22 Team Status: Inactive Member Role Status Dates Manfred Gutierrez II MD Primary Care Provider Active Start: December 24, 2024 End: December 24, 2024 DARLIN Wheat Attending Provider Active Sta rt: December 24, 2024 End: December 24, 2024 Molder Setter Relationship Specialty Start Date End Date Manfred Gutierrez II, MD [address] [facility] [address] [place] [address] PCP - General Internal Medicine 05/07/21 Suresh Cullen DO [address] [place] [phone] Referring Neurology 03/31/21 Molder Setter Relationship Specialty Start Date End Date Manfred Gutierrez II, MD [address] [place] [address] PCP - General Internal Medicine 05/07/21 Suresh Cullen DO [address] [place] [address] Referring Neurology 03/31/21 Molder Setter Relationship Specialty Start Date End Date Manfred Gutierrez MD [address] [place] [address] PCP - General Internal Medicine 12/27/22 Molder Setter Relationship Specialty Start Date End Date Manfred Gutierrez MD [address] [place] [address] PCP - General Internal Medicine 12/27/22 Molder Setter Relationship Specialty Start Date End Date Manfred Gutierrez MD [address] [place] [address] PCP - General Internal Medicine 12/27/22 Molder Setter Relationship Specialty Start Date End Date Manfred Gutierrez MD [address] [place] [address] PCP - General Internal Medicine 12/27/22 Molder Setter Relationship Specialty Start Date End Date Manfred Gutierrez MD [address] [place] [address] PCP - General Internal Medicine 12/27/22 Molder Setter Relationship Specialty Start Date End Date Manfred Gutierrez MD [address] [place] [address] PCP - General Internal Medicine 12/27/22 Molder Setter Relationship Specialty Start Date End Date Manfred Gutierrez MD [address] [facility] [address] [place] [address] PCP - General Internal Medicine 12/27/22 Goals (unrecognized section and content) Goals may be documented in a n alternate sectionGoals may be documented in an alternate sectionGoals may be documented in an alternate sectionGoals may be documented in an alternate sectionGoals may be documented in an alternate sectionGoals may be documented in an alternate sectionGoals may be documented in an alternate section No data available for this section Source Comments (unrecognize d section and content) In the event this informatio n is protected by the Federal Confidentiality of Alcohol and Drug Abuse Patient Records regulations: The Federal rules restrict any use of the information to criminally investigate or prosecute any alcohol or drug abuse patient.[facility] the event this information is protected by the Federal Confidentiality of Alcohol and Drug Abuse Patient Records regulations: The Federal rules restrict any use of the information to criminally investigate or prosecute any alcohol or drug abuse patient.[facility] the event this information is protected by the Federal Confidentiality of Alcohol and Drug Abuse Patient Records regulations: The Federal rules restrict any use of the information to criminally investigate or prosecute any alcohol or drug abuse patient.[facility] the event this information is protected by the Federal Confidentiality of Alcohol and Drug Abuse Patient Records regulations: The Federal rules restrict any use of the information to criminally investigate or prosecute any alcohol or drug abuse patient.[facility] the event this information is protected by the Federal Confidentiality of Alcohol and Drug Abuse Patient Records regulations: The Federal rules restrict any use of the information to criminally investigate or prosecute any alcohol or drug abuse patient.[facility] the event this information is protected by the Federal Confidentiality of Alcohol and Drug Abuse Patient Records regulations: The Federal rules restrict any use of the information to criminally investigate or prosecute any alcohol or drug abuse patient.[facility] the event this information is protected by the Federal Confidentiality of Alcohol and Drug Abuse Patient Records regulations: The Federal rules restrict any use of the information to criminally investigate or prosecute any alcohol or drug abuse patient.[facility] the event this information is protected by the Federal Confidentiality of Alcohol and Drug Abuse Patient Records regulations: The Federal rules restrict any use of the information to criminally investigate or prosecute any alcohol or drug abuse patient.[facility] the event this information is protected by the Federal Confidentiality of Alcohol and Drug Abuse Patient Records regulations: The Federal rules restrict any use of the information to criminally investigate or prosecute any alcohol or drug abuse patient.[facility] the event this information is protected by the Federal Confidentiality of Alcohol and Drug Abuse Patient Records regulations: The Federal rules restrict any use of the information to criminally investigate or prosecute any alcohol or drug abuse patient.[facility] the event this information is protected by the Federal Confidentiality of Alcohol and Drug Abuse Patient Records regulations: The Federal rules restrict any use of the information to criminally investigate or prosecute any alcohol or drug abuse patient.[facility] the event this information is protected by the Federal Confidentiality of Alcohol and Drug Abuse Patient Records regulations: The Federal rules restrict any use of the information to criminally investigate or prosecute any alcohol or drug abuse patient.[facility] the event this information is protected by the Federal Confidentiality of Alcohol and Drug Abuse Patient Records regulations: The Federal rules restrict any use of the information to criminally investigate or prosecute any alcohol or drug abuse patient.[facility] Hospital[facility] the event this information is protected by the Federal Confidentiality of Alcohol and Drug Abuse Patient Records regulations: The Federal rules restrict any use of the information to criminally investigate or prosecute any alcohol or drug abuse patient.[facility] HospitalIn the event this information is protected by the Federal Confidentiality of Alcohol and Drug Abuse Patient Records regulations: The Federal rules restrict any use of the information to criminally investigate or prosecute any alcohol or drug abuse patient.[facility] HospitalIn the event this information is protected by the Federal Confidentiality of Alcohol and Drug Abuse Patient Records regulations: The Federal rules restrict any use of the information to criminally investigate or prosecute any alcohol or drug abuse patient.[facility] HospitalIn the event this information is protected by the Federal Confidentiality of Alcohol and Drug Abuse Patient Records regulations: The Federal rules restrict any use of the information to criminally investigate or prosecute any alcohol or drug abuse patient.[facility] HospitalIn the event this information is protected by the Federal Confidentiality of Alcohol and Drug Abuse Patient Records regulations: The Federal rules restrict any use of the information to criminally investigate or prosecute any alcohol or drug abuse patient.[facility] HospitalIn the event this information is protected by the Federal Confidentiality of Alcohol and Drug Abuse Patient Records regulations: The Federal rules restrict any use of the information to criminally investigate or prosecute any alcohol or drug abuse patient.[facility] HospitalIn the event this information is protected by the Federal Confidentiality of Alcohol and Drug Abuse Patient Records regulations: The Federal rules restrict any use of the information to criminally investigate or prosecute any alcohol or drug abuse patient.[facility] HospitalIn the event this information is protected by the Federal Confidentiality of Alcohol and Drug Abuse Patient Records regulations: The Federal rules restrict any use of the information to criminally investigate or prosecute any alcohol or drug abuse patient.[facility] HospitalIn the event this information is protected by the Federal Confidentiality of Alcohol and Drug Abuse Patient Records regulations: The Federal rules restrict any use of the information to criminally investigate or prosecute any alcohol or drug abuse patient.[facility] HospitalIn the event this information is protected by the Federal Confidentiality of Alcohol and Drug Abuse Patient Records regulations: The Federal rules restrict any use of the information to criminally investigate or prosecute any alcohol or drug abuse patient.[facility] HospitalIn the event this information is protected by the Federal Confidentiality of Alcohol and Drug Abuse Patient Records regulations: The Federal rules restrict any use of the information to criminally investigate or prosecute any alcohol or drug abuse patient.[facility] HospitalIn the event this information is protected by the Federal Confidentiality of Alcohol and Drug Abuse Patient Records regulations: The Federal rules restrict any use of the information to criminally investigate or prosecute any alcohol or drug abuse patient.[facility] HospitalIn the event this information is protected by the Federal Confidentiality of Alcohol and Drug Abuse Patient Records regulations: The Federal rules restrict any use of the information to criminally investigate or prosecute any alcohol or drug abuse patient.[facility] HospitalIn the event this information is protected by the Federal Confidentiality of Alcohol and Drug Abuse Patient Records regulations: The Federal rules restrict any use of the information to criminally investigate or prosecute any alcohol or drug abuse patient.[facility] HospitalIn the event this information is protected by the Federal Confidentiality of Alcohol and Drug Abuse Patient Records regulations: The Federal rules restrict any use of the information to criminally investigate or prosecute any alcohol or drug abuse patient.[facility] HospitalIn the event this information is protected by the Federal Confidentiality of Alcohol and Drug Abuse Patient Records regulations: The Federal rules restrict any use of the information to criminally investigate or prosecute any alcohol or drug abuse patient.[facility] HospitalIn the event this information is protected by the Federal Confidentiality of Alcohol and Drug Abuse Patient Records regulations: The Federal rules restrict any use of the information to criminally investigate or prosecute any alcohol or drug abuse patient.[facility] Reason for Visit (unrecogniz ed section and content) Reason Comments Received Outside Medical Records Scan re port Reason Comments Established Patient Reason Comments Consult Reason Comments Medication Problem Ajovy Reason Comments Insurance Authorization Emgality 120MG/M L auto-injectors (migraine) Reason Comments No Show Specialty Diagnoses / Procedures Referred By Contac t Referred To Contact Diagnoses Chronic migraine without aura, with intractable migraine, so stated, with status migrainosus Procedures PROVIDER ORDERED FOLLOW UP OFFICE/OUTPATIENT [facility] 60-74 MINUTES Irineo Molina MD [address] [place] [id number] Referral ID Status Reason Start Date Expiration Date Visits Requested Visits Authorized [id number] Pending Review PCP Requested Referral 03/23/2022 12/21/2022 1 1 Reason Comments Migraine Specialty Diagnoses / Procedures Referred By Contac t Referred To Contact Diagnoses Chronic migraine without aura, with intractable migraine, so stated, with status migrainosus Procedures PROVIDER ORDERED FOLLOW UP OFFICE/OUTPATIENT [facility] 60-74 MINUTES Irineo Molina MD [address] [place] [id number] Reason Comments Refill Request Reason Comments Orders MRI order Reason Comments Established Patient Reason Onset Date Comments Refill Request 03/10/2023 Reason Comments Migraine Reason Onset Date Comments Refill Request 11/09/2023 Reason Comments New Patient Neck pain , spinal s tenosis cervical Specialty Diagnoses / Procedures Referred By Contac t Referred To Contact [facility] [place] Diagnoses Neck pain Spinal stenosis in cervical region Procedures CONSULT TO [facility] OFFICE/OUTPATIENT [facility] MDM 60 MINUTES Hardik Carreon, MAARJIT.TRIAL CONSULTANT [address] [place] [address] Referral ID Status Reason Start Date Expiration Date V isits Requested Visits Authorized [id number] Closed PCP Requested Referral 02/08/2024 02/07/2025 1 1 Reason Comments Excision Reason Comments Follow Up Neck pain Reason Comments Pre-injection instructions Reason Comments Skin Check Reason Comments Follow-up Per telephone call a dvised to stop metoprolol due to low b/p Results lab Reason Comments Appointment Reason Comments Rash He has had the rash for about 1 month, it is all over his back and is spreading to his neck and chest. It is red and it itches and lennon a little. He has tried Hydrocortisone cream and Clobetasol cream on it and it is not helping. He does have an appt with Derm 01/02 for yearly skin check. Initially it did get better, but after using a heating pad it started to flare back up again. Started flaring up again about 2 weeks ago. Reason Comments Results Reason Comments Established Patient Subependymoma Reason Comments Medicare Annual Wellness Visit Subsequen t Results Lab results Reason Comments Follow-up (unrecognized sect ion and content) No Status Records FoundNo Status Records FoundNo Status Records FoundNo Status Records FoundNo Status Records FoundNo Status Records FoundNo Status Records FoundNo Status Records FoundNo Status Records Found INFORMATION SOURCE (unrecogn ized section and content) DATE CREATED AUTHOR 12/23/[address] [facility] dical Specialist DATE CREATED AUTHOR AUTHOR'S ORGANIZ ATION 12/05/2022 [facility] DATE CREATED AUTHOR AUTHOR'S ORGANIZ ATION 08/10/2024 [facility] DATE CREATED AUTHOR AUTHOR'S ORGANIZ ATION 10/31/2024 [facility] DATE CREATED AUTHOR AUTHOR'S ORGANIZ ATION 12/29/2024 [facility] DATE CREATED AUTHOR AUTHOR'S ORGANIZ ATION 01/01/2025 [facility] DATE CREATED AUTHOR AUTHOR'S ORGANIZ ATION 01/01/2025 [facility] DATE CREATED AUTHOR AUTHOR'S ORGANIZ ATION 01/18/[address] [facility] dical Specialists EPIC DATE CREATED AUTHOR AUTHOR'S ORGANIZ ATION 01/21/2025 [facility] FOR RECORDS PERTAINING TO PATIENTS WHO ARE OR HAVE BEEN ENROLLED IN A CHEMICAL DEPENDENCY/SUBSTANCEABUSE PROGRAM, SOME INFORMATION MAY BE OMITTED. This clinical summary was aggregated from multiple sources. Caution should be exercised in using it in the provision of clinical care. This summary normalizes information from multiple sources, and as a consequence, information in this document may materially change the coding, format and clinical context of patient data. In addition, data may be omitted in some cases. CLINICAL DECISIONS SHOULD BE BASED ON THE PRIMARY CLINICAL RECORDS. [facility] [employer] ([place]) [facility]. provides no warranty or guarantee of the accuracy or completeness of information in this document.
--- NOTE | 2025-01-23 11:05 | US_ITS ---
The [address] [address] Patient Name: RHIANNON VALDIVIA MRN: [id number] date: 1955 Sex: M Assigned Patient Location: [place] Current Patient Location: [place] Accession/Order Number: [id number] Exam Date: 01/23/2025 12:05 Report Date: 01/23/2025 12:11 At the request of: SAMUEL PLASENCIA MD Procedure: US scrotum SCROTAL ULTRASOUND WITH DUPLEX IMAGING CLINICAL DATA: Right scrotal enlargement for years. COMPARISON: None The right testis measures 3.9 x 2.5 x 2.6 cm. The left testis measures 4.1 x 2 0.4 to 2.4 cm. There is a small right testicular cyst measuring 4 x 3 x 3 mm . A echogenic nodule is seen along the capsule at the inferior pole of the left testis that may be a scrotal kalpana. No solid intratesticular testicular masses are identified. There is documentation of bilateral duplex and color Doppler testicular blood flow. The right epididymis is unremarkable. The left epididymis is mildly heterogeneous and there is a small cyst measuring 3 mm in size. There is a large right hydrocele (80 mL) and a tiny hydrocele on the left. There are prominent vessels adjacent to the left testis with slight increase in blood flow with Valsalva that may be varicocele. US/US scrotum IMPRESSION: NO SUSPICIOUS INTRATESTICULAR MASS OR EVIDENCE OF TORSION. RIGHT TESTICULAR AND LEFT EPIDIDYMAL CYSTS. LARGE RIGHT AND TINY LEFT HYDROCELES. POSSIBLE LEFT VARICOCELE. Impression dictated by: Gladys Hanna M.D. 01/23/2025 12:11 PM Dictation Location: [place] [address] Electronically authenticated by: [id number] Y Date: 01/23/2025 12:11
== END 2025-01-23 10:49 | disposition home or self-care (01) ==
LOC: US 10:49
PROVIDERS: PCP Internal Medicine; Visit Provider Urology
DX: N43.3 Hydrocele, unspecified (principal); R97.20 Elevated prostate specific antigen [PSA]; Z80.42 Family history of malignant neoplasm of prostate; N44.2 Benign cyst of testis; N50.3 Cyst of epididymis
CPT/HCPCS: 76870

== ENCOUNTER 2025-06-16 12:55 | Outpatient (OUT) | payer MEDICARE, OTHER, SELFPAY ==
--- OUTSIDE RECORDS SUMMARY | 2025-06-16 13:00 | XMS_ITS | Clinical Summary ---
Author Organization [facility] Address [address] [place] [address] Care Team Providers Care Counter Clerk Name Role Phone Suresh Cullen DO Unavailable [phone] Matt LIZ MD, Manfred Krishnamurthy Primary Care Provider [phone] Allergies Active AllergyReactionsCriticalityNoted ZkmdClsmyzelRgkljxazJbmuwdu35/29/2014 Medications MedicationSigDispense QuantityRefillsLast FilledStart DateEnd DateStatus tamsulosin (FLOMAX) 0.4 mg Take 0.4 mg by mouth once daily.1Active atorvastatin (LIPITOR) 40 mg tablet Take 40 mg by mouth once daily.1Active MULTIVITAMIN ORAL Take by mouth.Active IBUPROFEN ORAL Take by mouth as needed (take 2-3 tabs po prn for pain).Active tiZANidine (ZANAFLEX) 4 mg tablet Take 4 mg by mouth every 6 hours as needed.5Active multivit-min/folic acid/lutein (CENTRUM SILVER PO) Take by mouth.Active erenumab-aooe 140 mg/mL subcutaneous auto-injector (AIMOVIG) Inject 1 mL subcutaneously once every month. 1 mL 5Active Active Problems ProblemNoted DateDiagnosed DateAtypical chest pain08/26/20143385Lwsfldl68/06/2015 Migraines Encounters DateTypeDepartmentCare OzatZgdurcxzkal63/16/2025 1:00 PM EDTOffice Visit Spine Center [address] [place] [address] Leonardo Calvo MD Cervical spondylosis without myelopathy (Primary Dx); Cervicogenic oyaeqzfr07/16/2025 10:30 AM EDTOffice Visit Neurology [address] [place] [address] Simran Yen MD Chronic daily headache (Primary Dx); Migraine with aura and without status migrainosus, not intractable; Uctdtnedqrr40/13/2025Travelfrom Last 3 Months Family History Medical HistoryRelationCommentsCancerFatheresophogealCancerMotherskingrandparent [Other]OtherMI heart diseaseRelationStatusCommentsBrotherAliveFatherDeceased MotherAliveOtherSisterAlive Social History Tobacco UseTypesPacks/DayYears UsedDateSmoking Tobacco: FormerCigarettes 08/19/1975 - 08/19/1976Smokeless Tobacco: Never Tobacco Cessation:Counseling Given: Not Answered Alcohol UseStandard Drinks/WeekCommentsYes0 (1 standard drink = 0.6 oz pure alcohol)occassionalPHQ-2AnswerDate RecordedPHQ-2 xgyfj3905Area Deprivation IndexAnswerDate RecordedNational Score (1-100), lower number is lower xjzk606403/28/2024State Score (1-10), lower number is lower ugaq107 Data from: https://www.neighborhoodatlas.medicine.[facility].edu/. Last address used for jec[address]gecolqi[address]03/28/2024Sex and Gender InformationValueDate RecordedSex Assigned at PbldsLetj79/30/2022 8:06 PM EDTLegal KhtVeul45/29/2014 8:13 AM ESTGender IdentityNot on fileSexual ApukehdrgffBenqrhkn60/30/2022 8:06 PM EDT Last Filed Vital Signs Vital SignReadingTime TakenCommentsBlood Kaqrbrjx702/8805/06/2025 12:39 PM EDT Auhow238105/06/2025 12:39 PM XJGLqwogjxlaht22.7 ??C (98.1 ??F)08/07/2024 9:08 AM ESTRespiratory Pvmj301410/08/2023 9:08 AM ESTOxygen Wmrebxsott51%05/06/2025 12:39 PM EDTInhaled Oxygen Concentration--Tyuuem07.5 kg (162 lb)05/06/2025 12:39 PM DNAPzovxm995.8 cm (5' 10 )05/06/2025 12:39 PM EDTBody Mass Index23.24005/06/2025 12:39 PM EDT Plan of Treatment DateTypeDepartmentCare Team (Latest Contact Info)Ndlgxdggzzj08/07/2026 10:30 AM EDTOffice Visit Neurology [address] [place] [address] [place] [address] [place] [address] FOLLOW UP11/25/2025 1:00 PM EDTOffice Visit Spine Center [address] [place] [address] Leonardo Calvo MD [address] [place] [address] FOLLOW UPHealth MaintenanceDue DateLast DoneCommentsAbdominal Aortic Aneurysm Hztrdrtvm1955nxiety Wkoocledd12/24/1973Depression Niehbdbyb07/24/1973 Hepatitis C Tzzysqbxq20/24/1973CT Fcsiqokomygi48/24/2000Cologuard (FIT-DNA) 08/13/20009938Oihasilqzar82/24/2000Colorectal Cancer Gdbgbmqcb85/24/2000Fecal Occult Blood08/13/20002423Fpwgppjlpditq54/24/2000Medicare Annual Wellness Visit07/21/2020 Advance Directive Ifcuogbwge37/01/2025Covid-19 Vaccine ( season) /, 11/25/2020Influenza Vaccine (#1)/ Diabetes Fqwnqjjpk85Lipid Snvqtcmtb33/4RSV Vaccine (1 - 1-dose 75+ series)2030DTaP,Tdap,Td Vaccine (2 - Td or Tdap) /neumococcal Vaccine: 50+Cefadambj38/03/2022Shingrix Vaccine Mzbgfqljn94/18/2024, 01/01/[address] [place] [address] * Guarantor: John Haas TypeRelation to PatientDate of BirthPhoneBilling VqkmokaJapxgrfcQzqy[address] [place] [address] [place] [address] Care Teams Team MemberRelationshipSpecialtyStart DateEnd Date Manfred Gutierrez II, MD [address] [facility] [address] [place] [address] PCP - GeneralInternal Medicine05/07/21 Suresh Cullen DO [address] [place] [address] ReferringNeurology03/31/21
--- OUTSIDE RECORDS SUMMARY | 2025-06-16 13:00 | XMS_ITS | Clinical Summary ---
Author Organization [facility] Healthcare Address [address] [place] [address] Care Team Providers Care Audio Specialist Name Role Phone Manfred Gutierrez MD Primary Care Provider [phone] Allergies Active AllergyReactionsCriticalityNoted RfsaZypshqbeTdgfkjgwHiokXlo21/29/2014 Other Reaction(s): Unknown Medications MedicationSigDispense QuantityRefillsLast FilledStart DateEnd DateStatus tamsulosin (Flomax) 0.4 MG 24 hr capsule Indications:Benign prostatic hyperplasia with lower urinary tract symptoms, symptom details unspecifiedTAKE 1 CAPSULE BY MOUTH EVERY DAY 100 capsule 5Active atorvastatin (Lipitor) 40 MG tablet Indications:Pure hypercholesterolemiaTAKE 1 TABLET BY MOUTH EVERY DAY 100 tablet 5Active minocycline 100 MG capsule Indications:Bacterial folliculitisTake one pill po bid, 14 days. 28 capsule 5Active triamcinolone (Kenalog) 0.1 % cream Indications:Rash and other nonspecific skin eruptionApply topically 2 (two) times a day as needed for rash 240 g 1105Active doxycycline (Vibramycin) 100 MG capsule Take 100 mg by mouth5Active Aimovig 70 MG/ML injection INJECT 1 ML SUBCUTANEOUSLY ONCE EVERY MONTH.Active tiZANidine (Zanaflex) 4 MG tablet Indications:Strain of lumbar region, initial encounterTake 1 tablet (4 mg) by mouth every 6 (six) hours if needed for muscle spasms 360 tablet 5Active Active Problems ProblemNoted DateDiagnosed IrzwOawcqj50/21/2023asal cell carcinoma of abdomen 02/08/2023enign prostatic hyperplasia with lower urinary tract symptoms 02/08/2023hronic epvhbdnlk67/21/2023Headache, fkorlxpivtf12/21/2023Neuralgia of left upper girxtwbqp93/21/2023Other chronic pain02/08/2023Other obstructive and reflux jgcuuetf79/21/2023ure amxmkhtmtodmarvrtiym37/21/2023Spondylosis of cervical region without myelopathy or odsppfftpkbwk34/21/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 Encounters DateTypeDepartmentCare TmnhXzetekxktqz74/20/2025Orders Only [facility] [place] [facility] [address] [facility] [address] [place] [id number] Jayde Lee LPN Lumbar painfrom Last 3 Months Immunizations ImmunizationAdministration DatesNext DueInfluenza, Seasonal, Quadrivalent, Htlrulqmbn26/23/2023neumococcal Conjugate PCV Tdap01/01/2024Zoster, Uqsdwekhrrb33/18/2024,01/01/2024 Family History Medical HistoryRelationNameCommentsCancerFatherMental illnessPaternal GrandmotherRelationNameStatusCommentsFatherDeceasedMotherAliveOtherSpouseAlive Paternal Grandmother Social History Tobacco UseTypesPacks/DayYears UsedDateSmoking Tobacco: NeverSmokeless Tobacco: NeverAlcohol UseStandard Drinks/WeekCommentsYes0 (1 standard drink = 0.6 oz pure alcohol)monthly or lessPHQ-2AnswerDate RecordedPatient Health Questionnaire-2 Frzaz161Sex and Gender InformationValueDate RecordedSex Assigned at BirthNot on fileLegal KekJlha5711/02/2022 7:11 PM EDTGender IdentityNot on file Sexual OrientationNot on file Last Filed Vital Signs Vital SignReadingTime TakenCommentsBlood Ofmlwfnq406/78001/06/2025 1:22 PM EDT Wctgg867101/06/2025 1:22 PM EDTTemperature--Respiratory Uvtc554112/17/2024 11:36 AM EDTOxygen Glcpqgkfnr78%01/06/2025 1:22 PM EDTInhaled Oxygen Concentration-- Vmbbze39.4 kg (164 lb)01/06/2025 1:22 PM OFPWrsrwp223.8 cm (5' 10 )01/06/2025 1:22 PM EDTBody Mass Index23.53001/06/2025 1:22 PM EDT Plan of Treatment DateTypeDepartmentCare Team (Latest Contact Info)Ivdowcvgynt30/17/2025 1:05 PM ESTOffice Visit [facility] [place] [facility] [address] [place] [address] Taylor Arevalo APRN-HEALTH INSURANCE AGENT [address] [place] [address] 07/09/2025 8:30 AM ESTOffice Visit [facility] [place] [facility] [address] [place] [phone] Manfred Gutierrez MD [address] [place] [address] Health MaintenanceDue DateLast DoneCommentsCT Yassstexaasd1955FIT-DNA 1955FIT1955FOBT1955 6501Mqaguzflwzvjr1955Influenza Vaccine (#1)509/9775Dkhpiaoykum50/18/203106/olorectal Cancer Dyfhobbwl67/18/2031Pneumococcal Vaccine: 65+ WowlfApdqrjvqu59/03/2022 Procedures Procedure NamePriorityDate/TimeAssociated DiagnosisCommentsCOLONOSCOPYRoutine 02/05/2021 12:00 PM EDT from Last 3 Months or Most Recently Relevant to Health Maintenance Results * Colonoscopy (02/05/2021 12:00 PM EDT)Anatomical RegionLateralityModality EndoscopySpecimen (Source)Anatomical Location / LateralityCollection Method / VolumeCollection TimeReceived Time02/05/2021 12:00 PM EDT Narrative 02/05/2021 12:00 PM EDT PERFORMED AT [facility] LOCATION:[id number] polyp Procedure Note CONVERSION, GENERIC - 01/04/2023 PERFORMED AT [facility] LOCATION:[id number] polyp Authorizing ProviderResult TypeResult StatusDanirhonda Gutierrez MDENDOSCOPY PROCEDURE ORDERABLESFinal Result from Last 3 Months or Most Recently Relevant to Health Maintenance Insurance Care Teams Team MemberRelationshipSpecialtyStart DateEnd Manfred Gutierrez MD [address] [facility] [address] [place] [address] PCP - GeneralInternal Medicine12/27/22
--- OUTSIDE RECORDS SUMMARY | 2025-06-16 13:10 | XMS_ITS | CCD ---
Author Organization [facility] Care Team Providers Care Bottle Line Worker Name Role Phone AGUSTO Gutierrez Primary Care [...] [phone] THOR Carrillo Attending Provider DR MANRFED GUTIERREZ Admitting Unavailable DR MANFRED GUTIERREZ Attending Unavailable DR MANFRED GUTIERREZ Primary Care Unavailable DR MANFRED GUTIERREZ Consulting Unavailable Everton Baker Consulting Unavailable Suresh Cullen DO Unavailable Manfred Gutierrez II Primary Care Provider Matt LIZ MD, Daniel B Primary Care Provider AGUSTO Gutierrez Primary Care Provider THOR Carrillo Attending Provider Matt LIZ MD, Daniel B Primary Care Provider [phone] DARLIN Carreno Attending Provider [phone] Manfred Gutierrez MD Unavailable Manfred Gutierrez MD Primary Care Provider [phone] Manfred Gutierrze II Primary Care Provider John Calvo MD Attending Provider UMESH, JOHN K Attending Unavailable CARREON, HARDIK L Referring Unavailable GUTIERREZ II, MANFRED B Primary Care Unavailable UMESH, JOHN K Admitting Unavailable UMESH, JOHN K Attending Unavailable GUTIERREZ II, MANFRED B Primary Care Unavailable Gutierrez II, Manfred Primary Care Provider John Calvo MD Attending Provider Suleiman HERD TESTER-C, Hardik Attending Provider Carreon, Hardik Admitting Unavailable Carreon, Hardik Attending Unavailable Matt Manfred Primary Care Unavailable Umesh, John Admitting Unavailable Umesh, John Attending Unavailable Gutierrez Manfred Primary Care Unavailable Umesh, John Admitting Unavailable Umesh, John Attending Unavailable Gutierrez, Manfred Primary Care Unavailable Carreon, Hardik Admitting Unavailable Carreon, Hardik Attending Unavailable Matt Manfred Primary Care Unavailable MATT MANFRED B Primary Care Physician Samuel PLASENCIA Attending Unavailable PLASENCIA, Samuel R Attending Unavailable PLASENCIA, Samuel R Attending Unavailable LUIS ANGEL, Samuel R Attending Unavailable GUTIERREZ, MANFRED B Referring Unavailable HEMGLADYS CARTER M Attending Unavailable FELTER, AL A Attending Unavailable GUTIERREZ, MANFRED B Attending Unavailable FELTER, AL A Attending Unavailable PETITTI, TEODORA A Attending Unavailable PETITTI, TEODORA A Attending Unavailable FELTER, AL A Attending Unavailable GUTIERREZ, MANFRED B Attending Unavailable PETITTI, TEODORA A Attending Unavailable PETITTI, TEODORA A Attending Unavailable PETITTI, TEODORA A Attending Unavailable CARREON, HARDIK Attending Unavailable GUTIERREZ II, MANFRED B Primary Care Unavailable MUKESH BAKER Attending Unavailable GUTIERREZ II, MANFRED B Primary Care Unavailable UMESH, JOHN K Attending Unavailable GUTIERREZ II, MANFRED B Primary Care Unavailable UMESH, JOHN K Attending Unavailable GUTIERREZ II, MANFRED B Primary Care Unavailable UMESH, JOHN K Attending Unavailable GUTIERREZ II, MANFRED B Primary Care Unavailable MUKESH BAKER Attending Unavailable UMESH, JOHN K Referring Unavailable GUTIERREZ II, MANFRED B Primary Care Unavailable Allergies Allergy ClassificationReported Allergen(s)Allergy TypeDate of OnsetReaction(s) FacilityCephalosporins (antibiotic) (1 source)CefaclorDrug Kmzbofl26-26-5534[facility] (20 sources)Cefaclor; Translations: [CEFACLOR]Drug Typwdlh76-55-8235Pkaozfs, Eruption of skin (disorder), [facility] (2 sources)Cefaclor; Translations: [Ceclor]Drug Skukqly99-15-7304[facility] (1 source)Unable to AssessDrug allergy (disorder)55-26-3549YwuevtujuC[facility] Medications Current Medications MedicationDrug Class(es)DatesSig (Normalized)Sig (Original)atorvastatin 40 mg oral tablet (20 sources)HMG-CoA Reductase InhibitorStart: 02-46-5429vunp 1 tablet by mouth once dailyatorvastatin (LIPITOR) 40 mg tablet Take 40 mg by mouth once daily. 03/01/2021 ActiveComment on above:Take 40 mg by mouth once daily.cyproheptadine hydrochloride 4 mg oral tablet (8 sources)Start: 03-28-2022 End: 64-70-2135urnu 1 tablet by mouth every twelve hours as neededcyproheptadine (PERIACTIN) 4 mg tablet Indications: Migraine without aura and without status migrainosus, not intractable , Chronic mixed headache syndrome Take 0.5-1 tablets by mouth every 12 hours as needed (for headache relief). 20 tablet 1 03/28/2022 12/15/2022 Discontinued (Discontinued by another Health Care Provider)Start: 03-28-2022 End: 63-03-9247ycsc 1 tablet by mouth every eight hours as neededcyproheptadine (PERIACTIN) 4 mg tablet Indications: Migraine without aura and without status migrainosus, not intractable , Chronic mixed headache syndrome Take 0.5-1 tablets by mouth every 8 hours as needed (for headache relief). 30 tablet 1 03/28/2022 03/28/2022 DiscontinuedComment on above:Take 0.5-1 tablets by mouth every 12 hours as needed (for headache relief).Take 0.5-1 tablets by mouth every 8 hours as needed (for headache relief).diclofenac potassium 50 mg oral tablet (10 sources)Nonsteroidal Anti-inflammatory DrugStart: 01-01-2024 End: 75-77-6473dgmb 1 tablet by mouth in the morningdiclofenac (Cataflam) 50 MG tablet Indications: Spondylosis of cervical region without myelopathy or radiculopathy Take 1 tablet (50 mg) by mouth in the morning and 1 tablet (50 mg) before bedtime. 60 tablet 11 01/01/2024 05/01/2024 Discontinueddoxepin 3 mg oral tablet (2 sources)Tricyclic AntidepressantStart: 04-21-2023 End: 98-77-2407iztt 1 tablet by mouth once daily at bedtimeDoxepin 3 mg tab Indications: Migraine without aura and without status migrainosus, not intractable, Chronic daily headache Take 1 tablet by mouth daily at bedtime. 30 tablet 3 04/21/2023 04/21/2023iscontinuedComment on above:Take 1 tablet by mouth daily at bedtime.doxycycline hyclate 100 mg oral capsule (9 sources)Tetracycline-class DrugStart: 35-98-7963yixlajbnhrg (Vibramycin) 100 MG capsule Take 100 mg by mouth 01/20/2025 Active1 ml erenumab-aooe 140 mg/ml auto-injector (10 sources)Start: 45-40-0088ynlakd 1 mL by subcutaneous injection every month erenumab-aooe 140 mg/mL subcutaneous auto-injector (AIMOVIG) Inject 1 mL subcutaneously once every month. 1 mL 5 05/06/2025 ActiveStart: 12-23-2021 End: 67-11-3208salqlj 1 mL by subcutaneous injection every montherenumab-aooe (AIMOVIG AUTOINJECTOR) 70 mg/mL auto-injector Indications: Chronic migraine without aura without status migrainosus, not intractable Inject 1 mL subcutaneously once every month. 1 mL 5 02/11/2025 03/13/2025 ActiveComment on above:Inject 1 mL subcutaneously once every month.1 ml galcanezumab-gnlm 120 mg/ml auto-injector (18 sources)Start: 12-31-2021 End: 00-55-1724higvtnkkkjap-gnlm 120 mg/mL subcutaneous pen injector (EMGALITY) Inject 1 Pen subcutaneously once every month. Refrigerate. Do not shake. 3 Pen 1 12/31/2021 12/15/2022 Discontinued (Discontinued by another Health Care Provider)Start: 12-31-2021 End: 92-15-9425rnclckprkgnh-gnlm 120 mg/mL subcutaneous pen injector (EMGALITY) Inject 2 Pens subcutaneously one time only for 1 dose. For first month only. Refrigerate. Do not shake. 2 Pen 0 12/31/2021 12/15/2022 Discontinued (Discontinued by another Health Care Provider)Comment on above:Inject 1 Pen subcutaneously once every month. Refrigerate. Do not shake.Inject 2 Pens subcutaneously one time only for 1 dose. For first month only. Refrigerate. Do not shake.Ibuprofen (15 sources)Nonsteroidal Anti-inflammatory DrugIBUPROFEN ORAL Take by mouth as needed (take 2-3 tabs po prn for pain). ActiveIBUPROFEN ORAL Take by mouth as needed (take 2-3 tabs po prn for pain). 0 Activeiv contrast (will be provided with radiology test) (6 sources)Start: 12-31-2024 End: 08-14-6076aodfct 1 dose intravenously onceiv contrast (will be provided with radiology test) [...] administration guidelines link 1 each 12/31/2024 01/01/2025 ActiveStart: 01-02-2024 End: 89-80-5779gm contrast (will be provided with radiology test) MRI CSP Inject, intravenously, [...] guidelines link. 1 Each 0 01/02/2024 01/03/2024 ActiveStart: 01-02-2024 End: 07-02-1209uicgdg 1 dose intravenously onceiv contrast (will be provided with radiology test) [...] guidelines link 1 Each 0 01/02/2024 01/03/2024 ActiveStart: 12-14-2022 End: 29-32-2428wfxdra 1 dose intravenously onceiv contrast (will be provided with radiology test) [...] guidelines link 1 Each 0 12/14/2022 12/15/2022 ActiveStart: 11-24-2021 End: 31-86-6089mlohpr 1 dose intravenously onceiv contrast (will be provided with radiology test) [...] guidelines link 1 Each 0 11/24/2021 11/25/2021 ExpiredStart: 11-24-2021 End: 62-56-5238vaaygt 1 dose intravenously onceiv contrast (will be provided with radiology test) [...] guidelines link 1 Each 0 11/24/2021 11/25/2021 ActiveComment on above:MRI Brain Inject, intravenously, once for 1 dose.No IV access, insert saline lock prior to beginning of sedation, infusion, injection of imaging exam.Discontinue saline lock post exam. If Pt. has a central line or IVAD, may access for administration according to line specific nursing protocol.Once exam is complete flush line and de-access according to line specific nursing protocol in the MR contrast administration guidelines link24 hr metoprolol succinate 25 mg extended release oral tablet (20 sources)beta-Adrenergic BlockerStart: 03-01-2021 End: 17-94-6799dclk 1 tablet by mouth once daily in the morningmetoprolol succinate XL (Toprol-XL) 25 MG 24 hr tablet Indications: Pure hypercholesterolemia (CMS/HCC) TAKE 1 TABLET BY MOUTH EVERY DAY IN THE MORNING 100 tablet 3 05/02/2024 12/17/2024 Discontinued(Other)Comment on above:Take 25 mg by mouth once daily.minocycline 100 mg oral capsule (20 sources)Tetracycline-class DrugStart: 53-34-6566lllv 1 capsule by mouth twice dailyminocycline 100 MG capsule Indications: Bacterial folliculitis Take one pill po bid, 14 days. 28 capsule 01/02/2025 Activemultivit-min/folic acid/lutein (CENTRUM SILVER PO) (2 sources)multivit-min/folic acid/lutein (CENTRUM SILVER PO) Take by mouth. ActiveMULTIVITAMIN ORAL (20 sources)MULTIVITAMIN ORAL Take by mouth. ActiveMULTIVITAMIN ORAL Take by mouth. 0 ActiveComment on above:Take by mouth.tamsulosin hydrochloride 0.4 mg oral capsule (20 sources)alpha-Adrenergic BlockerStart: 26-84-4953oiso 0.4 mg by mouth once dailytamsulosin (FLOMAX) 0.4 mg Take 0.4 mg by mouth once daily. 02/15/2021 ActiveComment on above:Take 0.4 mg by mouth once daily.tiZANidine 4 mg oral tablet (20 sources)Central alpha-2 Adrenergic AgonistStart: 01-06-2025 End: 11-46-6882ajhi 1 tablet by mouth every six hours as neededtiZANidine (ZANAFLEX) 4 mg tablet Take 4 mg by mouth every 6 hours as needed. 02/24/2025 Activetriamcinolone acetonide 1 mg/ml topical cream (14 sources)CorticosteroidStart: 64-76-3475emtgkubtteqiz (Kenalog) 0.1 % cream Indications: Rash and other nonspecific skin eruption Apply topically 2 (two) times a day as needed for rash 240 g 11 01/16/2025 Active Completed/Discontinued Medications MedicationDrug Class(es)DatesSig (Normalized)Sig (Original)amitriptyline hydrochloride 50 mg oral tablet (2 sources)Tricyclic Antidepressant End: 41-99-3955mmyc 1 tablet by mouth once daily at bedtimeamitriptyline (ELAVIL) 50 mg tablet Take 50 mg by mouth daily at bedtime. 0 11/24/2021 Discontinued(Discontinued by another Health Care Provider)Comment on above:Take 50 mg by mouth daily at bedtime.1.5 ml fremanezumab-vfrm 150 mg/ml auto-injector (11 sources)Start: 02-03-2025 End: 09-86-0513igdgin 1.5 mL by subcutaneous injection every monthfremanezumab- vfrm (AJOVY AUTOINJECTOR) 225 mg/1.5 mL auto-injector Indications: Chronic migraine without aura without status migrainosus, not intractable Inject 1.5 mL subcutaneously once every month. 1.5 mL 5 02/03/2025 02/11/2025 Discontinued (Not on Formulary)Start: 02-03-2025 End: 78-79-2192ruaukp 225 mg by subcutaneous injection every 30 daysfremanezumab (Ajovy) 225 MG/1.5ML auto-injector Inject 225 mg under the skin every 30 (thirty) days02/03/2025 03/05/2025 ActiveStart: 12-21-2021 End: 19-82-1242taoego 1.5 mL by subcutaneous injection every monthfremanezumab- vfrm subcutaneus auto-injector 225 mg/1.5 mL (AJOVY) Inject 1.5 mL subcutaneously onceevery month. Do not shake. 3 Pen 3 12/21/2021 12/23/2021 DiscontinuedComment on above:Inject 1.5 mL subcutaneously once every month. Do not shake.gabapentin 300 mg oral capsule (20 sources)Anti-epileptic AgentStart: 01-23-2023 End: 99-74-3499thex 1 capsule by mouth once daily in [...] 1 11/09/2023 07/09/2024 Discontinued (Course of therapy completed)Start: 10-20-2022 End: 64-57-7183wgtk 1 capsule by mouth once daily in [...] 90 days. 120 capsule 2 10/20/2022 01/18/2023 ActiveStart: 04-19-2021 End: 77-53-6048asnhuvrprs (NEURONTIN) 300 mg capsule Indications: Migraine without aura and without status migrainosus, not intractable , Chronic mixed headache syndrome TAKE 1 CAPSULE BY MOUTH IN THE MORNING, 1 CAPSULE IN THE AFTERNOON AND 2 CAPSULES AT NIGHT 120 capsule 2 05/24/2022 08/24/2022 Active End: 85-91-2009mexs 2 capsules by mouth at bedtimegabapentin (Neurontin) 300 MG capsule Take 300 mg by mouth See administration instructions. 1 capsule every morning, 1 capsule every afternoon, and 2 capsules at bedtime 05/01/2024 DiscontinuedComment on above:Take 300 mg by mouth once daily.Take 1 capsule by mouth in the morning and 1 in the afternoon. Take 2 capsules by mouth at night. TAKE 1 CAPSULE BY MOUTH IN THE MORNING, 1 CAPSULE IN THE AFTERNOON AND 2 CAPSULES AT NIGHTTake 1 capsule by mouth every morning AND 1 capsule every afternoon AND 2 capsules daily at bedtime. Do all this for 90 days.TAKE 1 CAPSULE BY MOUTH EVERY MORNING AND 1 CAPSULE EVERY AFTERNOON AND 2 CAPSULES DAILY AT BEDTIMETake 1 capsule by mouth every morning AND 1 capsule every afternoon AND 2 capsules daily at bedtime. Do all this for 30 days.Take 1 capsule by mouth every morning AND 1 capsule every afternoon AND 2 capsules daily at bedtime. Do all this for 180 days.predniSONE 10 mg oral tablet (4 sources)Start: 12-17-2024 End: 02-92-6556yrzm 1 tablet by mouth three times daily, then take 1 tablet by mouth twice daily, then take 1 tablet by mouth once dailypredniSONE (Deltasone) 10 MG tablet Indications: Dermatitis , Strain of lumbar region, initial encou nter Take 1 tablet (10 mg) by mouth 3 (three) times a day for 3 days, THEN 1 tablet (10 mg) 2 (two)times a day for 3 days, THEN 1 tablet (10 mg) Daily for 3 days. 18 tablet 12/17/2024 01/06/2025 Discontinued (Therapy completed) Problems Active Problems Problem ClassificationProblemDateDocumented DateEpisodic/ChronicAllergic reactions (4 sources)Inflammatory dermatosis; Translations: [Dermatitis, unspecified] 94-51-2937IgeehwafMhtvwlqe of urinary tract (2 sources)History of calculus of -24-1636DeciwmleGlynicsmc of lipid metabolism (20 sources)Pure hypercholesterolemia; Translations: [Pure hypercholesterolemia, unspecified]Onset: 906822-63-3688KltxckbVmtmosoh; including migraine (20 sources)Migraine; Translations: [Migraine, unspecified, not intractable, without status migrainosus]Onset: 321566-36-2983XwpgozbEmizqsou; including migraine (20 sources)Chronic mixed headache syndrome; Translations: [Other headache syndrome]Onset: 75-01-8915FkvjjwrwMyzfxrpvnps of prostate (20 sources)Benign prostatic hyperplasia; Translations: [Benign prostatic hyperplasia with lower urinary tract symptoms]Onset: 720899-60-7816Pmucpli Neoplasms of unspecified nature or uncertain behavior (20 sources)Astrocytoma of brain; Translations: [Neoplasm of uncertain behavior of brain, unspecified]Onset: 27-49-7244BxrvgksLenvgdnkc of unspecified nature or uncertain behavior (6 sources)Neoplastic disease; Translations: [Neoplasm of unspecified behavior of bone, soft tissue, and skin]92-08-4475QnigjkkwNwlzi aftercare (3 sources)Patient encounter status; Translations: [Other penitentiary (current) drug therapy]27-37-2506SuhqxcryPzrud aftercare (5 sources)Removal of sutures done; Translations: [Encounter for removal of sutures]32-11-9227GqafpifvRfdtj and unspecified benign neoplasm (4 sources)Melanocytic nevus of trunk; Translations: [Melanocytic nevi of trunk] 79-62-3728BrizgwawUezqc lower respiratory disease (1 source)Snoring; Translations: [Snoring]EpisodicOther male genital disorders (2 sources)Hydrocele of testis; Translations: [Hydrocele, unspecified]Onset: 43-69-6772ZdhvlwjwJyrmd male genital disorders (2 sources)Disorder of male genital -48-5451QyapeiuvVpput nervous system disorders (2 sources)Lesion of ulnar nerve, left upper limb; Translations: [Lesion of ulnar nerve]Onset: 156603-14-2519UgwabejWheze nervous system disorders (2 sources)Lesion of ulnar nerve, right upper limb; Translations: [Lesion of ulnar nerve]Onset: 849463-95-3254WmfkhhvYiteq nervous system disorders (20 sources)Chronic pain; Translations: [Other chronic pain]Onset: 02-08-2023 47-11-7416XkesziaIpbih nervous system disorders (3 sources)Lesion of brain; Translations: [Disorder of brain, unspecified] 45-27-7777RexclyrIllaq nervous system disorders (1 source)Chronic pain syndrome; Translations: [Chronic pain syndrome]02-09-2025 ChronicOther nervous system disorders (1 source)Disorder of brain, unspecified; Translations: [Brain lesion]Onset: 73-27-0363ZhptqniQbxiw screening for suspected conditions (not mental disorders or infectious disease) (6 sources)Other specified abnormal findings of blood chemistry; Translations: [Other abnormal blood chemistry]Onset: 302118-08-3958OuypqdkoMcvwn skin disorders (4 sources)Seborrheic keratosis; Translations: [Other seborrheic keratosis] 57-14-7226TiygsapeEtxko skin disorders (2 sources)Bacterial folliculitis; Translations: [Other specified follicular disorders]39-00-9871SrcylfchIissn skin disorders (2 sources)Lentiginosis; Translations: [Other melanin hyperpigmentation] 88-37-7333KbwaqabjAghhk skin disorders (2 sources)Eruption; Translations: [Rash and other nonspecific skin eruption] 33-78-2750OuagpoyeWmdtx upper respiratory infections (20 sources)Chronic sinusitis; Translations: [Chronic sinusitis, unspecified] Onset: 475918-83-6801BxtdldoXbqyxpmy codes; unclassified (1 source)Insomnia; Translations: [Insomnia, unspecified]EpisodicResidual codes; unclassified (2 sources)Family history of cancer; Translations: [Family history of malignant neoplasm of prostate]Onset: 27-43-4744FioxmzkcGmvhptkk codes; unclassified (2 sources)Family history of prostate heexzg85-31-0633QvlobbpgBxhgyjzbxbp; intervertebral disc disorders; other back problems (20 sources)Cervical spondylosis without myelopathy; Translations: [Spondylosis without myelopathy or radiculopathy, cervical region]Onset: 620201-56-6542 ChronicSpondylosis; intervertebral disc disorders; other back problems (14 sources)Neck pain; Translations: [Cervicalgia]Onset: 52-54-8034Acezttdq Sprains and strains (7 sources)Low back strain; Translations: [Strain of muscle, fascia and tendon of lower back, initial encounter]61-01-0244VlwxocztVdktuanmgrqt (1 source)NO SHOWUnclassified (1 source)New PatientOnset: 02-03-2025 Past or Other Problems Problem ClassificationProblemDateDocumented DateEpisodic/ChronicDiabetes mellitus without complication (2 sources)Increased glucose level; Translations: [Other abnormal glucose] 81-97-4029EepksfmeQjfxvbjddnb chest pain (20 sources)Atypical chest pain; Translations: [Other chest pain]Onset: 319419-84-6159HmnapcfvKspjy connective tissue disease (20 sources)Neuralgia of left upper limb; Translations: [Neuralgia and neuritis, unspecified]Onset: 020572-25-2169MavikoppXpmvk diseases of kidney and ureters (20 sources)Disorder of urinary tract; Translations: [Other obstructive and reflux uropathy]Onset: 644779-39-4275XrwstcvaClsnk nervous system disorders (20 sources)Ataxia; Translations: [Ataxia, unspecified]Onset: 02-08-2023 04-26-6139DrqccnftJsthi non-epithelial cancer of skin (20 sources)Basal cell carcinoma of upper extremity; Translations: [Basal cell carcinoma of skin of left upper limb, including shoulder]Onset: 02-08-2023 35-76-5647JumbyxlzEvlcn skin disorders (2 sources)Inflamed seborrheic keratosis; Translations: [Inflamed seborrheic keratosis]56-94-2022AipoqadzJzhzb skin disorders (2 sources)Actinic keratosis; Translations: [Actinic keratosis]04-18-2024 EpisodicSyncope (20 sources)Syncope; Translations: [Syncope and collapse]Onset: 08-26-2014 36-15-0659UeuronwfHyffmszbndtu (1 source)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 Results Test NameValueInterpretationReference RangeFacilityCNOVon 04-71-7395GJUGTnjnhw Visit ([facility]) RHIANNON VALDIVIA ([id number]) 1955 [place] Date Time Provider Department 05/06/25 1:00 PM JOHN CALVO [facility] During your visit today, we recorded the following information about you: Pulse Blood pressure Weight Height 75/minute 143/88 73.5 kg 1.778 m Onur Crespo MA 05/06/2025 1:24 PM Signed 05/05/2025 PROMIS [facility] Physical Health Summary Physical health: Good Everyday physical activity, ability: Mostly Fatigue: Mild Pain level: 4 General health: Very good Social activities/roles, ability: Very good Physical Health T-Score 44.9 (Good) Physical Health Percentile 31 PROMIS [facility] Mental Health Summary Quality of life: Very good Mental health (mood,thinking): Good Social satisfaction: Very good Emotional problems (anxious,depressed): Rarely Mental Health T-Score 50.8 (Very Good) Mental Health Percentile 53 PHQ-9 Score: 2(Minimal Depression) PHQ-9 Self-Harm: Not at all NEURO-QOL Cognitive Function T-Score 51(Within Normal Limits) PROMIS Physical Function T-Score 47(Within Normal Limits) PROMIS Physical Function Percentile 38 PROMIS Pain Interference T-Score 54(Within Normal Limits) PROMIS Pain Interference Percentile 34 Percentiles provide an indication of how a patient's score ranks in relation to the [place] general population. > 31st percentile is within normal limits or better *< 31st percentile is at least ? SD worse than population, which may be clinically relevant < 16th percentile is at least 1 SD worse than population and warrants attention John Calvo MD 05/06/2025 1:24 PM Signed Follow-up Visit [facility] May 06, 2025 CC: NECK PAIN HPI: Rhiannon Valdivia is a 68 year old male who initially presented with h/o cluster headaches, subependymoma, basal cell carcinoma with chronic 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 Numbnness tingling with elbow flexion, improved when not flexed Pain:5/10; WORST: 9/10; on a scale of 0-10. Patient was Gabapentin, currently on gabapentin. The patient has previously been on the following pain medications -gabapentin. -tried chiropractor Quadricep tear on right 1990s basal cell carcinoma removed from shoulder by Irina SHETTY- [facility] Treating Physicians: Hardik Carreon CNP in Neurology 2023. -Neurologist in [place] Prior Spinal Surgery: None. Notes daily headaches every day, Spine intervention: -Diagnostic bilaterally C3 and C4 medial branch and Third occipital block on 08/07/2024 with 50% relief for one week. Did not significantly improve headaches, less intense. Patient did bring pain diary Work status: -seen with Bettie, Spouse See Follow-up visit from prior encounter dated 10/29/2024 . Since last visit: Pain TODAY: 4/10 in neck, 3/10 in headaches; WORST: 5/10; on a scale of 0-10. Patient is currently on date of last PT 2023 and NSAIDs, Tizandine prn. The patient has previously been on the following pain medications - Gabapentin weaned off. - PT Giancarlo in [place] 03/2024 to 10/23/2024 (20 sessions) and doing physician supervised home exercise program for last 2 months- 30% better, headaches and neck less pain in morning. Significant relief for bilateral arm arm and low back pain -Dr Baker- on Aimovig, with decrease in headaches 40% improved for 3 months, may be increasing dose -seeing Dermatology for basal cell carcinoma -had cystoscopy 01/2025 Neck pain is stable and tolerable left vs Right - 60:40 -Will be going to [facility] July to October He continues to deny bowel/bladder incontinence, denies fever, denies night pain, denies unintentional weight loss, denies clumsiness of hands or dropping things, denies clumsiness of feet, tripping or falling. Denies any constitutional or myelopathic symptomatology. No interval change in PMHX, PSHX, Allergies, FamHx or ROS since 10/29/2024. OBJECTIVE: PHYSICAL EXAM Ht 172.7 cm (5' [...] with pain RIGHT LEFT Rotation Full ROM without pain Full ROM with pain Lateral Bend Full ROM with pain Full ROM with pain RIGHT LEFT Spurling Test negative negative Negative cervical compression test Manjinder's Exam: Superficial non-anatomic tenderness: No Overreaction: No Pain on simulated maneuve (more content not included)...[facility] CNOVOffice Visit (NEADFV) RHIANNON VALDIVIA ([id number]) 1955 M Date Time Provider Department 05/06/25 10:30 AM MUKESH BAKER NEADFV During your visit today, we recorded the following information about you: Pulse Blood pressure Weight Height 75/minute 143/88 73.7 kg 1.778 m Mukesh Baker MD 05/06/2025 1:28 PM Signed PROGRESS NOTE-HEADACHE MEDICINE SERVICE DATE: May 06, 2025 Location: [facility] Participants: Patient, and Provider Subjective HPI: Rhiannon Valdivia is here for follow up. Last seen on 02/03/2025.Aimovig started February 13, we review his pain journal where he documents head and neck pain. Daily headaches but severity has decreased by 30-50%. He fees he is definitely more active. Aimovig has not changed neck pain. 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 This is being followed by DIOGENES Carreon from brain tumor clinic. Head pain description: see note from 02/03/2025 Outpatient Medications as of 05/06/2025 Medication Sig tiZANidine (ZANAFLEX) 4 mg tablet Take 4 mg by mouth every 6 hours as needed. multivit-min/folic acid/lutein (CENTRUM SILVER PO) Take by mouth. IBUPROFEN ORAL Take by mouth as needed (take 2-3 tabs po prn for pain). MULTIVITAMIN ORAL Take by mouth. tamsulosin (FLOMAX) 0.4 mg Take 0.4 mg by mouth once daily. atorvastatin (LIPITOR) 40 mg tablet Take 40 mg by mouth once daily. No current facility-administered medications on file as of 05/06/2025. Current medications review: 1.infrequent Tylenol PAST MEDICAL HISTORY Diagnosis Date Migraines ALLERGIES Allergen Reactions Ceclor [Cefaclor] Unknown Vitals: BP 143/88 Pulse 75 Ht 177.8 cm (5' 10 ) Wt 73.7 kg (162 lb 7.7 oz) BMI 23.31 kg/m? ASSESSMENT: Cervicogenic headaches, independent of migraines. Chronic neck pain Migraine without aura RECOMMENDATIONS: 1. Preventive therapy: -increase Aimovig for 140 mg, one month should be enough to evaluate efficacy. If not much better then he can go back to 70 mg because of cost. 2. Follow up in 2 months I spent a total of 30 minutes on the date of the service which included preparing to see the patient, [id number]-jxfe patient care, completing clinical documentation, obtaining and/or reviewing separately obtained history, performing medically appropriate examination, counseling and education to patient/family/caregiver, ordering medications, test or procedures, communicating with other healthcare providers, independently interpreting results, communicating results to the patient/family/caregiver and care coordination. This time excludes any procedures. Mukesh Baker MD [facility] Allergies As of Date: 05/06/2025 Noted Allergy Reaction CECLOR (CEFACLOR) 08/18/2014 16 - Unknown Date Reviewed: 05/06/2025 Reviewed by: Onur Crespo MA - Fully Assessed Reason for Visit: Follow Up [171] Primary Visit Diagnosis:Chronic daily headache [R51.9] Other Visit Diagnoses:Migraine with aura and without status migrainosus, not intractable [G43.109] Cervicalgia [M54.2] Order(s):erenumab-aooe 140 mg/mL subcutaneous auto-injector (AIMOVIG)Inject 1 mL subcutaneously once every month.Disp: 1 mLRfl: 5 Prescriptions as of 05/06/2025 - tiZANidine (ZANAFLEX) 4 mg tablet Take 4 mg by mouth every 6 hours as needed. - multivit-min/folic acid/lutein (CENTRUM SILVER PO) Take by mouth. - erenumab-aooe 140 mg/mL subcutaneous auto-injector (AIMOVIG) Inject 1 mL subcutaneously once every month. - IBUPROFEN ORAL Take by mouth as needed (take 2-3 tabs po prn for pain). - MULTIVITAMIN ORAL Take by mouth. - tamsulosin (FLOMAX) 0.4 mg Take 0.4 mg by mouth once daily. - atorvastatin (LIPITOR) 40 mg tablet Take 40 mg by mouth once daily. Problem List As Of Date 05/06/2025 Noted Resolved Migraines [G43.909] Atypical chest pain [R07.89] 08/26/2014 Syncope [R55] 08/26/2014 Prescriptions ordered this encounter Disp Refills Start End ERENUMAB-AOOE 140 MG/ML SUBCUTANEOUS* 1 mL 5 05/06/2025 Route: SQ Sig: Inject 1 mL subcutaneously once every month. Medications Discontinued During This Encounter Prescriptions - AIMOVIG AUTOINJECTOR 70 mg/mL auto-injector (Discontinued) Inject 70 mg subcutaneously once every month. Encounter Status:Closed by MUKESH BAKER on 05/06/25[facility] Dermatopathology examon [id number] HealthcareFinal Diagnosis SEBORRHEIC KERATOSIS WITH LICHENOID INFLAMMATION.[facility] StanlyICD10 CodeL82.0NOAK HealthcareMicroscopic DescriptionMicroscopic examination performed.[facility]-Brookside CampusPROTOCOLWellSpan Surgery & Rehabilitation HospitalSpecimen type Nom (Spec) SPECIMEN: LEFT SUPRACLAVICULAR AREA [facility] Health StanlyNo Panel Informationon [id number]: simple Destruction method: electrodesiccation and curettage Informed consent: discussed and consent obtained Informed consent comment: The risks of the procedure were discussed, including, but not limited to risks of scarring, darker or monument setter helper pigmentary changes, recurrence, infection, and incomplete removal [...] Yes Curettage cycles: 3 Lesion length (cm): 1.2 Lesion width (cm): 1.1 Margin per side (cm): 0 Final wound size (cm): 1.2 Hemostasis achieved with: aluminum chloride Outcome: patient tolerated procedure well with no complications Post-procedure details: wound care instructions given Post-procedure details comment: Post-procedure instructions were given verbally and in writing. The office will be contacted if the lesion fails to resolve despite treatment, or if a side effect develops such as abnormal crusting, scabbing, reddness, discharge, or tenderness. Additional details: Amount of lidocaine used: 3cc Previous accession number: [id number] Health StanlyType of biopsy: tangential Informed consent: discussed and [...] Dressing type: bandage Additional details: Photo taken Amount of lidocaine used: 1cNovant Health Mint [facility] Medical Centerulatory Visit Summaryon [id number] Visit SummaryAmbulatory Visit Summary RHIANNON VALDIVIA :1955 Visit Date:02/11/2025 Ambulatory Visit Instructions Your Diagnosis BPH with obstruction/lower urinary tract symptoms Hydrocele Elevated PSA Family history of prostate cancer Your Care Team Attending Physician - LUIS ANGEL MÉNDEZ, Samuel Vides Primary Care Physician - MATT MÉNDEZ, MANFRED Krishnamurthy This Is Your Medications List doxycycline (doxycycline hyclate 100 mg Cap) tamsulosin (tamsulosin 0.4 mg Cap) Contact prescribing physician if questions or concerns atorvastatin (atorvastatin 40 mg Tab) minocycline (minocycline 100 mg Cap) tizanidine (tiZANidine 4 mg Tab) Procedures Performed Cystoscopy and biopsy of bladder (02/11/2025), Colonoscopy, Eye, Hernia repair, Nose, Tonsillectomy. Discharge Vitals Heart Rate (Peripheral) 98 Respiratory Rate 18 Blood Pressure 136/80 Height 178 cm Height 70 in Weight 75 kg Weight 165.347 lb BMI 23.67 What to do next Scheduled Follow-Up Appointments Monday 10:45 AM EST With: Samuel PLASENCIA MD Where: [facility] [address] [place] [address]- You Need to Schedule the Following Appointments Follow Up with Samuel PLASENCIA MD, URL When: Where: [facility] [address], [place] [address]- Medications What How Much When Instructions Unchanged doxycycline (doxycycline hyclate 100 mg Cap) 1 Capsules By Mouth Every day take one day before procedure and take one day after procedure Unchanged tamsulosin (tamsulosin 0.4 mg Cap) 1 Capsules By Mouth Every day TAKE 1 CAPSULE BY MOUTH EVERY DAY Unchanged atorvastatin (atorvastatin 40 mg Tab) 1 Tablets By Mouth Every day TAKE 1 TABLET BY MOUTHEVERY DAY Contact prescribing physician if questions or concerns Unchanged minocycline (minocycline 100 mg Cap) 1 Capsules By Mouth Every 12 hours TAKE 1 CAPSULE BYMOUTH TWICE A DAY FOR 14 DAYS Contact prescribing physician if questions or concerns Unchanged tizanidine (tiZANidine 4 mg Tab) 1 Tablets By Mouth Every 6 hours TAKE 1 TABLET BY MOUTH EVERY 6 HOURS IF NEEDED FOR MUSCLE SPASMS FOR UP TO 15 DAYS Contact prescribing physician if questions or concerns Medications and Immunizations Administered Given lidocaine Top 2% Gel w/Appl 6 mL, 5.5 mL, Topical. For: BPH with obstruction/lower urinary tract symptoms, Hydrocele, Elevated PSA, Family history of prostate cancer Allergies Ceclor (Rash) Problems Ongoing - Any problem that you are currently receiving treatment for. Basal cell carcinoma BPH with obstruction/lower urinary tract symptoms Elevated PSA Family history of prostate cancer High cholesterol History of kidney stones Hydrocele Patient Survey You may receive a survey via text or e-mail asking about your office visit. Please share your experience with us by completing your survey. We appreciate your feedback and thank you for choosing us for your care. Education Materials Benign Prostatic Hyperplasia Benign prostatic hyperplasia (BPH) is an enlarged prostate gland that is caused by the normal agingprocess. The prostate may get bigger as a man gets older. The condition is not caused by cancer. The prostate is a walnut-sized gland that is involved in the production of semen. It is located in front of the rectum and below the bladder. The bladder stores urine. The urethra carries stored urine ou t of the body. An enlarged prostate can press on the urethra. This can make it harder to pass urine. The buildup of urine in the bladder can cause infection. Back pressure and infection may progress to bladder damage and kidney (renal) failure. What are the causes? This condition is part of the normal aging process. However, not all men develop problems from thiscondition. If the prostate enlarges away from the urethra, urine flow will not be blocked. If it enlarges toward the urethra and compresses it, there will be problems passing urine. What increases the risk? This condition is more likely to develop in men older than 50 years. What are the signs or symptoms? Symptoms of this condition include: ??? Getting up often during the night to urinate. ??? Needing to urinate frequently during the day. ??? Difficulty starting urine flow. ??? Decrease in size and strength of your urine stream. ??? Leaking (dribbling) after urinating. ??? Inability to pass urine. This needs immediate treatment. ??? Inability to completely empty your bladder. ??? Pain when you pass urine. This is more common if there is also an infection. ??? Urinary tract infection (UTI). How is this diagnosed? This condition is diagnosed based on your medical history, a physical exam, and your symptoms. Tests will also be done, such as: ??? A post-void bladder scan. This measures any amount of urine that may remain in your bladder after you finish (more content not included)...[facility] SystemCNPNon [id number] (NEADFV) RHIANNON VALDIVIA ([id number]) 1955 M Date Time Provider Department 02/11/25 MUKESH BAKER NEADFV During your visit today, we recorded the following information about you: ChentechiloChelsea 02/11/2025 3:18 PM Signed [facility] Aimovig scanned to Epic Allergies As of Date: 02/11/2025 Noted Allergy Reaction CECLOR (CEFACLOR) 08/18/2014 16 - Unknown Date Reviewed: 02/03/2025 Reviewed by: Munira Corral MA - Fully Assessed Reason for Visit: Aimovig [Other] Prescriptions as of 02/12/2025 - erenumab-aooe (AIMOVIG AUTOINJECTOR) 70 mg/mL auto-injector Inject 1 mL subcutaneously once every month. - IBUPROFEN ORAL Take by mouth as needed (take 2-3 tabs po prn for pain). - MULTIVITAMIN ORAL Take by mouth. - tamsulosin (FLOMAX) 0.4 mg Take 0.4 mg by mouth once daily. - atorvastatin (LIPITOR) 40 mg tablet Take 40 mg by mouth once daily. Problem List As Of Date 02/11/2025 Noted Resolved Migraines [G43.909] Atypical chest pain [R07.89] 08/26/2014 Syncope [R55] 08/26/2014 Encounter Status:Closed by CHELSEA LANE on 02/12/25[facility] Urology Office/Clinic Noteon [id number] Office/Clinic NoteUrology Office/Clinic Note Chief Complaint Cysto HPI Staff 69 year old male presents for cysto. Ck scrotal US History of Present Illness Tests reviewed: US I have reviewed the previous health record information and history for this patient from Dr. Plasencia. I have reviewed and verified the staff [...] HPI. Physical Exam Vitals & Measurements HR: 98(Peripheral) RR: 18 BP: 136/80 HT: 178 cm HT: 70 in WT: 75 kg WT: 165.347 lb BMI: 23.67 General Appearance: alert, no distress, well nourished, well developed adult. Procedure Operative Information Anesthesia Type: Local Procedure: Local Cystoscopy Complications: None Surgical risks, benefits, details of the procedure have been explained to the patient. Full informed consent has been obtained. Intraoperative Information Prepped: Patient is brought back to the endoscopy suite. Patient is placed in supine position. Patient prepped in the usual fashion with Betadine solution. 2% Xylocaine Jelly is placed per Urethra. After waiting several minutes, the Cystoscope is introduced. The Urethra is: Normal The Prostatic Urethra is: _Bilobar obstruction, short. The Bladder: _No tumors or stones, Trabeculated: Moderate (2) The Ureteral orifices: Show efflux of clear urine Specimens Removed: None Removal: Cystoscope is removed. The patient tolerated it well. Postoperative Information Patient is discharged home with antibiotic coverage. Follow up arranged. Assessment/Plan 1. BPH with obstruction/lower urinary tract symptoms (N40.1: Benign prostatic hyperplasia with lower urinary tract symptoms) Pt had IO cysto today to eval candidacy for prostate procedures without complications. Taking Flomax 0.4mg qd through PCP. Follow up 4-6 mos (med change) or sooner if needed. Pt understands and agrees with plan. -Increase Flomax 0.4 mg to bid. Pt has enough and doesn't need new rx. 2. Hydrocele (N43.3: Hydrocele, unspecified) Scrotal US 01/23/25 [facility] - R and L epididymal cysts. Large R and tiny L hydroceles. Possible L varicocele. Reviewed imaging with pt. 3. Elevated PSA (R97.20: Elevated prostate specific antigen [PSA]) PSA: 05/21/18 - 2.36 12/22/21 - 2.64 12/28/22 - 2.74 12/27/23 - 2.99 12/30/24 - 3.34 Fam hx of pros ca in brother, had prostatectomy. KARIN 01/20/25 - 35g, benign. -PSA due 06/2025 (before they go to [place]) 4. Family history of prostate cancer (Z80.42: Family history of malignant neoplasm of prostate) See #3. Increased risk given direct family history. Follow-up With When Contact Information LUIS ANGEL MÉNDEZ, Samuel Vides, URL [facility] [address], [place] [address]- Additional Instructions: 4-6 mos (med change) Patient Education Benign Prostatic Hyperplasia I, Magui Friedman, personally scribed for Dr. Plasencia on 02/11/2025 14:13:20. . Documentation recorded by the scribe, Magui Friedman, accurately reflects the services(s) I performed and decisions made by me. Authenticated by Dr. Plasencia on 02/11/2025 14:16:57. Problem List/Past Medical History Ongoing Basal cell carcinoma BPH with obstruction/lower urinary tract symptoms Elevated PSA Family history of prostate cancer High cholesterol History of kidney stones Hydrocele Historical No qualifying data Procedure/Surgical History Cystoscopy and biopsy of bladder (02/11/2025), Colonoscopy, Eye, Hernia repair, Nose, Tonsillectomy. Medications [...] 100 in lifetime) Tobacco Use:. Never Smokeless Tobacco Use:., 02/11/2025 Family History Cancer: Father. Heart disease: Grandparent. Immunizations Vaccine Date Status zoster vaccine, inactivated 03/07/2024 Recorded zoster vaccine, inactivated 01/01/2024 Recorded diphtheria/pertussis, acel/tetanus adult 01/01/2024 Recorded influenza virus vaccine, inactivated 05/13/2023 Recorded pneumococcal 20-valent conjugate vaccin (more content not included)...Normal [facility] HospitalComment on above:Result Comment: Electronically Signed By: Samuel PLASENCIA MD\.br\Date and Time Signed: 02/11/25 14:17 EDT\.br\Electronically Co-Signed By: Magui Friedman\.br\Date and Time Co- Signed: 02/11/25 14:13 EDTNo Panel Informationon [id number]: Intermediate Final length (cm): 5.2 Reason for type of repair: allow closure [...] with minimal tension. Suture removal (days): 14 Hemostasis achieved with: suture and electrodesiccation Outcome: patient tolerated procedure well with no complications Post-procedure details: sterile dressing applied and wound care instructions given Post-procedure details comment: It was emphasized to the patient to contact the office for any signs of infection, uncontrollable bleeding, or complications. Dressing type: [facility] length (cm): 2 Lesion width (cm): 0.5 Margin per side (cm): 0.4 Total excision diameter (cm): 2.8 Informed consent: discussed and consent obtained Informed [...] electrodesiccation Additional details: Amount of lidocaine used: 12.0 ml Estimated blood loss: 3.0 mlNAspirus [facility]lade Hospital [id number] Office Visit (NEADFV) RHIANNON VALDIVIA ([id number]) 1955 M Date Time Provider Department 02/03/25 9:00 AM MUKESH BAKERFV During your visit today, we recorded the following information about you: Pulse Blood pressure Weight Height 83/minute 145/73 74.8 kg 1.778 m Mukesh Baker MD 02/09/2025 6:13 PM Signed CONSULT-HEADACHE MEDICINE SERVICE DATE: 02/03/2025 Location: [facility] Participants: Patient, and Provider Requesting Provider: Member Name Role and Specialty Contact Info Address Comments John Calvo MD Referring [address] [place] [address] - Recommendations of care will be communicated by shared medical record. Subjective HPI: Rhiannon Valdivia is a 69-year-old male presenting for evaluation of chronic headaches. He is accompanied by his , who provides additional history. Rhiannon reports a long-standing history of headaches, which began in 1974. These headaches are described as constant, bifrontal, and located behind the eyes and at the temples, with the right side being more affected than the left. He experiences sensitivity to light and noise but does not report nausea. The headaches worsen with simple activity and are most severe in the morning upon awakening, with pain levels ranging from 6-8/10. After getting up, moving around, and having a cup of coffee, the pain decreases to a more tolerable level of 3-4/10. He notes that the headaches are sometimes triggered by alcohol and sleep deprivation, while caffeine and medications provide some relief. He does not report any positional changes. Rhiannon has tried various treatments for his headaches, including gabapentin, which he took for a couple of years at a low dose (300 mg, initially four times a day, then reduced to three times a day) without significant improvement. He also tried amitriptyline, which initially helped but lost efficacy over time. He was prescribed Emgality but did not start it due to cost. He occasionally takes ibuprofen for severe headaches. He has not tried sumatriptan (Imitrex) or metoprolol. Rhiannon has a history of neck pain and has received injections from Dr. Calvo, including a median branch block, without significant relief. He has also undergone physical therapy. He believes there may be a link between his neck pain and headaches. He also suspects a sinus component to his headaches, noting that they worsen when his sinuses are acting up. He is followed by neuro-oncology and has an MRI of the brain scheduled. He spends mercado in [place], [place], and does not have medical care there. Prior Treatments: Gabapentin 300 mg BID for a few years, highest dose was QID Doxepin- he does not thinks he took it for long. Emgality- not on formulary Topiramate- not prescribed because of hx of kidney stones Amitriptyline- helped then lost efficacy Outpatient Medications as of 02/03/2025 Medication Sig IBUPROFEN ORAL Take by mouth as needed (take 2-3 tabs po prn for pain). MULTIVITAMIN ORAL Take by mouth. tamsulosin (FLOMAX) 0.4 mg Take 0.4 mg by mouth once daily. atorvastatin (LIPITOR) 40 mg tablet Take 40 mg by mouth once daily. No current facility-administered medications on file as of 02/03/2025. Current medications review: 1.infrequent Tylenol PAST MEDICAL HISTORY Diagnosis Date Migraines ALLERGIES Allergen Reactions Ceclor [Cefaclor] Unknown Chart/data review: 1.MRI brain Vitals: BP 145/73 (BP Site: Left Arm, BP Position: Sitting, BP Cuff Size: Small Adult) Pulse 83 Ht 177.8 cm (5' 10 ) Wt 74.8 kg (164 lb 14.5 oz) SpO2 98% BMI 23.66 kg/m? ASSESSMENT: Cervicogenic headaches Chronic neck pain Migraine without aura - his headaches are likely migraine with cervico-medicated component. I dont know to what degree each one is contributing. I gave him the option to try a neuropathic agent which should help with both etiologies or to try a migraine specific one to try to identify degree of central component. He chose the latter. - Dr. Calvo consented him for Bilateral C3, C4 Medial Branch Block, possible TON. But he is not sure if he was told to follow up for those RECOMMENDATIONS: 1. Abortive therapy: -Previous trials of gabapentin and doxepin were suboptimal due to low dosages and short duration. 2. Preventive therapy: -Trial of Ajovy, written information provided 3. Work up: pending MRI brain wwo contrast 4. Follow up in 2 months I spent a total of 45 minutes on the date of the service which included preparing to see the patient, [id number] patient care, completing clinical documentation, obtaining and/or reviewing separately obtained history, performing medically appropriate examination, counseling and education to patient/family/caregiver, ordering medications, test or procedure (more content not included)...[facility] [id number] (NIQ) RHIANNON VALDIVIA ([id number]) 1955 M Date Time Provider Department 02/03/25 MUKESH BAKER NIQ During your visit today, we recorded the following information about you: Melissa Davies 02/03/2025 12:07 PM Signed Received fax from [employer] requesting an alternative to Ajovy. Fax scanned to patient's chart for review. Keke Hopkins RN 02/03/2025 1:16 PM Signed PA for ajovy approved via [employer]. Prior authorization approved Payer: Zena Note from payer: Approved. This drug has been approved under the Member's Medicare Part D benefit. Approved quantity: 1.5 units per 30 day(s). You may fill up to a 90 day supply except for those on Specialty Tier 5, which can be filled up to a 30 day supply. Please call the pharmacy to process the prescription claim. Approval Details Authorized from January 20, 2025 to August 20, 2099 Electronic appeal: Not supported View History Allergies As of Date: 02/03/2025 Noted Allergy Reaction CECLOR (CEFACLOR) 08/18/2014 16 - Unknown Date Reviewed: 02/03/2025 Reviewed by: Munira Corral MA - Fully Assessed Reason for Visit: Medication Problem [65] Prescriptions as of 04/02/2025 - IBUPROFEN ORAL Take by mouth as needed (take 2-3 tabs po prn for pain). - MULTIVITAMIN ORAL Take by mouth. - tamsulosin (FLOMAX) 0.4 mg Take 0.4 mg by mouth once daily. - atorvastatin (LIPITOR) 40 mg tablet Take 40 mg by mouth once daily. Problem List As Of Date 02/03/2025 Noted Resolved Migraines [G43.909] Atypical chest pain [R07.89] 08/26/2014 Syncope [R55] 08/26/2014 Encounter Status:Closed by MELISSA DAVIES on 04/02/25[facility] Scrotum and testicleon [id number] [address] Ultrasound Report Signed Patient: RHIANNON VALDIVIA MR#: [id number] : 1955 Acct:[id number] Age/Sex: 69 / M ADM Date: 01/23/25 Loc: US Attending Dr: Samuel Plasencia M.D. Ordering Physician: Samuel Plasencia M.D. Date of Service: 01/23/25 Procedure(s): US scrotum Accession Number(s): [id number] cc: MANFRED GUTIERREZ ; Samuel Plasencia M.D. [facility] [place] [address] Patient Name: RHIANNON VALDIVIA MRN: [id number] date: 1955 Sex: M Assigned Patient Location: US Current Patient Location: US Accession/Order Number: [id number] Exam Date: 01/23/2025 12:05 Report Date: 01/23/2025 12:11 At the request of: SAMUEL PLASENCIA MD Procedure: US scrotum SCROTAL ULTRASOUND WITH DUPLEX IMAGING CLINICAL DATA: Right scrotal enlargement for years. COMPARISON: None The right testis measures 3.9 x 2.5 x 2.6 cm. The left testis measures 4.1 x 2 0.4 to 2.4 cm. There is a small right testicular cyst measuring 4 x 3 x 3 mm . A echogenic nodule is seen along the capsule at the inferior pole of the left testis that may be a scrotal kalpana. No solid intratesticular testicular masses are identified. There is documentation of bilateral duplex and color Doppler testicular blood flow. The right epididymis is unremarkable. The left epididymis is mildly heterogeneous and there is a small cyst measuring 3 mm in size. There is a large right hydrocele (80 mL) and a tiny hydrocele on the left. There are prominent vessels adjacent to the left testis with slight increase in blood flow with Valsalva that may be varicocele. US/US scrotum IMPRESSION: NO SUSPICIOUS INTRATESTICULAR MASS OR EVIDENCE OF TORSION. RIGHT TESTICULAR AND LEFT EPIDIDYMAL CYSTS. LARGE RIGHT AND TINY LEFT HYDROCELES. POSSIBLE LEFT VARICOCELE. Impression dictated by: Gladys Hanna M.D. 01/23/2025 12:11 PM Dictation Location: [place] [address] Electronically authenticated by: [id number] Y Date: 01/23/2025 12:11 Dictated By: Gladys Hanna M.D. Signed By: 01/23/25 1214 DD/ 1211 TD/TT: Shirt Hemmer:TBHRadiology, Radiologist, - 01/23/[address] [address] Ultrasound Report Signed Patient: RHIANNON VALDIVIA MR#: [id number] : 1955 Acct:[id number] Age/Sex: 69 / M ADM Date: 01/23/25 Loc: US Attending Dr: Samuel Plasencia M.D. Ordering Physician: Samuel Plasencia M.D. Date of Service: 01/23/25 Procedure(s): US scrotum Accession Number(s): [id number] cc: MANFRED GUTIERREZ ; Samuel Plasencia M.D. The [address] [address] Patient Name: RHIANNON VALDIVIA MRN: [id number] date: 1955 Sex: M Assigned Patient Location: US Current Patient Location: Accession/Order Number: [id number] Exam Date: 01/23/2025 12:05 Report Date: 01/23/2025 12:11 At the request of: SAMUEL PLASENCIA MD Procedure: US scrotum SCROTAL ULTRASOUND WITH DUPLEX IMAGING CLINICAL DATA: Right scrotal enlargement for years. COMPARISON: None The right testis measures 3.9 x 2.5 x 2.6 cm. The left testis measures 4.1 x 2 0.4 to 2.4 cm. There is a small right testicular cyst measuring 4 x 3 x 3 mm . A echogenic nodule is seen along the capsule at the inferior pole of the left testis that may be a scrotal kalpana. No solid intratesticular testicular masses are identified. There is documentation of bilateral duplex and color Doppler testicular blood flow. The right epididymis is unremarkable. The left epididymis is mildly heterogeneous and there is a small cyst measuring 3 mm in size. There is a large right hydrocele (80 mL) and a tiny hydrocele on the left. There are prominent vessels adjacent to the left testis with slight increase in blood flow with Valsalva that may be varicocele. US/US scrotum IMPRESSION: NO SUSPICIOUS INTRATESTICULAR MASS OR EVIDENCE OF TORSION. RIGHT TESTICULAR AND LEFT EPIDIDYMAL CYSTS. LARGE RIGHT AND TINY LEFT HYDROCELES. POSSIBLE LEFT VARICOCELE. Impression dictated by: Gladys Hanna M.D. 01/23/2025 12:11 PM Dictation Location: [place] [address] Electronically authenticated by: [id number] Y Date: 01/23/2025 12:11 Dictated By: Gladys Hanna M.D. Signed By: 01/23/25 1214 DD/ 1211 TD/TT: Shirt Hemmer: DEON HealthcareRadiology Study observation (narrative)NOMLittle HealthcareUS Scrotum and testicleOrdered By: Radiologist Radiology on 11-38-2373HJVJ [facility] Work Phone: ambulatory Visit Summaryon 51-79-6783Mpeywosyuz Visit SummaryAmbulatory Visit Summary RHIANNON VALDIVIA :1955 Visit Date:01/20/2025 Ambulatory Visit Instructions Your Diagnosis BPH with obstruction/lower urinary tract symptoms Elevated PSA Family history of prostate cancer Hydrocele Tests Performed US Scrotum (Contents) -- Results Pending -- Please visit your patient portal for your results or contact your primary care physician. Your Care Team Attending Physician - Samuel PLASENCIA MD Primary Care Physician - MANFRED GUTIERREZ MD [...] Appointments Follow Up with LUIS ANGEL MÉNDEZ, Samuel Vides, URL When: Comments: sched cysto Where: [facility] [address] , [place] [address] [phone] Medications What How Much When Instructions New doxycycline (doxycycline hyclate 100 mg Cap) 1 Capsules By Mouth Every day take one day before procedure and take one day after procedure Pickup at [facility]/pharmacy #[id number] Unchanged atorvastatin (atorvastatin 40 mg Tab) 1 Tablets By Mouth Every day TAKE 1 TABLET BY MOUTHEVERY DAY Contact prescribing physician if questions or concerns Unchanged minocycline (minocycline 100 mg Cap) 1 Capsules By Mouth Every 12 hours TAKE 1 CAPSULE BYMOUTH TWICE A DAY FOR 14 DAYS Contact [...] physician if questions or concerns Pharmacy Information [facility]/pharmacy #[id number]: [address], [place] [phone] Allergies Ceclor (Rash) Problems Ongoing - Any [...] including vitamins, herbs, eye drops, creams, and evon-xmh-zzoqreu medicines. ??? Any problems you or family [...] medicines or blood t (more content not included)...Normal Castro [facility] Office/Clinic Noteon 32-98-1889[place] Office/Clinic NoteUrology Office/Clinic Note Chief Complaint New patient BPH [...] here with his today. Pt [facility] in [place] and [place]. 1. BPH with obstruction/lower urinary tract symptoms (N40.1: Benign prostatic hyperplasia with lower urinary tract symptoms) IPSS 19. UA today negative for blood and infection. PVR 74 mL. Taking Flomax 0.4mg qd per PCP for afew years. Sxs have worsened in the last [...] -PSA due 06/2025 (before they go to [place]) 3. Family history of prostate cancer (Z80.42: Family history of malignant neoplasm of prostate) Cont screening per above. 4. Hydrocele (N43.3: Hydrocele, unspecified) Found on right per PE today. Recommended imaging to further evaluate. R inguina hernia small. -Schedule scrotal US (pt prefers [facility]). Will review results at time of cysto. Follow-up With When Contact Information LUIS ANGEL MÉNDEZ, Samuel Vides, URL [facility] [address] [place] [address] [phone] Additional Instructions: sched cysto Patient Education Cystoscopy Benign Prostatic Hyperplasia Prostate Cancer Screening I, Philly Gutierrez, personally scribed for Dr. Plasencia on 01/20/2025 14:35:36. . Documentation recorded by the scribe, Philly Gutierrez, accurately reflects the services(s) I performed and [...] Use:. Never Smokeless T (more content not included)...[facility]orial Health SystemComment on above:Result Comment: Electronically Signed By: Samuel PLASENCIA MD\.br\Date and Time Signed: 01/20/25 14:39 EDT\.br\Electronically Co-Signed By: Philly Gutierrez\.br\Date and Time Co-Signed: 01/20/25 14:36 EDTNo Panel Informationon 77-08-0793Mfqj of biopsy: [facility] LUMBAR SPINE 2 OR 3Von 34-23-7065[address] [address] XRay Report Signed Patient: RHIANNON VALDIVIA MR#: [id number] : 1955 Acct:[id number] Age/Sex: 69 / M ADM Date: 01/06/25 Loc: [facility] Attending Dr: MANFRED GUTIERREZ Ordering Physician: MANFRED GUTIERREZ Date of Service: 01/06/25 Procedure(s): XR lumbar spine 2-3V Accession Number(s): [id number] cc: MANFRED GUTIERREZ The [place] [address] Patient Name: RHIANNON VALDIVIA MRN: [id number] date: 1955 Sex: M Assigned Patient Location: [facility] Current Patient Location: [facility] Accession/Order Number: [id number] Exam Date: 01/06/2025 15:12 Report Date: 01/06/2025 [...] Hanna M.D. 01/06/2025 3:14 PM Dictation Location: [place] [address] Electronically authenticated by: [id number] Y Date: 01/06/2025 15:14 Dictated By: Gladys Hanna M.D. Signed By: 01/06/25 1517 DD/ 1514 TD/TT: Shirt Hemmer:TBHRadiology, Radiologist, - 01/06/2025 [place] [address] XRay Report Signed Patient: RHIANNON VALDIVIA MR#: [id number] : 1955 Acct:[id number] Age/Sex: 69 / M ADM Date: 01/06/25 Loc: RAD Attending Dr: MANFRED GUTIERREZ Ordering Physician: MANFRED GUTIERREZ Date of Service: 01/06/25 Procedure(s): XR lumbar spine 2-3V Accession Number(s): [id number] cc: MANFRED GUTIERREZ [place] [address] Patient Name: RHIANNON VALDIVIA MRN: [id number] date: 1955 Sex: M Assigned Patient Location: [facility] Current Patient Location: [facility] Accession/Order Number: [id number] Exam Date: 01/06/2025 15:12 Report Date: 01/06/2025 [...] Hanna M.D. 01/06/2025 3:14 PM Dictation Location: [place] [address] Electronically authenticated by: [id number] Y Date: 01/06/2025 15:14 Dictated By: Gladys Hanna M.D. Signed By: 01/06/25 1517 DD/ 1514 TD/TT: Shirt Hemmer: DEON HealthcareRadiology Study observation (narrative)NOMS HealthcareXR LUMBAR SPINE 2 OR 3VOrdered By: Radiologist Radiology on 90-81-8777UEDL Healthcare Work Phone: No Panel Informationon 47-16-0121Itsn of biopsy: tangential Informed consent: discussed and [...] taken yes Amount of lidocaine used: 0.5 Critical access hospitalType of biopsy: tangential Informed consent: discussed and [...] taken yes Amount of lidocaine used: 0.5 Critical access hospitalCBC (H/H, RBC, INDICES, WBC, PLT)on 15-89-7265Lcqnyrdnhwy distribution width (RBC) [Ratio]14.2 %Tdiajh58.0-15.0Quest DiagnosticsComment on above:Performed By: #### 7768, 33496, 2338, 5320 #### [facility] [address], [address] [place] [address] Education Program Coordinator: Tulio Walker MDHematocrijai (Blerasmo) [Volume fraction]52.3 %High 38.5-50.0Quest DiagnosticsComment on above:Performed By: #### 1759, , 0, 5363 #### [facility] [place] [address] Education Program Coordinator: Tulio Walker MDHemoglobin (Bld) [Mass/Vol]16.5 g/dLNormal 13.2-17.1Quest DiagnosticsComment on above:Performed By: #### 1759, , 7599, 5363 #### [facility] [address], [address] [place] [address] Education Program Coordinator: Tulio Walker MDMCH (RBC) [Entitic mass]29.8 ipRdwilj22.0-33.0 [facility] DiagnosticsComment on above:Performed By: #### 175, , 7599, 5363 #### [facility] [place] [address] Education Program Coordinator: Tulio Walker MDMCHC (RBC) [Mass/Vol]31.5 g/dLLow32.0-36.0 [facility] DiagnosticsComment on above:Result Comment: For adults, a slight decrease in the calculated MCHC value (in the range of 30 to 32 g/dL) is most likely not clinically significant; however, it should be interpreted with caution in correlation with other red cell parameters and the patient's clinical condition.Performed By: #### 175, , 7599, 5363 #### [facility] [place] [address] Education Program Coordinator: Tulio Walker MDMCV (RBC) [Entitic vol]94.6 iFTtluqf61.0-100.0 [facility] DiagnosticsComment on above:Performed By: #### 175, , 0, 5363 #### [facility] [place] [address] Education Program Coordinator: Tulio Walker MDPlatelet mean volume (Bld) [Entitic vol]11.8 fLNormal7.5-12.5Quest DiagnosticsComment on above:Performed By: #### 1759, 39834, 7600, 5363 #### [facility] of [place] [address] [place] , [address] [place] [address] Education Program Coordinator: Tulio Walker [facility] ([facility]) [#/Vol]176 10*3/uLNormal 140-400Quest DiagnosticsComment on above:Performed By: #### 1759, 34507, 7600, 5363 #### [facility] of [address] , [address] [place] [address] Education Program Coordinator: Tulio Walker [facility] ([facility]) [#/Vol]5.53 10*6/uLNormal4.20-5.80 [facility] DiagnosticsComment on above:Performed By: #### 1759, 70952, 7600, 5363 #### [facility] of [address], [address] [place] [address] Education Program Coordinator: Tulio Walker [facility] ([facility]) [#/Vol]13.2 10*3/uLHigh3.8-10.8Quest DiagnosticsComment on above:Performed By: #### 1759, 67171, 7600, 5363 #### [facility] of [address], [address] [place] [address] Education Program Coordinator: Tulio Walker [facility]ly [facility] 89-63-3906YLACMytnux Visit ([facility]) RHIANNON VALDIVIA ([id number]) 1955 M Date Time Provider Department 12/31/24 8:45 AM HARDIK CARREON [facility] During your visit today, we recorded the following information about you: Pulse Blood pressure Weight 96/minute 124/77 77 kg Hardik Carreon, BIOLOGICAL TECHNICIAN.VEGETABLE WORKER 12/31/2024 4:35 PM Signed [facility] NEURO-ONCOLOGY OUTPATIENT CLINIC NOTE [...] Cancer Father esophogeal other (grandparent [Other]) Other ID heart disease Current Outpatient Medications Medication Sig [...] - All questions were answered. Hardik Carreon APRN.VEGETABLE WORKER Certified Nurse Practitioner cc: Eduard Ramirez (more content not included)...NormalAultman Orrville HospitalCOMPREHENSIVE METABOLIC PANELon 37-99-5444Tgajxjx [Mass/Vol]4.2 g/dL Normal3.6-5.1Quest DiagnosticsComment on above:Performed By: #### 1759, 18313, 7600, 5363 #### [facility] of [address], [address] [place] [address] Education Program Coordinator: Tulio Walker MDAlbumin/Globulin [Mass ratio]2.6 {ratio}High 1.0-2.5Quest DiagnosticsComment on above:Performed By: #### 1759, 99596, 7600, 5363 #### [facility] of [address], [address] [place] [address] Education Program Coordinator: Tulio Walker MDALP [Catalytic activity/Vol]68 U/BNgrnct92-296 Quest DiagnosticsComment on above:Performed By: #### 1759, 00287, 7600, 5363 #### [facility] of [address], [address] [place] [address] Education Program Coordinator: Tulio Walker MDALT [Catalytic activity/Vol]24 U/LNormal9-46 Quest DiagnosticsComment on above:Performed By: #### 1759, 11449, 7600, 5363 #### [facility] of [address], [address] [place] [address] Education Program Coordinator: Tulio Walker MDAST [Catalytic activity/Vol]19 U/LJdkuhb22-00 [facility] DiagnosticsComment on above:Performed By: #### 1759, 76071, 7600, 5363 #### [facility] of [address], [address] [place] [address] Education Program Coordinator: Tulio Walker MDBilirubin [Mass/Vol]0.9 mg/dLNormal0.2-1.2 Quest DiagnosticsComment on above:Performed By: #### 1759, 79076, 7600, 5363 #### [facility] of [address], [address] [place] [address] Education Program Coordinator: Tulio Walker MDBUN/CREATININE RATIOSEE NOTE:Normal6-22Quest DiagnosticsComment on above:Result Comment: Not Reported: BUN and Creatinine are within reference range.Performed By: #### 1759, 97495, 7600, 5363 #### [facility] of [address], [address] [place] [address] Education Program Coordinator: Tulio LOAIZAalcium [Mass/Vol]9.4 mg/dLNormal8.6-10.3Quest DiagnosticsComment on above:Performed By: #### 1759, 39125, 0, 5363 #### [facility] of [address], [address] [place] [address] Education Program Coordinator: Tulio Walker MDChloride [Moles/Vol]106 mmol/MFptdrl82-374 Quest DiagnosticsComment on above:Performed By: #### 1759, 00431, 7600, 5363 #### [facility] [address], [address] [place] [address] Education Program Coordinator: Tulio Walker MDCO2 [Moles/Vol]26 mmol/EDrhgza50-33Zjtnk DiagnosticsComment on above:Performed By: #### 1759, , 0, 5363 #### [facility] [place] [address] Education Program Coordinator: Tulio LOAIZAreatinine [Mass/Vol]0.95 mg/dLNormal0.70-1.35 Quest DiagnosticsComment on above:Performed By: #### 1759, , 0, 5363 #### [facility] of [address], [address] [place] [address] Education Program Coordinator: Tulio Walker MDGFR/1.73 sq M.predicted among non-blacks MDRD (S/P/Bld) [Vol rate/Area]87 mL/min/{1.73_m2}Normal> OR = 60[facility] Comment on above:Performed By: #### 1759, 88201, 7600, 5363 #### [facility] of [place] [address] Education Program Coordinator: Tulio Walker MDGlobulin (S) [Mass/Vol]1.6 g/dLLow1.9-3.7Quest DiagnosticsComment on above:Performed By: #### 1759, , 0, 5363 #### [facility] of [place] [address] Education Program Coordinator: Tulio Walker MDGlucose [Mass/Vol]85 mg/dCRznkld65-94Joueg DiagnosticsComment on above:Result Comment: Fasting reference intervalPerformed By: #### 1759, 89961, 0, 5363 #### [facility] of [place] [address] Education Program Coordinator: Tulio Walker MDPotassium [Moles/Vol]4.3 mmol/LNormal3.5-5.3 Quest DiagnosticsComment on above:Performed By: #### 1759, , 7599, 5363 #### [facility] of [address], [address] [place] [address] Education Program Coordinator: Tulio Walker MDProtein [Mass/Vol]5.8 g/dLLow6.1-8.1Quest DiagnosticsComment on above:Performed By: #### 1759, 03684, 0, 5363 #### [facility] of [place] [address] Education Program Coordinator: Tulio Walker MDSodium [Moles/Vol]142 mmol/RWnqfyz536-186Wogcp DiagnosticsComment on above:Performed By: #### 1759, 07634, 0, 5363 #### [facility] of [place] [address] Education Program Coordinator: Tulio Walker MDUrea nitrogen [Mass/Vol]15 mg/dLNormal7-25 Quest DiagnosticsComment on above:Performed By: #### 1759, 63710, 0, 5363 #### [facility] of [place] [address] Education Program Coordinator: Tulio Walker MDLIPID PANEL, STANDARDon 42-49-1681Omjaryuhvuu [Mass/Vol]181 mg/dLNormal<200Quest DiagnosticsComment on above:Order Comment: FASTING:YES FASTING: YESPerformed By: #### 1759, 00124, 7600, 5363 #### [facility] [address], [address] [place] [address] Education Program Coordinator: Tulio LOAIZAholesterol in HDL [Mass/Vol]47 mg/dLNormal> OR = 40Quest DiagnosticsComment on above:Order Comment: FASTING:YES FASTING: YESPerformed By: #### 1759, 39642, 7600, 5363 #### [facility] [address], [address] [place] [address] Education Program Coordinator: Tulio LOAIZAholesterol in LDL [Mass/Vol]104 mg/dLHigh Quest DiagnosticsComment on above:Order Comment: FASTING:YES FASTING: YESResult Comment: Reference range: <100 Desirable range <100 mg/dL for primary prevention; <70 mg/dL for patients with CHD or diabetic patients with > or = 2 CHD risk factors. LDL-C is now calculated using the Monico-Neela calculation, which is a validated novel method providing better accuracy than the Friedewald equation in the estimation of LDL-C. Monico GREER et al. DUDLEY. 2013;310(19): 0043-8808 (http://education.Wibbitz.TISSUELAB/faq/OJC044)Performed By: #### 1759, 38121, 7600, 5363 #### [facility] [address], [address] [place] [address] Education Program Coordinator: Tulio LOAIZAholesteronimco.total/Cholesterol in HDL [Mass ratio]3.9 {ratio}Normal<5.0Quest DiagnosticsComment on above:Order Comment: FASTING:YES FASTING: YESPerformed By: #### 1759, 63027, 7600, 5363 #### [facility] [address], [address] [place] [address] Education Program Coordinator: Tulio SHEA HDL SLDKQXSWWXB601 mg/dL (calc)High<130 Quest DiagnosticsComment on above:Order Comment: FASTING:YES FASTING: YESResult Comment: For patients with diabetes plus 1 major ASCVD risk factor, treating to a non-HDL-C goal of <100 mg/dL (LDL-C of <70 mg/dL) is considered a therapeutic option.Performed By: #### 1759, 02739, 7600, 5363 #### [facility] [address], [address] [place] [address] Education Program Coordinator: Tulio Walker MDTriglyceride [Mass/Vol]188 mg/dLHigh<150Quest DiagnosticsComment on above:Order Comment: FASTING:YES FASTING: YESPerformed By: #### 1759, 07693, 7600, 5363 #### [facility] [address], [address] [place] [address] Education Program Coordinator: Tulio Walker [facility] 12-73-8041TGV, TOTAL3.34 ng/mL Normal< OR = 4.00Quest DiagnosticsComment on above:Result Comment: The total PSA value from this [...] evidence of the presence or absence of disease.Performed By: #### 1759, 37599, 7600, 5363 #### [facility] [address], [address] [place] [address] Education Program Coordinator: Tulio Nova 16-03-9708RVZSXcymgusnc (NSCAMN) RHIANNON VALDIVIA ([id number]) 1955 M Date Time Provider Department 12/25/24 HARDIK CARREON [facility] During your visit today, we recorded the following information about you: Hardik Carreon APRN.VEGETABLE WORKER 12/25/2024 11:51 AM Signed I called [facility], , to request MRI brain done 12/24/24. Images to be pushed through. Follow up appointment already scheduled with wa 12/31/24. Hardik Carreon, MSN, BIOLOGICAL TECHNICIAN, VEGETABLE WORKER Certified Nurse Practitioner Allergies As of Date: [...] 08/26/2014 Encounter Status:Closed by HARDIK CARREON on 12/25/24NormalCKettering Health MiamisburgCreatinine (Bld) [Mass/Vol]Ordered By: Hardik Carreon on 12-24-2024 Creatinine [Mass/Vol]Whole blood creatinine measurement0.6-1.3FBarney Children's Medical CenterComment on above:ER/ESD physician is notified/shown all ISTAT results.Critical values may be confirmed by laboratorytesting ifdeemed necessary by ER attending doctor.ISTAT XRay CREon 14-73-2049Adbcrulovk [Mass/Vol]1.0 mg/dLNormal0.6-1.3The [facility] Physician GroupComment on above:Result Comment: ER/ESD physician is notified/shown all ISTAT results. Critical values may be confirmed by laboratory testing if deemed necessary by ER attending doctor.Performed By: #### ISCRE #### [place] [address] USAISTAT GFR>60.0[facility] Physician GroupComment on above:Result Comment: PERFORMED BY: [place] [address] PATHOLOGIST SENIOR DATABASE ENGINEER MASSIMO DINERO M.D.Performed By: #### ISCRE #### [address]MR head/brain wo/w conon 49-12-5875XS head/brain wo/w con [facility] Main [place] [address] [place] [address] MRI Report Signed Patient: Rhiannon Valdivia MR#: [id number] : 1955 Acct:[id number] Age/Sex: 69 / M ADM Date: 12/24/24 Loc: Room: Type: [facility] Attending Dr: Hardik Carreon HERD TESTER-C Copies to: Hardik Carreon CNP Ordering Provider: [...] infratentorial white matter signal changes. 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 No evidence of progression. No evidence of obstructive hydrocephalus. Impression dictated by: Lalito Acuna M.D. 12/24/2024 5:09 PM Dictation Location: [place] [address] Transcribed By: [facility] 12/24/24 1709 Dictated By: Lalito Acuna MD 12/24/24 1658 Signed By: 12/24/24 1709[facility] Physician GroupOhgnetic resonance imaging reportOrdered By: Lalito Acuna on 44-15-9602Aezve reportOHIOHEALTH GROVE CITY [facility]IST [facility] Main [place] [address] [place] [address] MRI Report Signed Patient: Rhiannon Valdivia MR#: [id number] : 1955 Acct:[id number] Age/Sex: 69 / M ADM Date: 5 Loc: Room: Type: [facility] Attending Dr: Hardik Carreon HERD TESTER-C Copies to: Hardik Carreon CNP~ Ordering Provider: [...] Acuna M.D. 12/24/2024 5:09 PM Dictation Location: RADIO-PC-23 Transcribed By: PWS 12/24/241708 Dictated By: Lalito Acuna MD 12/24/24 1658 Signed By: 12/24/241708 [facility] Work Phone: no Panel InformationOrdered By: Hardik Carreon on 20-73-2242Zcnyfms Estimated GFR (eGFR)> 60.0[facility] CNPVivian 45-42-2679GBPRBotaymqej (NSCAMN) RHIANNON VALDIVIA ([id number]) 1955 M Date Time Provider Department 11/01/24 SELF NSCAMN During your visit today, we recorded the following information about you: Roe Brady 11/01/2024 10:02 AM Signed Patient has been scheduled and confirmed , Mailed (order to patient ) and Fax order to [facility] @ [phone] Roe Brady November 01, 2024 10:02 AM [...] 08/26/2014 Encounter Status:Closed by ROE BRADY on 11/01/24[facility]ael [id number] Visit (SPMEFV) RHIANNON VALDIVIA ([id number]) 1955 M Date Time Provider Department 10/29/24 10:20 AM JOHN CALVO SPMEFV During your visit today, we recorded the following information about you: Pulse Blood pressure Weight Height 91/minute 121/76 76.2 kg 1.778 m John Calvo MD 10/29/2024 12:53 PM Signed [facility] October [...] Carreon CNP in Neurology 2023. -Neurologist in [place] Prior Spinal Surgery: None. Notes daily headaches [...] -Gabapentin weaned off. - PT Giancarlo in [place] 03/2024 to 10/23/2024 (20 session) and doing [...] SLR: negative Scour: negative PSIS tenderness: negative Cambridge's (modified):negative Thigh thrust: negative Hamstring tightness: negative Prone extension: negative DATA REVIEW: (more content not included)...NormalHope HospitalHISTORY PHYSICALon 36-22-7615TBITSLQ PHYSICALHNO ID: [id number] Author: JOHN CALVO MD Service: ? Author [...] hospital problems. * Medication and Non-Pharmacologic VTE Prophylaxis/Anticoagulants VTE Prophylaxis: VTE prophylaxis appropriate Provisional Diagnosis/Treatment Plan: Medial Branch Block Sedation Goal: Moderate SIGNATURE: John Calvo MD PATIENT NAME: Rhiannon Valdivia DATE: August 07, 2024 TIME: 7:49 [facility] HospitalOPERATIVE NOon [id number] NOHNO ID: [id number] Author: JOHN CALVO MD Service: ? Author Type: Physician Type: Operative Report Filed: 08/07/2024 17:38 Note Text: OPERATIVE/PROCEDURE REPORT LOG ID: [id number] Surgery/Procedure Date: 08/07/2024 Surgeon: John Calvo MD Shell Mold Bonder: Florencio Juarez MD Procedure(s):Operation: Diagnostic bilaterally C3 and C4 medial branch [...] prone position on the fluoroscopic table in [facility] procedure room, the patient's posterior cervical [...] 12 weeks to clinic with pain diary. RENÉE figueroa [place] Discharge Condition: Good condition for discharge. Patient discharged home when all discharge criterion met. John Calvo MD Staff Physician [facility] SIGNATURE: John Calvo MD PATIENT NAME: Rhiannon Valdivia DATE: August 07, 2024 TIME: 9:06 AM PAGER/CONTACT #:[facility] [phone] Telephone ([facility]) RHIANNON VALDIVIA ([id number]) 1955 M Date Time Provider Department 07/30/24 JOHN CALVO During your visit today, we recorded the following information about you: Teodora Reeder RN 07/30/2024 4:04 PM Signed Phoned patient confirm appointment for Rhiannon Valdivia for spine procedure on 08/07/2024. Informed pt that pre-injection instructions have been sent via [employer]. Pt unable to talk right now. He [...] 08/26/2014 Encounter Status:Closed by TEODORA REEDER on 07/30/24[facility] on 95-50-5436NKQJGttqbf Visit (SPMEFV) RHIANNON VALDIVIA ([id number]) 1955 M Date Time Provider Department 07/09/24 [...] Hardik Carreon CNP in Neurology. -Neurologist in [place] Prior Spinal Surgery: None. Work status: -seen with Catherine Alexandre See Follow-up visit from prior encounter dated 03/28/2024 . Since last visit: Pain TODAY:4/10; WORST: 8/10; on a scale of 0-10. Patient is currently on date of last PT 2023 and NSAIDs. The patient has previously been on the following pain medications -Gabapentin weaned off. - PT Giancarlo in [place] 03/2024 to 06/2024 (10-12 session) and doing [...] Ankle 2+ Normal 2 (more content not included)...[facility]-Farber Cancer InstituteDestr of lesionon 59-47-5128Ithdmvdagk: simple Destruction method: electrodesiccation and curettage Informed consent: discussed and consent obtained Informed consent comment: The risks of the procedure were discussed, including, but not limited to risks of scarring, darker or monument setter helper pigmentary changes, recurrence, infection, and incomplete removal [...] lidocaine used: 2 cc Previous accession number: [id number] Hospital and Health Services Informationon 17-61-6223Vgznfa length (cm): 0.6 Lesion width (cm): 0.5 [...] used: 7.0 ml Estimated blood loss: 1.0 [facility] HospitalComplexity: Intermediate Final length (cm): 3.7 Reason for [...] infection, uncontrollable bleeding, or complications. Dressing type: [facility] HospitalHbA1c (Bld) [Mass fraction]on 05-01-2024 [facility] HealthcareLaboratory - Hematology and Cell countson 54-08-0309FpW0r (Bld) [Mass fraction]5.3 %[facility]okside CampusCCF CMP (CMP) (FOR REMOTE [facility] USE)on 46-10-7426Ayjktiy [Mass/Vol]3.7 g/dL3.4 - 5.0 g/dLNOAK HealthcareALBUMIN GLOBULIN RATIO1.5[facility] HealthcareALP [Catalytic activity/Vol]93 U/L46 - 116 U/L [facility] HealthcareALT [Catalytic activity/Vol]35 U/L16 - 63 U/LNOMS HealthcareAnion gap [Moles/Vol]11.6 mmol/LNOMS HealthcareAST [Catalytic activity/Vol]20 U/L15 - 37 U/LNOMS HealthcareBilirubin [Mass/Vol]0.8 mg/dL0.2 - 1.0 mg/dLNOAK Healthcare Calcium [Mass/Vol]8.7 mg/dL8.5 - 10.1 mg/dLCASTLEVIEW HOSPITAL HealthcareChloride [Moles/Vol] 103 mmol/L98 - 107 mmol/LNOMS HealthcareCO2 [Moles/Vol]28.4 mmol/L21.0 - 32.0 mmol/LNOMS HealthcareCreatinine [Mass/Vol]1.04 mg/dL0.70 - 1.30 mg/dLNOAK HealthcareGFR/1.73 sq M.predicted CKD-EPI (S/P/Bld) [Vol rate/Area]>6060 - PINF [facility] HealthcareGlobulin (S) [Mass/Vol]2.5 g/dLNOAK HealthcareGlucose [Mass/Vol] 131 mg/vSQgvc77 - 106 mg/dLNOAK HealthcareInterpretation and review of laboratory resultsAbnormalNOAK HealthcarePotassium [Moles/Vol]4.0 mmol/L3.5 - 5.1 mmol/LNOMS HealthcareProtein [Mass/Vol]6.2 g/dLLow6.4 - 8.2 g/dLNOAK HealthcareSodium [Moles/Vol]139 mmol/L136 - 145 mmol/LNOMS HealthcareTBH EGFR- NON AF SWAZI>6060 - PINFNOAK HealthcareUrea nitrogen [Mass/Vol]17.0 mg/dL7.0 - 18.0 mg/dLNOAK HealthcareUrea nitrogen/Creatinine [Mass ratio]16.3 mg/mgNOAK HealthcareCLINISYNGrand Strand Medical Center Informationon 69-48-3003Knxp of biopsy: tangential Informed consent: discussed and [...] taken yes Amount of lidocaine used: 1.0 Critical access hospitalType of biopsy: tangential Informed consent: discussed and [...] taken yes Amount of lidocaine used: 1.[address] [facility] FallsS HealthcareCNOVon 93-11-8199RALRRkexsq Visit ([facility]) RHIANNON VALDIVIA ([id number]) 1955 M Date Time Provider Department 03/28/24 [...] eyes. Improves with heat. 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 [...] 7 5 Pain Location: Neck Neck Description: Aching;Cutting;Radiating;Sharp;Sore;Stabbing;Stabbing/Not Incision;Stiffness;Tightness Sore Duration Amount of Time: 24 4 Duration Units: Months Years Frequency: Continuous Continuous Intervention/Comfort measure: Medication;Relaxation;Emotional Support/Reassurance;Exercise;Heat;Imagery;Massage;Pillow support;Rocking/holding Medication Comments: Worse in morning but [...] Syncope PAST MEDICAL HISTO (more content not included)...[facility] HospitalXR pre/post mri xrayon 48-14-6009WA pre/post mri xrayOHIOHEALTH GROVE [facility] Main [place] [address] [place] [address] MRI Report Signed Patient: Rhiannon Valdivia MR#: [id number] : 1955 Acct:[id number] Age/Sex: 68 / M ADM Date: 01/10/24 Loc: MR Room: Type: [facility] Attending Dr: Hardik Carreon HERD TESTER-C Copies to: Hardik Carreon CNP Ordering Provider: Hardik Carreon CNP Date of Service: 01/10/24 MR/MR cervical spine wo/w con: M48.02 ([id number]) XR/XR pre/post mri xray: M48.02 MR cervical [...] Everton Conway M.D.01/10/2024 1:08 PM Dictation Location: RADIO-PC-12 Transcribed By: NURA 01/10/24 1308 Dictated By: Everton Conway II, MD 01/10/24 1258 Signed By: 01/10/24 1308[facility] Physician GroupCreatinine (Bld) [Mass/Vol] Ordered By: Sonia Carrillo on 76-12-1677Xxtaillfdz [Mass/Vol]1.0 mg/dL0.6-1.3 [facility] Medina HospitalComment on above:ER/ESD physician is notified/shown all ISTAT results.Critical values may be confirmed by laboratory testing ifdeemed necessary by ER attending doctor.No Panel InformationOrdered By: Sonia Carrillo on 83-01-5839Kjubdgg Estimated GFR (eGFR)> 60.0[facility] Medina HospitalXR SINUSES 3 VIEWS OR GREATERon 19-89-9124AT SINUSES 3 VIEWS OR GREATEREXAMINATION: XR SINUSES 3 VIEWS OR GREATER HISTORY: [...] Electronically authenticated by: NITHIN ALCAZAR Date: 2022-12-05 05:41[facility] HospitalCreatinine (Bld) [Mass/Vol]Ordered By: Sonia Carrillo on 07-03-0539Gtciawbukd [Mass/Vol]1.0 mg/dL0.6-1.3FBarney Children's Medical Center Comment on above:ER/ESD physician is notified/shown all ISTAT results.Critical values may be confirmed by laboratorytesting ifdeemed necessary by ER attending doctor.XR CHEST 2 Von 15-42-8940WE CHEST 2 VEXAM: XR CHEST 2 V HISTORY: Chronic sinusitis COMPARISON: None. TECHNIQUE: PA and lateral views of the chest. FINDINGS: The cardiomediastinal silhouette is normal. No focal consolidation is identified. There is no pneumothorax. No pleural effusion is noted. The osseous structures are intact. IMPRESSION: No acute cardiopulmonary process. Electronically authenticated by: EVERTON BAKER Date: 2022-12-01 10:01[facility] HealthcareComprehensive Metabolic Panelon 65-61-0890Jjsxsad [Mass/Vol]4.8 g/dLNormal3.6-5.1[place] [facility] SpecialistComment on above:Performed By: #### CMP, LIPD #### [facility] [address], [place] [id number]/Globulin [Mass ratio]3.2 {ratio}High1.0-2.5Nortcarondelet st[address] joseph's hospitaln [facility] SpecialistComment on above:Performed By: #### CMP, LIPD #### [facility] [address], [place] [id number] [Catalytic activity/Vol]91 U/FFlsjgu22-415Cqzddkev [place] [facility] SpecialistComment on above:Performed By: #### CMP, LIPD #### [facility] [address], [place] [id number] [Catalytic activity/Vol]25 U/LNormal9-46NortHolzer Health System SpecialistComment on above:Result Comment: 07/21/2021 Female reference range changed.Performed By: #### CMP, LIPD #### [facility] [address], [place] [id number] gap [Moles/Vol]16 mmol/TOygwlq84-49Phvlarkg [place] [facility] SpecialistComment on above:Result Comment: Effective 08/26/2019 reference range changed.Performed By: #### CMP, LIPD #### [facility] [address], [place] [id number] [Catalytic activity/Vol]22 U/FFbdtwj48-26Ofmxjzao [place] [facility] SpecialistComment on above:Performed By: #### CMP, LIPD #### [facility] [address], [place] [id number] [Mass/Vol]1.08 mg/dLNormal0.30-1.20NortherPremier Health SpecialistComment on above:Performed By: #### CMP, LIPD #### [facility] [address], [place] [id number]/CREA21 RatioNormal6-22[place] Molecular Spectroscopist Comment on above:Performed By: #### CMP, LIPD #### [facility] [address] [facility] HospitalncC[place], [place] [id number] [Mass/Vol]9.7 mg/dLNormal8.6-10.2Northern [facility] SpecialistComment on above:Performed By: #### CMP, LIPD #### [facility] [address] [place], [place] [id number] [Moles/Vol]107 mmol/MRqbcug89-354Ejjdqrif [place] [facility] SpecialistComment on above:Performed By: #### CMP, LIPD #### [facility] [address] [facility] HospitalenencC[place], [place] [id number] [Moles/Vol]24 mmol/IAkzjtc61-83Uoulujet [place] [facility] SpecialistComment on above:Performed By: #### CMP, LIPD #### [facility] [address], [place] [id number] [Mass/Vol]0.8 mg/dLNormal0.7-1.4[address] joseph[facility] hospitaln [facility] SpecialistComment on above:Performed By: #### CMP, LIPD #### [facility] [address], [place] [id number] mL/min/1.20h6Iurqwa>60NortHolzer Health System SpecialistComment on above:Performed By: #### CMP, LIPD #### [facility] [address], [place] [id number] mL/min/1.95b4Cyuxpp>60NortHolzer [facility] System SpecialistComment on above:Performed By: #### CMP, LIPD #### [facility] [address] [facility] HospitaleneSel[place], [place] [id number] (S) [Mass/Vol]1.5 g/dLLow1.9-3.7NortHolzer Health System SpecialistComment on above:Performed By: #### CMP, LIPD #### [facility] [address] [facility] HospitalenencC[place], [place] [id number] [Mass/Vol]91 mg/dUPzcjvl45-21Bozjzxnh [place] [facility] SpecialistComment on above:Result Comment: For FASTING Glucose --- ADA reference ranges: Normal 65-99 mg/dl Prediabetes 100-125 Diabetes >/= 126Performed By: #### CMP, LIPD #### [facility] [address], [place] [id number] [Moles/Vol]4.5 mmol/LNormal3.5-5.5NoCleveland Clinic Mercy [facility] SpecialistComment on above:Performed By: #### CMP, LIPD #### [facility] [address], [place] [id number] [Mass/Vol]6.3 g/dLNormal6.1-8.1NorthBlanchard [facility] SpecialistComment on above:Performed By: #### CMP, LIPD #### [facility] [address], [place] [id number] [Moles/Vol]142 mmol/CPrtxve545-407Upkhvtni [place] [facility] SpecialistComment on above:Performed By: #### CMP, LIPD #### [facility] [address], [place] [id number] nitrogen [Mass/Vol]18 mg/dLNormal7-25NoC[facility] Clinic Mercy Hospital SpecialistComment on above:Performed By: #### CMP, LIPD #### [facility] [address], [place] [id number] Panelon 02-08-3121Zjupwcmgazi [Mass/Vol]155 mg/dLNormal 125-200NoC[facility] Clinic Mercy [facility] SpecialistComment on above:Result Comment: Low risk < 200mg/dL Borderline risk 201-239 mg/dl High risk > or equal to 240Performed By: #### CMP, LIPD #### [facility] [address], [place] [id number] in HDL [Mass/Vol]41 mg/dLNormal>40NoCleveland Clinic Mercy Hospital SpecialistComment on above:Result Comment: High Cardiovascular Risk HDL <40 mg/dL Low Cardiovascular Risk HDL > or equal to 60 mg/dlPerformed By: #### CMP, LIPD #### [facility] [address], [place] [id number] in LDL [Mass/Vol]96 mg/dLNoSalem City Hospital SpecialistComment on above:Result Comment: LDL ATP III CLASSIFICATION LDL less than 100 mg/dl Optimal LDL 100-129 mg/dl Near or above optimal LDL 130-159 Borderline high LDL 160-189 High LDL greater than 189 mg/dl Very HighPerformed By: #### CMP, LIPD #### [facility] [address], [place] [id number] in VLDL [Mass/Vol]18 mg/dLNormGlenbeigh Hospital SpecialistComment on above:Performed By: #### CMP, LIPD #### [facility] [address], [place] [id number].total/Cholesterol in HDL [Mass ratio]4 {ratio} NormalUniversity Hospitals Samaritan [facility] SpecialistComment on above:Performed By: #### CMP, LIPD #### [facility] [address], [place] [id number] [Mass/Vol]89 mg/zXZhtmcc31-679Dzstihgn [place] [facility] SpecialistComment on above:Result Comment: TRIG ATPIII CLASSIFICATIONS TRIG less than 150 mg/dl Normal TRIG 150-199 mg/dl Borderline High TRIG 200-500 mg/dl High TRIG greather than 500 mg/dl Very HighPerformed By: #### CMP, LIPD #### [facility] [address], [place] [id number] Specific Antigen, Totalon 65-49-8811WBVT4.640 ng/mL Normal<4.000NortHolzer Health System SpecialistComment on above:Result Comment: PSA Test Method: ECLIA/Sonal e 601Performed By: #### PSA #### [facility] [address], [place] [id number] - CBC DIFF SMEAR REVIEWon 07-68-5064Alunrrqbzpo distribution width (RBC) [Ratio]13.3 %Wlcnqa83.0-15.0NoCleveland Clinic Mercy Hospital SpecialistComment on above:Order Comment: [facility] Testing performed at: [facility], [facility], [address] [place] [address], [address] [place] [address], [address] [place] [address], Plastic Tile Setter: Tulio Walker MD [facility] Collection Date/Time: [facility] Results Received Date/Time: [facility] Reported Date/Time: [id number] By: #### %[id number], #### [facility] Default [address] [place], [place] [address]Ifwwnbiubp (Bld) [Volume fraction]48.1 %Bmqnzk82.5-50.0NortHolzer Health System SpecialistComment on above:Order Comment: [facility] Testing performed at: [employer], DO[facility], [address] [place] [address], [address] [place] [address], [address] [place] [address], Plastic Tile Setter: Tulio Walker MD [facility] Collection Date/Time: [facility] Results Received Date/Time: [facility] Reported Date/Time: [id number] By: #### %[id number], #### [facility] Default [address] [place], [place] [address]Ojqwjgdoqi (Bld) [Mass/Vol]16.2 g/sIDybryb25.2-17.1NorthBlanchard [facility] SpecialistComment on above:Order Comment: [facility] Testing performed at: [employer] [facility], [address] [place] [address], [address] [place] [address], [address] [place] [address], Plastic Tile Setter: Tulio Walker MD [facility] Collection Date/Time: [facility] Results Received Date/Time: [facility] Reported Date/Time: [id number] By: #### %[id number], [id number] #### [facility] Default [address] [place] [address]TVZ (RBC) [Entitic mass]29.8 qxEoejas92.0-33.0NortHolzer Health System SpecialistComment on above:Order Comment: [facility] Testing performed at: [employer], [facility], [address] [place] [address], [address] [place] [address], [address] [place] [address], Plastic Tile Setter: Tulio Walker MD [facility] Collection Date/Time: [facility] Results Received Date/Time: [facility] Reported Date/Time: [id number] By: #### %82023, 10687 #### [facility] Default [address] [place], [place] [address]EJRL (RBC) [Mass/Vol]33.7 g/gUXsrujc96.0-36.0[facility] SpecialistComment on above:Order Comment: [facility] Testing performed at: [facility], [facility], [address] [place] [address], [address] [place] [address], [address] [place] [address], Plastic Tile Setter: Tulio Walker MD [facility] Collection Date/Time: [facility] Results Received Date/Time: [facility] Reported Date/Time: [id number] By: #### %[id number], #### [facility] [address] [place], [place] [address]NQV (RBC) [Entitic vol]88.4 eAScxsbi51.0-100.0[facility] SpecialistComment on above:Order Comment: [facility] Testing performed at: [employer], [facility], [address] [place] [address], [address] [place] [address], [address] [place] [address], Plastic Tile Setter: Tulio Walker MD [facility] Collection Date/Time: [facility] Results Received Date/Time: [facility] Reported Date/Time: [id number] By: #### %[id number], [id number] #### [facility] Default [address] [place], [place] [address]Vorixcfv mean volume (Bld) [Entitic vol]12.1 fLNormal7.5-12.5 [facility] SpecialistComment on above:Order Comment: [facility] Testing performed at: [facility], [facility], [address] [place] [address], [address] [place] [address], [address] [place] [address], Plastic Tile Setter: Tulio Walker MD [facility] Collection Date/Time: [facility] Results Received Date/Time: [facility] Reported Date/Time: [id number] By: #### %[id number], [id number] #### [facility] Default [address] [place], [place] [address]Xdfhyopis (Bld) [#/Vol]196 10*3/dPHaqlkp061-634Rhsmnmzy [place] [facility] SpecialistComment on above:Order Comment: [facility] Testing performed at: [employer], [employer] [facility], [address] , [address] [place] [address], [address] [place] [address], Plastic Tile Setter: Tulio Walker MD [facility] Collection Date/Time: [facility] Results Received Date/Time: [facility] Reported Date/Time: [id number] By: #### %[id number], #### [facility] Default [address] [place], [place] [address]AUV (Bld) [#/Vol]5.44 10*6/uLNormal4.20-5.80NoCleveland Clinic Mercy [facility] SpecialistComment on above:Order Comment: [facility] Testing performed at: [facility], [employer] [facility], [address], [address] [place] [address], [address] [place] [address], Plastic Tile Setter: Tulio Walker MD [facility] Date/Time: [facility] Results Received Date/Time: [facility] Reported Date/Time: [id number] By: #### %[id number], 55660 #### [facility] Default [address] [place], [place] [address]VWW (Bld) [#/Vol]8.8 10*3/uLNormal3.8-10.8[facility] SpecialistComment on above:Order Comment: [facility] Testing performed at: QPT, [employer] [facility], [address], [address] [place] [address], [address] [place] [address], Plastic Tile Setter: Tulio Walker MD [facility] Date/Time: [facility] Results Received Date/Time: [facility] Reported Date/Time: [id number] By: #### %46819, 96983 #### [facility] Default [address] [place], [place] [address]Y - DIFF MANUALon 73-87-3183JEKISWYB ZGKAMDXHMVD8231 cells/uLHigh 850-3900Nortcaronde[address] joseph's hospitaln [facility] SpecialistComment on above:Order Comment: [facility] Testing performed at: [employer], [facility], [address] [place] [address], [address] [place] [address], [address] [place] [address], Plastic Tile Setter: Tulio Walker MD [facility] Date/Time: [facility] Results Received Date/Time: [facility] Reported Date/Time: [id number] By: #### %38538, 69503 #### [facility] Default [address] [place], [place] [address]NDYQ%1.0 %NormalNortHolzer Health System SpecialistComment on above: Order Comment: [facility] Testing performed at: [employer], [facility], [address] [place] [address], [address] [place] [address], [address] [place] [address], Plastic Tile Setter: Tulio Walker MD [facility] Collection Date/Time: [facility] Results Received Date/Time: [facility] Reported Date/Time: [id number] By: #### %, #### [facility] [address] [place], [place] [address]BEAAGUL23 cells/uLNormal0-200Nortcaronde[address] [facility]ose[facility] hospitaln [facility] HospitalMolecular Spectroscopist Comment on above:Order Comment: [facility] Testing performed at: [employer], [facility], [address] [place] [address], [address] [place] [address], [address] [place] [address], Plastic Tile Setter: Tulio Walker MD [facility] Collection Date/Time: [facility] Results Received Date/Time: [facility] Reported Date/Time: [id number] By: #### %82853, 89490 #### [facility] [address] [place], [place] [address]HZB%1.0 %NormalNoCleveland Clinic Mercy Hospital SpecialistComment on above: Order Comment: [facility] Testing performed at: Q, [employer] [facility], [address], [address] [place] [address], [address] [place] [address], Plastic Tile Setter: Tulio Walker MD [facility] Date/Time: [facility] Results Received Date/Time: [facility] Reported Date/Time: [id number] By: #### %02378, #### [facility] [address] [place], [place] [address]XSDUSG98 cells/wQIsbssc09-108Hmlefyre [place] Molecular Spectroscopist Comment on above:Order Comment: [facility] Testing performed at: [employer], [employer] [facility], [address] , [address] [place] [address], [address] [place] [address], Plastic Tile Setter: Tulio Walker MD [facility] Date/Time: [facility] Results Received Date/Time: [facility] Reported Date/Time: [id number] By: #### %, #### [facility] Default [address] [place], [place] [address]DLPMX%59.0 %NormalUniversity Hospitals Samaritan [facility] Center SpecialistComment on above:Order Comment: [facility] Testing performed at: QPT, [employer] [facility], [address] , [address] [place] [address], [address] [place] [address], Plastic Tile Setter: Tulio Walker MD [facility] Collection Date/Time: [facility] Results Received Date/Time: [facility] Reported Date/Time: [id number] By: #### %84888, 95767 #### [facility] [address] [place], [place] [address]IWYG%10.0 %NormalNorthern North Carolina Medical SpecialistComment on above:Order Comment: [facility] Testing performed at: QPT, [employer] [facility], [address] , [address] [place] [address], [address] [place] [address], Plastic Tile Setter: Tulio Walker MD [facility] Collection Date/Time: [facility] Results Received Date/Time: [facility] Reported Date/Time: [id number] By: #### %[id number], #### [facility] Default [address] [place], [place] [address]AURAHJK625 cells/[id number] [place] Molecular Spectroscopist Comment on above:Order Comment: [facility] Testing performed at: QPT, [facility], [address] , [address] [place] [address], [id number], Plastic Tile Setter: Tulio Walker MD [facility] Collection Date/Time: [facility] Results Received Date/Time: [facility] Reported Date/Time: [id number] By: #### %[id number], #### [facility] Default [address] [place], [place] [address]JAFT#2552 cells/[id number] [place] Molecular Spectroscopist Comment on above:Order Comment: [facility] Testing performed at: QPT, [facility], [address] , [address] [place] [address], [address] [place] [address], Plastic Tile Setter: Tulio Walker MD [facility] Collection Date/Time: [facility] Results Received Date/Time: [facility] Reported Date/Time: [id number] By: #### %[id number], [id number] #### [facility] Default [address] [place], [place] [address]BEVF%29.0 %NormalUniversity Hospitals Samar[facility] Center SpecialistComment on above:Order Comment: [facility] Testing performed at: QPT, [facility], [address] , [address] [place] [address], [phone], Plastic Tile Setter: Tulio Walker MD [facility] Date/Time: [facility] Results Received Date/Time: [facility] Reported Date/Time: [id number] By: #### %[id number], #### [facility] Default [address] [place], [place] [address]Ywmzzuayey (Bld) [Mass/Vol]Ordered By: Eduard Ramirez on 25-21-8077Qtlpyeghwb [Mass/Vol]1.0 mg/dL0.6-1.3FBarney Children's Medical Center Comment on above:ER/ESD physician is notified/shown all ISTAT results.Critical values may be confirmed by laboratorytesting ifdeemed necessary by ER attending doctor.No Panel InformationOrdered By: Eduard Ramirez on 42-69-8451ZCQ Estimated GFR > 60[facility] HospitalComment on above:GFR estimated reference range: According to KDOQI guidelines, <60 ml/min/1.73m2 is sufficient todiagnose a patient with chronic kidney disease.POC Estimated GFR Non- Amer> 60[facility] Vital Signs Date TimeVital SignValuePerforming BxbefpyxlUvhwepfj27-89-0123 12:39-0400Body ynuorz160.8 cmJohn Calvo MD Work Phone: [phone]09-16-2025 12:39-0400Body mass index (BMI) [Ratio]23.24 kg/m2John Calvo MD Work Phone: [phone]09-16-2025 12:39-0400Body .48 kgJohn Calvo MD Work Phone: [phone]()[phone]09-16-2025 12:39-0400Diastolic blood mm[Hg]John Calvo MD Work Phone: [phone]09-16-2025 12:39-0400Heart rate75 /min John Calvo MD Work Phone: [phone]09-16-2025 12:39-3293XwX6% (BldA) [Mass fraction]98 %John Calvo MD Work Phone: [phone]()[phone]09-16-2025 12:39-0400Systolic blood nemqbrjn957 mm[Hg]John Calvo MD Work Phone: [phone]()[phone]09-16-2025 10:22-0400Body .8 Lyndon Baker MD Work Phone: [phone]()[phone]09-16-2025 10:22-0400Body mass index (BMI) [Ratio]23.31 kg/x1AnkmlMukesh Baker MD Work Phone: [phone]()[phone]09-16-2025 10:22-0400Body rxiana48.7 kgMukesh Baker MD Work Phone: [phone]()-[phone]09-16-2025 10:22-0400Diastolic blood cudhaqkp47 mm[Hg]Mukesh Baker MD Work Phone: [phone]()-[phone]09-16-2025 10:22-0400Heart rate75 /min Mukesh Baker MD Work Phone: [phone]()[phone]09-16-2025 10:22-0400Systolic blood adsizyzh207 mm[Hg]Mukesh Baker MD Work Phone: [phone]()-[phone]06-16-2025 08:47-0400Body vlzliz724.8 Lyndon Baker MD Work Phone: [phone]()-[phone]06-16-2025 08:47-0400Body mass index (BMI) [Ratio]23.66 kg/z9DejrkMukesh Baker MD Work Phone: [phone]()[phone]06-16-2025 08:47-0400Body padpnh64.8 kgMukesh Baker MD Work Phone: [phone]()-[phone]06-16-2025 08:47-0400Diastolic blood xsvvbvek22 mm[Hg]Mukesh Baker MD Work Phone: [phone]()-[phone]06-16-2025 08:47-0400Heart rate83 /min Mukesh Baker MD Work Phone: [phone]()[phone]16-2025 08:47-9301CrN0% (BldA) [Mass fraction]98 %Mukesh Baker MD Work Phone: [facility]06-16-2025 08:47-0400Systolic blood zxjazldt130 mm[Hg]Mukesh Baker MD Work Phone: [facility]05-19-2025 13:22-0400Body zneais537.8 cmManfred Gutierrez MD Work Phone: [phone] [place], [place] [address]Sgypjjowwi66-99-9092 13:22-0400Body mass index (BMI) [Ratio]23.53 kg/f8KpbfbrManfred Gutierrez MD Work Phone: [facility] CampusXvlvfcxibw29-29-9127 13:22-0400Body dvpcav58.39 kgManfred Gutierrez MD Work Phone: [facility] CampusVunpifgqft93-89-5974 13:22-0400Diastolic blood tgdtsfyy85 mm[Hg]Manfred Gutierrez MD Work Phone: [facility] CampusXedspdkaqw62-82-1744 13:22-0400Heart rate88 /min Manfred Gutierrez MD Work Phone: [facility] CampusSfjwlkfpxe41-13-4528 13:22-8876CiZ4% (BldA) [Mass fraction]96 %Manfred Gutierrez MD Work Phone: [facility] CampusErmrzhrinc45-75-9143 13:22-0400Systolic blood mm[Hg]Manfred Gutierrez MD Work Phone: [facility] CampusTxrdpvxlfg08-18-2391 08:31-0400Body mass index (BMI) [Ratio]24.36 kg/m2Hardik Carreon BIOLOGICAL TECHNICIAN.VEGETABLE WORKER Work Phone: [facility]05-13-2025 08:31-0400Body xafszu09 kg Hardik Carreon BIOLOGICAL TECHNICIAN.VEGETABLE WORKER Work Phone: [facility]05-13-2025 08:31-0400Diastolic blood ddcnaqab88 mm[Hg]Hardik Carreon BIOLOGICAL TECHNICIAN.VEGETABLE WORKER Work Phone: [facility]05-13-2025 08:31-0400Heart rate96 /min Hardik Carreon BIOLOGICAL TECHNICIAN.VEGETABLE WORKER Work Phone: [facility]05-13-2025 08:31-6394PmI5% (BldA) [Mass fraction]96 %Hardik Carreon BIOLOGICAL TECHNICIAN.VEGETABLE WORKER Work Phone: [facility]05-13-2025 08:31-0400Systolic blood mpdtawpu112 mm[Hg]Hardik Suleiman BIOLOGICAL TECHNICIAN.VEGETABLE WORKER Work Phone: [facility]05-06-2025 06:59-0400Body angkqg274.8 cmDacolleen Gutierrez II Work Phone: [phone]05-06-2025 06:59-0400 Body liidhh91.84 kgDaniel Gutierrez II Work Phone: [phone] [place], [place] [address]304-29-2025 11:36-0400 Body .8 cmKaren Hemmer PA Work Phone: [phone])[facility]-[address] [place], [place] [address]Iubyiagaen40-46-2766 11:36-0400Body mass index (BMI) [Ratio]23.36 kg/k5Oifyx Hemmer PA Work Phone: 1(020)[facility]-[address] [place], [place] [address]Fhwntoivju08-19-9888 11:36-0400Body asaatf63.85 kgKaren Hemmer PA Work Phone: [facility] CampusAtxscwnnek08-04-2282 11:36-0400Diastolic blood duhexsak23 mm[Hg]Gladys Hemmer PA Work Phone: [facility] CampusHqmbwvoqep77-79-4205 11:36-0400Heart rate87 /min Gladys Hemmer PA Work Phone: [facility] CampusXxdmcqjwre39-40-9479 11:36-0400Respiratory rate16 /minKaren Hemmer PA Work Phone: [facility] CampusXmghoyjpec32-80-9792 11:36-1834CkS5% (BldA) [Mass fraction]95 %Gladys Hemmer PA Work Phone: [facility] CampusBzcoqcaujc97-29-1161 11:36-0400Systolic blood ckmovzsj856 mm[Hg]Gladys OVIEDO Work Phone: [facility] CampusDgqhzyqwco20-96-9901 10:11-0400Body ugqfrg004.8 cmJohn Calvo MD Work Phone: [facility]03-11-2025 10:11-0400Body mass index (BMI) [Ratio]24.1 kg/m2John Calvo MD Work Phone: [facility]03-11-2025 10:11-0400Body qxrkaf62.2 kgJohn Calvo MD Work Phone: [place] [address]-11-2025 10:11-0400Diastolic blood aqplpepi06 mm[Hg]John Calvo MD Work Phone: [facility]03-11-2025 10:11-0400Heart rate91 /min John Calvo MD Work Phone: [facility]03-11-2025 10:11-0400Systolic blood utktwfgh111 mm[Hg]John Calvo MD Work Phone: [facility]11-19-2024 13:33-0500Body gifomk221.7 cmJohn Calvo MD Work Phone: [facility]11-19-2024 13:33-0500Body mass index (BMI) [Ratio]25.04 kg/m2John Calvo MD Work Phone: [facility]11-19-2024 13:33-0500Body rwynmx48.7 kgJohn Calvo MD Work Phone: [place] [address]-19-2024 13:33-0500Diastolic blood odasfioy80 mm[Hg]John Calvo MD Work Phone: [facility]11-19-2024 13:33-0500Heart rate72 /min John Calvo MD Work Phone: [place] [address]-19-2024 13:33-9832EkP6% (BldA) [Mass fraction]97 %John Calvo MD Work Phone: [facility]11-19-2024 13:33-0500Systolic blood jkwcymrb135 mm[Hg]John Calvo MD Work Phone: [facility]09-11-2024 10:27-0400Body .8 cmManfred Gutierrez MD Work Phone: [facility] CampusJcmlcnlody19-77-2170 10:27-0400Body mass index (BMI) [Ratio]23.68 kg/n3OooqqoManfred Gutierrez MD Work Phone: [facility] CampusBajmsavaax98-29-7496 10:27-0400Body azqkac33.84 kgManfred Gutierrez MD Work Phone: [facility] CampusKuuvvlrqxw61-07-6593 10:27-0400Diastolic blood mm[Hg]Manfred Gutierrez MD Work Phone: 1([phone] [place], [place] [address]Elmtnzhuof47-73-1648 10:27-0400Heart rate78 /min Manfred Gutierrez MD Work Phone: [facility] CampusQmukweasne65-79-0194 10:27-5841RbP6% (BldA) [Mass fraction]96 %Manfred Gutierrez MD Work Phone: [facility] CampusOjozgezgxv53-94-5732 10:27-0400Systolic blood dlymypli144 mm[Hg]Manfred Gutierrez MD Work Phone: [facility] CampusXgymatluzx53-28-2793 13:26-0400Body .7 cmJohn Calvo MD Work Phone: [facility]08-08-2024 13:26-0400Body mass index (BMI) [Ratio]25.31 kg/m2John Calvo MD Work Phone: [facility]08-08-2024 13:26-0400Body nmsiuc52.5 kgJohn Calvo MD Work Phone: [facility]05-22-2024 07:51-0400Body ivlako559.8 cmII Manfred Gutierrez Work Phone: [facility]05-22-2024 07:51-0400 Body viinsl44.2 kgII Manfred Gutierrez Work Phone: [facility]05-14-2024 08:00-0400 Body mass index (BMI) [Ratio]25.32 kg/m2Hardik Carreon BIOLOGICAL TECHNICIAN.VEGETABLE WORKER Work Phone: [facility]05-14-2024 08:00-0400Body kg Hardik Carreon BIOLOGICAL TECHNICIAN.VEGETABLE WORKER Work Phone: [facility]05-14-2024 08:00-0400Diastolic blood jzwhuaqe32 mm[Hg]Hardik Carreon BIOLOGICAL TECHNICIAN.VEGETABLE WORKER Work Phone: [facility]05-14-2024 08:00-0400Heart rate60 /min Hardik Carreon BIOLOGICAL TECHNICIAN.VEGETABLE WORKER Work Phone: [facility]05-14-2024 08:00-3917YiK8% (BldA) [Mass fraction]96 %Hardik Carreon BIOLOGICAL TECHNICIAN.VEGETABLE WORKER Work Phone: [facility]05-14-2024 08:00-0400Systolic blood yienoosv614 mm[Hg]Hardik Carreon BIOLOGICAL TECHNICIAN.VEGETABLE WORKER Work Phone: [facility]04-14-2023 14:31-0400Body .8 cmII Manfred Gutierrez Work Phone: [facility]04-14-2023 14:31-0400 Body pgiqlv38.38 kgII Manfred Gutierrez Work Phone: [facility]04-05-2022 10:25-0400 Body slgsim948.8 cmII Manfred Gutierrez Work Phone: [facility]04-05-2022 10:25-0400 Body wauftg43.48 kgII Manfred Gutierrez Work Phone: [phone] [place] [address] Encounters Encounter DateEncounter TypeCare ProviderFacilityStart: 25-19-6102mzgrjkhykq Samuel Vides WATERSFacility:[facility] BellevueStart: 05-06-2025 End: 82-21-3981fxbihdgwznBQIB K GOYALFacility:[facility] HospitalStart: 05-06-2025 End: 60-47-6320Lfdzwmu encounter procedureJohn Calvo MD Work Phone: Spine CenterComment on above:Cervical spondylosis without myelopathy (Primary Dx); Cervicogenic headacheChronic daily headache (Primary Dx); Migraine with aura and without status migrainosus, not intractable; CervicalgiaStart: 05-06-2025 End: 86-43-5452bwczdvfmpuPSUYA M CARDONAFacility:[facility] HospitalStart: 02-22-2025 End: 24-28-8865WozwlwPnpudr B Berry MD Work Phone: noms CI FMComment on above:Strain of lumbar region, initial encounterStart: 02-19-2025 End: 04-18-3326Vqadds flowsheetEmdwayne Melara MD Work Phone: noms SWS DERMStart: 02-19-2025 End: 25-50-1091Cfsxjs flowsheetEmdwayne Melara MD Work Phone: NOOI SWS DERMStart: 02-19-2025 End: 64-96-6001Zozxamhv Result EncounterEmily Franklyn Melara MD Work Phone: NOSN External Department UnsolicitedStart: 02-19-2025 End: 77-73-1148Vdzhqxh encounter procedureEmily Franklyn Melara MD Work Phone: NOLD SWS DERMComment on above:Basal cell carcinoma (BCC) of skin of left upper extremity including shoulder (Primary Dx); Neoplasm of unspecified behavior of bone, soft tissue, and skin; Encounter for removal of suturesStart: 02-19-2025 End: 59-93-5476xgamdxtaveKLZGS A PETITTINot AvailableStart: 02-11-2025 End: 33-61-9956Rcxsptdvx encounterMukesh Baker MD Work Phone: NeurologyComment on above:AimovigStart: 02-11-2025 End: 87-98-0498vjxycqenonFiiqhbu R WATERSFacility:EU [place]uskyStart: 02-11-2025 End: 66-84-6558Yssucbv encounter procedureSamuel PLASENCIA [facility] Mana Start: 02-05-2025 End: 97-05-9569Srptkq flowsheetTeodora Melara MD Work Phone: NOQU SWS DERMStart: 02-05-2025 End: 54-88-9047Fjgrgk flowsJessica Melara MD Work Phone: NOFA SWS DERMStart: 02-05-2025 End: 52-70-5164Ljbaysl encounter procedureEmdwayne Melara MD Work Phone: noms SWS DERMComment on above:Basal cell carcinoma of back (Primary Dx)Start: 02-05-2025 End: 45-05-6539twzgjnammrHDAIL A PETITTINot AvailableStart: 02-04-2025 End: 76-90-9982fhvhpswbmhInncj M Cardona MD Work Phone: NeurologyComment on above:MedicationStart: 02-03-2025 End: 74-48-7584Amvueaaqk encounterMukesh Baker MD Work Phone: NeurologyComment on above:Medication ProblemStart: 02-03-2025 End: 81-56-4532Yaycgye encounter procedureMukesh Baker MD Work Phone: NeurologyComment on above:Chronic migraine without aura without status migrainosus, not intractable (Primary Dx); Cervicogenic headache; Chronic pain syndromeStart: 02-03-2025 End: 99-22-5277foyldqjwqsYVBXABebe Maciasity:[facility] HospitalStart: 01-24-2025 End: 40-40-4860Sfmtxajackie Melara MD Work Phone: noms SWS DERMStart: 01-24-2025 End: 53-16-7830Ucbgul flowsheetEmily A Petitti MD Work Phone: NOII SWS DERMStart: 01-24-2025 End: 08-29-9158ziikqoxzxbLRSIW A PETITTINot AvailableStart: 01-24-2025 End: 00-43-0408Wjxfoq outpatient visit 15 minutesEmdwayne Melara MD Work Phone: noms SWS DERMComment on above:Hypersensitivity reaction, initial encounter (Primary Dx); Encounter for removal of suturesStart: 01-23-2025 End: 17-96-7759Mhogejdjx Result EncounterGeneric External Data ProviderNOMS External Department UnsolicitedStart: 01-23-2025 End: 22-82-4476Balilapjz Result EncounterGeneric External Data ProviderNOMS External Department UnsolicitedStart: 01-20-2025 End: 43-18-8587omdfktzajbVchjmhb R WATERSFacility:[facility] BellevueStart: 01-20-2025 End: 29-89-4519Cpghywx encounter procedurePatricab PLASENCIA [facility] Rony start: 01-16-2025 End: 27-35-8390Rjbrfp flowsheetNatalie A Felter BIOLOGICAL TECHNICIAN-VEGETABLE WORKER Work Phone: NOHG SWS DERMStart: 01-16-2025 End: 16-12-0294Weqneh flowsheetNatalie A Felter BIOLOGICAL TECHNICIAN-VEGETABLE WORKER Work Phone: NOMS SWS DERMStart: 01-16-2025 End: 11-49-0879Juwwuxx encounter procedureNatalie A Felter BIOLOGICAL TECHNICIAN-VEGETABLE WORKER Work Phone: NOFF SWS DERMComment on above:Rash and other nonspecific skin eruptionStart: 01-16-2025 End: 18-38-8185wpzsmscyyjLWLPZSI A FELTERNot AvailableStart: 01-07-2025 ambulatoryPatrick LUIS ANGELFacility:[facility] [place]kyStart: 01-06-2025 End: 23-37-3237Nprpki Eddie Gutierrez MD Work Phone: NOMS CI FMStart: 01-06-2025 End: 93-16-5511Axbndt flowsheetManfred Gutierrez MD Work Phone: NOMS CI FMStart: 01-06-2025 End: 61-02-6128Erjrnehiy Result EncounterManfred Gutierrez MD Work Phone: NOUG External Department UnsolicitedStart: 01-06-2025 End: 95-90-0171Uakfh of hemosiderin, quantManfred Gutierrez MD Work Phone: NOYL HealthcareStart: 01-06-2025 End: 87-46-1244Enikfie encounter procedureDaann Gutierrez MD Work Phone: NOMS CI FMComment on above:Routine general medical examination at health care facility (Primary Dx); ACP (advance care planning); Subependymoma (CMS/HCC); Benign prostatic hyperplasia with incomplete bladder emptying; Spondylosis of cervical region without myelopathy or radiculopathy; Pure hypercholesterolemia (CMS/HCC); Strain of lumbar region, initial encounter; Lumbar painStart: 01-06-2025 End: 79-00-6570fstbfllrwsVFWMXA B BERRYNot AvailableStart: 01-02-2025 End: 62-17-7129Ftkgfc flowsheetNatalie A Felter BIOLOGICAL TECHNICIAN-VEGETABLE WORKER Work Phone: NOMS SWS DERMStart: 01-02-2025 End: 76-56-3464Fzoyvs flowsheetNatalie A Felter BIOLOGICAL TECHNICIAN-VEGETABLE WORKER Work Phone: NOMS SWS DERMStart: 01-02-2025 End: 57-41-4505Gbrkgk outpatient visit 15 minutesNatalie A Felter BIOLOGICAL TECHNICIAN-VEGETABLE WORKER Work Phone: NOMS SWS DERMComment on above:Seborrheic keratosis (Primary Dx); Bacterial folliculitis; Neoplasm of unspecified behavior of bone, soft tissue, and skin; Melanocytic nevus of trunk; LentiginesStart: 01-02-2025 End: 36-49-3957pnpxewbuhhBXXSILI A FELTERNot AvailableStart: 12-31-2024 End: 24-21-1800Vsztsri encounter procedureTara Suleiman SKY Work Phone: NeurosurgeryComment on above:Subependymoma (HCC) (Primary Dx); Brain lesionStart: 12-31-2024 End: 29-90-5259ylerlunmvxHVQD MILLERFacility:[facility] Hospitaltart: 12-25-2024 End: 80-69-4620Hiycimosj encounterTara Suleiman OCASIO.VEGETABLE WORKER Work Phone: [facility] Brain Tumor CenterComment on above:Results Start: 12-24-2024 End: 84-30-3879Txptimj encounter procedureManfred Gutierrez [employer] Work Phone: [facility] [place] [facility] [place] Work Phone: Start: 12-24-2024 End: 34-50-7245kkpyhuygbgQmtevx ZALORA II Work Phone: [facility] Work Phone: Start: 12-17-2024 End: 27-50-3310Srluqf outpatient visit 15 minutesGladys OVIEDO Work Phone: NOMS CI FMComment on above:Dermatitis (Primary Dx); Strain of lumbar region, initial encounter; Subependymoma (CMS/HCC)Start: 12-17-2024 End: 85-01-7421yhoneygofhWCZDQKathi Li AvailableStart: 11-01-2024 End: 56-68-9547Sigaoqjlx encounterSelfBurkhardt Brain Tumor CenterComment on above:AppointmentStart: 10-29-2024 End: 93-16-4815Sitbuxn encounter Shana Calvo MD Work Phone: Spine CenterComment on above:Cervical spondylosis without myelopathy (Primary Dx)Start: 10-29-2024 End: 42-58-3369lemqxwpyeiORDF K GOYALFacility:[facility] Hospitaltart: 10-23-2024 End: 30-34-0918ctxkmtjqkiImqosn Berry II Work Phone: [facility] [place] [facility] Work Phone: Start: 10-23-2024 End: 62-74-0704Aujlstmkpl RecurringManfred Gutierrez II Work Phone: [facility] [place] [facility] [facility] Start: 08-07-2024 End: 26-53-2666zpoglbvkmiQXUO K GOYALFacility:[facility] HospitalStart: 07-30-2024 End: 88-32-9278Ayfuvkclm encounterJohn Calvo MD Work Phone: spine InstituteComment on above:Pre-injection instructionsStart: 07-26-2024 End: 51-99-5609btgzhyvylzJqbg K Goyal MD Work Phone: spine InstituteComment on above:Pre-injection instructionsStart: 07-26-2024 End: 79-03-5667I-mail encounter from caregiverJohn Calvo MD Work Phone: spine InstituteStart: 07-09-2024 End: 47-32-6995Ljifjaq encounter procedureJohn Calvo MD Work Phone: spine CenterComment on above:Cervical spondylosis without myelopathy (Primary Dx); Cervicogenic headacheCervical spondylosis without myelopathy (Primary Dx)Start: 07-09-2024 End: 05-66-9036fieobicwihQFBJGunnar Weberity:[facility] HospitalStart: 07-02-2024 End: 64-51-3949Jrtffux encounter procedureEmdwayne Melara MD Work Phone: noms SWS DERMComment on above:Basal cell carcinoma (BCC) of skin of right upper extremity including shoulder (Primary Dx); Encounter for removal of suturesStart: 07-02-2024 End: 05-83-1989vtqcjvcvirQOYAQ A PETITTINot AvailableStart: 06-19-2024 End: 52-90-2876Bnmwaux encounter procedureEmdwayne Melara MD Work Phone: noms SWS DERMComment on above:Basal cell carcinoma (BCC) of skin of left upper extremity including shoulder (Primary Dx)Start: 06-19-2024 End: 70-04-8631jrzqasvenyEBSUW A PETITTINot AvailableStart: 06-18-2024 End: 83-70-6461ziahuaafsyUrzhxr Gutierrez II Work Phone: [facility] Work Phone: Start: 06-18-2024 End: 61-44-0897Wwcfmxihdt RecurringDanirhonda Gutierrez II Work Phone: [facility] [facility] Start: 05-01-2024 End: 57-66-8715Nvqmcamwe encounterManfred Gutierrez MD Work Phone: NOM[facility] CI FMStart: 05-01-2024 End: 88-73-3896Yjgphx outpatient visit 15 minutesManfred Gutierrez MD Work Phone: noms CI FMComment on above:LFT elevation (Primary Dx); Elevated glucoseStart: 05-01-2024 End: 41-43-6190flwtpgfuiuYDMUUG B BERRYNot AvailableStart: 04-25-2024 End: 40-07-7008Gossqvyny Result EncounterManfred Gutierrez MD Work Phone: NOMS External Department UnsolicitedStart: 04-25-2024 End: 91-68-2553Xucyjiftw Result EncounterManfred Gutierrez MD Work Phone: NOMS External Department UnsolicitedStart: 04-18-2024 End: 24-18-6659Kdxdmd flowsheetNatalie A Felter BIOLOGICAL TECHNICIAN-VEGETABLE WORKER Work Phone: NOMS SWS DERMStart: 04-18-2024 End: 63-59-9770Ikhnks flowsheetNatalie A Felter BIOLOGICAL TECHNICIAN-VEGETABLE WORKER Work Phone: N[facility]S SWS DERMStart: 04-18-2024 End: 00-00-2790Hjcele outpatient visit 15 minutesNatalie A Felter BIOLOGICAL TECHNICIAN-VEGETABLE WORKER Work Phone: N[facility] SWS DERMComment on above:Melanocytic nevus of trunk (Primary Dx); Hx of basal cell carcinoma; Inflamed seborrheic keratosis; Actinic keratosis; Seborrheic keratosis; Neoplasm of unspecified behavior of bone, soft tissue, and skinStart: 04-18-2024 End: 00-64-6951hqyvadihjoLXORIBN Franklyn FELTERNot AvailableStart: 03-28-2024 End: 69-98-2894Ghvmcqc encounter Shana Calvo MD Work Phone: Spine InstituteComment on above:Neck pain (Primary Dx); Spinal stenosis in cervical region; Ulnar neuropathy at elbow of left upper extremity; Ulnar neuropathy at elbow of right upper extremity; Cervical spondylosis without myelopathy; Cervicogenic headache; Cluster headache, not intractable, unspecified chronicity patternStart: 03-28-2024 End: 24-82-3068lplcjmwbayOTCH K GOYALFacility:[facility] Healthtart: 02-09-2024 Telephone encounterHardik Carreon APRN.CNP Work Phone: [facility] Tumor CenterComment on above:Consult Start: 23-54-4544iorcgebzukJqppJayy Carreon APRN.CNP Work Phone: NeurosurgeryStart: 60-34-1470Zvpnck-up Tonia Carreon APRN.CNP Work Phone: NeurosurgeryComment on above:Follow up ?Start: 01-10-2024 End: 55-15-5724Cqnzmpo encounter Aracelis Gutierrez Work Phone: [facility] [place] Work Phone: Start: 01-10-2024 End: 22-18-4890dlkxkpckujWJ Daniel Berry Work Phone: [facility] Work Phone: Start: 01-02-2024 End: 00-58-7160Odjxemm encounter Vel Carreon APRN.CNP Work Phone: NeurosurgeryComment on above:Subependymoma (HCC) (Primary Dx); Spinal stenosis of cervical regionStart: 12-18-2023 End: 16-21-7714pjxoebvasaRD Manfred Gutierrez Work Phone: [facility] Work Phone: Start: 12-18-2023 End: 35-35-6628Tvkzswu encounter procedureII Manfred Gutierrez Work Phone: [facility] [place] Work Phone: Start: 79-53-3049AizhefHpsqpxer [employer] BIOLOGICAL TECHNICIAN.VEGETABLE WORKER Work Phone: NeurologyComment on above:Refill RequestPrescription renewalStart: 04-21-2023 End: [id number] [employer] BIOLOGICAL TECHNICIAN.VEGETABLE WORKER Work Phone: NeurologyComment on above:Migraine without aura and without status migrainosus, not intractable (Primary Dx); Medication management; Chronic mixed headache syndrome; Morning headache; Chronic daily headache; CervicalgiaStart: 04-21-2023 End: 22-26-5043Htcpvqckangm consultation with patientAilyn [employer] BIOLOGICAL TECHNICIAN.VEGETABLE WORKER Work Phone: [facility] MAINStart: 66-26-3213Idwevf Ailyn [employer] BIOLOGICAL TECHNICIAN.VEGETABLE WORKER Work Phone: NeurologyComment on above:Refill RequestStart: [id number] [employer] BIOLOGICAL TECHNICIAN.VEGETABLE WORKER Work Phone: NeurologyComment on above:Refill RequestStart: 12-14-2022 End: 77-82-4029olppebofroWwudijTerry Carrillo PA-C Work Phone: [facility] Brain Tumor CenterComment on above: Subependymoma (HCC) (Primary Dx)Start: 12-14-2022 End: 62-83-3549Nyqjpwlgcxbb consultation with Rakesh Carrillo PA-C Work Phone: [facility] MAINStart: 12-02-2022 End: 24-39-6221kjxgoysdkgVZ Daniel Berry Work Phone: [facility] Work Phone: Start: 12-02-2022 End: 57-90-8264Vjwsdrf encounter procedureII Manfred Gutierrez Work Phone: [facility] Main [place] Work Phone: Start: 12-01-2022 End: 58-96-1577llnhtflouaLQ MANFRED GUTIERREZFacility:S5Qignj: 23-71-4771Gpkvcdbzk encounterCare Coordinator Jose Luis Brain Tumor FranklinComment on above:Orders (MRI order )Start: 26-52-7560O-mail encounter from caregiverCcf ProviderCCF [facility] MAINStart: 49-58-2554Iwgkpcq encounter procedureCcf Provider Oleksandr Brain Tumor FranklinComment on above:Upcoming Video Visit Appointments Start: 77-86-7235PqdlkrFqloczip [employer] BIOLOGICAL TECHNICIAN.VEGETABLE WORKER Work Phone: NeurologyComment on above:Refill RequestStart: 42-47-3990hmhvqmjgrlRjicvgxz [employer] BIOLOGICAL TECHNICIAN.VEGETABLE WORKER Work Phone: [facility] MAINStart: 59-33-5243Hszxjk-up encounterJennifer [employer]com BIOLOGICAL TECHNICIAN.VEGETABLE WORKER Work Phone: [phone] on above:Medication follow-upStart: 28-13-6846VajyodMxvhxvia [employer] BIOLOGICAL TECHNICIAN.VEGETABLE WORKER Work Phone: [phone] on above:Refill RequestStart: 03-28-2022 End: 05-52-7879dfjdmcdzbaFggmdlsm [employer] BIOLOGICAL TECHNICIAN.VEGETABLE WORKER Work Phone: NeurologyComment on above:Migraine without aura and without status migrainosus, not intractable (Primary Dx); Chronic mixed headache syndrome; Cervicalgia; Morning headache; Snoring; Insomnia, unspecified typeStart: 03-28-2022 End: 22-21-9025Dfpglljtrksp consultation with Ellie Reececom AMARJIT.VEGETABLE WORKER Work Phone: c[facility] MAINStart: 03-23-2022 End: 00-60-7765qvpxovuxwlMzvamlhi [employer] BIOLOGICAL TECHNICIAN.VEGETABLE WORKER Work Phone: NeurologyComment on above:NO SHOW (Primary Dx)Start: 03-23-2022 End: 06-14-0078Efzqnjowenlb consultation with patientAilyn [employer] BIOLOGICAL TECHNICIAN.VEGETABLE WORKER Work Phone: [facility] MAINStart: 48-11-4628Etagvnxtq encounterJessica Zimmerman RN Work Phone: [facility] Home DeliveryComment on above: Insurance Authorization (Emgality 120MG/ML auto-injectors (migraine))Start: 25-99-8350Bufobjqhk encounterEmdwayne Mcgraw [facility] Home Delivery Comment on above:Medication Problem (Ajovy)Start: 46-46-1264Xbswxdupq encounter Eduard Ramirez MD Work Phone: [facility] Tumor CenterComment on above:Received Outside Medical Records (Scan report)Start: 11-24-2021 End: 17-77-0041biqittbmafWvwqdl Limbert PA-C Work Phone: [facility] Brain Tumor CenterComment on above: Subependymoma (HCC) (Primary Dx); Intractable episodic cluster headacheSubependymoma (HCC) (Primary Dx)Start: 11-24-2021 End: 13-29-4180Cbwnvnuylpqq consultation with patientDenice Limbert PA-C Work Phone: [facility] MAINStart: 11-23-2021 End: 65-49-7540Xczhzbg encounter procedureAGUSTO Gutierrez Work Phone: [facility]-MRI Main [place] Procedures DateProcedureProcedure DetailPerforming ClinicianStart: 03-57-2350VRWWZNRQCKC OF LESIONEmdwayne Melara MD Work Phone: Start: 86-82-4694YEIG / NAIL BIOPSYEmily Franklyn Melara MD Work Phone: Start: 98-74-8565Ferrs i surg pathology gross examination onlyEmily Franklyn Melara MD Work Phone: Start: 94-56-6924Umkdmeoovq and biopsy of bladder Samuel PLASENCIA Start: 02-72-5084QTSC REPAIREmily Franklyn Melara MD Work Phone: Start: 24-90-8129HEON EXCISIONEmily Franklyn Melara MD Work Phone: Start: 46-22-4947Cb scrotum & contentsGeneric External Data ProviderStart: 13-59-3907ENMQ / NAIL BIOPSYNatalie A Felter BIOLOGICAL TECHNICIAN-VEGETABLE WORKER Work Phone: Start: 95-58-6807BO LUMBAR SPINE 2 OR 3VDshawn Gutierrez MD Work Phone: Start: 01-02-2025 End: 65-93-8335GXCB / NAIL BIOPSYNatalie A Felter BIOLOGICAL TECHNICIAN-VEGETABLE WORKER Work Phone: Start: 92-62-7876HWP of headManfred Gutierrez II Work Phone: Start: 36-64-0786VRTHPJDWDCQ OF LESIONEmily Franklyn Melara MD Work Phone: Start: 18-86-0836HBBZ EXCISIONEmily Franklyn Melara MD Work Phone: Start: 10-83-6230FRFU REPAIREmily Franklyn Melara MD Work Phone: Start: 83-33-1862Jogyxjoxkb glycosylated o0lBdnsyhManfred Gutierrez MD Work Phone: Start: 88-46-5911SFD CMP (CMP) (FOR REMOTE [facility] USE) Manfred Gutierrez MD Work Phone: Start: 04-18-2024 End: 54-68-3906MYMI / NAIL BIOPSYNatalie Franklyn Arevalo BIOLOGICAL TECHNICIAN-VEGETABLE WORKER Work Phone: Start: 04-18-2024 End: 68-32-5648MYPXSPMOYIN SKIN LESIONNatalie Franklyn Arevalo BIOLOGICAL TECHNICIAN-VEGETABLE WORKER Work Phone: Start: 92-20-0922XGX of cervical spine with contrastII Manfred Gutierrez Work Phone: Start: 84-25-6114GI pre/post mri xrayII Manfred Gutierrez Work Phone: Start: 63-91-5950Mtsis 1996 panel - Serum or Plasma Hardik Carreon BIOLOGICAL TECHNICIAN.VEGETABLE WORKER Work Phone: Start: 59-49-4925EOF of headII Manfred Gutierrez Work Phone: Start: 43-39-1396NUI of headII Manfred Gutierrez Work Phone: Start: 10-51-5538Wpdgm depression screening assessment Ailyn Santana BIOLOGICAL TECHNICIAN.VEGETABLE WORKER Work Phone: Start: 29-56-3996Dzygh depression screening assessment Teodora Mcgraw RPhStart: 05-25-5817GYW of headII Manfred Gutierrez Work Phone: Start: 55-60-0036McjiyxmbschJrmhvkz Felter BIOLOGICAL TECHNICIAN-VEGETABLE WORKER Work Phone: colonoscopyPatrick PLASENCIA Hernia repairPatrick PLASENCIA Nasal structure (body structure)Samuelrichard PLASENCIA Comment on above:growth taken outStructure of eye proper (body structure)Samuel PLASENCIA TonsillectomySamuel PLASENCIA Plan of Treatment DateCare ActivityDetailAuthorStart: 88-08-4925Aaeci microalbumin profile DTaP,Tdap,Td Vaccine (2 - Td or Tdap)[facility]: 48-68-4494Hxbrssuuz for malignant neoplasm of colonNOMS HealthcareStart: 87-06-4850BBY Vaccine (1 - 1-dose 75+ series)RSV Vaccine (1 - 1-dose 75+ series)[facility]: 74-03-0334Uevxq panelLipid ScreeningBarberton Citizens Hospitaltart: 74-07-0699Wmhvvurf specific antigen measurementProstate Cancer Screening DiscussionMercy Health Start: 19-17-1539Pdxojtqc ScreeningDiabetes ScreeningBarberton Citizens Hospitaltart: 11-25-2025 End: 46-20-1532Fgjvolh encounter procedureNeurologyComment on above:FOLLOW UP Start: 07-09-2025 End: 49-47-1043Tkoogju encounter yfonwkqcp48/19/2025 8:30 AM EST Office Visit [facility] [address] [facility] [address] [place] [address] Manfred Gutierrez MD [address] [facility] [address] [place] [address] [facility] CI FMStart: 07-07-2025 End: 46-66-2233Smxchqd encounter ffydkildj32/17/2025 1:05 PM EST Office Visit [facility] [address] [place] [address] Al Arevalo APRN-VEGETABLE WORKER [address] [place] [address] [facility] SWS DERMStart: 05-20-2025 End: 58-31-3225Ntltpvx encounter xuxpjtzfs19/30/2025 9:00 AM EDT Office Visit [facility] [address] [place] [address] John Calvo MD [address] [place] [address] [phone] Return in about 6 months (around 05/01/2025).Spine CenterComment on above:Return in about 6 months (around 05/01/2025).Start: 05-06-2025 End: 85-37-7480Xhseiba encounter procedureSpine CenterComment on above:Return in about 6 months (around 05/01/2025)rescheduled from month follow upStart: 42-62-6397Wvvgbfhde vaccinationNOMS HealthcareStart: 04-17-2025 End: 70-89-8199Gykjiwj encounter vmvcytgkx21/28/2025 9:10 AM EDT Office Visit [facility] [address] [place] [address] Al Arevalo, BIOLOGICAL TECHNICIAN-VEGETABLE WORKER [address] [place] [address] [facility] SWS DERMStart: 02-19-2025 End: 20-12-2781Edcswjb encounter procedureNOMS SWS DERMComment on above:Arrived Start: 02-05-2025 End: 91-91-7718Fhetijj encounter procedureNOMS SWS DERMComment on above:Basal cell carcinoma of backStart: 02-03-2025 End: 36-00-4016Wlirljv encounter teppvnial11/16/2025 9:00 AM EDT Office Visit Neurology [address] [place] [address] [place] [address] [place] [address] Cluster headache, not intractable, unspecified chronicity pattern [G44.009]NeurologyComment on above:Cluster headache, not intractable, unspecified chronicity pattern [G44.009]Start: 01-24-2025 End: 43-86-3551Tprtbdl encounter bsmmobxas03/06/2025 12:45 PM EDT Office Visit [facility] [address] [place] [address] Teodora Melara MD [address] [place] [address] [facility] SWS DERMStart: 01-16-2025 End: 40-95-8836Szybxgn encounter procedureNOMS SWS DERMComment on above:Arrived Start: 01-06-2025 End: 13-84-4982ZO Lumbar spine 2 or 3 ViewsXR lumbar spine 2 or 3 views Imaging Routine Lumbar pain Expected: 01/06/2025, Expires: 01/06/2026[facility] Work Phone: Comment on above:Expected: 01/06/2025, Expires: 01/06/2026Start: 01-06-2025 End: 18-43-9387Sspvqhr encounter procedureNOMS CI FMComment on above:Arrived Start: 01-02-2025 End: 03-97-3104Edhkvrd encounter procedureNOMS SWS DERMComment on above:Arrived Start: 01-02-2025 End: 35-09-5331Wbmznwo encounter /15/2025 8:30 AM EDT Office Visit [facility] [address] [facility] [address] [place] [address] Manfred Gutierrez MD [address] [facility] [address] [place] [address] [facility] CI FMStart: 12-31-2024 End: 49-28-1513Bgavtdg encounter procedureNOMS SWS DERMComment on above:Time frame: November 2024Start: 10-29-2024 End: 65-77-4562Ohtdjsq encounter xyyestiav28/11/2025 10:20 AM EDT Office Visit [facility] [address] [place] [address] Koglt, Kush K, MD [address] [place] [address] follow up in about 4 mosSshreveport CenterComment on above:follow up in about 4 mos Start: 93-51-5371Anwhecu Directive DiscussionAdvance Directive Discussion [facility]: 08-07-2024 End: 88-19-2509Qmysplgfj to same day surgery vafiri0708/07/2024 9:05 AM EST - 08/07/2024 9:30 AM [facility] [address] [address] John Calvo MD [address] [place] [address] BLOCK MEDIAL BRANCH CERVICAL WITH C-ARM [facility] Pain Management ClinicComment on above:BLOCK MEDIAL BRANCH CERVICAL WITH C-ARM BILATStart: 08-07-2024 End: 64-21-5559Fpe dx/ther agt pvrt facet jt crv/thrc 1 levelBLOCK MEDIAL BRANCH CERVICAL WITH C-ARM BILAT Cervical spondylosis without myelopathy 08/07/2024 9:05 AM ESTLU PCStart: 08-07-2024 End: 97-92-1360Jaz dx/ther agt pvrt facet jt crv/thrc 2nd levelBLOCK MEDIAL BRANCH CERVIAL EACH ADDITIONAL VERTEBRA 2 BILAT W/IMAGE GUIDANCE FLUORO OR CT Cervicalspondylosis without myelopathy 08/07/2024 9:05 AM ESTLU PCStart: 13-81-6047Pikjgntfbg [facility] ClinicComment on above:Cervical spondylosis without myelopathy [M47.812]Start: 07-09-2024 End: 09-50-5410Fgzykpy encounter ottzaphsi85/19/2024 2:00 PM EST Office Visit Spine Center [address] [place] [phone] John Calvo MD [address] [address] 4 month follow upSpine CenterComment on above:4 month follow upStart: 07-02-2024 End: 48-63-3509Ixabkaf encounter ongmhcptf56/12/2024 2:00 PM EST Procedure Visit [facility] [address] [place] [address] Teodora Melara MD [address] [place] [address] [facility] EBONY DERMStart: 06-19-2024 End: 42-89-2264Cudvcvi encounter rqvisqboj21/30/2024 10:30 AM EDT Office Visit [facility] [address] [place] [address] Teodora Melara MD [address] [place] [address] [facility] DERMStart: 05-01-2024 End: 53-45-4909Ipkrksy encounter rctsvurvq54/11/2024 10:30 AM EDT Office Visit [facility] [address] [place] [address] Manfred Gutierrez MD [address] [place] [address] [facility] CI FMStart: 30-18-6438Xmlhp-19 Vaccine ( season)Covid-19 Vaccine ( season)[facility]: 04-21-2024 Influenza vaccinationInfluenza Vaccine (#1)[facility]: 04-18-2024 End: 70-10-5447Wrtnnvw encounter wvijrmwcz02/29/2024 10:10 AM EDT Office Visit [facility] [address] [place] [address] Al Arevalo APRN-VEGETABLE WORKER [address] [place] [address] ArrivedNOMS [facility] DERMComment on above: ArrivedStart: 03-28-2024 End: 18-94-0423Tsetrvo encounter tkubsrogb10/08/2024 1:40 PM EDT Office Visit [facility] [address] [place] [phone] John Calvo MD [address] [place] [address] Neck pain [M54.2]Spine InstituteComment on above:Neck pain [M54.2]Start: 07-79-5794Krwaglhx Vaccine (2 of 2)Shingrix Vaccine (2 of 2)[facility] Start: 02-13-2024 End: 93-01-0442Ayuyqtu encounter syjfgezmh42/25/2024 8:00 AM EDT Office Visit Neurosurgery [address] [place] [address] Hardik Carreon, AMARJIT.VEGETABLE WORKER [address] [place] [address] Review MRINeurosurgeryComment on above:Review MRIStart: 86-83-9101Sxxapnz Directive DiscussionAdvance Directive DiscussionBarberton Citizens Hospitaltart: 73-81-5931Wzcyfjvgys Health ScreeningBehavioral Health Screening [facility]: 22-11-9791Sxbxepmzqp AssessmentDepression Assessment [facility]: 47-56-2642Pksio-19 Vaccine ()Covid-19 Vaccine ()[facility]: 13-34-4593Isaqdwkfs vaccinationBarberton Citizens Hospitaltart: 70-26-4648Vymwl depression screening assessmentDEPRESSION SCREENINGBar[facility]ton Citizens Hospitaltart: 30-12-6134Baiqo depression screening assessmentDEPRESSION SCREENINGBarberton Citizens Hospitaltart: 10-26-4305AOAMCZL DIRECTIVE DISCUSSIONADVANCE DIRECTIVE DISCUSSIONBarberton Citizens Hospitaltart: 60-79-4584LFIBMXTPIZ ASSESSMENTDEPRESSION ASSESSMENTBar[facility]ton Citizens Hospitaltart: 37-09-6878Avvascxba vaccinationBarberton Citizens Hospitaltart: 94-96-4182ZXJDJHD DIRECTIVE DISCUSSIONADVANCE DIRECTIVE DISCUSSIONBarberton Citizens Hospitaltart: 07-06-3369RJYRFWONCJ ASSESSMENTDEPRESSION ASSESSMENTBarberton Citizens Hospitaltart: 56-60-5683DEZTG-19 VACCINE (3 - Booster for Pfizer series)COVID-19 VACCINE (3 - Booster for Pfizer series)[facility]: 00-95-1420HLOGX-19 VACCINE (3 - Booster for Pfizer series)COVID-19 VACCINE (3 - Booster for Pfizer series) [facility]: 58-00-2740AMDOP-19 VACCINE (3 - Pfizer series)COVID-19 VACCINE (3 - Pfizer series)[facility]: 61-02-3801WYRSWUXOEXOT: 65+ (1 - PCV)PNEUMOCOCCAL: 65+ (1 - PCV)[facility]: 21-52-0900UAYMOENNN AGE 65 AND OVER WITH 5YR LOOKBACK (#1)PNEUMOVAX AGE 65 AND OVER WITH 5YR LOOKBACK (#1)[facility]: 12-01-2020Medicare Annual Wellness VisitMedicare Annual Wellness VisitBarberton Citizens Hospitaltart: 07-81-3618YTU Vaccine (1 - 1-dose 60+ series)RSV Vaccine (1 - 1-dose 60+ series)[facility]: 2015 RSV Vaccine (1 - Risk 60-74 years 1-dose series)RSV Vaccine (1 - Risk 60-74 years 1-dose series)[facility]: 97-07-0017LHXYXAVJ CANCER SCREENING DISCUSSIONPROSTATE CANCER SCREENING DISCUSSIONBarberton Citizens Hospitaltart: 2010 Prostate specific antigen measurementProstate Cancer Screening Discussion [facility]: 23-26-6260RCMZNSPJ VACCINE (1 of 2)SHINGRIX VACCINE (1 of 2)[facility]: 40-45-4037FVXZELIII (FIT-DNA)COLOGUARD (FIT-DNA) [facility]: 83-54-7028IubesihcebtLUQQQNIDEGKCcwrzqkou ClinicStart: 10-32-0761ODPLCFCMNB CANCER SCREENINGCOLORECTAL CANCER SCREENINGMercy Health Start: 74-27-1890KW COLONOGRAPHYCT COLONOGRAPHYBarberton Citizens Hospitaltart: 2000 DIABETES SCREENDIABETES SCREENBarberton Citizens Hospitaltart: 68-48-8141Cmbmwkoq ScreeningDiabetes ScreeningBarberton Citizens Hospitaltart: 26-12-3891XITUF OCCULT BLOOD FECAL OCCULT BLOODBarberton Citizens Hospitaltart: 40-19-0941Qcqbpvpjs for malignant neoplasm of colonBarberton Citizens Hospitaltart: 44-30-0888RRXBDELXPPHMVUWCIOJIOMNXPO [facility]: 47-33-2952Zqiro panelLipid ScreeningMercy Health Start: 91-07-8245DFOYH SCREENLIPID SCREENBarberton Citizens Hospitaltart: 03-38-3999Mqwfp microalbumin profileBarberton Citizens Hospitaltart: 24-70-8617Bwgfwrj ScreeningAnxiety ScreeningBarberton Citizens Hospitaltart: 15-81-8173Ipzgkznkgi ScreeningDepression ScreeningBarberton Citizens Hospitaltart: 81-78-3254ICMDCPQLU C SCREENINGHEPATITIS C SCREENINGBar[facility]ton Citizens Hospitaltart: 50-95-9642Iujukqglu C screeningHepatitis C ScreeningBarberton Citizens Hospitaltart: 25-80-1655Fkwrz depression screening assessment DEPRESSION SCREENINGBarberton Citizens Hospitaltart: 67-92-5894KTEEWCYUL AORTIC ANEURYSM SCREENINGABDOMINAL AORTIC ANEURYSM SCREENINGBarberton Citizens Hospitaltart: 1955 Abdominal aortic aneurysm screeningAbdominal Aortic Aneurysm ScreeningBarberton Citizens Hospitaltart: 43-29-1222Oraxupqxt for malignant neoplasm of colonResearch [facility] Dermatopathology examDermatopathology exam Pathology and Cytology Timed Basal cell carcinoma (BCC) of skin of left upperextremity including shoulder Release Upon Ordering for 1 Occurrences starting 06/19/2024[facility] [employer] Work Phone: comtjjh on above:Release Upon Ordering for 1 Occurrences starting 06/19/2024ermatopathology examDermatopathology exam Pathology and Cytology Timed Neoplasm of unspecified behavior of bone, soft ti ssue, and skin Release Upon Ordering for 1 Occurrences starting 04/18/2024[facility] [employer] Work Phone: comment on above:Release Upon Ordering for 1 Occurrences starting 04/18/2024ermatopathology examDermatopathology exam Pathology and Cytology Timed Neoplasm of unspecified behavior of bone, soft ti ssue, and skin Release Upon Ordering for 1 Occurrences starting 01/02/2025[facility] [employer] Work Phone: comfbgz on above:Release Upon Ordering for 1 Occurrences starting 01/02/2025Dermatopathology examDermatopathology exam Pathology and Cytology Timed Rash and other nonspecific skin eruption Release Upon Ordering for 1 Occurrences starting 01/16/2025[facility] [employer] Work Phone: comzxra on above:Release Upon Ordering for 1 Occurrences starting 01/16/2025Dermatopathology examDermatopathology exam Pathology and Cytology Timed Basal cell carcinoma of back Release Upon Ordering for 1 Occurrences starting 02/05/2025[facility] [employer] Work Phone: comment on above:Release Upon Ordering for 1 Occurrences starting 02/05/2025Dermatopathology examDermatopathology exam Pathology and Cytology Timed Neoplasm of unspecified behavior of bone, soft ti ssue, and skin Release Upon Ordering for 1 Occurrences starting 02/19/2025[facility] [employer] Work Phone: comment on above:Release Upon Ordering for 1 Occurrences starting 02/19/2025 End: 80-87-2861UI Brain WO and W contrast IVMRI BRAIN WO/W IVCON Radiology Routine Subependymoma (HCC) 1 Occurrences starting 01/02/2024 until 01/31/2025 [facility]:1 Occurrences starting 01/02/2024 until 01/31/2025 End: 83-29-0244KX Brain WO and W contrast IVMRI BRAIN WO/W IVCON Radiology Routine Subependymoma (HCC) Brain lesion 1 Occurrences starting 12/31/2024 until 01/30/2026[facility] Work Phone: Comment on above:1 Occurrences starting 12/31/2024 until 01/30/2026 End: 00-33-2050EL Cervical spine WO and W contrast IVMRI CERVICAL SPINE WO/W IVCON Radiology Routine Spinal stenosis of cervical region 1 Occurrences sta rting 01/02/2024 until 5CMercy Hospital Work Phone: Comment on above:1 Occurrences starting 01/02/2024 until 01/31/2025 End: 82-14-0259Cfa brain brain stem w/o w/contrast materialMRI BRAIN WO/W IVCON Radiology Routine Subependymoma (HCC) 1 Occurrences starting 11/24/2021 until 0 12/24/2022[facility] Work Phone: Comment on above:1 Occurrences starting 11/24/2021 until 12/24/2022 End: 31-09-2092Aoq brain brain stem w/o w/contrast materialMRI BRAIN WO/W IVCON Radiology Routine Subependymoma (HCC) 1 Occurrences starting 12/14/2022 until 0 01/13/2024[facility] Work Phone: Comment on above:1 Occurrences starting 12/14/2022 until 01/13/2024Njx dx/ther agt pvrt facet jt crv/thrc 1 levelBLOCK MEDIAL BRANCH CERVICAL WITH C-ARM BILAT Cervical spondylosis without myelopathyLU PCNjx dx/ther agt pvrt facet jt crv/thrc 2nd levelBLOCK MEDIAL BRANCH CERVIAL EACH ADDITIONAL VERTEBRA 2 BILAT W/IMAGE GUIDANCE FLUORO OR CT Cervicalspondylosis without myelopathyLU PCSPINE INTERVENTION PROCEDURESPINE INTERVENTION PROCEDURE Procedures Routine Cervical spondylosis without myelopathy Ordered: 07/09/2024 [facility] Work Phone: Comment on above:Ordered: 07/09/2024[facility] Immunizations Immunization DateImmunizationNotesCare JgetxxitBpxhqvjr63-95-4190ynmamz vaccine recombinantManfred Gutierrez MD Work Phone: [facility] HospitalRrtipdswun68-23-0190nftjllg toxoid, reduced diphtheria toxoid, and acellular pertussis vaccine, adsorbedManfred Gutierrez MD Work Phone: [facility] HospitalIiuawytzau98-99-0874wscrmm vaccine recombinant Manfred Gutirerez MD Work Phone: [facility] HospitalVhuoiqisrv91-72-9199Rmhegubqu, Seasonal, Quadrivalent, AdjuvantedNatalie Felter BIOLOGICAL TECHNICIAN-VEGETABLE WORKER Work Phone: [facility] HospitalOipscffqjn12-89-2313gegkqwrtg virus vaccine, unspecified formulationJohn Calvo MD Work Phone: [facility]05-03-2022Pneumococcal Conjugate PCV 20Natalie Felter BIOLOGICAL TECHNICIAN-VEGETABLE WORKER Work Phone: [facility] CampusEswldnxwcg09-28-8829EUKG-AwQ-4 (COVID-19) mRNA BNT-162b2 [employer] [facility]04-07-2021SARS-CoV-2 (COVID-19) mRNA BNT-162b2 [employer] [facility] Payers DatePayer CategoryPayerPolicy [id number] 2020MedicareMEDICARE MEDICARE A AND B [id number] 2020-Present [phone] [address] [address] [place] [address] [id number] 2020Medicare [id number] Insurance [id number] MMO MEDICARE SUPPLEMENT [id number] 2020-Present [phone] [address] [place] [address] [id number] [id number]9960.1.13.159.2.7.3.147696.315 1960Medicare [id number] 2.16.840.1.336814.3.57[id number] 2.16.840.1.739518.3.57[id number] 2.16.840.1.251717.3.57[id number] 2.16.840.1.939586.3.579.[id number] 2.16.840.1.212812.3.57[id number] 2.16.840.1.237494.3.579.2.491560-21-1954Yxxfbmv21420147 2.16.840.1.101690.3.579.2.477954-51-7918Emxnfdc97102048 2.16.840.1.236970.3.579.2.492469-33-1382Aklvvzx5798689 2.840.1.580993.3.579.2.333621-00-6256Njuolbl3644286 2.840.1.860559.3.579.2.510174-86-3602Rfelgrw6196791 2.840.1.674814.3.579.2.955553-30-6009Rnsondo4259436 2.840.1.463496.3.579.2.797437-53-5702Psqoaco8533673 2.840.1.695112.3.579.2.253334-71-9663Vldaauy1450704 2.840.1.901710.3.579.2.610643-17-4866Cgxlsfz4663165 2.840.1.820368.3.579.2.224779-20-3802Ggzkgku1814936 2.16.840.1.761380.3.579.2.7352Yxshjvs47008247 2.16.840.1.171454.3.579.2.531 Hxsltlc09701881 2.16.840.1.211188.3.579.2.794Vuzelyp67739100 2.16.840.1.572722.3.579.2.628Pynrdkx97245923 2.16.840.1.708948.3.579.2.531 Social History DateTypeDetailFacilityTobacco smoking status NHISUnknown if ever smokedToledo Hospital Work Phone: Start: [id number] Assigned At BirthKindred Hospital Limatart: 08-19-2014 End: 72-12-9887Ssghxna smoking status NHISEx-smokerBarberton Citizens Hospitaltart: 08-19[facility]1975 End: 35-94-8453Iwufqje of tobacco useCurrent smokerBarberton Citizens Hospitaltart: 08-19-1975 End: 42-51-3763Uatpvar of tobacco useCigarette SmokerBarberton Citizens Hospitaltart: 08-19-2014 End: 78-10-3861Ptrwcng use and exposureSmokeless tobacco non-userBarberton Citizens Hospitaltart: 05-07-2021 End: 97-76-3222Pzgozxh intakeCurrent drinker of alcohol (finding)[facility]: 85-09-2010Giqazan SDOH Alcohol CommentoccassionalMercy Health Start: 65-20-3313Rtf Assigned At BirthNot on fileBarberton Citizens Hospitaltart: 11-14-2021 End: 26-46-0804Jyczybew to SARS-CoV-2 (event)Unable to assessMercy Health Work Phone: Start: 03-28-2022 End: 47-05-7901Jmsvfer of Social functionBarberton Citizens Hospitaltart: 03-28-2022 End: 09-93-6491Sxkwtjo use panelBarberton Citizens Hospitaltart: 71-65-9189Hdgnb Depression Screening Xiliyqlrdl4Vyzryhcvb ClinicStart: 70-18-5385Phuxay orientationHeterosexual (finding)[facility] Hospitaltart: 04-18-2023 End: 03-83-3089Oocjnqc smoking status NHISNever smoked tobaccoNOMS Healthcare Start: 35-42-5411Cdnxmpw Commentmonthly or lessNOMS HealthcareTobacco smoking status NHISUnknown if ever smokedToledo Hospital Work Phone: Start: 07-10-2024 End: 82-66-2398DvfRfui (finding)[facility] Centerexual OrientationExecutive Urology of [facility] [place] Functional Status NyecMqvydejvplXreejyDbbvitvb21-97-9680Znrvrag Health Questionnaire 2 item (PHQ- 2) [Reported][facility] CampusRowxpxnvkl10-85-1359Ypxqsdu Health Questionnaire 2 item (PHQ- 2) [Reported][facility] CampusCmueqggfmc38-80-0747Ucf you deaf, or do you have serious difficulty hearingNo 08/26/2014 7:00 AM Jessica Rock LPN [facility] 93-52-8632Qnf you blind, or do you have serious difficulty seeing, even when wearing glassesNo 08/26/2014 7:00 AM Jessica Rock LPN [facility] 67-02-2072Pe you have serious difficulty walking or climbing stairsNo 08/26/2014 7:00 AM Jessica Rock LPN [facility]01-06-2015Do you have difficulty dressing or bathingNo 08/26/2014 7:00 AM Jessica Rock LPN [facility] 24-82-9760Ywrtuwl of a physical, mental, or emotional condition, do you have difficulty doing errands alone such as visiting a physician's office or shopping No 08/26/2014 7:00 AM [facility] Jessica Crespo LPN [facility] Mental Status CelrRvjjsmlkufRyianiRhtrngig95-15-4294Ivbemsj of a physical, mental, or emotional condition, do you have serious difficulty concentrating, remembering, or making decisionsNo 08/26/2014 7:00 AM Jessica Rock LPN [facility] Clinical Notes 11-24-2021 to 05-06-2025 Note Date & MkxfMhnaUgvhbfdi17-33-0518 Instructions* Patient Instructions* John Calvo MD - 05/06/2025 1:20 PM EDT Images from the original note were not included. Dr Calvo has Clinic on 11/25 or 12/09 documented in this encounterMercy Health09-16-2025 NoteHNO ID: [id number] Author: JOHN CALVO MD Service: ? Author Type: Physician Type: Progress Notes Filed: 05/06/2025 13:24 Note Text: [facility] 2025 CC: NECK PAIN HPI: Rhiannon Valdivia is a 68 year old male who initially presented with h/o cluster headaches, subependymoma, basal cell carcinoma with chronic 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 Numbnness tingling with elbow flexion, improved when not flexed Pain:5/10; WORST: 9/10; on a scale of 0-10. Patient was Gabapentin, currently on gabapentin. The patient has previously been on the following pain medications -gabapentin. -tried chiropractor Quadricep tear on right 1990s basal cell carcinoma removed from shoulder by Irina VEGETABLE WORKER- [facility] Treating Physicians: Hardik Carreon CNP in Neurology 2023. -Neurologist in [place] Prior Spinal Surgery: None. Notes daily headaches every day, Spine intervention: -Diagnostic bilaterally C3 and C4 medial branch and Third occipital block on 08/07/2024 with 50% relief for one week. Did not significantly improve headaches, less intense. Patient did bring pain diary Work status: -seen with Catherine Alexandre See Follow-up visit from prior encounter dated 10/29/2024 . Since last visit: Pain TODAY: 4/10 in neck, 3/10 in headaches; WORST: 5/10; on a scale of 0-10. Patient is currently on date of last PT 2023 and NSAIDs, Tizandine prn. The patient has previously been on the following pain medications - Gabapentin weaned off. - PT Giancarlo in [place] 03/2024 to 10/23/2024 (20 sessions) and doing physician supervised home exercise program for last 2 months- 30% better, headaches and neck less pain in morning. Significant relief for bilateral arm arm and low back pain -Dr Baker- on Aimovig, with decrease in headaches 40% improved for 3 months, may be increasing dose -seeing Dermatology for basal cell carcinoma -had cystoscopy 01/2025 Neck pain is stable and tolerable left vs Right - 60:40 -Will be going to [facility] July to October He continues to deny bowel/bladder incontinence, denies fever, denies night pain, denies unintentional weight loss, denies clumsiness of hands or dropping things, denies clumsiness of feet, tripping or falling. Denies any constitutional or myelopathic symptomatology. No interval change in PMHX, PSHX, Allergies, FamHx or ROS since 10/29/2024. OBJECTIVE: PHYSICAL EXAM Ht 172.7 cm (5' [...] with pain RIGHT LEFT Rotation Full ROM without pain Full ROM with pain Lateral Bend Full ROM with pain Full ROM with pain RIGHT LEFT Spurling [...] tunnel FADIR:negative Stinchfield: negative Log-roll Hips: negative Resiste (more content not included)...[facility] HospitalJzcdyfvk12-20-8321 History of Present illness Narrative* John Calvo MD - 05/06/2025 1:03 PM EDT [facility] 06, 2025 CC: NECK PAIN HPI: Rhiannon Valdivia is a 68 year old male who initially presented with h/o cluster headaches, subependymoma, basal cell carcinoma with chronic 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 Numbnness tingling with elbow flexion, improved when not flexed Pain:5/10; WORST: 9/10; on a scale of 0-10. Patient was Gabapentin, currently on gabapentin. The patient has previously been on the following pain medications -gabapentin. -tried chiropractor Quadricep tear on right 1990s basal cell carcinoma removed from shoulder by Irina SHETTY- [facility] Treating Physicians: Hardik Carreon CNP in Neurology 2023. -Neurologist in [place] Prior Spinal Surgery: None. Notes daily headaches every day, Spine intervention: -Diagnostic bilaterally C3 and C4 medial branch and Third occipital block on 08/07/2024 with 50% relief for one week. Did not significantly improve headaches, less intense. Patient did bring pain diary Work status: -seen with Bettie, Spouse See Follow-up visit from prior encounter dated 10/29/2024 . Since last visit: Pain TODAY: 4/10 in neck, 3/10 in headaches; WORST: 5/10; on a scale of 0-10. Patient is currently on date of last PT 2023 and NSAIDs, Tizandine prn. The patient has previously beenon the following pain medications - Gabapentin weaned off. - PT Giancarlo in [place] 03/2024 to 10/23/2024 (20 sessions) and doing physician supervised home exercise program for last 2 months- 30% better, headaches and neck less pain in morning. Significant relief for bilateral arm arm and low back pain -Dr Baker- on Aimovig, with decrease in headaches 40% improved for 3 months, may be increasing dose -seeing Dermatology for basal cell carcinoma -had cystoscopy 01/2025 Neck pain is stable and tolerable left vs Right - 60:40 -Will be going to [facility] July to October He continues to deny bowel/bladder incontinence, denies fever, denies night pain, denies unintentional weight loss, denies clumsiness of hands or dropping things, denies clumsiness of feet, tripping or falling. Denies any constitutional or myelopathic symptomatology. No interval change in PMHX, PSHX, Allergies, FamHx or ROS since 10/29/2024. OBJECTIVE: PHYSICAL EXAM Ht 172.7 cm (5' [...] with pain RIGHT LEFT Rotation Full ROM without pain Full ROM with pain Lateral Bend Full ROM with pain Full ROM with pain RIGHT LEFT Spurling [...] Hips: negative Resisted SLR: negative Scour: negative TIN: tighter on left > right PSIS tenderness: negative Cambridge's (modified):negative Thigh thrust: negative Hamstring tightness: negative Prone extension: negative DATA RE[facility]. All prescriptions have been APPROPRIATELY filled. No suspiciousactivity was identified. October 29, 2024 by John Calvo MD Personally Reviewed MRI cervical spine on 01/10/2024 with left C4-5 facet arthropathy lack of lordosis Personally Reviewed Plain films cervical spine on 01/10/2024 with lack of lordosis MRI brain on 12/18/2023, 12/02/2022, 11/23/2021, 02/18/2021 The above imaging [...] none 2) Therapy/Rehabilitation: Continue home exercise program RENÉE Mondragon in [place] 3) Pharmacological Management: continue current regimen- 4) Spine/Surgical Interventions: hold on repeat Left (vs Bilateral) C3, C4 Medial Branch Block, possible TON 5) Follow -up: 6 month(s) at [place], will try to coordinate appointment with Dr Baker 6) Future treatment considerations: CT cervical spine. Cervical [place] MISAEL 7) Follow up Neurology Headache- Dr Farshad Calvo MD Staff Physician [facility] [...] per rolling 12 months per spinal region. 05/05/2025 PROMIS Global Health Physical Health Summary Physical health: Good Everyday physical activity, ability: Mostly Fatigue: Mild Pain level: 4 General health: Very good Social activities/roles, ability: Very good Physical Health T-Score 44.9 (Good) Physical Health Percentile 31 PROMIS Global [facility] Mental Health Summary Quality of life: Very good Mental health (mood,thinking): Good Social satisfaction: Very good Emotional problems (anxious,depressed): Rarely Mental Health T-Score 50.8 (Very Good) Mental Health Percentile 53 PHQ-9 Score: 2(Minimal Depression) PHQ-9 Self-Harm: Not at all NEURO-QOL Cognitive Function T-Score 51(Within Normal Limits) PROMIS Physical Function T-Score 47(Within Normal Limits) PROMIS Physical Function Percentile 38 PROMIS Pain Interference T-Score 54(Within Normal Limits) PROMIS Pain Interference Percentile 34 Percentiles provide an indication of how a patient's score ranks in relation to the [place] general population. > 31st percentile is within normal limits or better *< 31st percentile is at least SD worse than population, which may be clinically relevant < 16th percentile is at least 1 SD worse than population and warrants attention * Onur Crespo MA - 05/06/2025 12:30 PM EDT 05/05/2025 PROMIS [facility] Physical Health Summary Physical health: Good Everyday physical activity, ability: Mostly Fatigue: Mild Pain level: 4 General health: Very good Social activities/roles, ability: Very good Physical Health T-Score 44.9 (Good) Physical Health Percentile 31 PROMIS Global Health Mental Health Summary Quality of life: Very good Mental health (mood,thinking): Good Social satisfaction: Very good Emotional problems (anxious,depressed): Rarely Mental Health T-Score 50.8 (Very Good) Mental Health Percentile 53 PHQ-9 Score: 2(Minimal Depression) PHQ-9 Self-Harm: Not at all NEURO-QOL Cognitive Function T-Score 51(Within Normal Limits) PROMIS Physical Function T-Score 47(Within Normal Limits) PROMIS Physical Function Percentile 38 PROMIS Pain Interference T-Score 54(Within Normal Limits) PROMIS Pain Interference Percentile 34 Percentiles provide an indication of how a patient's score ranks in relation to the [place] general population. > 31st percentile is within normal limits or better *< 31st percentile is at least SD worse than population, which may be clinically relevant < 16th percentile is at least 1 SD worse than population and warrants attention documented in this encounterMercy Health09-16-2025 NoteHNO ID: [id number] Author: ONUR CRESPO MA Service: ? Author Type: Accounting Manager Controller Type: Progress Notes Filed: 05/06/2025 13:24 Note Text: 05/05/2025 PROMIS Global [facility] Physical Health Summary Physical health: Good Everyday physical activity, ability: Mostly Fatigue: Mild Pain level: 4 General health: Very good Social activities/roles, ability: Very good Physical Health T-Score 44.9 (Good) Physical Health Percentile 31 PROMIS Global Health Mental Health Summary Quality of life: Very good Mental health (mood,thinking): Good Social satisfaction: Very good Emotional problems (anxious,depressed): Rarely Mental Health T-Score 50.8 (Very Good) Mental Health Percentile 53 PHQ-9 Score: 2(Minimal Depression) PHQ-9 Self-Harm: Not at all NEURO-QOL Cognitive Function T-Score 51(Within Normal Limits) PROMIS Physical Function T-Score 47(Within Normal Limits) PROMIS Physical Function Percentile 38 PROMIS Pain Interference T-Score 54(Within Normal Limits) PROMIS Pain Interference Percentile 34 Percentiles provide an indication of how a patient's score ranks in relation to the [place] general population. > 31st percentile is within normal limits or better *< 31st percentile is at least ? SD worse than population, which may be clinically relevant < 16th percentile is at least 1 SD worse than population and warrants attentionHillcrest HospitalRhvglzav11-15-0707 NoteHNO ID: [id number] Author: MUKESH BAKER MD Service: ? Author Type: Physician Type: Progress Notes Filed: 05/06/2025 13:28 Note Text: PROGRESS NOTE-HEADACHE MEDICINE SERVICE DATE: May 06, 2025 Location: [facility] Participants: Patient, and Provider Subjective HPI: Rhiannon Valdivia is here for follow up. Last seen on 02/03/2025.Aimovig started February 13, we review his pain journal where he documents head and neck pain. Daily headaches but severity has decreased by 30-50%. He fees he is definitely more active. Aimovig has not changed neck pain. 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 This is being followed by DIOGENES Carreon from brain tumor clinic. Head pain description: see note from 02/03/2025 Outpatient Medications as of 05/06/2025 Medication Sig tiZANidine (ZANAFLEX) 4 mg tablet Take 4 mg by mouth every 6 hours as needed. multivit-min/folic acid/lutein (CENTRUM SILVER PO) Take by mouth. IBUPROFEN ORAL Take by mouth as needed (take 2-3 tabs po prn for pain). MULTIVITAMIN ORAL Take by mouth. tamsulosin (FLOMAX) 0.4 mg Take 0.4 mg by mouth once daily. atorvastatin (LIPITOR) 40 mg tablet Take 40 mg by mouth once daily. No current facility-administered medications on file as of 05/06/2025. Current medications review: 1.infrequent Tylenol PAST MEDICAL HISTORY Diagnosis Date Migraines ALLERGIES Allergen Reactions Ceclor [Cefaclor] Unknown Vitals: BP 143/88 Pulse 75 Ht 177.8 cm (5' 10 ) Wt 73.7 kg (162 lb 7.7 oz) BMI 23.31 kg/m? ASSESSMENT: Cervicogenic headaches, independent of migraines. Chronic neck pain Migraine without aura RECOMMENDATIONS: 1. Preventive therapy: -increase Aimovig for 140 mg, one month should be enough to evaluate efficacy. If not much better then he can go back to 70 mg because of cost. 2. Follow up in 2 months I spent a total of 30 minutes on the date of the service which included preparing to see the patient, rndw-yy-eigj patient care, completing clinical documentation, obtaining and/or reviewing separately obtained history, performing medically appropriate examination, counseling and education to patient/family/caregiver, ordering medications, test or procedures, communicating with other healthcare providers, independently interpreting results, communicating results to the patient/family/caregiver and care coordination. This time excludes any procedures. Mukesh Baker MD [facility]09-16-2025 History of Present illness Narrative* Mukesh Baker MD - 05/06/2025 10:31 AM EDT PROGRESS NOTE-HEADACHE MEDICINE SERVICE DATE: May 06, 2025 Location: [facility] Participants: Patient, and Provider Subjective HPI: Rhiannon Valdivia is here for follow up. Last seen on 02/03/2025.Aimovig started February 13, we review his pain journal where he documents head and neck pain. Daily headaches but severity has decreased by 30-50%. He fees he is definitely more active. Aimovig has not changed neck pain. 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 This is being followed by DIOGENES Carreon from brain tumor clinic. Head pain description: see note from 02/03/2025 Outpatient Medications as of 05/06/2025 Medication Sig tiZANidine (ZANAFLEX) 4 mg tablet Take 4 mg by mouth every 6 hours as needed. multivit-min/folic acid/lutein (CENTRUM SILVER PO) Take by mouth. IBUPROFEN ORAL Take by mouth as needed (take 2-3 tabs po prn for pain). MULTIVITAMIN ORAL Take by mouth. tamsulosin (FLOMAX) 0.4 mg Take 0.4 mg by mouth once daily. atorvastatin (LIPITOR) 40 mg tablet Take 40 mg by mouth once daily. No current facility-administered medications on file as of 05/06/2025. Current medications review: 1.infrequent Tylenol PAST MEDICAL HISTORY Diagnosis Date Migraines ALLERGIES Allergen Reactions Ceclor [Cefaclor] Unknown Vitals: BP 143/88 Pulse 75 Ht 177.8 cm (5' 10 ) Wt 73.7 kg (162 lb 7.7 oz) BMI 23.31 kg/m ASSESSMENT: Cervicogenic headaches, independent of migraines. Chronic neck pain Migraine without aura RECOMMENDATIONS: 1. Preventive therapy: -increase Aimovig for 140 mg, one month should be enough to evaluate efficacy. If not much better then he can go back to 70 mg because of cost. 2. Follow up in 2 months I spent a total of 30 minutes on the date of the service which included preparing to see the patient, tszx-py-xkob patient care, completing clinical documentation, obtaining and/or reviewing separately obtained history, performing medically appropriate examination, counseling and education to patien t/family/caregiver, ordering medications, test or procedures, communicating with other healthcare providers, independently interpreting results, communicating results to the patient/family/caregiver and care coordination. This time excludes any procedures. Mukesh Baker MD [facility] documented in this encounterMercy Health07-07-2025 Telephone encounter Note * Telephone Encounter - PREET Real - 02/24/2025 8:59 AM EDT Tizanidine sent. [facility] [id number] Miscellaneous Notes* Telephone Encounter - PREET Real - 02/24/2025 8:59 AM EDT Tizanidine sent. documented in this encounterResearch Medical Center-Brookside CampusPyxgxcrdjg30-48-5495 History of Present illness Narrative* Teodora Melara MD - 02/19/2025 1:15 PM EDT Images from the original note were not included. Follow up Diagnosis: Basal Cell Carcinoma Location: Left Upper Back Last visit: 2 weeks ago Symptoms: red Status: healed well from shave biopsy Procedure performed: Shave biopsy Date of procedure: 01/02/25 ED&C today. Suture Removal Patient here for suture removal: No complaints of redness, drainage or swelling at site, compliant with wound care. Location: Mid Back Procedure Performed: Excision Date of Procedure: 02/05/25 Medications: none All pertinent medical history, medications, and allergies were reviewed. General Exam: alert, oriented to person, place, and time, normal affect, well appearing Unaccompanied A focused exam completed based on patient reported problems, see below: Skin Exam 1. BASAL CELL CARCINOMA (BCC) OF SKIN OF LEFT UPPER EXTREMITY INCLUDING SHOULDER Left Upper Back [place] macule at biopsy site Destr of lesion Complexity: simple Destruction method: electrodesiccation and curettage Informed consent: discussed and consent obtained Informed consent comment: The risks of the procedure were discussed, including, but not limited to risks of scarring, darker or monument setter helper pigmentary changes, recurrence, infection, and incomplete removal [...] Yes Curettage cycles: 3 Lesion length (cm): 1.2 Lesion width (cm): 1.1 Margin per side (cm): 0 Final wound size (cm): 1.2 Hemostasis achieved with: aluminum chloride Outcome: patient tolerated procedure well with no complications Post-procedure details: wound care instructions given Post-procedure details comment: Post-procedure instructions were given verbally and in writing. Theoffice will be contacted if the lesion fails to resolve despite treatment, or if a side effect develops such as abnormal crusting, scabbing, reddness, discharge, or tenderness. Additional details: Amount of lidocaine used: [facility] Previous accession number: [id number] Emphasized to return to clinic for any signs of recurrence prior to next visit. 2. NEOPLASM OF UNSPECIFIED BEHAVIOR OF BONE, SOFT TISSUE, AND SKIN Left Supraclavicular Area Hyperkeratotic papule Lesion biopsy Type of biopsy: tangential [...] Dressing type: bandage Additional details: Photo taken Amount of lidocaine used: 1cc Specimen A - Dermatopathology exam Differential Diagnosis: ISK vs SCC Check Margins: No Size of lesion: 0.6 x 0.6 cm 3. ENCOUNTER FOR REMOVAL OF SUTURES Mid Back Sutures are intact, Skin edges are well-approximated, Mild erythema along incision line, No drainage or edema noted Suture Removal: Procedure: Sutures were removed without difficulty. Tincture of Benzoin was applied around site in preparation of steri-strips. Steri-strips were applied Post-Procedure instructions: Instructed to discontinue wound care., Pathology results discussed. Next Visit: as scheduled for next skin check documented in this encounterResearch Medical Center-Brookside CampusGuzhutknze53-33-2255 Hospital Discharge instructions Patient Education 02/11/2025 14:05:16 Benign Prostatic Hyperplasia Benign Prostatic Hyperplasia Benign prostatic hyperplasia (BPH) is an enlarged prostate gland that is caused by the normal agingprocess. The prostate may get bigger as a man gets older. The condition is not caused by cancer. The prostate is a walnut-sized gland that is involved in the production of semen. It is located in front of the rectum and below the bladder. The bladder stores urine. The urethra carries stored urine ou t of the body. An enlarged prostate can press on the urethra. This can make it harder to pass urine. The buildup of urine in the bladder can cause infection. Back pressure and infection may progress to bladder damage and kidney (renal) failure. What are the causes? This condition is part of the normal aging process. However, not all men develop problems from thiscondition. If the prostate enlarges away from the [...] urethra. Follow these instructions at home: Take nyby-owd-poypwph and prescription medicines only as told by [...] provider. Document Revised: 02/23/2022 Document Reviewed: 02/23/2022 [employer] Patient Education 2023 [employer]. Follow Up Care 01/30/2025 08:39:23 With:LUIS ANGEL MÉNDEZ, Samuel Vides, URL Address: [facility] [address] , [place] [address]- When: Unknown [facility] [id number] Telephone encounter Note* Telephone Encounter - Chelsea Lane - 02/11/2025 3:17 PM EDT Space Monkey Auth Aimovig scanned to [employer] [facility]06-24-2025 Miscellaneous Notes* Telephone Encounter - Chelsea Lane - 02/11/2025 3:17 PM EDT Space Monkey Auth Aimovig scanned to [employer] documented in this encounterMercy Health06-24-2025 NotePatient Education Urology Benign Prostatic Hyperplasia Benign prostatic hyperplasia (BPH) is an enlarged prostate gland that is caused by the normal agingprocess. The prostate may get bigger as a man gets older. The condition is not caused by cancer. The prostate is a walnut-sized gland that is involved in the production of semen. It is located in front of the rectum and below the bladder. The bladder stores urine. The urethra carries stored urine ou t of the body. An enlarged prostate can press on the urethra. This can make it harder to pass urine. The buildup of urine in the bladder can cause infection. Back pressure and infection may progress to bladder damage and kidney (renal) failure. What are the causes? This condition is part of the normal aging process. However, not all men develop problems from thiscondition. If the prostate enlarges away from the urethra, urine flow will not be blocked. If it enlarges toward the urethra and compresses it, there will be problems passing urine. What increases the risk? This condition is more likely to develop in men older than 50 years. What are the signs or symptoms? Symptoms of this condition include: ??? Getting up often during the night to urinate. ??? Needing to urinate frequently during the day. ??? Difficulty starting urine flow. ??? Decrease in size and strength of your urine stream. ??? Leaking (dribbling) after urinating. ??? Inability to pass urine. This needs immediate treatment. ??? Inability to completely empty your bladder. ??? Pain when you pass urine. This is more common if there is also an infection. ??? Urinary tract infection (UTI). How is this diagnosed? This condition is diagnosed based on your medical history, a physical exam, and your symptoms. Tests will also be done, such as: ??? A post-void bladder scan. This measures any amount of urine that may remain in your bladder after you finish urinating. ??? A digital rectal exam. In a rectal exam, your health care provider checks your prostate by putting a lubricated, gloved finger into your rectum to feel the back of your prostate gland. This exam detects the size of your gland and any abnormal lumps or growths. ??? An exam of your urine (urinalysis). ??? A prostate specific antigen (PSA) screening. This is a blood test used to screen for prostate cancer. ??? An ultrasound. This test uses sound waves [...] severity of your condition. Treatment may include: ??? Observation and yearly exams. This may be the only treatment needed if your condition and symptoms are mild. ??? Medicines to relieve your symptoms, including: ? Medicines to shrink the prostate. ? Medicines to relax the muscle of the prostate. ??? Surgery in severe cases. Surgery may include: ? Prostatectomy. In this procedure, the prostate tissue is removed completely through an open incision or with a laparoscope or robotics. ? Transurethral resection of the prostate (TURP). In this procedure, a tool is inserted through theopening at the tip of the penis (urethra). It is used to cut away tissue of the inner core of the prostate. The pieces are removed through the same opening of the penis. This removes the blockage. ? Transurethral incision (TUIP). In this procedure, small cuts are made in the prostate. This lessens the prostate's pressure on the urethra. ? Transurethral microwave thermotherapy (TUMT). This procedure uses microwaves to create heat. The heat destroys and removes a small amount of prostate tissue. ? Transurethral needle ablation (TUNA). This procedure uses radio frequencies to destroy and removea small amount of prostate tissue. ? Interstitial laser coagulation (ILC). This procedure uses a laser to destroy and remove a small amount of prostate tissue. ? Transurethral electrovaporization (TUVP). This procedure uses electrodes to destroy and remove a small amount of prostate tissue. ? Prostatic urethral lift. This procedure inserts an implant to push the lobes of the prostate awayfrom the urethra. Follow these instructions at home: ??? Take phjh-bzr-nhylgey and prescription medicines only as told by your health care provider. ??? Monitor your symptoms for any changes. Contact your health care provider with any changes. ??? Avoid drinking large amounts of liquid before going to bed or out in public. ??? Avoid or reduce how much caffeine or alcohol you drink. ??? Give yourself time when you urinate. ??? Keep all follow-up visits. This is important. Contact a health care provider if: ??? You have unexplained back pain. ??? Your symptoms do not get (more content not included)...[facility]06-22-2025 Instructions* Patient Instructions* Mukesh Baker MD - 02/09/2025 6:13 PM EDT Mate[place] What is this drug used for? It is used to prevent migraine headaches. What do I need to tell my doctor BEFORE I take this drug? If you are allergic to this drug; any part of this drug; or any other drugs, foods, or substances. Tell your doctor about the allergy and what signs you had. This drug may interact with other drugs or health problems. Tell your doctor and pharmacist about all of your drugs (prescription or OTC, natural products, vitamins) and health problems. You must check to make sure that it is safe for you to take this drug with all of your drugs and health problems. Do not start, stop, or change the dose of any drug withoutchecking with your doctor. What are some things I need to know or do while I take this drug? Tell all of your health care providers that you take this drug. This includes your doctors, nurses,pharmacists, and dentists. High blood pressure has happened with this drug. Have your blood pressure checked as you have been told by your doctor. Allergic reactions have happened within hours and up to 1 month after this drug was given. Tell your doctor right away about any bad effects after getting this drug. Tell your doctor if you are , plan on getting , or are breast- feeding. You will need to talk about the benefits and risks to you and the baby. What are some side effects that I need to call my doctor about right away? WARNING/CAUTION: Even though it may be rare, some people may have very bad and sometimes deadly side effects when taking a drug. Tell your doctor or get medical help right away if you have any of thefollowing signs or symptoms that may be related to a very bad side effect: Signs of an allergic reaction, like rash; hives; itching; red, swollen, blistered, or peeling skin with or without fever; wheezing; tightness in the chest or throat; trouble breathing, swallowing, ortalking; unusual hoarseness; or swelling of the mouth, face, lips, tongue, or throat. Signs of high blood pressure like very bad headache or dizziness, passing out, or change in eyesight. New or worse Raynaud's phenomenon, a blood vessel problem, has happened with this drug. Sometimes, this has been serious and patients had to go to the hospital. Tell the doctor right away if your fingers or toes are numb, cold, painful, or change color. Skin may turn pale, blue, hickey, purple, or red. What are some other side effects of this drug? All drugs may cause side effects. However, many people have no side effects or only have minor sideeffects. Call your doctor or get medical help if any of these side effects or any other side effects bother you or do not go away: Irritation where the shot is given. These are not all of the side effects that may occur. If you have questions about side effects, call your doctor. Call your doctor for medical advice about side effects. You may report side effects to your national health agency. How is this drug best taken? Use this drug as ordered by your doctor. Read all information given to you. Follow all instructionsclosely. It is given as a shot into the fatty part of the skin on the top of the thigh, belly area, or upperarm. If you will be giving yourself the shot, your doctor or nurse will teach you how to give the shot. Wash your hands before use. If stored in a refrigerator, let this drug come to room temperature before using it. Leave it at room temperature for at least 30 minutes. Do not heat this drug. Do not shake. Do not give into skin that is irritated, bruised, red, infected, hard, or scarred. Do not give into skin within 2 inches (5 cm) of the belly button. Do not give into the same place as another shot. If your dose is more than 1 injection, you may give it in the same body part. Make sure you do not give injections in the same spot you used for the other injections. Do not use if the solution is cloudy, leaking, or has particles. This drug is colorless to a faint yellow. Do not use if the solution changes color. Each auto-injector and prefilled syringe is for one use only. Throw away needles in a needle/sharp disposal box. Do not reuse needles or other items. When the box is full, follow all local rules for getting rid of it. Talk with a doctor or pharmacist if you have any questions. What do I do if I miss a dose? Take a missed dose as soon as you think about it. After taking a missed dose, start a new schedule based on when the dose is taken. Talk with your doctor if you have questions about how to start a new schedule. How do I store and/or throw out this drug? Store in a refrigerator. Do not freeze. Store in the original container to protect from light. If needed, you may store at room temperature for up to 7 days. Write down the date you take this drug out of the refrigerator. If stored at room temperature and not used within 7 days, throw this drug away. Do not put this drug back in the refrigerator after it has been stored at room temperature. Protect from heat and sunlight. Keep all drugs in a safe place. Keep all drugs out of the reach of children and pets. Throw away unused or drugs. Do not flush down a toilet or pour down a drain unless you are told to do so. Check with your pharmacist if you have questions about the best way to throw out drugs. There may be drug take-back programs in your area. documented in this encounterMer[facility]06-[facility] History of Present illness Narrative* Teodora Melara MD - 02/05/2025 10:30 AM EDT Images from the original note were not included. Subjective Rhiannon Valdivia is a 69 y.o. male who presents for the following: Excision Location: Mid back Date of biopsy: 01/02/2025 Diagnosis: Basal Cell Carcinoma infiltrative, and nodular Pre-Op Checklist: History of pacemaker/defibrillator: No History of joint replacement in the past 2 years: No History of HIV/Hepatitis B/Hepatitis C: No Latex allergy: No Is the patient currently on a blood thinner? No All pertinent medical history, medications, and allergies were reviewed. Surgical assistants: Tika Gutierrez CMA and Mindy Marquis LPN Objective Well appearing patient in no apparent distress; mood and affect are within normal limits. Skin Exam 1. BASAL CELL CARCINOMA OF BACK Mid Back Erythematous patch at the biopsy site Skin excision Lesion length (cm): 2 Lesion width (cm): 0.5 Margin per side (cm): 0.4 Total excision diameter (cm): 2.8 Informed consent: discussed and consent obtained Informed [...] in usual sterile fashion (The planned incision lineswere drawn along relaxed skin tension lines, if [...] electrodesiccation Additional details: Amount of lidocaine used: 12.0 ml Estimated blood loss: 3.0 ml Skin repair Complexity: Intermediate Final length (cm): 5.2 Reason for type of repair: allow closure [...] with minimal tension. Suture removal (days): 14 Hemostasis achieved with: suture and electrodesiccation Outcome: patient tolerated procedure well with no complications Post-procedure details: sterile dressing applied and wound care instructions given Post-procedure details comment: It was emphasized to the patient to contact the office for any signs of infection, uncontrollable bleeding, or complications. Dressing type: pressure dressing Specimen A - Dermatopathology exam Differential Diagnosis: BCC infiltrative and nodular Check Margins: Yes Previous accession number: [id number] Follow up: 14 days for s/r documented in this encounterResearch Medical Center-Brookside [id number] Telephone encounter Note* Telephone Encounter - Keke Hopkins RN - 02/05/2025 8:30 AM EDT Phoned pharmacy. Even though approved by insurance- [employer] still 600 dollars a month. Please prescribe alternative [facility]06-18-[facility] Miscellaneous Notes* Telephone Encounter - Keke Hopkins RN - 02/05/2025 8:30 AM EDT Phoned pharmacy. Even though approved by insurance- [employer] still 600 dollars a month. Please prescribe alternative documented in this encounterMercy Health06-16-2025 Telephone encounter Note * Telephone Encounter - Keke Hopkins RN - 02/03/2025 1:16 PM EDT PREET for ajovy approved via [employer]. Prior authorization approved Payer: [facility] Note from payer: Approved. This drug has been approved under the Member's Medicare Part D benefit. Approved quantity: 1.5 units per 30 day(s). You may fill up to a 90 day supply except for those on Specialty Tier 5, which can be filled up to a 30 day supply. Please call the pharmacy to process the p rescription claim. Approval Details Authorized from January 20, 2025 to August 20, 2099 Electronic appeal: Not supported View History [facility]06-16-2025 Miscellaneous Notes* Telephone Encounter - Keke Hopkins RN - 02/03/2025 1:16 PM EDT PREET for ajovy approved via [employer]. Prior authorization approved [facility] Note from payer: Approved. This drug has been approved under the Member's Medicare Part D benefit. Approved quantity: 1.5 units per 30 day(s). You may fill up to a 90 day supply except for those on Specialty Tier 5, which can be filled up to a 30 day supply. Please call the pharmacy to process the p rescription claim. Approval Details Authorized from January 20, 2025 to August 20, 2099 Electronic appeal: Not supported View History * Telephone Encounter - Melissa Davies - 02/03/2025 12:06 PM EDT Received fax from [facility] requesting an alternative to Ajovy. Fax scanned to patient's chart for review. documented in this encounterMercy Health06-16-2025 Telephone encounter Note * Telephone Encounter - Melissa Davies - 02/03/2025 12:06 PM EDT Received fax from [facility] requesting an alternative to Ajovy. Fax scanned to patient's chart for review. [facility]06-16-2025 NoteHNO ID: [id number] Author: MUKESH BAKER MD Service: ? Author Type: Physician Type: Progress Notes Filed: 02/09/2025 18:13 Note Text: CONSULT-HEADACHE MEDICINE SERVICE DATE: 02/03/2025 Location: [facility] Participants: Patient, and Provider Requesting Provider: Member Name Role and Specialty Contact Info Address Comments John Calvo MD Referring [address] [facility] [id number] - Recommendations of care will be communicated by shared medical record. Subjective HPI: Rhiannon Valdivia is a 69-year-old male presenting for evaluation of chronic headaches. He is accompanied by his , who provides additional history. Rhiannon reports a long-standing history of headaches, which began in 1974. These headaches are described as constant, bifrontal, and located behind the eyes and at the temples, with the right side being more affected than the left. He experiences sensitivity to light and noise but does not report nausea. The headaches worsen with simple activity and are most severe in the morning upon awakening, with pain levels ranging from 6-8/10. After getting up, moving around, and having a cup of coffee, the pain decreases to a more tolerable level of 3-4/10. He notes that the headaches are sometimes triggered by alcohol and sleep deprivation, while caffeine and medications provide some relief. He does not report any positional changes. Rhiannon has tried various treatments for his headaches, including gabapentin, which he took for a couple of years at a low dose (300 mg, initially four times a day, then reduced to three times a day) without significant improvement. He also tried amitriptyline, which initially helped but lost efficacy over time. He was prescribed Emgality but did not start it due to cost. He occasionally takes ibuprofen for severe headaches. He has not tried sumatriptan (Imitrex) or metoprolol. Rhiannon has a history of neck pain and has received injections from Dr. Calvo, including a median branch block, without significant relief. He has also undergone physical therapy. He believes there may be a link between his neck pain and headaches. He also suspects a sinus component to his headaches, noting that they worsen when his sinuses are acting up. He is followed by neuro-oncology and has an MRI of the brain scheduled. He spends mercado in [place], [place], and does not have medical care there. Prior Treatments: Gabapentin 300 mg BID for a few years, highest dose was QID Doxepin- he does not thinks he took it for long. Emgality- not on formulary Topiramate- not prescribed because of hx of kidney stones Amitriptyline- helped then lost efficacy Outpatient Medications as of 02/03/2025 Medication Sig IBUPROFEN ORAL Take by mouth as needed (take 2-3 tabs po prn for pain). MULTIVITAMIN ORAL Take by mouth. tamsulosin (FLOMAX) 0.4 mg Take 0.4 mg by mouth once daily. atorvastatin (LIPITOR) 40 mg tablet Take 40 mg by mouth once daily. No current facility-administered medications on file as of 02/03/2025. Current medications review: 1.infrequent Tylenol PAST MEDICAL HISTORY Diagnosis Date Migraines ALLERGIES Allergen Reactions Ceclor [Cefaclor] Unknown Chart/data review: 1.MRI brain Vitals: BP 145/73 (BP Site: Left Arm, BP Position: Sitting, BP Cuff Size: Small Adult) Pulse 83 Ht 177.8 cm (5' 10 ) Wt 74.8 kg (164 lb 14.5 oz) SpO2 98% BMI 23.66 kg/m? ASSESSMENT: Cervicogenic headaches Chronic neck pain Migraine without aura - his headaches are likely migraine with cervico-medicated component. I dont know to what degree each one is contributing. I gave him the option to try a neuropathic agent which should help with both etiologies or to try a migraine specific one to try to identify degree of central component. He chose the latter. - Dr. Calvo consented him for Bilateral C3, C4 Medial Branch Block, possible TON. But he is not sure if he was told to follow up for those RECOMMENDATIONS: 1. Abortive therapy: -Previous trials of gabapentin and doxepin were suboptimal due to low dosages and short duration. 2. Preventive therapy: -Trial of Ajovy, written information provided 3. Work up: pending MRI brain wwo contrast 4. Follow up in 2 months I spent a total of 45 minutes on the date of the service which included preparing to see the patient, [id number] patient care, completing clinical documentation, obtaining and/or reviewing separately obtained history, performing medically appropriate examination, counseling and education to patient/family/caregiver, ordering medications, test or procedures, communicating with other healthcare providers, independently interpreting results, communicating results to the patient/family/caregiver and care coordination. This time excludes any procedures. Mukesh Baker MD [facility] (more content not included)...[facility] [id number] History of Present illness Narrative* Mukesh Baker MD - 02/03/2025 9:16 AM EDT CONSULT-HEADACHE MEDICINE SERVICE DATE: 02/03/2025 Location: [facility] Participants: Patient, and Provider Requesting Provider: Member Name Role and Specialty Contact Info Address Comments John Calvo MD Referring [id number] [place] [id number] - Recommendations of care will be communicated by shared medical record. Subjective HPI: Rhiannon Valdivia is a 69-year-old male presenting for evaluation of chronic headaches. He is accompanied by his , who provides additional history. Rhiannon reports a long-standing history of headaches,which began in 1974. These headaches are described as constant, bifrontal, and located behind the eyes and at the temples, with the right side being more affected than the left. He experiences sensitivity to light and noise but does not report nausea. The headaches worsen with simple activity and are most severe in the morning upon awakening, with pain levels ranging from 6-8/10. After getting up, moving around, and having a cup of coffee, the pain decreases to a more tolerable level of 3-4/10.He notes that the headaches are sometimes triggered by alcohol and sleep deprivation, while caffeine and medications provide some relief. He does not report any positional changes. Rhiannon has tried various treatments for his headaches, including gabapentin, which he took for a couple of years at a low dose (300 mg, initially four times a day, then reduced to three times a day) without significant improvement. He also tried amitriptyline, which initially helped but lost efficacyover time. He was prescribed Emgality but did not start it due to cost. He occasionally takes ibuprofen for severe headaches. He has not tried sumatriptan (Imitrex) or metoprolol. Rhiannon has a history of neck pain and has received injections from Dr. Calvo, including a median branch block, without significant relief. He has also undergone physical therapy. He believes there may be a link between his neck pain and headaches. He also suspects a sinus component to his headaches, noting that they worsen when his sinuses are acting up. He is followed by neuro-oncology and has an MRI of the brain scheduled. He spends mercado in [place], [place], and does not have medical care there. Prior Treatments: Gabapentin 300 mg BID for a few years, highest dose was QID Doxepin- he does not thinks he took it for long. Emgality- not on formulary Topiramate- not prescribed because of hx of kidney stones Amitriptyline- helped then lost efficacy Outpatient Medications as of 02/03/2025 Medication Sig IBUPROFEN ORAL Take by mouth as needed (take 2-3 tabs po prn for pain). MULTIVITAMIN ORAL Take by mouth. tamsulosin (FLOMAX) 0.4 mg Take 0.4 mg by mouth once daily. atorvastatin (LIPITOR) 40 mg tablet Take 40 mg by mouth once daily. No current facility-administered medications on file as of 02/03/2025. Current medications review: 1.infrequent Tylenol PAST MEDICAL HISTORY Diagnosis Date Migraines ALLERGIES Allergen Reactions Ceclor [Cefaclor] Unknown Chart/data review: 1.MRI brain Vitals: BP 145/73 (BP Site: Left Arm, BP Position: Sitting, BP Cuff Size: Small Adult) Pulse 83 Ht 177.8 cm (5' 10 ) Wt 74.8 kg (164 lb 14.5 oz) SpO2 98% BMI 23.66 kg/m ASSESSMENT: Cervicogenic headaches Chronic neck pain Migraine without aura - his headaches are likely migraine with cervico-medicated component. I dont know to what degree each one is contributing. I gave him the option to try a neuropathic agent which should help with bothetiologies or to try a migraine specific one to try to identify degree of central component. He chose the latter. - Dr. Calvo consented him for Bilateral C3, C4 Medial Branch Block, possible TON. But he is not sure if he was told to follow up for those RECOMMENDATIONS: 1. Abortive therapy: -Previous trials of gabapentin and doxepin were suboptimal due to low dosages and short duration. 2. Preventive therapy: -Trial of Ajovy, written information provided 3. Work up: pending MRI brain wwo contrast 4. Follow up in 2 months I spent a total of 45 minutes on the date of the service which included preparing to see the patient, [id number] patient care, completing clinical documentation, obtaining and/or reviewing separately obtained history, performing medically appropriate examination, counseling and education to patien t/family/caregiver, ordering medications, test or procedures, communicating with other healthcare providers, independently interpreting results, communicating results to the patient/family/caregiver and care coordination. This time excludes any procedures. Mukesh Baker MD [facility] [place] documented in this encounterMercy Health06-06-2025 History of Present illness Narrative* Teodora Melara MD - 01/24/2025 12:45 PM EDT Images from the original note were not included. Suture Removal Patient here for suture removal: No complaints of redness, drainage or swelling at site, compliant with wound care. Location: Left lower back Procedure Performed: Punch biopsy Date of Procedure: 01/16/2025 Medications: none Follow up Diagnosis: Rash unspecified Location: Back Last visit: 2 weeks ago Symptoms: not as itchy, rash improving Status: a lot better Tried and failed treatments: Minocycline 100 mg x 14 days Current treatment: TAC 0.1% BID PRN All pertinent medical history, medications, and allergies were reviewed. General Exam: alert, oriented to person, place, and time, normal affect, well appearing Accompanied by spouse A focused exam completed based on patient reported problems, see below: Skin Exam 1. HYPERSENSITIVITY REACTION, INITIAL ENCOUNTER Torso - Posterior (Back) Faint pink patches and plaques, improved since last visit Discussed pathology result with patient. Denies any new medications prior to rash starting, reportshe was using a heating pad on the area consistently before the rash started. Discussed there is no way to know for sure what he is reacting to, recommend he avoid the heating pad for now and continueTAC 0.1% twice daily as needed when flared, hold when clear. Currently improving with treatment. Notify office if worsening despite treatment. 2. ENCOUNTER FOR REMOVAL OF SUTURES Left Lower Back Sutures are intact, Skin edges are well-approximated, Mild erythema along incision line, No drainage or edema noted Suture Removal: Procedure: Sutures removed without difficulty. Post-Procedure instructions: Instructed to discontinue wound care., Pathology results discussed. Next Visit: as scheduled documented in this encounterResearch Medical Center-Brookside [id number] Hospital Discharge instructions Patient Education 01/20/2025 14:26:48 [...] including vitamins, herbs, eye drops, creams, and hrdr-uqo-dijahsl medicines. Any problems you or family members [...] provider tells you to take them. Taking juzu-tgb-ptpiarl medicines, vitamins, herbs, and supplements. Tests You [...] Follow these instructions at home: Medicines Take gniv-dmp-lpqcfqf and prescription medicines only as told by your health care provider. If you were prescribed an antibiotic medicine, take it as told by your health care provider. Do notstop taking the antibiotic even if you start [...] blood in your urine increases, call your healthcare provider. Follow instructions from your health care provider about eating or drinking restrictions. If a tissue sample was removed for testing (biopsy) during your procedure, it is up to you to get your test results. Ask your health care provider, or the department that is doing the test, when yourresults will be ready. Drink enough fluid to [...] blood in your urine increases, call your healthcare provider. If you were prescribed an antibiotic medicine, take it as told by your health care provider. Do notstop taking the antibiotic even if you start to feel better. This information is not intended to replace advice given to you by your health care provider. Make sure you discuss any questions you have with your health care provider. Document Revised: 04/20/2022 Document Reviewed: 03/19/2021 [employer] Patient Education 2023 [employer]. 01/20/2025 14:26:44 Benign Prostatic Hyperplasia Benign Prostatic Hyperplasia Benign prostatic hyperplasia (BPH) is an enlarged prostate gland that is caused by the normal agingprocess. The prostate may get bigger as a man gets older. The condition is not caused by cancer. The prostate is a walnut-sized gland that is involved in the production of semen. It is located in front of the rectum and below the bladder. The bladder stores urine. The urethra carries stored urine ou t of the body. An enlarged prostate can press on the urethra. This can make it harder to pass urine. The buildup of urine in the bladder can cause infection. Back pressure and infection may progress to bladder damage and kidney (renal) failure. What are the causes? This condition is part of the normal aging process. However, not all men develop problems from thiscondition. If the prostate enlarges away from the [...] urethra. Follow these instructions at home: Take ymju-puy-tmzmtld and prescription medicines only as told by [...] provider. Document Revised: 02/23/2022 Document Reviewed: 02/23/2022 [employer] Patient Education 2023 [employer]. 01/20/2025 14:26:42 Prostate Cancer Screening Prostate Cancer Screening Prostate cancer screening is testing that is done to check for the presence of prostate cancer in men. The prostate gland is a walnut-sized gland that is located below the bladder and in front of therectum in males. The function of the prostate is to add fluid to semen during ejaculation. Prostatecancer is one of the most common types of cancer in men. Who should have prostate cancer screening? Screening recommendations vary based on age and other risk factors, as well as between the professional organizations who make the recommendations. In general, screening is recommended if: You are age 50 to 70 and have an average risk for prostate cancer. You should talk with your healthcare provider about your need for screening and [...] diagnosed with prostate cancer. The risk is higherif your family member's cancer occurred at an early age or if you have multiple family members withprostate cancer at an early age. ?Being a [...] is a blood test called the prostate-specific antigen(PSA) test. PSA is a protein that is [...] treatment? Where to find more information The [place] [employer]: www.cancer.org [place] [employer] Association: www.auanet.org Contact a health care [...] the recommended screening test for prostate cancer, butit has associated risks. Discuss the risks and [...] provider. Document Revised: 01/31/2022 Document Reviewed: 01/31/2022 [employer] Patient Education 2023 [employer]. Follow Up Care 01/07/2025 09:56:15 With:LUIS ANGEL MÉNDEZ, Samuel Vides, URL Address: [facility] [address], [place] [phone] When: Unknown Comments:sched cysto [facility] 06-02-2025 NotePatient Education Oncology Prostate Cancer Screening Prostate cancer screening is testing that is done to check for the presence of prostate cancer in men. The prostate gland is a walnut-sized gland that is located below the bladder and in front of therectum in males. The function of the prostate is to add fluid to semen during ejaculation. Prostatecancer is one of the most common types [...] is a blood test called the prostate-specific antigen(PSA) test. PSA is a protein that is [...] prostate gland for testing (biopsy). This is theonly way to know for certain if you [...] Where to find more information ??? The [place] [employer] Society: www.cancer.org ??? [place] U[employer] Association: www.auanet.org Contact a health care [...] men. The prostate gland (more content not included)...[facility]05-29-2025 History of Present illness Narrative* Al Arevalo, BIOLOGICAL TECHNICIAN-VEGETABLE WORKER - 01/16/2025 10:10 AM EDT Images from the original note were [...] OTHER NONSPECIFIC SKIN ERUPTION Left Lower Back St. Xavier patches and plaques Biopsy today, see procedure note. Start TAC cream bid when flared, hold when clear on itchy areas and irritated areas from bandaids. Lesion biopsy - Left Lower Back Type of biopsy: punch Specimen A - Dermatopathology exam Differential Diagnosis: Ja disease vs. Atopic dermatitis vs. Drug eruption vs. other Check Margins: No Related Medications triamcinolone (Kenalog) 0.1 % cream Apply topically 2 (two) times a day as needed for rash Next Visit: 10 days s/r documented in this encounterResearch Medical Center-Brookside CampusAwseyhutlb99-95-9007 History of Present illness Narrative* Manfred Gutierrez MD - 01/06/2025 1:30 PM EDT Images from the original note [...] Do you have a medical power of insurance defense attorney?: No Objective : BP 126/78 Pulse [...] LDL-C. Monico GREER et al. DUDLEY. 2013;310(19): 8701-7534 ([email or web address]/[email or web address]) CHOL/HDLC RATIO 12/30/2024 3.9 <5.0 (calc) Final [...] Referral Reason: Specialty Services Required Referral Location: [facility] [place] Scheduling Requested Specialty: Physical Therapy Number of Visits Requested: 1 Ambulatory referral to Urology Standing Status: Future Expected Date: 01/06/2025 Expiration Date: 07/09/2025 Referral Priority: Routine Referral Type: Consultation Referral Reason: Specialty Services Required Referred to Provider: Alonso Kan MD Requested Specialty: Urology Number of Visits Requested: 1 Electronically signed by Manfred Gutierrez MD on January 06, 2025 documented in this encounterResearch Medical Center-Brookside CampusLiqhajgylp78-71-6691 History of Present illness Narrative* Al Arevalo, BIOLOGICAL TECHNICIAN-VEGETABLE WORKER - 01/02/2025 9:50 AM EDT Images from the original note were [...] SOFT TISSUE, AND SKIN (2) Mid Back St. Xavier scaly plaque Lesion biopsy Type of biopsy: [...] 2.0 x 0.[address] Back [address] Xavier scaly plaque Lesion biopsy Type of biopsy: [...] benign pigmented lesions that occur on sun-exposed andsun-damaged skin. No treatment is necessary. Recommended regular use of broad spectrum sunscreen SPF 30 or higher Next Visit: 2 weeks (rash) 1 year FBSE documented in this encounterResearch Medical Center-Brookside CampusLgbngalrsi08-83-2546 NoteHNO ID: [id number] Author: HARDIK CARREON APRN.CNP Service: ? Author Type: Nurse Practitioner Type: Progress Notes Filed: 12/31/2024 16:35 Note Text: [facility] NEURO-ONCOLOGY OUTPATIENT CLINIC NOTE [...] Cancer Father esophogeal other (grandparent [Other]) Other ID heart disease Current Outpatient Medications Medication Sig [...] - All questions were answered. Hardik Carreon APRN.VEGETABLE WORKER Certified Nurse Practitioner cc: Eduard Ramirez MD - [facility]05-13-2025 History of Present illness Narrative* Hardik Carreon APRN.DIOGENES - 12/31/2024 8:31 AM EDT Images from the original note were not included. Neurological [facility] NEURO-ONCOLOGY OUTPATIENT CLINIC NOTE [...] Cancer Father esophogeal other (grandparent [Other]) Other ID heart disease Current Outpatient Medications Medication Sig [...] - All questions were answered. Hardik Carreon APRN.DIOGENES Certified Nurse Practitioner cc: Eduard Ramirez MD - Epic documented in this encounterMercy Health05-07-2025 Telephone encounter Note * Telephone Encounter - Hardik Carreon APRN.CNP - 12/25/2024 11:44 AM EDT I called [facility], , to request MRI brain done 12/24/24. Images to be pushed through. Follow up appointment already scheduled with wa 12/31/24. GRACIE Wheat, BIOLOGICAL TECHNICIAN, VEGETABLE WORKER Certified Nurse Practitioner [facility]05-07-2025 Miscellaneous Notes* Telephone Encounter - Hardik Carreon APRN.CNP - 12/25/2024 11:44 AM EDT I called [facility], , to request MRI brain done 12/24/24. Images to be pushed through. Follow up appointment already scheduled with wa 12/31/24. Hardik Carreon MSN, BIOLOGICAL TECHNICIAN, VEGETABLE WORKER Certified Nurse Practitioner documented in this encounterMercy Health04-29-2025 History of Present illness Narrative* PREET Real - 12/17/2024 11:30 AM EDT Images from the original note were [...] strength. 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 Denies [...] moisturizer as needed for symptomatic relief. Follow upwith Dermatology as scheduled. 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 Correspondence from that specialist and any available testing were reviewed during today's visit. Follow up for Appointment As Scheduled. documented in this encounterResearch Medical Center-Brookside CampusFbohanntuw68-07-2861 Telephone encounter Note* Telephone Encounter - Roe Brady - 11/01/2024 10:00 AM EDT Images from the original note were not included. Patient has been scheduled and confirmed , Mailed (order to patient ) and Fax order to [facility] @ [phone] Roe Brady November 01, 2024 10:02 AM [facility]03-14-2025 Miscellaneous Notes* Telephone Encounter - Roe Brady - 11/01/2024 10:00 AM EDT Images from the original note were not included. Patient has been scheduled and confirmed , Mailed (order to patient ) and Fax order to [facility] @ [phone] Roe Brady November 01, 2024 10:02 AM documented in this encounterMercy Health03-11-2025 Instructions* Patient Instructions* John Calvo MD - 10/29/2024 11:[address] Alex documented in this encounterMercy Health03-11-2025 NoteHNO ID: [id number] Author: JOHN CALVO MD Service: ? Author [...] Carreon CNP in Neurology 2023. -Neurologist in [place] Prior Spinal Surgery: None. Notes daily headaches [...] -Gabapentin weaned off. - PT [facility] in [place] 03/2024 to 10/23/2024 (20 session) and doing [...] SLR: negative Scour: negative PSIS tenderness: negative Cambridge's (modified):negative Thigh thrust: negative Hamstring tightness: negative Prone extension: negative DATA RE[facility]. All prescriptions have been APPROPRIATELY filled. No suspicious activity was identified. October 29, 2024 by John Calvo MD Personally Reviewed MRI cervical spine on 01/10/2024 iwht left C4-5 facet arthropathy lack of (more content not included)...[facility] [id number] History of Present illness Narrative* John Calvo MD - 10/29/2024 10:49 AM EDT [facility] [...] Carreon CNP in Neurology 2023. -Neurologist in [place] Prior Spinal Surgery: None. Notes daily headaches [...] -Gabapentin weaned off. - PT [facility] in [place] 03/2024 to 10/23/2024 (20 session) and doing [...] SLR: negative Scour: negative PSIS tenderness: negative Cambridge's (modified):negative Thigh thrust: negative Hamstring tightness: negative Prone extension: negative DATA RE[facility]: [facility]. All prescriptions have been APPROPRIATELY filled. No suspiciousactivity was identified. October 29, 2024 by John [...] none 2) Therapy/Rehabilitation: Continue home exercise program RENÉE figueroa Mnaa 3) Pharmacological Management: continue current regimen- 4) Spine/Surgical Interventions: hold on repeat Bilateral C3, C4 Medial Branch Block, possible TON 5) Follow -up: 4-[facility] month([facility]) [facility] 6) Future treatment considerations: CT cervical spine. [...] months per spinal region. documented in this encounterMercy Health12-10-2024 Telephone encounter Note * Telephone Encounter - Teodora Reedre RN - 07/30/2024 3:32 PM EST Phoned patient confirm appointment for Rhiannon Valdivia for spine procedure on 08/07/2024. Informed pt that pre-injection instructions have been sent via [employer]. Pt unable to talk right now. He will review the directions and call back if he has any questions orconcerns. Teodora Reeder RN July 30, 2024 4:03 PM [facility]12-10-2024 Miscellaneous Notes* Telephone Encounter - Teodora Reeder RN - 07/30/2024 3:32 PM EST Phoned patient confirm appointment for Rhiannon Valdivia for spine procedure on 08/07/2024. Informed pt that pre-injection instructions have been sent via [employer]. Pt unable to talk right now. He will review the directions and call back if he has any questions orconcerns. Teodora Reeder RN July 30, 2024 4:03 PM documented in this encounterMercy Health12-06-2024 Telephone encounter Note * Telephone Encounter - Teodora Redeer RN - 07/26/2024 9:27 AM EST Pre-injection instruction for BLOCK MEDIAL BRANCH CERVICAL WITH C-ARM BILAT on 08/07/2024 at [facility] with Dr Calvo sent to pt via [employer]. Pt instructed to call the office at [phone] with any questions or concerns. Teodora Reeder RN July 26, 2024 9:28 AM [facility]12-06-2024 Miscellaneous Notes* Telephone Encounter - Teodora Reeder RN - 07/26/2024 9:27 AM EST Pre-injection instruction for BLOCK MEDIAL BRANCH CERVICAL WITH C-ARM BILAT on 08/07/2024 at [facility] with Dr Calvo sent to pt via [employer]. Pt instructed to call the office at [phone] with any questions or concerns. Teodora Reeder RN July 26, 2024 9:28 AM documented in this encounterMercy Health11-19-2024 Instructions* Patient Instructions* John Calvo MD - 07/09/2024 2:02 PM EST Images from the original note were not included. documented in this encounterMercy Health11-19-2024 NoteHNO ID: [id number] Author: JOHN CALVO MD Service: ? Author [...] Hardik Carreon CNP in Neurology. -Neurologist in [place] Prior Spinal Surgery: None. Work status: -seen with Bettie, Spouse See Follow-up visit from prior encounter dated 03/28/2024 . Since last visit: Pain TODAY:4/10; WORST: 8/10; on a scale of 0-10. Patient is currently on date of last PT 2023 and NSAIDs. The patient has previously been on the following pain medications -Gabapentin weaned off. - PT [facility] in [place] 03/2024 to 06/2024 (10-12 session) and doing [...] SLR: negative Scour: negative PSIS tenderness: negative Cambridge's (modified):negative Thigh thrust: negative Hamstring tightness: negative [...] spondylosis without myelopathy (primary (more content not included)...[facility] [id number] History of Present illness Narrative* John Calvo MD - 07/09/2024 1:56 PM EST [facility] [...] Hardik Carreon CNP in Neurology. -Neurologist in [place] Prior Spinal Surgery: None. Work status: -seen with Bettie Spouse See Follow-up visit from prior encounter dated 03/28/2024 . Since last visit: Pain TODAY:4/10; WORST: 8/10; on a scale of 0-10. Patient is currently on date oflast PT 2023 and NSAIDs. The patient has previously been on the following pain medications -Gabapentin weaned off. - PT [facility] in [place] 03/2024 to 06/2024 (10-12 session) and doing [...] SLR: negative Scour: negative PSIS tenderness: negative Cambridge's (modified):negative Thigh thrust: negative Hamstring tightness: negative Prone extension: negative DATA REVIEW: PDMP website checked and validated. All prescriptions have been APPROPRIATELY filled. No suspiciousactivity was identified. 03/28/2024 by John Calvo MD [...] Continue home exercise program PT [facility] in [place] 3) Pharmacological Management: none 4) Spine/Surgical Interventions: consented for Bilateral C3, C4 Medial Branch Block, possible TON 5) Follow -up: 3-4 month(s) at [facility] 6) Future treatment considerations: 7) Neurology Headache- [...] SD worse than population and warrants attention * Onur Crespo MA - 07/09/2024 1:29 PM EST 07/08/2024 PROMIS Global Health Physical Health Summary [...] population and warrants attention documented in this encounterMercy Health11-19-2024 NoteHNO ID: [id number] Author: ONUR CRESPO MA Service: ? Author Type: Accounting Manager Controller Type: Progress Notes Filed: 07/09/2024 14:24 Note [...] 1 SD worse than population and warrants attentionHillcrest HospitalOjggsrbg35-35-0471 History of Present illness Narrative* Teodora Melara MD - 07/02/2024 2:00 PM EST Images from the original note [...] extremity including shoulder Right Shoulder - Posterior [facility]. Xavier macule at biopsy site Destr of lesion Complexity: simple Destruction method: electrodesiccation and curettage Informed consent: discussed and consent obtained Informed consent comment: The risks of the procedure were discussed, including, but not limited to risks of scarring, darker or monument setter helper pigmentary changes, recurrence, infection, and incomplete removal [...] instructions were given verbally and in writing. Theoffice will be contacted if the lesion fails to resolve despite treatment, or if a side effect develops such as abnormal crusting, scabbing, reddness, discharge, or tenderness. Additional details: Amount of lidocaine used: 2 cc Previous accession number: [id number] Emphasized to return to clinic for any [...] discontinue wound care., Instructed to keep steri stripson for at least 5-7 days., Pathology results discussed. Next Visit: 6 months skin check documented in this encounterResearch Medical Center-Brookside [id number] Telephone encounter Note* Telephone Encounter - PREET Real - 07/02/2024 12:00 PM EST No notes for encounter [facility] Work Phone: 1(161) 868-274111-12-2024 Miscellaneous Notes* Telephone Encounter - PREET Real - 07/02/2024 12:00 PM EST No notes for encounter documented in this encounterResearch Medical Center-Brookside CampusZnxrsopdne11-54-2744 History of Present illness Narrative* Teodora Melara MD - 06/19/2024 10:30 AM EDT Images from the original note were [...] extremity including shoulder Left posterior upper arm [facility]. Xavier macule at biopsy site Skin excision Lesion [...] in usual sterile fashion (The planned incision lineswere drawn along relaxed skin tension lines, if [...] BCC Check Margins: Yes Previous accession number: [id number] Excision completed today, see procedure note. Return to clinic prior to next scheduled visit for any signs or symptoms of recurrence, reviewed the signs and symptoms. Follow up: 14 days for s/r documented in this encounterResearch Medical Center-Brookside [id number] History of Present illness Narrative* Manfred Gutierrez MD - 05/01/2024 10:30 AM EDT Images from the original note were not included. HPI Follow-up Additional comments: Per telephone call advised to stop metoprolol due to low b/p Results Additional comments: lab Last edited by Jayde Lee LPN on 05/01/2024 10:27 AM. Subjective Patient ID: Rhiannon Valdivia is a 68 y.o. male who presents for Follow-up (Per telephone call advised tostop metoprolol due to low b/p ) and [...] (50 mg) by mouth in the morning and1 tablet (50 mg) before bedtime. 60 tablet [...] 0.70 - 1.30 mg/dL Final TBH EGFR-AF SWAZI 04/25/2024 >60 >=60 Final TBH EGFR-NON AF SWAZI 04/25/2024 >60 >=60 Final BUN CREATININE RATIO [...] Range Status SPECIMEN TYPE 04/18/2024 SPECIMEN: RIGHT SHOULDER-POSTERIOR Final ICD10 Code 04/18/2024 C44.611 Final PROTOCOL [...] 04/18/2024 Microscopic examination performed. Final CPT 04/18/2024 19471*2 Final Assessment/Plan Diagnoses and all orders for this visit: LFT elevation - resolved. Elevated glucose - On recent CMP. It was non-fasting. We did check an A1C it was near normal at 5.2%. Follow up in about 6 months (around 10/29/2024) for Wellness. documented in this encounterResearch Medical Center-Brookside CampusSfazoosxwf13-66-1493 History of Present illness Narrative* Al Arevalo APRN-DIOGENES - 04/18/2024 10:10 AM EDT Images from the original note were [...] office if abnormal redness or tenderness develops atthe treatment site. Cryotherapy today, see procedure note. Diagnosis: Inflamed seborrheic keratosis Indication: Inflamed Consent: Verbal consent was obtained and risks were discussed, including, but not limited to risks of scarring, darker or monument setter helper pigmentary changes, recurrence, incomplete removal and infection. [...] Dorsum of Nose, Left Forehead (3), Left Quaker, Right Buccal Cheek, Right Forehead, Right Parotid Area Erythematous scaly papules Patient was counseled regarding these sun-induced growths that can develop into squamous cell carcinoma if left untreated. Discussed treatment with cryotherapy. It was emphasized that any treated lesions that fail to resolve should be re- evaluated. Cryotherapy performed today; see procedure note Diagnosis: Actinic keratosis Indication: Precancerous Location: see skin exam Consent: Verbal consent was obtained and risks were discussed, including, but not limited to risks of scarring, darker or monument setter helper pigmentary changes, recurrence, incomplete removal and infection. [...] Dorsum of Nose, Left Forehead (3), Left Quaker, Right Buccal Cheek, Right Forehead, Right Parotid [...] x 1.0 cm left posterior upper arm [facility]. Xavier pearly papule Lesion biopsy Type of biopsy: [...] Next Visit: 1 year documented in this encounterResearch Medical Center-Brookside [id number] Instructions* Patient Instructions* John Calvo MD - 03/28/2024 2:48 PM EDT Images from the original note were not included. documented in this encounterMercy Health08-08-2024 NoteHNO ID: [id number] Author: JOHN CALVO MD Service: ? Author Type: Physician Type: Progress Notes Filed: 03/29/2024 15:51 Note Text: Outpatient Consult Hardik Carreon [address] [facility] [address] Today's Date: 03/28/2024 CC: NECK PAIN and [...] not done PT Treating Physicians: Hardik Carreon VEGETABLE WORKER in Neurology. -Neurologist in [place] Prior Spinal Surgery: None. Work status: -seen with Bettie, Spouse DATA REVIEW: PDMP website checked and validated. [...] 2) Therapy/Rehabilitation: Trial of PT Giancarlo in [place] 3) Pharmacological Management: OK to do Gabapentin weaning per reverse titration scale 4) Spine/Surgical Interventions: consider Bilateral LC3, C4 Medial Branch Block, possible TON 5) Follow -up: 3-4 month(s) at [facility] 6) Future treatment considerations: 7) Neurology Headache- Dr Alex Teaching Statement I have interviewed and examined the patient and confirm the pertinent findings. I have discussed the case with Medical Spine Fellow, Santos Henning, , and agree with the findings and plan [...] testing/treatment Medical Decision Making Level: 4 - [facility]08-08-2024 History of Present illness Narrative* John Calvo MD - 03/28/2024 2:05 PM EDT Outpatient Consult Hardikfranklyn Carreon [address] [facility] [address] Today's Date: 03/28/2024 CC: NECK PAIN and [...] not done PT Treating Physicians: Hardik Carreon VEGETABLE WORKER in Neurology. -Neurologist in [place] Prior Spinal Surgery: None. Work status: -seen with Catherine Alexandre DATA REVIEW: [facility] website checked and validated. All prescriptions have been APPROPRIATELY filled. No suspiciousactivity was identified. 03/28/2024 by John Calvo MD [...] 2) Therapy/Rehabilitation: Trial of PT Giancarlo in [place] 3) Pharmacological Management: OK to do Gabapentin weaning per reverse titration scale 4) Spine/Surgical Interventions: consider Bilateral LC3, C4 Medial Branch Block, possible TON 5) Follow -up: 3-4 month(s) at [facility] 6) Future treatment considerations: 7) Neurology Headache- [...] findings & recommendations will be communicated back tothe referring physician via US Postal Service and/or [...] Medical Decision Making Level: 4 - Moderate * Santos Henning DO - 03/28/2024 1:31 PM EDT Images from the original note were not included. Spine Care Path Neck Pain - Chronic (> 12 weeks) Initial Exam SUBJECTIVE HISTORY OF PRESENT ILLNESS: Rhiannon Valdivia is a 68 year old year old MALE who presents with a chief complaint of neck pain and is seen in consultation requested by Hardik Careron APRN for an opinion regarding above. My [...] eyes. Improves with heat. 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 Did not receive any medications for the [...] 7 5 Pain Location: Neck Neck Description: Aching;Cutting;Radiating;Sharp;Sore;Stabbing;Stabbing/Not Incision;Stiffness;TightnessSore Duration Amount of Time: 24 4 Duration Units: Months Years Frequency: Continuous Continuous Intervention/Comfort measure: Medication;Relaxation;Emotional Support/Reassurance;Exercise;Heat;Imagery;Massage;Pillow support;Rocking/holding Medication Comments: Worse in morning but [...] Cancer Father esophogeal other (grandparent [Other]) Other ID heart disease ALLERGIES Allergen Reactions Ceclor [Cefaclor] [...] mild bilateral neuroforaminal narrowing and mild spinal stenosis.At C5-C6 there is a left subarticular disc [...] Physical Medicine and Rehabilitation documented in this encounterMer[facility] Health08-08-2024 NoteHNO ID: [id number] Author: SANTOS HENNING DO Service: ? Author [...] eyes. Improves with heat. 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 [...] 7 5 Pain Location: Neck Neck Description: Aching;Cutting;Radiating;Sharp;Sore;Stabbing;Stabbing/Not Incision;Stiffness;Tightness Sore Duration Amount of Time: 24 4 Duration Units: Months Years Frequency: Continuous Continuous Intervention/Comfort measure: Medication;Relaxation;Emotional Support/Reassurance;Exercise;Heat;Imagery;Massage;Pillow support;Rocking/holding Medication Comments: Worse in morning but [...] OF Comment: sinus f (more content not included)...[id number] Telephone encounter Note* Telephone Encounter - Hardik Carreon APRN.CNP - 02/09/2024 1:49 PM EDT Scheduling Request - Established Patient Time Frame: First available/RAVINDRA Orders: N/A Provider: Dr. Calvo/Spine medicine Visit type: In person Diagnosis: spinal stenosis MRI cervical spine completed. Hardik Johnson MSN, BIOLOGICAL TECHNICIAN, VEGETABLE WORKER Certified Nurse Practitioner [facility] Work Phone: 1(740) 859-850806-21-2024 Miscellaneous Notes* Telephone Encounter - Hardik Carreon APRN.CNP - 02/09/2024 1:49 PM EDT Scheduling Request - Established Patient Time Frame: First available/RAVINDRA Orders: N/A Provider: Dr. Calvo/Spine medicine Visit type: In person Diagnosis: spinal stenosis MRI cervical spine completed. Hardik Johnson MSN, BIOLOGICAL TECHNICIAN, VEGETABLE WORKER Certified Nurse Practitioner documented in this encounterMercy Health06-20-2024 Telephone encounter Note * Telephone Encounter - Hardik Carreon APRN.CNP - 02/08/2024 2:21 PM EDT I called and spoke with Mr Valdivia. I reviewed MRI cervical spine images and report. I spoke with a colleague in medical spine who recommended the patient be seen by Dr. Calvo. Referral placed, and all questions addressed at this time. GRACIE Wheat, BIOLOGICAL TECHNICIAN, VEGETABLE WORKER Certified Nurse Practitioner [facility]06-20-2024 Miscellaneous Notes* Telephone Encounter - Hardik Carreon APRN.CNP - 02/08/2024 2:21 PM EDT I called and spoke with Mr Valdivia. I reviewed MRI cervical spine images and report. I spoke with a colleague in medical spine who recommended the patient be seen by Dr. Calvo. Referral placed, and all questions addressed at this time. GRACIE Wheat, BIOLOGICAL TECHNICIAN, VEGETABLE WORKER Certified Nurse Practitioner documented in this encounterMercy Health05-14-2024 Instructions* Patient Instructions* Hardik Carreon APRN.CNP - 01/02/2024 8:32 AM EDT GRACIE Wheat, BIOLOGICAL TECHNICIAN, VEGETABLE WORKER Certified Nurse Practitioner [phone] documented in this encounterMercy Health05-14-2024 History of Present illness Narrative* Hardik Carreon APRN.CNP - 01/02/2024 7:54 AM EDT Images from the original note were not included. [facility] NEURO-ONCOLOGY OUTPATIENT CLINIC NOTE [...] Cancer Father esophogeal other (grandparent [Other]) Other ID heart disease Current Outpatient Medications Medication Sig [...] report notes stable exam. We will have [facility] ([phone]) send us a disc with images to review for stability - Recommend follow up appointment and new MRI brain in 1 year pending stability; [facility] [phone] - Reviewed signs and symptoms that would [...] further medication options pending results. Hardik Carreon APRN.DIOGENES Certified Nurse Practitioner cc: Eduard Ramirez MD - [facility] documented in this encounterMercy Health03-21-2024 Miscellaneous Notes* Telephone Encounter - Carlie Orlando RN - 11/09/2023 1:34 PM EDT I spoke with the office of [facility]. Mr. Valdivia's previous provider has left the [facility] and they apologized that they missed the [...] has a virtual appointment with Hardik Carreon HERD TESTER inMay and moving forward she could take care of some of the refills for him. I gave Mr. Valdivia the phone number to the scheduling office of the [facility] so that he could callto determine if the new provider wanted to see him sooner than his previous provider. Mr. Valdivia had no further questions or concerns at this time and thanked me for getting his refill taken care of. documented in this encounterMercy Health03-21-2024 Miscellaneous Notes* Telephone Encounter - Leonora Smith - 11/09/2023 1:23 PM EDT Physician: [employer] Call from other provider office requesting refill. Please E-Scribe Last OV: 04/21/2023 with [employer] Future OV: Not Scheduled. Requested Prescriptions Pending Prescriptions Disp Refills gabapentin (NEURONTIN) 300 mg capsule 360 capsule 1 Sig: Take 1 capsule by mouth every morning AND 1 capsule every afternoon AND 2 capsules daily at bedtime. Do all this for 180 days. [facility] documented in this encounterMercy Health09-01-2023 Instructions* Patient Instructions* Ailyn Santana APRN.CNP - 04/21/2023 8:31 AM EDT PLAN: Continue working on lifestyle factors that can impact headaches/migraines: getting 7-9 hours restful sleep every night, staying hydrated with water, limiting caffeine to 200 mg/day, exercise (walkingis great exercise), reducing stress levels, eating a healthy/balanced diet, etc. Prevention: Continue Gabapentin Start doxepin. If tolerating well and no difference in CRUMP, then call or message and we can increaseit in about 2-3 weeks Rescue: Ibuprofen as [...] mouth, constipation, weight gain. documented in this encounterMercy Health09-01-2023 History of Present illness Narrative* Ailyn Santana APRN.CNP - 04/21/2023 8:00 AM EDT Images from the original note were not included. [facility] - Follow up Virtual Visit Zoom- in MARLA Valdivia was identified by name and and consented to the video evaluation and its limitations.Based on this evaluation it may be necessary for them to schedule a follow up evaluation with me orother neurologists for formal physical examination and, if necessary, other studies. I have communicated my name and active licensure. The patient's identity and physical location were verified at the time of this visit. 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 Future considerations: doxepin, PT for neck pain, GONBs, emgality- talk to financial resource team;vyepti Interval Headache History: Rhiannon Valdivia is a [...] day per week or less History of ID/CAD/Stroke: No Concerns today: f/u Headache 1 Onset: [...] these with the patient: yes Ailyn Santana APRN.VEGETABLE WORKER HEADACHE SCORES: Headache Questions 03/16/2022 03/26/2022 04/17/2023 [...] normal in rate, volume and articulation, and clear,coherent, and relevant. 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 He responded well to amitriptylinebut it lost efficacy over time. We discussed doxepin vs. Emgality. He previously considered emgality but the cost was prohibitive. ICHD-3 Diagnosis: Chronic Migraine Headache (CM) Red Flags: none PLAN: Continue working on lifestyle factors that can impact headaches/migraines: getting 7-9 hours restful sleep every night, staying hydrated with water, limiting caffeine to 200 mg/day, exercise (walkingis great exercise), reducing stress levels, eating a healthy/balanced diet, etc. Prevention: Continue Gabapentin Start doxepin. If tolerating well and no difference in CRUMP, then call or message and we can increaseit in about 2-3 weeks Rescue: Ibuprofen as [...] Discussed triggers and lifestyle modification including increased oralhydration, decreased caffeine, exercise and stress management. Discussed treatment options including preventive and acute medications, natural supplements, and infusion therapy. Discussed medication o veruse headache and to limit use of acute [...] which included preparing to see the patient, zihk-tj-owew patient care, completing clinical documentation, obtaining and/or reviewing separately obtained history, performing a medically appropriate examination, counseling and educating the patient/family/caregiver, and ordering medications, tests, or procedures. Ailyn Santana APRN.CNP Headache Section [facility] April 21, 2023 documented in this encounterMercy Health07-24-2023 Miscellaneous Notes* Telephone Encounter - Ailyn Santana APRN.CNP - 03/13/2023 8:57 AM EDT The following approved medication requests have been transmitted electronically. Requested Prescriptions Signed Prescriptions Disp Refills gabapentin (NEURONTIN) 300 mg capsule 120 capsule 0 Sig: Take 1 capsule by mouth every morning AND 1 capsule every afternoon AND 2 capsules daily at bedtime. Do all this for 30 days. Authorizing Provider: AILYN SANTANA APRN.CNP Appt needed for additional refills. Ailyn Santana APRN.CNP * Telephone Encounter - Samia Villalpando - 03/13/2023 8:30 AM EDT Physician: Torrie Call from pharmacy requesting refill. Please E-Scribe Last office visit 03/28/22 with Torrie virtual Next office visit None Scheduled NA Requested Prescriptions Pending Prescriptions Disp Refills gabapentin (NEURONTIN) 300 mg capsule 120 capsule 1 [facility]: [facility] documented in this encounterMercy Health06-05-2023 Miscellaneous Notes* Telephone Encounter - Anna Izquierdo APRN.CNP - 01/23/2023 1:52 PM EDT PDM website checked and validated. All prescriptions have been APPROPRIATELY filled. No suspiciousactivity was identified. 01/23/2023 by Anna Izquierdo APRN.CNP The following approved medication requests have been transmitted electronically. Requested Prescriptions Signed Prescriptions Disp Refills gabapentin (NEURONTIN) 300 mg capsule 120 capsule 1 Sig: TAKE 1 CAPSULE BY MOUTH EVERY MORNING AND 1 CAPSULE EVERY AFTERNOON AND 2 CAPSULES DAILY AT BEDTIME Authorizing Provider: ANNA IZQUIERDO APRN.CNP * Telephone Encounter - Artemio Morel - 01/23/2023 8:36 AM EDT Physician: Torrie Call from pharmacy requesting refill. Please E-Scribe Last office visit 03/28/22 with [employer] virtual Next office visit None Scheduled NA Requested Prescriptions Pending Prescriptions Disp Refills gabapentin (NEURONTIN) 300 mg capsule [Pharmacy Med Name: GABAPENTIN 300 MG CAPSULE] 120 capsule 1 Sig: TAKE 1 CAPSULE BY MOUTH EVERY MORNING AND 1 CAPSULE EVERY AFTERNOON AND 2 CAPSULES DAILY AT BEDTIME Pharmacy Name: [facility]ad[facility] Adriel documented in this encounterMercy Health04-26-2023 History of Present illness Narrative* Sonia Carrillo PA-C - 12/14/2022 10:15 AM EDT Images from the original note were not included. [facility] NEURO-ONCOLOGY VIRTUAL VISIT NOTE (via [employer]) I have communicated my name and active licensure. The patient's identity and physical location wereverified at the time of this visit. Either the patient or their legal footwear sales representative has been informed of the risks and benefits of -- and alternatives to -- treatment through a remote evaluation andconsents to proceed with the evaluation remotely. VIRTUAL VISIT PROGRESS NOTE This is a virtual visit using Alternative video platform. It required patient- provider interaction for the medical decision making as [...] answered. I spent more than 30 minutes gunq-at-aavi with the patient and over half the time was devoted to counseling and/or coordination of care. Sonia Carrillo PA-C cc: Dr. Ramirez via [employer] Subjective HISTORY OF PRESENT ILLNESS: Rhiannon Valdivia [...] he reports that it does not help. Heis taking Gabapentin. He denies any other Neurological symptoms. 12/14/22 The patient presents today with MRI completed locally. He started under the care of headache clinicbut was last seen in March 2022. He [...] Cancer Father esophogeal other (grandparent [Other]) Other ID heart disease Current Outpatient Medications Medication Sig [...] 12/02/22 KPS SCORE: 90 documented in this encounterMercy Health03-27-2023 Miscellaneous Notes* Telephone Encounter - Allison Choi [facility] - 11/14/2022 10:16 AM EDT Images from the original note were not included. MRI order faxed to [facility] [phone], confirmation received. Thank you, Allison documented in this [facility]03-06-2023 Miscellaneous Notes* Telephone Encounter - Ana Ortiz - 10/24/2022 9:05 AM EST Good Morning Mr. Valdivia, Flo spke w 1 off the secretaries again today. Once she get confirmation she'll give me back a call. Iwill call you personally , that way you can call and get the MRI scheduled. thanks, Sylvia documented in this [facility]01-30-2023 Miscellaneous Notes* Telephone Encounter - Ailyn Santana APRN.CNP - 09/19/2022 10:35 AM EST Pt needs an [place] pharmacy for gabapentin refills. Also, f/u appt [...] Refusal: A Refill not appropriate Ailyn Santana APRN.CNP * Telephone Encounter - Artemio Morel - 09/19/2022 8:09 AM EST Physician: Torrie Call from pharmacy requesting refill. [...] Pharmacy Name: [facility] documented in this [facility]10-26-2022 Miscellaneous Notes* Telephone Encounter - Pastora Cui - 06/15/2022 11:41 AM EDT Patient last seen on 03/28/2022. documented in this [facility]10-04-2022 Miscellaneous Notes* Telephone Encounter - Ailyn Santana APRN.CNP - 05/24/2022 10:14 AM EDT The following approved medication requests have been transmitted electronically. Requested Prescriptions Signed Prescriptions Disp Refills gabapentin (NEURONTIN) 300 mg capsule 120 capsule 2 Sig: TAKE 1 CAPSULE BY MOUTH IN THE MORNING, 1 CAPSULE IN THE AFTERNOON AND 2 CAPSULES AT NIGHT Authorizing Provider: AILYN SANTANA APRN.VEGETABLE WORKER * Telephone Encounter - Pastora Cui - 05/24/2022 8:23 AM EDT Physician: Torrie Call from patient requesting refill. [...] 2 CAPSULES AT NIGHT [facility] Past[facility] Cui documented in this encounterMercy Health08-08-2022 History of Present illness Narrative* Ailyn Santana APRN.CNP - 03/28/2022 10:00 AM EDT Headache Center - Follow up Virtual Visit During this COVID-19 pandemic, patient's headache clinic evaluation was scheduled as a virtual visit using the following platform Cieloom Rhiannon Valdivia was identified by name and and consented to the video evaluation and its limitations.Based on this evaluation it may be necessary for them to schedule a follow up evaluation with wa orother neurologists for formal physical examination and, if [...] month: 10-12 days per month History of ID/CAD/Stroke: No Concerns today: never started emgality d/t [...] these with the patient: yes Ailyn Santana APRN.VEGETABLE WORKER HEADACHE SCORES: Headache Questions 12/18/2021 03/16/2022 ID [...] normal in rate, volume and articulation, and clear,coherent, and relevant. Short and penitentiary memory, cognition and general fund of knowledge [...] asleep, morning headaches, and snoring and to ruleout sleep apnea (DIANA). Future considerations: doxepin, PT for neck pain, GONBs, emgality- talk to financial resource team;kameron Patient verbalized understanding and agreed to the [...] Discussed triggers and lifestyle modification including increased oralhydration, decreased caffeine, exercise and stress management. Discussed treatment options including preventive and acute medications, natural supplements, and infusion therapy. Discussed medication o veruse headache and to limit use of acute treatments to no more than 2 days/week or 10 days/month. Discussed medication side effects, adverse reactions and drug interactions. Written educational materials and patient instructions provided. RESEARCH: None at this time Follow-up: 2 months Level of Service: Virtual Visit 45 minutes Ailyn Santana APRN.DIOGENES Headache Section [facility] March 28, 2022 documented in this encounterMercy Health08-08-2022 Instructions* Patient Instructions* Ailyn Santana APRN.CNP - 03/28/2022 10:00 AM EDT It was [...] asleep, morning headaches, and snoring and to ruleout sleep apnea (DIANA). Referral placed. You have [...] chronic daily headache (any headache occurring 15 ormore days per month for at least 4 hours per day): ---> Over the counter medications, NSAIDS and combination analgesics: -If taken more than 2 days per week, or more than 10 days per month these can lead to rebound headache. -These include medications such as Acetaminophen (Tylenol), Naproxen (Aleve), Ibuprofen (Advil, Motrin), Acetaminophen/Caffeine (Excedrin), Indocin (Indomethacin), Acetaminophen/Dichloralphenazone/Isometheptene (Midrin), Aspirin (ok to continue if taking for medical reasons), cold remedies and sleep- promoting agents, among others. ---> Triptans: -If taken [...] worst offenders. -These include Acetaminophen/Butalbital/Caffeine (Fioricet, Esgic) Acetaminophen/Butalbital/Caffeine/Codeine (Fioricet with Codeine), Aspirin/Butalbital/Caffeine (Fiorinal), Aspirin/Butalbital/Caffeine/Codeine (Fiorinal with Codeine). Limit use of acute treatments (including opioids, butalbital, triptans, and wadc-nlo-bmalnma medications such as tylenol, ibuprofen, naproxen, excedrin, etc.) to no more than 2 days per week or less than 10 days per month to prevent medication overuse headache (rebound headache). Using these medications more than 9 days per month can worsen headaches and cause a rebound headache. Limit use of allacute treatments combined to less than 10 days per month. General Headache Education and Headache Prevention Strategies: 1. Maintain a headache diary; learn to identify and avoid triggers. Common triggers include: Emotional triggers: Emotional/Upset family or friends Emotional/Upset occupation Business reversal/success Anticipation anxiety Crisis-serious Post-crisis periodNew job/position Physical triggers: Vacation Day Weekend Strenuous Exercise High Altitude Location New Move Day Physical Illness Oversleep/Not enough sleep Weather changes Light: Photophobia or light sesnitivity treatment involves a balance between desensitization and reduction in overly strong input. Use dark polarized glasses outside, but not inside. Avoid bright or fluorescent light, but do not dim environment to the point that going into a normally lit room hurts. Consider FL- 41 tint lenses, which reduce the most irritating wavelengths without blocking too muchlight. These can be obtained at [employer] or Meet.com Foods: see list below. 2. Limit use of acute treatments (hdnv-qkh-pbmxgex medications, triptans, etc.) to no more than [...] and quiet environment. Relax and reduce stress. Vseckzv4Xowwt is a free zain that can instruct you on some simple relaxtionand breathing techniques. Http://[employer] is a free website that provides teaching [...] the need for medications. Counseling for pain ma nagement, where patients learn to function and ignore/minimize their pain, seems to work very well. 9. Recommend changing family's attention and focus away from patient's headaches. Instead, emphasize daily activities. If first question of day is 'How are your headaches/Do you have a headache today?', then patient will constantly think about headaches, thus making them worse. Goal is to re-directattention away from headaches, toward daily activities and other distractions. 10. Helpful Websites: www.AmericanHeadacheSociety.org www.migrainetrust.org www.headaches.org www.migraine.org.uk www.achenet.org 11. HEADACHE EXPECTATIONS: There are many types of headaches, and only a rare few in which complete relief can be expected. Ingeneral, there is no cure for headache, especially [...] how many medications or other treatments we try.Our treatment strategy is to evaluate for possible causes of your headache, although testing is usually always normal, even in cases of daily continuous headaches for years. Most types of headache such as migraine are electrical brain disorders (similar to how epilepsy is an electrical brain disorders). Therefore, there is no testing that will reveal this dysfunctional electrical circuitry suchon MRI, or other testing. We try to [...] We can not predict if or when exac tly you will respond to a treatment that we provide. Preventive headache medications take 4-6 weeks to start working, and 2-3 months to see full effect,assuming you reach an effective dose. Therefore, calling or messaging frequently because you have aheadache flare prior to the 3 month everton is unlikely to change anything, and unfortunately there isnothing available that will expedite this, so please try to avoid this. Our recommendation will gene rally be to give it adequate time first. [...] ensuing treatment plans will be released via Habbo and discussedduring your follow-up appointment. Follow-up appointments are primarily provided by the Nurse Practitioners and Physician s Assistants in order to provide timely, accessible care. Habbo: Please ask the schedulers to give you an activation code. The main way of communication isby Habbo rather than phone lines, so if you have not signed up, please do so. Habbo is also theway that you can review your labs and testing. We are not able to contact everyone to tell them results are normal. If you do not hear back from us regarding testing you have had, it should be considered normal or within normal range. If you have any questions about the results, you are free to message us. Habbo is meant for simple questions regarding medications, possible side effects, or other simplestraight forward questions in limited sentences, rather than multiple paragraphs of discussion. Habbo is not meant for, or efficient for these complex questions, extensive questions, extensive medication adjustments, complex new symptoms or concerns. These issues beyond simple questions require afollow up visit with myself, one of our physician assistants, nurse practitioners, or a Virtual Visit via computer or smart phone, as detailed further down. Please contact [employer] Support if you are having issues with Habbo or logging in to your virtual visit appointment. You can reach them at [phone] Refills: Please pay attention to when your refills will need to be renewed. Due to the volume of phone callsdaily, this could potentially take a few days, [...] You will know if you are food sensitiveif you get a headache consistently 20 minutes [...] pepperoni, Pickled oconnell Pods of broad denny (Syriac beans, Samoan pea pods, Costa Rican (steffanie) beans, aguilera and navy beans Ripe avocado, ripe banana Yeast extracts or active yeast preparations such as Hay's or Ok's (commercial bakes goodsare permitted) Tomato based foods, pizza (lasagna, etc.) MSG (monosodium glutamate) is disguised as many things; look for these common aliases: Monopotassium glutamate Autolysed yeast Hydrolysed protein Sodium caseinate flavorings all natural preservatives Nutrasweet Avoid all other foods that convincingly provoke headaches. documented in [facility] encounter[facility]22 History of Present illness Narrative* Ailyn Santana APRN.CNP - 03/23/2022 9:00 AM EDT NO SHOW Primary Problem List: ACTIVE PROBLEM [...] last month? : 10 documented in this encounterMercy Health05-23-2022 Miscellaneous Notes* Telephone Encounter - Jessica Zimmerman RN - 01/10/2022 9:51 AM EDT Ambulatory Pharmacy Prior Authorization Note Provider Intervention Required?: No- Pharmacy completed on your behalf. Drug: Emgality 120MG/ML auto-injectors (migraine) Cover My Meds Salazar: [id number] Determination: Approved Prior Authorization/Case #: [id number] Prior Authorization Expiration: 04/09/22 Time to PA [...] no interruption in patient's ability to obtain medic ation refills. Prescriptions will now be processed through [facility] for determination of next steps. For questions relating to this submission, please contact [facility] [phone] * Telephone Encounter - Jessica Zimmerman RN - 01/09/2022 6:18 PM EDT [facility] received prescription(s) for Emgality 120MG/ML auto-injectors (migraine) . Benefits investigation was conducted, indicating that a prior authorization is required. PA was initiated and pending review through [employer]. All pertinent clinical information was submitted to insurance. CMM Salazar: [id number] Ordering Provider: MD Erasmo Calderon Alisha, RN [facility] P: , F: documented in this encounterMercy Health05-05-2022 Miscellaneous Notes* Telephone Encounter - Teodora Mcgraw RPh - 12/23/2021 7:36 AM EDT Prescription for Ajovy is not covered by patient's insurance and rejects as a non-formulary product. Patient's insurance prefers Aimovig or Emgality. Can [facility] receive a new E-Script for a preferred insurance product, if appropriate? Thank you! Teodora Mcgraw [facility] [phone] documented in this encounterMercy Health04-06-2022 History of Present illness Narrative* Sonia Carrillo PA-C - 11/24/2021 1:00 PM EDT Images from the original note were not included. [facility] NEURO-ONCOLOGY VIRTUAL VISIT NOTE (via Silverpop) This is a virtual visit using HIPAA compliant video platform. It required patient-provider interaction for the medical decision making as documented below. PURPOSE OF VISIT: Consultation requested by Dr. Ramirez for an opinion regarding subependymoma andmy final recommendations will be communicated to the [...] answered. I spent more than 30 minutes manx-qi-qazg with the patient and over half the time was devoted to counseling and/or coordination of care. Sonia Carrillo PA-C cc: Dr. Ramirez via [employer] Subjective HISTORY OF PRESENT ILLNESS: Rhiannon Valdivia [...] he reports that it does not help. Heis taking Gabapentin. He denies any other Neurological [...] Cancer Father esophogeal other (grandparent [Other]) Unknown ID heart disease Current Outpatient Medications Medication Sig [...] 11/23/21 KPS SCORE: 90 documented in this encounterMercy Health04-06-2022 History of Present illness Narrative* Sonia Carrillo PA-C - 11/24/2021 9:30 AM EDT Appointment rescheduled to later in the day since images were not available in Epic. Sonia Carrillo PA-C documented in this encounterMercy HealthEvaluation + Plan note Future Appointments Appointment Date:02/11/2025 01:30:00 PM Scheduled Provider:Samuel PLASENCIA MD Location:[facility] Appointment Type:URO Procedure 15 min Diagnostic Tests Pending * PSA Total 01/20/25 [facility] evaluation + Plan note Future Appointments Appointment Date:06/23/2025 10:45:00 AM Scheduled Provider:Samuel PLASENCIA MD Location:[facility] Appointment Type:URO Office Visit [facility] Evaluation noteNo assessment information available [facility] Work Phone: Evaluation note* 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 Episodic cluster headache documented in this encounter [facility] note* 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 [facility] Diagnosis NO SHOW- Primary documented in this encounter [facility] note* Diagnosis Migraine without aura and without status migrainosus, not intractable- Primary Migraine without aura, without mention of intractable migraine without mention of status migrainosus Chronic mixed headache syndrome Other headache syndromes Cervicalgia Morning headache Headache Snoring Other dyspnea and respiratory abnormality Insomnia, unspecified type documented in this encounter [facility] note* Diagnosis Migraine without aura and without status migrainosus, not intractable Migraine without aura, without mention of intractable migraine without mention of status migrainosus Chronic mixed headache syndrome Other headache syndromes [facility] Diagnosis Migraine without aura and without status migrainosus, not intractable Migraine without aura, without mention of intractable migraine without mention of status migrainosus Chronic mixed headache syndrome Other headache syndromes [facility] 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 [facility]* Diagnosis Migraine without aura and without status migrainosus, not intractable Migraine without aura, without mention of intractable migraine without mention of status migrainosus Chronic mixed headache syndrome Other headache syndromes [facility] Diagnosis Migraine without aura and without status migrainosus, not intractable Migraine without aura, without mention of intractable migraine without mention of status migrainosus Chronic mixed headache syndrome Other headache syndromes [facility]* Diagnosis Migraine without aura and without status migrainosus, not intractable- Primary Migraine without aura, without mention of intractable migraine without mention of status migrainosus Medication management Encounter for long-term (current) use of other medications Chronic mixed headache syndrome Other headache syndromes Morning headache Headache Chronic daily headache Headache Cervicalgia [facility]* Diagnosis Migraine without aura and without status migrainosus, not intractable Migraine without aura, without mention of intractable migraine without mention of status migrainosus Chronic mixed headache syndrome Other headache syndromes [facility]* 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 Spinal stenosis of cervical region Spinal stenosis in cervical region [facility]* Diagnosis Neck pain- Primary Cervicalgia Spinal stenosis in cervical region [facility]* Diagnosis Neck pain- Primary Cervicalgia Spinal stenosis in cervical region 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 at elbow of right upper extremity Cervical spondylosis without myelopathy Cervicogenic headache Headache Cluster headache, not intractable, unspecified chronicity pattern [facility]* Diagnosis Basal cell carcinoma (BCC) of skin of left upper extremity including shoulder- Primary documented in this encounter [facility] note* Diagnosis Cervical spondylosis without myelopathy- Primary Cervicogenic headache Headache [facility] Diagnosis Cervical spondylosis without myelopathy- Primary [facility]* Diagnosis Basal cell carcinoma (BCC) of skin of right upper extremity including shoulder- Primary Encounter for removal of sutures [facility]* Diagnosis Melanocytic nevus of trunk- Primary Benign neoplasm of skin of trunk, except scrotum Hx of basal cell carcinoma Personal history of other malignant neoplasm of skin Inflamed seborrheic keratosis Actinic keratosis Seborrheic keratosis Neoplasm of unspecified behavior of bone, soft tissue, and skin documented in this encounter [facility]* Diagnosis LFT elevation- Primary Elevated glucose Other abnormal glucose documented in this encounter [facility]* Diagnosis Cervical spondylosis without myelopathy- Primary [facility]* Diagnosis Dermatitis- Primary Contact dermatitis and other eczema, due to unspecified cause Strain of lumbar region, initial encounter Subependymoma (CMS/HCC) Neoplasm of uncertain behavior of brain and spinal cord documented in this encounter [facility]* Diagnosis Brain lesion [G93.9]- Primary Other conditions of brain [facility]* 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 Brain lesion Other conditions of brain [facility]* Diagnosis Seborrheic keratosis- Primary Bacterial folliculitis Other specified disease of hair and hair follicles Neoplasm of unspecified behavior of bone, soft tissue, and skin Melanocytic nevus of trunk Benign neoplasm of skin of trunk, except scrotum Lentigines documented in this encounter [facility]* Diagnosis Routine general medical [...] Lumbar pain Lumbago documented in this encounter [facility]* Diagnosis Rash and other nonspecific skin eruption documented in this encounter [facility]* Diagnosis Hypersensitivity reaction, initial encounter- Primary Encounter for removal of sutures documented in this encounter [facility]* Diagnosis Basal cell carcinoma of back- Primary documented in this encounter [facility]* Diagnosis Chronic migraine without aura without status migrainosus, not intractable- Primary Chronic migraine without aura, without mention of intractable migraine without mention of status migrainosus Cervicogenic headache Headache Chronic pain syndrome [facility]* Diagnosis Chronic migraine without aura without status migrainosus, not intractable- Primary Chronic migraine without aura, without mention of intractable migraine without mention of status migrainosus [facility]* Diagnosis Basal cell carcinoma (BCC) of skin of left upper extremity including shoulder- Primary Neoplasm of unspecified behavior of bone, soft tissue, and skin Encounter for removal of sutures documented in this encounter [facility]* Diagnosis Strain of lumbar region, initial encounter documented in this encounter [facility]* Diagnosis Cervical spondylosis without myelopathy- Primary Cervicogenic headache Headache [facility]* Diagnosis Chronic daily headache- Primary Headache Migraine with aura and without status migrainosus, not intractable Migraine with aura, without mention of intractable migraine without mention of status migrainosus Cervicalgia [facility] Narrative No data available for this section [facility] progress note No data available for this section [facility] Chief Complaint and Reason for Visit [...] December 24, 2024 10:11a m Advance Directives No Advanced Directives Records Found Advance Directive Response Recorded Date/ Time Advance Directives No February 15 4:12pm Advance Directive Response Recorded Date/ Time Advance Directives No February 15 3:12pm Reason for Referral SpecialtyDiagnoses / ProceduresReferred By ContactReferred To Contact Diagnoses Intractable episodic cluster headache Procedures CONSULT TO HEADACHE CLINIC OFFICE/OUTPATIENT [facility] 60-74 MINUTES Sonia Carrillo PA-C [address] [place] [address] Referral IDStatusReasonStart DateExpiration DateVisits RequestedVisits [id number] Review PCP Requested Referral /[id number] / ProceduresReferred By ContactReferred To ContactMR IMAGING Diagnoses Subependymoma (HCC) Procedures MRI BRAIN WO/W IVCON MRI BRAIN BRAIN STEM W/O W/CONTRAST MATERIAL Sonia Carrillo PA-C [address] [place] [address] [facility] Referral IDStatusReasonStart DateExpiration DateVisits RequestedVisits [id number] Review Auto-Generated Referral [id number] / ProceduresReferred By ContactReferred To Contact Diagnoses Cervicalgia Migraine without aura and without status migrainosus, not intractable Chronic mixed headache syndrome Procedures PROVIDER ORDERED FOLLOW UP OFFICE/OUTPATIENT [facility] 60-74 MINUTES Ailyn Santana APRN.CNP [address] [place] [address] Referral IDStatusReasonStart DateExpiration DateVisits RequestedVisits [id number] Review PCP Requested Referral [id number] / ProceduresReferred By ContactReferred To Contact Diagnoses Morning headache Snoring Insomnia, unspecified type Procedures CONSULT TO SLEEP MEDICINE - ADULT OFFICE/OUTPATIENT [facility] 60-74 MINUTES Ailyn Santana APRN.CNP [address] [place] [address] Referral IDStatusReasonStart DateExpiration DateVisits RequestedVisits [id number] Review PCP Requested Referral /[id number] IDStatusReasonStart DateExpiration DateVisits RequestedVisits [id number] Review Auto-Generated Referral /[id number] / ProceduresReferred By ContactReferred To Contact Diagnoses Migraine without aura and without status migrainosus, not intractable Morning headache Chronic daily headache Cervicalgia Procedures PROVIDER ORDERED FOLLOW UP OFFICE/OUTPATIENT [facility] 60-74 MINUTES Ailyn Santana BIOLOGICAL TECHNICIAN.VEGETABLE WORKER [address] [place] [address] Referral IDStatusReasonStart DateExpiration DateVisits RequestedVisits [id number] Review PCP Requested Referral /[id number] / ProceduresReferred By ContactReferred To Contact IMAGING Diagnoses Subependymoma (HCC) Procedures MRI BRAIN WO/W IVCON MRI BRAIN BRAIN STEM W/O W/CONTRAST MATERIAL Hardik Carreon, BIOLOGICAL TECHNICIAN.VEGETABLE WORKER [address] [place] [address] [facility] [place] [address] Referral IDStatusReasonStart DateExpiration DateVisits RequestedVisits [id number] Review Auto-Generated Referral /[id number] / ProceduresReferred By ContactReferred To ContactMR IMAGING Diagnoses Spinal stenosis of cervical region Procedures MRI CERVICAL SPINE WO/W IVCON MRI SPINAL CANAL CERVICAL W/O & W/CONTR MATRL Rapid RiverHardik, BIOLOGICAL TECHNICIAN.VEGETABLE WORKER [address] [place] [id number] [facility] [place] [address] Referral IDStatusReasonStart DateExpiration DateVisits RequestedVisits [id number] Review Auto-Generated Referral /[id number] / ProceduresReferred By ContactReferred To [facility] Diagnoses Neck pain Spinal stenosis in cervical region Procedures CONSULT TO [facility] MEDICAL CENTER OFFICE/OUTPATIENT [facility] MDM 60 MINUTES Hardik Carreon APRN.VEGETABLE WORKER [address] [facility] [address] [place] [id number] Referral IDStatusReasonStart DateExpiration DateVisits RequestedVisits [id number] PCP Requested Referral [id number] / ProceduresReferred By ContactReferred To Contact Diagnoses Cluster headache, not intractable, unspecified chronicity pattern Procedures CONSULT TO HEADACHE CLINIC OFFICE/OUTPATIENT [facility] MDM 60 MINUTES John Calvo MD [address] [place] [id number] Referral IDStatusReasonStart DateExpiration DateVisits RequestedVisits [id number] PCP Requested Referral [id number] / ProceduresReferred By ContactReferred To ContactREHAB AND SPORTS THERAP[facility] INS Diagnoses Cervical spondylosis without myelopathy Cervicogenic headache Procedures CONSULT TO PHYSICAL THERAPY PHYSICAL THERAPY EVALUATION HIGH COMPLEX 45 MINS John Calvo MD [address] [place] [address] [facility] [address] [place] [address] Referral IDStatusEllynasonStkit carson DateExpiration DateVisits RequestedVisits [id number] PCP Requested Referral Auto-Generated Referral [id number] Summary Purpose Family History No Family History Records FoundNo Family History Records FoundNo Family History Records FoundNo Family History Records FoundNo Family History Records Found No data available for this section No data available for this section No Family History Records FoundNo Family History Records FoundNo Family History Records FoundNo Family History Records Found Additional Source Comments Care Teams (unrecognized sec tion and content) Team Status: Active Member Role Status Dates Manfred Gutierrez II MD Primary Care Provider Active Team Status: Inactive Member Role Status Dates Manfred Gutierrez II MD Primary Care Provider Active [facility] ProviderActive Team Status: Inactive Member Role Status Dates Manfred Gutierrez II MD Primary Care Provider Active Eduard Ramirez , [facility] ProviderActiveTeam MemberRelationship SpecialtyStart DateEnd Date Manfred Gutierrez II [address] [place] [address] PCP - GeneralInternal Medicine05/07/21 Surehs Cullen, DO [address] [place] [address] ReferringNeurology03/31/21Team MemberRelationshipSpecialtyStart DateEnd Date aMnfred Gutierrez II [address] [place] [address] PCP - GeneralInternal Medicine05/07/21 Suresh Cullen, DO [address] [place] [phone] ReferringNeurology03/31/21Team MemberRelationshipSpecialtyStart DateEnd Date Manfred Gutierrez II [address] [place] [address] PCP - GeneralInternal Medicine05/07/21 Suresh Cullen, DO [address] [place] [address] ReferringNeurology03/31/21Team MemberRelationshipSpecialtyStart DateEnd Date Manfred Gutierrez II [address] [place] [address] PCP - GeneralInternal Medicine05/07/21 Suresh Cullen, DO [address] [place] [address] ReferringNeurology03/31/21Team MemberRelationshipSpecialtyStart DateEnd Date Manfred Gutierrez II [address] [place] [address] PCP - GeneralInternal Medicine05/07/21 Suresh Cullen, DO [address] [place] [address] ReferringNeurology03/31/21Team MemberRelationshipSpecialtyStart DateEnd Date Manfred Gutierrez II [address] [place] [address] PCP - GeneralInternal Medicine05/07/21 Suresh Cullen, DO [address] [place] [address] ReferringNeurology03/31/21Team MemberRelationshipSpecialtyStart DateEnd Date Manfred Gutierrez II [address] [place] [address] PCP - GeneralInternal Medicine05/07/21 Suresh Cullen, DO [address] [place] [address] ReferringNeurology03/31/21Team MemberRelationshipSpecialtyStart DateEnd Date Manfred Gutierrez II [address] [place] [address] PCP - GeneralInternal Medicine05/07/21 Suresh Cullen, DO [address] [place] [address] ReferringNeurology03/31/21Team MemberRelationshipSpecialtyStart DateEnd Date Manfred Gutierrez II [address] [place] [address] PCP - GeneralInternal Medicine05/07/21 Suresh Cullen, DO [address] [place] [address] ReferringNeurology03/31/21Team MemberRelationshipSpecialtyStart DateEnd Date Manfred Gutierrez II [address] [place] [address] PCP - GeneralInternal Medicine05/07/21 Suresh Cullen DO [address] [place] [phone] ReferringNeurology03/31/21Team MemberRelationshipSpecialtyStart DateEnd Date Manfred Gutierrez II, MD [address] [facility] [address] [place] [address] PCP - GeneralInternal Medicine05/07/21 Suresh Cullen, DO [address] [place] [phone] ReferringNeurology03/31/21Team MemberRelationshipSpecialtyStart DateEnd Date Manfred Gutierrez II, MD [address] [place] [address] PCP - GeneralInternal Medicine05/07/21 Suresh Cullen, DO [address] [place] [phone] ReferringNeurology03/31/21Team MemberRelationshipSpecialtyStart DateEnd Date Manfred Gutierrez II, MD [address] [place] [address] PCP - GeneralInternal Medicine05/07/21 Suresh Cullen DO [address] [place] [phone] ReferringNeurology03/31/21 Team Status: Inactive Member Role Status Dates Manfred Gutierrez II MD Primary Care Provider Active Start: December 18, 2023 End: December 17PREET Renteria-CAttending ProviderActiveStart: December 18, 2023 End: December 18, 2023Team MemberRelationshipSpecialtyStart DateEnd Date Manfred Gutierrez II, MD [address] [facility] [address] [place] [address] PCP - GeneralInternal Medicine05/07/21 Suresh Cullen DO [address] [place] [address] [phone] ReferringNeurology03/31/21 Team Status: Inactive Member Role Status Dates Manfred Gutierrez II MD Primary Care Provider Active Start: January 10, 2024 End: January 10, 2024Tara Suleiman NP-CAttending ProviderActiveStart: January 10, 2024 End: January 10, 2024Team MemberRelationshipSpecialtyStart DateEnd Date Manfred Gutierrez II, MD [address] [facility] [address] [place] [address] PCP - GeneralInternal Medicine05/07/21 Suresh Cullen DO [address] [place] [address] [phone] ReferringNeurology03/31/21Team MemberRelationshipSpecialtyStart DateEnd Date Manfred Gutierrez II, MD [address] [facility] [address] [place], [place] [id number] PCP - GeneralInternal Medicine05/07/21 Suresh Cullen DO [address] [place] [phone] ReferringNeurology03/31/21Team MemberRelationshipSpecialtyStart DateEnd Date Manfred Gutierrez MD [address] [facility] [address] [place] [address] PCP - ACO Reach01/12/23 Manfred Gutierrez MD [address] [facility] [address] [place] [address] PCP - GeneralInternal Medicine12/27/22Team MemberRelationshipSpecialtyStart Date End Date Manfred Gutierrez II, MD [address] [facility] [address] [place] [address] PCP - GeneralInternal Medicine05/07/21 Suresh Cullen DO [address] [place] [phone] ReferringNeurology03/31/21Team MemberRelationshipSpecialtyStart DateEnd Date Manfred Gutierrez II, MD [address] [facility] [address] [place] [address] PCP - GeneralInternal Medicine05/07/21 Suresh Cullen DO [address] [place] [phone] ReferringNeurology03/31/21 Team Status: Inactive Member Role Status Dates Manfred Gutierrez II MD Primary Care Provider Active Start: June 18, 2024 End: June 18, 2024John Calvo MDAttrosa m ProviderActiveStart: June 18, 2024 End: June 18, 2024Team MemberRelationshipSpecialtyStart DateEnd Date Manfred Gutierrez MD [address] [facility] [address] [place] [address] PCP - ACO Reach01/12/23 Manfred Gutierrez MD [address] [facility] [address] [place] [address] PCP - GeneralInternal Medicine12/27/22Team MemberRelationshipSpecialtyStart Date End Date Manfred Gutierrez MD [address] [facility] [address] [place] [address] PCP - ACO Reach01/12/23 Manfred Gutierrez MD [address] [facility] [address] [place] [address] PCP - GeneralInternal Medicine12/27/22Team MemberRelationshipSpecialtyStart Date End Date Manfred Gutierrez II, MD [address] [facility] [address] [place] [address] PCP - GeneralInternal Medicine05/07/21 Suresh Cullen DO [address] [place] [phone] ReferringNeurology03/31/21Team MemberRelationshipSpecialtyStart DateEnd Date Manfred Gutierrez MD [address] [facility] [address] [place] [address] PCP - ACO Reach01/12/23 Manfred Gutierrez MD [address] [facility] [address] [place] [address] [facility] - [facility]12/27/22Team MemberRelationshipSpecialtyStart Date End Date Manfred Gutierrez MD [address] [facility] [address] [place] [address] PCP - ACO [facility]01/12/23 Manfred Gutierrez MD [address] [facility] [address] [place] [address] [facility] - [facility]12/27/22Team MemberRelationshipSpecialtyStart Date End Date Manfred Gutierrez MD [address] [facility] [address] [place] [address] PCP - O [facility]01/12/23 Manfred Gutierrez MD [address] [facility] [address] [place] [address] PCP - [facility]12/27/22Te MemberRelationshipSpecialtyStart Date End Date Manfred Gutierrez MD [address] [facility] [address] [place] [address] PCP - O [facility]01/12/23 Manfred Gutierrez MD [address] [facility] [address] [place] [address] PCP - [facility]12/27/22Team MemberRelationshipSpecialtyStart Date End Date Manfred Gutierrez II, MD [address] [facility] [address] [place] [address] P[facility] - [facility]ern[facility]05/07/21 Suresh Cullen DO [address] [place] [phone] ReferringNeurology03/31/21 Team Status: Inactive Member Role Status Dates Manfred Gutierrez II MD Primary Care Provider Active Start: October 23, 2024 End: October 23, 2024John Calvo MDAttrosa m ProviderActiveStart: October 23, 2024 End: October 23, 2024Team MemberRelationshipSpecialtyStart DateEnd Date Manfred Gutierrez MD [address] [facility] [address] [place] [address] PCP - GeneralInternal Medicine12/27/22 Team Status: Inactive Member Role Status Dates Manfred Gutierrez II MD Primary Care Provider Active Start: December 24, 2024 End: December 24, 2024Tara Carreon HERD TESTER-CAttensen ProviderActiveStart: December 24, 2024 End: December 24, 2024Team MemberRelationshipSpecialtyStart DateEnd Date Manfred Gutierrez II, MD [address] [facility] [address] [place] [address] PCP - GeneralInternal Medicine05/07/21 Suresh Cullen, DO [address] [place] [phone] ReferringNeurology03/31/21Team MemberRelationshipSpecialtyStart DateEnd Date Manfred Gutierrez II, MD [address] [facility] [address] [place] [address] PCP - GeneralInternal Medicine05/07/21 Suresh Cullen DO [address] [place] [phone] ReferringNeurology03/31/21Team MemberRelationshipSpecialtyStart DateEnd Date Manfred Gutierrez MD [address] [facility] [address] [place] [address] PCP - GeneralInternal Medicine12/27/22am MemberRelationshipSpecialtyStart Date End Date Manfred Gutierrez MD [address] [facility] [address] [place] [address] PCP - GeneralInternal Medicine12/27/22am MemberRelationshipSpecialtyStart Date End Date Manfred Gutierrez MD [address] [facility] [address] [place] [address] PCP - GeneralInternal Medicine12/27/22am MemberRelationshipSpecialtyStart Date End Date Manfred Gutierrez MD [address] [facility] [address] [place] [address] PCP - GeneralInternal Medicine12/27/22 MemberRelationshipSpecialtyStart Date End Date Manfred Gutierrez MD [address] [facility] [address] [place] [address] PCP - GeneralInternal Medicine12/27/22am MemberRelationshipSpecialtyStart Date End Date Manfred Gutierrez MD [address] [facility] [address] [place] [address] PCP - GeneralInternal Medicine12/27/22am MemberRelationshipSpecialtyStart Date End Date Manfred Gutierrez MD [address] [facility] [address] [place] [address] PCP - GeneralInternal Medicine12/27/22am MemberRelationshipSpecialtyStart Date End Date Manfred Gutierrez MD [address] [facility] [address] [place] [address] PCP - GeneralInternal Medicine12/27/22Team MemberRelationshipSpecialtyStart Date End Date Manfred Gutierrez MD [address] [facility] [address] [place] [address] PCP - GeneralInternal Medicine12/27/22Team MemberRelationshipSpecialtyStart Date End Date Manfred Gutierrez II, MD [address] [facility] [address] [place] [address] PCP - GeneralInternal Medicine05/07/21 Suresh Cullen DO [address] [place] [phone] ReferringNeurology03/31/21Team MemberRelationshipSpecialtyStart DateEnd Date Manfred Gutierrez II, MD [address] [facility] [address] [place] [address] PCP - GeneralInternal Medicine05/07/21 Suresh Cullen DO [address] [place] [phone] ReferringNeurology03/31/21Team MemberRelationshipSpecialtyStart DateEnd Date Manfred Gutierrez MD [address] [facility] [address] [place] [address] PCP - GeneralInternal Medicine12/27/22 Goals (unrecognized section and content) Goals may be documented in a n alternate sectionGoals may be documented in an alternate sectionGoals may be documented in an alternate sectionGoals may be documented in an alternate sectionGoals may be documented in an alternate sectionGoals may be documented in an alternate sectionGoals may be documented in an alternate section No data available for this section No data available for this section Source Comments (unrecognize d section and content) In the event this informatio n is protected by the Federal Confidentiality of Alcohol and Drug Abuse Patient Records regulations: The Federal rules restrict any use of the information to criminally investigate or prosecute any alcohol or drug abuse patient.[facility] HealthIn the event this information is protected by the Federal Confidentiality of Alcohol and Drug Abuse Patient Records regulations: The Federal rules restrict any use of the information to criminally investigate or prosecute any alcohol or drug abuse patient.[facility] HealthIn the event this information is protected by the Federal Confidentiality of Alcohol and Drug Abuse Patient Records regulations: The Federal rules restrict any use of the information to criminally investigate or prosecute any alcohol or drug abuse patient.[facility] HealthIn the event this information is protected by the Federal Confidentiality of Alcohol and Drug Abuse Patient Records regulations: The Federal rules restrict any use of the information to criminally investigate or prosecute any alcohol or drug abuse patient.[facility] HealthIn the event this information is protected by the Federal Confidentiality of Alcohol and Drug Abuse Patient Records regulations: The Federal rules restrict any use of the information to criminally investigate or prosecute any alcohol or drug abuse patient.[facility] HealthIn the event this information is protected by the Federal Confidentiality of Alcohol and Drug Abuse Patient Records regulations: The Federal rules restrict any use of the information to criminally investigate or prosecute any alcohol or drug abuse patient.[facility] HealthIn the event this information is protected by the Federal Confidentiality of Alcohol and Drug Abuse Patient Records regulations: The Federal rules restrict any use of the information to criminally investigate or prosecute any alcohol or drug abuse patient.[facility] HealthIn the event this information is protected by the Federal Confidentiality of Alcohol and Drug Abuse Patient Records regulations: The Federal rules restrict any use of the information to criminally investigate or prosecute any alcohol or drug abuse patient.[facility] HealthIn the event this information is protected by the Federal Confidentiality of Alcohol and Drug Abuse Patient Records regulations: The Federal rules restrict any use of the information to criminally investigate or prosecute any alcohol or drug abuse patient.[facility] HealthIn the event this information is protected by the Federal Confidentiality of Alcohol and Drug Abuse Patient Records regulations: The Federal rules restrict any use of the information to criminally investigate or prosecute any alcohol or drug abuse patient.[facility] HealthIn the event this information is protected by the Federal Confidentiality of Alcohol and Drug Abuse Patient Records regulations: The Federal rules restrict any use of the information to criminally investigate or prosecute any alcohol or drug abuse patient.[facility] HealthIn the event this information is protected by the Federal Confidentiality of Alcohol and Drug Abuse Patient Records regulations: The Federal rules restrict any use of the information to criminally investigate or prosecute any alcohol or drug abuse patient.[facility] HealthIn the event this information is protected by the Federal Confidentiality of Alcohol and Drug Abuse Patient Records regulations: The Federal rules restrict any use of the information to criminally investigate or prosecute any alcohol or drug abuse patient.[facility] HealthIn the event this information is protected by the Federal Confidentiality of Alcohol and Drug Abuse Patient Records regulations: The Federal rules restrict any use of the information to criminally investigate or prosecute any alcohol or drug abuse patient.[facility] HealthIn the event this information is protected by the Federal Confidentiality of Alcohol and Drug Abuse Patient Records regulations: The Federal rules restrict any use of the information to criminally investigate or prosecute any alcohol or drug abuse patient.[facility] ClinicIn the event this information is protected by the Federal Confidentiality of Alcohol and Drug Abuse Patient Records regulations: The Federal rules restrict any use of the information to criminally investigate or prosecute any alcohol or drug abuse patient.[facility] HealthIn the event this information is protected by the Federal Confidentiality of Alcohol and Drug Abuse Patient Records regulations: The Federal rules restrict any use of the information to criminally investigate or prosecute any alcohol or drug abuse patient.[facility] HealthIn the event this information is protected by the Federal Confidentiality of Alcohol and Drug Abuse Patient Records regulations: The Federal rules restrict any use of the information to criminally investigate or prosecute any alcohol or drug abuse patient.[facility] HealthIn the event this information is protected by the Federal Confidentiality of Alcohol and Drug Abuse Patient Records regulations: The Federal rules restrict any use of the information to criminally investigate or prosecute any alcohol or drug abuse patient.[facility] HealthIn the event this information is protected by the Federal Confidentiality of Alcohol and Drug Abuse Patient Records regulations: The Federal rules restrict any use of the information to criminally investigate or prosecute any alcohol or drug abuse patient.[facility] HealthIn the event this information is protected by the Federal Confidentiality of Alcohol and Drug Abuse Patient Records regulations: The Federal rules restrict any use of the information to criminally investigate or prosecute any alcohol or drug abuse patient.[facility] HealthIn the event this information is protected by the Federal Confidentiality of Alcohol and Drug Abuse Patient Records regulations: The Federal rules restrict any use of the information to criminally investigate or prosecute any alcohol or drug abuse patient.[facility] HealthIn the event this information is protected by the Federal Confidentiality of Alcohol and Drug Abuse Patient Records regulations: The Federal rules restrict any use of the information to criminally investigate or prosecute any alcohol or drug abuse patient.[facility] HealthIn the event this information is protected by the Federal Confidentiality of Alcohol and Drug Abuse Patient Records regulations: The Federal rules restrict any use of the information to criminally investigate or prosecute any alcohol or drug abuse patient.[facility] HealthIn the event this information is protected by the Federal Confidentiality of Alcohol and Drug Abuse Patient Records regulations: The Federal rules restrict any use of the information to criminally investigate or prosecute any alcohol or drug abuse patient.[facility] HealthIn the event this information is protected by the Federal Confidentiality of Alcohol and Drug Abuse Patient Records regulations: The Federal rules restrict any use of the information to criminally investigate or prosecute any alcohol or drug abuse patient.[facility] HealthIn the event this information is protected by the Federal Confidentiality of Alcohol and Drug Abuse Patient Records regulations: The Federal rules restrict any use of the information to criminally investigate or prosecute any alcohol or drug abuse patient.[facility] HealthIn the event this information is protected by the Federal Confidentiality of Alcohol and Drug Abuse Patient Records regulations: The Federal rules restrict any use of the information to criminally investigate or prosecute any alcohol or drug abuse patient.[facility] HealthIn the event this information is protected by the Federal Confidentiality of Alcohol and Drug Abuse Patient Records regulations: The Federal rules restrict any use of the information to criminally investigate or prosecute any alcohol or drug abuse patient.[facility] HealthIn the event this information is protected by the Federal Confidentiality of Alcohol and Drug Abuse Patient Records regulations: The Federal rules restrict any use of the information to criminally investigate or prosecute any alcohol or drug abuse patient.[facility] HealthIn the event this information is protected by the Federal Confidentiality of Alcohol and Drug Abuse Patient Records regulations: The Federal rules restrict any use of the information to criminally investigate or prosecute any alcohol or drug abuse patient.[facility] HealthIn the event this information is protected by the Federal Confidentiality of Alcohol and Drug Abuse Patient Records regulations: The Federal rules restrict any use of the information to criminally investigate or prosecute any alcohol or drug abuse patient.[facility] HealthIn the event this information is protected by the Federal Confidentiality of Alcohol and Drug Abuse Patient Records regulations: The Federal rules restrict any use of the information to criminally investigate or prosecute any alcohol or drug abuse patient.[facility] HealthIn the event this information is protected by the Federal Confidentiality of Alcohol and Drug Abuse Patient Records regulations: The Federal rules restrict any use of the information to criminally investigate or prosecute any alcohol or drug abuse patient.[facility] HealthIn the event this information is protected by the Federal Confidentiality of Alcohol and Drug Abuse Patient Records regulations: The Federal rules restrict any use of the information to criminally investigate or prosecute any alcohol or drug abuse patient.[facility] HealthIn the event this information is protected by the Federal Confidentiality of Alcohol and Drug Abuse Patient Records regulations: The Federal rules restrict any use of the information to criminally investigate or prosecute any alcohol or drug abuse patient.[facility] Reason for Visit (unrecogniz ed section and content) ReasonCommentsReceived Outside Medical RecordsScan reportReasonComments Established PatientReasonCommentsConsultReasonCommentsMedication ProblemAjovy ReasonCommentsInsurance AuthorizationEmgality 120MG/ML auto-injectors (migraine) ReasonCommentsNo ShowSpecialtyDiagnoses / ProceduresReferred By ContactReferred To Contact Diagnoses Chronic migraine without aura, with intractable migraine, so stated, with status migrainosus Procedures PROVIDER ORDERED FOLLOW UP OFFICE/OUTPATIENT NEW HIGH MDM 60-74 MINUTES Irineo Molina MD [address] [place] [address] Referral IDStatusReasonStart DateExpiration DateVisits RequestedVisits [id number] Review PCP Requested Referral [id number]upvrBxejpjrjr / ProceduresReferred By ContactReferred To Contact Diagnoses Chronic migraine without aura, with intractable migraine, so stated, with status migrainosus Procedures PROVIDER ORDERED FOLLOW UP OFFICE/OUTPATIENT NEW [facility] MDM 60-74 MINUTES Irineo Molina MD [address] [place] [phone] ReasonCommentsRefill RequestReasonCommentsOrdersMRI orderReasonComments Established PatientReasonOnset DateCommentsRefill Grfcrsm7103/10/2023Reason CommentsMigraineReasonOnset DateCommentsRefill Jgkurbx87/21/2024ReasonComments New PatientNeck pain , spinal stenosis cervicalSpecialtyDiagnoses / Procedures Referred By ContactReferred To [facility] Diagnoses Neck pain Spinal stenosis in cervical region Procedures [facility] OFFICE/OUTPATIENT [facility] 60 MINUTES Hardik Carreon APRN.CNP [address] [place] [id number] Referral IDStatusReasonStart DateExpiration DateVisits RequestedVisits [id number] PCP Requested Referral [id number]habaWpikkmffJprfnt UpNeck painReason CommentsPre-injection instructionsReasonCommentsSkin CheckReasonComments Follow-upPer telephone call advised to stop metoprolol due to low b/pResultslab ReasonCommentsAppointmentReasonCommentsRashHe has had the rash for about 1 month, it is all over his back and is spreading to his neck and chest. It is red and it itches and lennon a little. He has tried Hydrocortisone cream and Clobetasol cream on it and it is not helping. He does have an appt with Derm 01/02 for yearly skin check. Initiallyit did get better, but after using a heating pad it started to flare back up again. 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 ReasonCommentsMedicare Annual Wellness Visit SubsequentResultsLab resultsReason CommentsFollow-upReasonCommentsRashReasonCommentsNew PatientHeadachesHeadache CervicalgiaSpecialtyDiagnoses / ProceduresReferred By ContactReferred To Contact Diagnoses Cluster headache, not intractable, unspecified chronicity pattern Procedures CONSULT TO [facility] OFFICE/OUTPATIENT [facility] MDM 60 MINUTES John Calvo MD [address] [address] Phone: tel: fax: Referral IDStatusReasonStart DateExpiration DateVisits RequestedVisits [id number] PCP Requested Referral [id number] / Staple Removal Follow-upReasonCommentsMed Change RequestReasonCommentsMedication ProblemReason CommentsFollow UpCervical spondylosis without myelopathyReasonCommentsFollow Up (unrecognized sect ion and content) No Status Records FoundNo Status Records FoundNo Status Records FoundNo Status Records FoundNo Status Records FoundNo Status Records FoundNo Status Records FoundNo Status Records FoundNo Status Records Found INFORMATION SOURCE (unrecogn ized section and content) DATE CREATED AUTHOR 12/23/2021 [facility] DATE CREATED AUTHOR AUTHOR'S ORGANIZ ATION 12/05/2022 [facility] DATE CREATED AUTHOR AUTHOR'S ORGANIZ ATION 08/10/2024 [facility] DATE CREATED AUTHOR AUTHOR'S ORGANIZ ATION 12/29/2024 [facility] DATE CREATED AUTHOR AUTHOR'S ORGANIZ ATION 01/01/2025 [facility] DATE CREATED AUTHOR AUTHOR'S ORGANIZ ATION 02/12/2025 [facility] DATE CREATED AUTHOR AUTHOR'S ORGANIZ ATION 02/21/2025 [facility] DATE CREATED AUTHOR AUTHOR'S ORGANIZ ATION 04/04/2025 [facility] DATE CREATED AUTHOR AUTHOR'S ORGANIZ ATION 05/08/2025 [facility] FOR RECORDS PERTAINING TO PATIENTS WHO ARE [...] BE BASED ON THE PRIMARY CLINICAL RECORDS. [facility]. provides no warranty or guarantee of the accuracy or completeness of information in this document.
[2025-06-16 13:59] LABS: Prostate Specific Antigen Dx 4.24 ng/mL (<=4.00)
== END 2025-06-16 12:56 | disposition home or self-care (01) ==
LOC: LAB 12:56
PROVIDERS: PCP Internal Medicine; Visit Provider Urology
DX: R97.20 Elevated prostate specific antigen [PSA] (principal); Z80.42 Family history of malignant neoplasm of prostate
CPT/HCPCS: 36415; 84153